=== PATIENT | female | born 1955 | race Caucasian/White ===

== ENCOUNTER 2016-03-19 13:04 | Inpatient (IN) | payer OTHER ==
[~2016-03-19] VITALS: Ht 160 cm; Wt 106.0 kg
[~2016-03-19 13:04] MED LIST: AMLO2.5T78 PO; ASPI81TA3 PO; ATEN50TA PO; ATOR20TA38 PO; LEVO50TA74 PO; NOVO7030 SC; OMEP20CA16 PO
--- NOTE | 2016-03-19 14:12 | ERA ---
ER Documentation Chief Complaint Date/Time DATE: 03/19/16 TIME: 13:40 Chief Complaint SOB AND LEG SWELLING FOR A FEW MONTHS. WITH RECENT ESRD. HPI 60-year-old female diabetic, hypertensive, dyslipidemic, hypothyroid now with worsening renal failure and CKD stage V referred to the ED by Dr.B. Lopes for initiation of hemodialysis. Worsening lower extremity swelling but no calf pain or redness. Mild, exertional dyspnea and weakness but is otherwise asymptomatic. Denies chest pain or palpitations. No abdominal pain, nausea, vomiting, diarrhea or constipation. No URI symptoms or cough. No fevers or chills. ROS All systems reviewed and are negative except as per history of present illness. Medications Home Meds Reported Medications Clonidine Hcl* (Clonidine Hcl*) 0.1 Mg Tab, 0.1 MG PO BID, TAB 03/19/16 Folic Acid* (Folic Acid*) 1 Mg Tablet, 1 MG PO DAILY, TAB 03/19/16 Hydrochlorothiazide (Hydrochlorothiazide) 25 Mg Tablet, 25 MG PO DAILY, #30 TAB 03/19/16 Furosemide* (Furosemide*) 20 Mg Tablet, 20 MG PO DAILY, #60 TAB 03/19/16 Ferrous Gluconate (Ferrous Gluconate) 324 Mg Tablet, 324 MG PO BID, TAB 03/19/16 Levothyroxine Sodium* (Levothyroxine Sodium*) 50 Mcg Tablet, 75 MCG PO BEFORE BREAKFAST, #30 TAB 12/21/15 Insulin Isophan/Regular (Humulin 70/30) 100 Units/Ml Susp, 6 UNIT SC TID, EA 12/21/15 Amlodipine Besylate* (Amlodipine Besylate*) 2.5 Mg Tablet, 5 MG PO BID, #30 TAB 12/21/15 Omeprazole* (Omeprazole*) 20 Mg Capsule.dr, 20 MG PO DAILY, #30 CAP 12/21/15 Atenolol* (Atenolol*) 50 Mg Tablet, 50 MG PO DAILY, #30 TAB 12/21/15 Aspirin* (Aspirin* Chew) 81 Mg Tab.chew, 81 MG PO DAILY, TAB.CHEW 12/21/15 Atorvastatin Calcium* (Atorvastatin Calcium*) 20 Mg Tablet, 20 MG PO QHS, #30 TAB 12/21/15 Allergies Allergies: Coded Allergies: No Known Allergy (Verified , 12/21/15) PMhx/Soc Reviewed in chart. As per HPI History of Surgery: No Anesthesia Reaction: No Hx Neurological Disorder: Yes (TIA) Hx Respiratory Disorders: No Hx Cardiac Disorders: Yes (HTN) Hx Psychiatric Problems: No Hx Miscellaneous Medical Probl: Yes (DM, KIDNEY FAILURE) Hx Alcohol Use: No Hx Substance Use: No Hx Tobacco Use: No FmHx No stroke or cancer Physical Exam Vitals Vital Signs Date Time Temp Pulse Resp B/P Pulse Ox O2 Delivery O2 Flow Rate FiO2 03/19/16 13:07 98.5 60 20 146/69 99 Physical Exam Const: Alert, no acute distress. Head: Atraumatic Eyes: Normal Conjunctiva ENT: Normal External Ears, Nose and Mouth. Neck: Full range of motion. No JVD. Resp: Diminished at the bases but otherwise clear to auscultation. Cardio: Regular rate and rhythm, no murmurs Abd: Soft, non tender, non distended. Normal bowel sounds. Obese. Skin: No petechiae or rashes Back: No midline or flank tenderness Ext: 2+ bilateral lower extremity pitting edema. No calf tenderness. Neur: Awake and alert. Cranial nerves II through XII are grossly intact. No focal deficit observed. Psych: Normal Mood and Affect Result Diagram: 03/19/16 1403 03/19/16 1403 Results 24 hrs Laboratory Tests Test 03/19/16 14:03 Activated Partial Thromboplast Time 36.8Sec Alanine Aminotransferase (ALT/SGPT) 20IU/L Albumin 3.4g/dl Albumin/Globulin Ratio 0.82 Alkaline Phosphatase 111IU/L Anion Gap 21 Aspartate Amino Transf (AST/SGOT) 16IU/L Basophils # 0.010^3/ul Basophils % 0.5% Blood Morphology Comment Blood Urea Nitrogen 55mg/dl Calcium Level 5.9mg/dl Carbon Dioxide Level 14mmol/L Chloride Level 112mmol/L Creatinine 6.83mg/dl Direct Bilirubin 0.00mg/dl Eosinophils # 0.110^3/ul Eosinophils % 1.0% Globulin 4.10g/dl Glucose Level 106mg/dl Hematocrit 29.0% Hemoglobin 9.7g/dl INR International Normalized Ratio 1.01 Indirect Bilirubin 0.0mg/dl Lymphocytes # 1.110^3/ul Lymphocytes % 16.1% Mean Corpuscular Hemoglobin 28.2pg Mean Corpuscular Hemoglobin Concent 33.6g/dl Mean Corpuscular Volume 83.9fl Mean Platelet Volume 6.9fl Monocytes # 0.410^3/ul Monocytes % 6.2% Neutrophils # 5.310^3/ul Neutrophils % 76.2% Nucleated Red Blood Cells # 0.110^3/ul Nucleated Red Blood Cells % 2.0/100WBC Platelet Count 58616^3/UL Potassium Level 4.8mmol/L Prothrombin Time 13.3Sec Prothrombin Time Ratio 1.0 Red Blood Count 3.4610^6/ul Red Cell Distribution Width 15.9% Sodium Level 142mmol/L Total Bilirubin 0.0mg/dl Total Protein 7.5g/dl White Blood Count 7.010^3/ul Patient: LUNA VIVEROS : 1955 Age: 60 Sex: F MR #: [id number] DOS: 03/19/16 1338 Ordering MD: NOEMI WILKINS MD Location: E/R Room/Bed: PROCEDURE: XR Chest 1 View. CLINICAL INDICATION: Shortness of breath TECHNIQUE: AP view of the chest were obtained. COMPARISON: None. FINDINGS: The cardiomediastinal silhouette is within normal limits. The lungs are hyperexpanded. No consolidations are identified. No pneumothorax is seen. Osseous structures are intact. IMPRESSION: Hyperexpanded, clear lungs. RPTAT: AA .Vaughn Barcenas MD, MD Date Time Electronically viewed and signed by .Vaughn Barcenas MD, MD on 03/19/2016 14:12 .P/ EKG: Time: 14: 46. Sinus bradycardia. Ventricular rate 57. Left axis deviation. Low voltage QRS. Septal Q waves in V1 through V3 but no acute ST segment elevation or depression. No ectopy. EP interpretation: Abnormal ECG. Procedures/MDM DOCUMENTS REVIEWED: ED nurse, prior ED, prior records MEDICAL DECISION MAKIN-year-old female diabetic, hypertensive, dyslipidemic, hypothyroid now with worsening renal failure and CKD stage V referred to the ED by Dr.B. Lopes for initiation of hemodialysis. High BUN/ creatinine with acidosis and uremia. No hyperkalemia or volume overload. Hypocalcemia. Patient will be admitted to [facility] for initiation of dialysis. Counseled patient regarding diagnosis, diagnostic results and plan for admission. CALLS/CONSULTS: Time 14:45, Dr. Bautista Lopes, Recommends Admission to Med/Surg. PATIENT CARE TRANSITIONED: Time: 14:50, Dr. Lopes. Departure Diagnosis: Primary Impression: Acute renal failure Qualified Code: N17.9 - Acute renal failure, unspecified acute renal failure type Additional Impressions: Diabetes mellitus type 2 in nonobese Hypertension Qualified Code: I10 - Essential hypertension Dyslipidemia Hyperthyroidism Hypocalcemia Condition: Serious NOEMI WILKINS MD Mar 19, 2016 14:12 Primary Impression: Acute renal failure Qualified Code: N17.9 - Acute renal failure, unspecified acute renal failure type Additional Impressions: Diabetes mellitus type 2 in nonobese Hypertension Qualified Code: I10 - Essential hypertension Dyslipidemia Hyperthyroidism Hypocalcemia Condition: Serious NOEMI WILKINS MD Mar 19, 2016 14:12
--- NOTE | 2016-03-19 14:13 | RADRPT ---
PROCEDURE: XR Chest 1 View. CLINICAL INDICATION: Shortness of breath TECHNIQUE: AP view of the chest were obtained. COMPARISON: None. FINDINGS: The cardiomediastinal silhouette is within normal limits. The lungs are hyperexpanded. No consolidat ions are identified. No pneumothorax is seen. Osseous structures are intact. IMPRESSION: Hyperexpanded, clear lungs. RPTAT: AA .Vaughn Barcenas MD, Date Time Electronically viewed and signed by .Vaughn Barcenas MD, MD on 03/19/2016 14:12 .P/
[2016-03-19 14:26] LABS: ALBUMIN 3.4 g/dl (3.3-4.9); INR 1.01; PROTIME 13.3 Sec (12.2-14.2)
[2016-03-19 14:27] LABS: PARTIAL THROMBOPLASTIN TIME 36.8 Sec (25.0-35.0); POTASSIUM 4.8 mmol/L (3.5-5.1)
[2016-03-19 14:28] LABS: BASOPHILS % 0.5 % (0.0-2.0); EOSINOPHILS # 0.1 10^3/ul (0.0-0.5); HEMOGLOBIN 9.7 g/dl (12.0-16.0); LYMPHOCYTES # 1.1 10^3/ul (0.8-2.9); LYMPHOCYTES % 16.1 % (15.0-51.0); MEAN CORPUSCULAR HEMOGLOBIN 28.2 pg (29.0-33.0); MEAN CORPUSCULAR HGB CONC 33.6 g/dl (32.0-37.0); MEAN CORPUSCULAR VOLUME 83.9 fl (82.0-101.0); MEAN PLATELET VOLUME 6.9 fl (7.4-10.4); MONOCYTE # 0.4 10^3/ul (0.3-0.9); MONOCYTES % 6.2 % (0.0-11.0); NEUTROPHIL # 5.3 10^3/ul (1.6-7.5); NEUTROPHILS % 76.2 % (39.0-77.0); PLATELET COUNT 377 10^3/UL (140-440); RED BLOOD COUNT 3.46 10^6/ul (4.20-5.40); RED CELL DISTRIBUTION WIDTH 15.9 % (11.5-14.5)
[2016-03-19 14:29] LABS: CREATININE 6.83 mg/dl (0.44-1.00)
[2016-03-19 14:30] LABS: TOTAL PROTEIN 7.5 g/dl (6.1-8.1)
[2016-03-19 14:31] LABS: CONDITION 1; LH ANALYZER COMMENTS 1; NUCLEATED RED BLOOD CELLS # 0.1 10^3/ul (0.0-0.0)
[2016-03-19 14:45] LABS: ALBUMIN/GLOBULIN RATIO 0.82
[2016-03-19 14:46] LABS: CALCIUM 5.9 mg/dl (8.4-10.2)
[2016-03-19] MEDS ORDERED: ONDANSETRON 4 MG INJ IV PRN ×2 (15:00→15:30)
[2016-03-19] MEDS ORDERED: ACETAMINOPHEN 325 MG TAB PO PRN ×2 (15:00→15:30)
[2016-03-19] MEDS ORDERED: DOCUSATE SODIUM 100 MG CAP PO PRN (15:30)
[2016-03-19] MEDS ORDERED: NACL 0.9% 3 ML SYG IV SCH (15:30)
[2016-03-19] MEDS ORDERED: BISACODYL (EC) 5 MG TAB PO PRN (15:30)
--- NOTE | 2016-03-19 15:36 | QN ---
Documentation Comment [id number] CHRISTINA SHIRLEY MD Mar 19, 2016 15:36
[2016-03-19] MEDS ORDERED: GLUCOSE GEL 15 GRAM TUBE BUCCAL PRN (16:00)
[2016-03-19] MEDS ORDERED: DEXTROSE 50% 50 ML SYRINGE IV PRN ×2 (16:00)
[2016-03-19] MEDS ORDERED: GLUCAGON 1 MG INJ IM PRN (16:00)
[2016-03-19] MEDS ORDERED: GLUCOSE GEL 15 GRAM TUBE PO PRN ×2 (16:00)
[2016-03-19 16:18] VITALS: TEMP 98.2
[2016-03-19] MEDS ORDERED: FURO20TA3 PO (17:09)
[2016-03-19] MEDS ORDERED: FERR324T7 PO (17:09)
[2016-03-19] MEDS ORDERED: CLON-379 PO (17:09)
[2016-03-19] MEDS ORDERED: FOLI-49 PO (17:09)
[2016-03-19] MEDS ORDERED: HYDR25TA6 PO (17:09)
[2016-03-19 17:14] VITALS: Ht 160 cm; Wt 106.0 kg
[2016-03-19 17:38] VITALS: BP 146/71; PULSE 59; RESP 18
[2016-03-19] MEDS: INSULIN ASPART [NOVOLOG] 3 ML PEN SC SCH ×2 (18:05→20:46)
--- NOTE | 2016-03-19 18:25 | HP ---
DATE OF ADMISSION: 03/19/2016 HISTORY OF PRESENT ILLNESS: Ms. Albarran patient is a 60-year-old female seen in the ER and also seen in the office today with complaints of worsening edema and worsening renal parameters including BUN and creatinine. The patient has stage V CKD. She has metabolic acidosis, severe anemia and anasarca and weight gain. She is going to be admitted for further management. PAST MEDICAL HISTORY: CKD-5, hypertension, diabetes mellitus, history of hypothyroidism, tubal ligation and anemia. ALLERGY HISTORY: NEGATIVE. FAMILY HISTORY: Negative. SOCIAL HISTORY: Negative. MEDICATION HISTORY: At home patient is on: 1. Amlodipine. 2. Aspirin. 3. Atenolol. 4. Lipitor and insulin. 5. Levothyroxine. 6. Clonidine but she does not take it. 7. She is on Lasix. She does not take it. REVIEW OF SYSTEMS: HEENT: Unremarkable. CARDIOVASCULAR: Unremarkable. RESPIRATORY: No chest pain or pressure. ABDOMEN: Unremarkable. EXTREMITIES: Worsening edema of the lower extremities. CENTRAL NERVOUS SYSTEM: Weakness. PHYSICAL EXAMINATION: GENERAL: The patient is an obese, overweight female, awake, alert. VITAL SIGNS: Pulse 60, blood pressure 146/59. HEAD: Atraumatic, normocephalic. Pupils equal, reactive to light. NECK: Supple. No JVD. LUNGS: Clear. CARDIOVASCULAR: S1, S2 normal. ABDOMEN: Soft, obese, bowel sounds present, no palpable mass. EXTREMITIES: No cyanosis, clubbing. Edema positive. CENTRAL NERVOUS SYSTEM: The patient is awake, alert with no focal deficit. LABORATORY DATA: Hematocrit 29, sodium 142, potassium 4.8, BUN of 55, creatinine 6.83, potassium 5.9. IMPRESSION: 1. End-stage renal disease. 2. Hypertension. 3. Diabetes mellitus. 4. Anemia. 5. Metabolic acidosis. 6. Electrolyte imbalance. 7. Atherosclerosis. 8. The patient has obesity, dyslipidemia. 9. The patient also has severe anemia, hypocalcemia, hypophosphatemia, hyperparathyroidism. PLAN: 1. To continue diabetic renal diet. 2. Deep venous thrombosis prophylaxis. Continue home medication and diuretic. The patient was told about different options for dialysis including hemodialysis, peritoneal dialysis, chronic ambulatory peritoneal dialysis and continuous cycler-assisted peritoneal dialysis. The patient chose peritoneal dialysis for the time being. She understood the risks and benefit of both dialysis. The family was present. Dictated By: CHRISTINA SHIRLEY MD BS/NTS Conf#: [id number] DID#: [id number] MTDD
[2016-03-19] MEDS: FUROSEMIDE 40 MG INJ IV SCH ×2 (18:42→21:36)
--- NOTE | 2016-03-19 19:08 | RADRPT ---
Echocardiogram Report Patient Name: LUNA VIVEROS Gender: Female Date: 1955 Study Date: 19-Mar-2016 Engineering Inspector: Amaris Landeros RDCS Location: 3 Ref. Physician: CHRISTINA SHIRLEY Quality: Good Procedures: Transthoracic echocardiogram with complete 2D, M-Mode, and doppler examination. Indications: Shortness of breath. 2D/M Mode Doppler Measurement Value Normal Ranges Measurement Value Normal Ranges LVIDd 2D 4.8 3.5 - 5.6 cm AV Peak Jony 1.5 m/sec LVIDs 2D 2.6 2.1 - 4.1 cm AV Peak PG 9.0 mmHg FS 2D 45.9 % LVOT Peak Jony 1.2 m/sec LVPWd 2D 1.0 0.6 - 1.1 cm LVOT Peak PG 6.0 mmHg IVSd 2D 1.1 0.6 - 1.1 cm MV E Peak Jony 0.8 m/sec IVS/LVPW 2D 1.0 MV A Peak Jony 1.1 m/sec AoR Diam 2D 2.8 2.0 - 3.7 cm MV E/A 0.7 LA/Ao 2D 1 0 - 1 MV Decel Time 275 msec EDV 2D 107.0 cm3 MV E/A 0.7 ESV 2D 17.0 cm3 TR Peak Jony 2.4 m/sec LA Dimen 2D 4.1 2.3 - 4.0 cm TR Peak PG 23.0 mmHg RVSP 26.0 mmHg Findings Left Ventricle: Normal left ventricular systolic function. Normal left ventricular cavity size. Mild concentric left ventricular hypertrophy. Ejection fraction is visually estimated at 6065 %. Tissue Doppler/Mitral Doppler indices are consistent with impaired relaxation (Stage I diastolic dysfunction). Right Ventricle: Normal right ventricular size. Normal right ventricular systolic function. Left Atrium: There is mild enlargement of left atrium. Right Atrium: The right atrium is normal in size. Mitral Valve: Normal appearance of the mitral valve. Mild mitral annular calcification. Trace mitral regurgitation. Aortic Valve: Normal appearance of the aortic valve. No significant aortic stenosis or insufficiency. Tricuspid Valve: Normal appearance of the tricuspid valve. Estimated peak PA systolic pressure 26 mmHg. There is mild tricuspid regurgitation. Pericardium: Normal pericardium with no significant pericardial effusion. Aorta: Normal aortic root. IVC: Normal size and normal respiratory collapse consistent with normal right atrial pressure. Conclusions 1.Normal left ventricular systolic function. Normal left ventricular cavity size. Mild concentric left ventricular hypertrophy. Ejection fraction is visually estimated at 60-65 %. Tissue Doppler/Mitral Doppler indices are consistent with impaired relaxation (Stage I diastolic dysfunction). 2.There is mild enlargement of left atrium. 3.Trace mitral regurgitation. 4.Normal appearance of the tricuspid valve. Estimated peak PA systolic pressure 26 mmHg. 5.There is mild tricuspid regurgitation. Electronically Signed By: Chano Thorpe 19-Mar-2016 19:07:04 -0800 Patient Name: LUNA VIVEROS Study Date: 19-Mar-2016 [id number]
[2016-03-19 19:47] VITALS: BP 148/66; RESP 18
[2016-03-19] MEDS: CITRIC ACID/NA CITRATE 30 ML CUP PO SCH (20:43)
[2016-03-19] MEDS: ATORVASTATIN 20 MG TAB PO SCH (20:44)
[2016-03-19] MEDS: CALCIUM ACETATE 667 MG CAP PO SCH (20:44)
[2016-03-19] MEDS: AMLODIPINE 5 MG TAB PO SCH (20:45)
[2016-03-19] MEDS: HEPARIN 5,000 UNIT/0.5 ML SYG SC SCH (20:46)
[2016-03-19 21:35] VITALS: BP 152/69; PULSE 61
[2016-03-20] VITALS (12 sets, daily range): BP systolic 115–172; BP diastolic 59–81; PULSE 59–98; RESP 15–20
[2016-03-20] MEDS: PANTOPRAZOLE 40 MG INJ IV SCH (05:25)
[2016-03-20 05:46] LABS: ALBUMIN 2.6 g/dl (3.3-4.9); POTASSIUM 4.2 mmol/L (3.5-5.1)
[2016-03-20 05:48] LABS: CREATININE 6.72 mg/dl (0.44-1.00)
[2016-03-20 05:49] LABS: ALBUMIN/GLOBULIN RATIO 0.76
[2016-03-20 05:50] LABS: BASOPHILS % 0.6 % (0.0-2.0); EOSINOPHILS # 0.1 10^3/ul (0.0-0.5); EOSINOPHILS % 1.5 % (0.0-7.0); HEMATOCRIT 23.8 % (37.0-47.0); HEMOGLOBIN 8.1 g/dl (12.0-16.0); LYMPHOCYTES # 1.6 10^3/ul (0.8-2.9); MEAN CORPUSCULAR HEMOGLOBIN 28.8 pg (29.0-33.0); MEAN CORPUSCULAR HGB CONC 34.2 g/dl (32.0-37.0); MEAN CORPUSCULAR VOLUME 84.3 fl (82.0-101.0); MEAN PLATELET VOLUME 6.9 fl (7.4-10.4); MONOCYTE # 0.5 10^3/ul (0.3-0.9); MONOCYTES % 7.5 % (0.0-11.0); NEUTROPHIL # 4.5 10^3/ul (1.6-7.5); NEUTROPHILS % 66.4 % (39.0-77.0); PLATELET COUNT 328 10^3/UL (140-440); RED BLOOD COUNT 2.82 10^6/ul (4.20-5.40); RED CELL DISTRIBUTION WIDTH 15.5 % (11.5-14.5); UNCORRECTED WBC 6.8 10^3/ul (4.8-10.8); WHITE BLOOD COUNT 6.8 10^3/ul (4.8-10.8)
[2016-03-20 05:52] LABS: CONDITION 1; LH ANALYZER COMMENTS 1
[2016-03-20 06:48] LABS: CALCIUM 5.5 mg/dl (8.4-10.2)
[2016-03-20] MEDS: LEVOTHYROXINE 50 MCG TAB PO SCH (07:00)
[2016-03-20] MEDS: INSULIN ASPART [NOVOLOG] 3 ML PEN SC SCH ×4 (08:00→21:00)
[2016-03-20] MEDS: AMLODIPINE 5 MG TAB PO SCH ×2 (09:00→22:43)
[2016-03-20] MEDS ORDERED: INFLUENZA VIRUS VACCINE 0.5 ML SYG IM* ONE (09:00)
[2016-03-20] MEDS: ASPIRIN 81 MG TAB PO SCH (09:00)
[2016-03-20] MEDS: ATENOLOL 50 MG TAB PO SCH (09:00)
[2016-03-20] MEDS: HEPARIN 5,000 UNIT/0.5 ML SYG SC SCH ×2 (09:00→22:32)
[2016-03-20] MEDS: CITRIC ACID/NA CITRATE 30 ML CUP PO SCH ×2 (09:24→22:29)
[2016-03-20] MEDS: CALCIUM ACETATE 667 MG CAP PO SCH ×3 (09:25→22:29)
[2016-03-20] MEDS: FUROSEMIDE 40 MG INJ IV SCH ×3 (09:25→22:27)
[2016-03-20] MEDS ORDERED: LIDOCAINE 1% (MDV) 20 ML INJ ONE (11:05)
[2016-03-20] MEDS ORDERED: FENTAnyl 50 MCG/ML VIAL ONE (11:05)
[2016-03-20] MEDS ORDERED: SOD CHLORIDE 0.9% 500 ML ONE (11:05)
[2016-03-20] MEDS ORDERED: MIDAZOLAM 1 MG/ML 2 ML INJ ONE (11:05)
[2016-03-20] MEDS ORDERED: IOHEXOL 300MG/ML 30 ML BTL ONE (12:45)
--- NOTE | 2016-03-20 14:46 | RADRPT ---
PROCEDURE: Ultrasound guidance for placement of needle in peritoneal space. CLINICAL INDICATION: Peritoneal space access for placement of peritoneal dialysis catheter. TECHNIQUE: Prior to the procedure, informed consent was obtained. Risks including bleeding, infection, and pneu mothorax were explained to the patient. The patient understood and was willing to proceed. A procedu ral pause was performed. The patient's name, date of , and procedure to be performed were verif ied. The central line was inserted with all elements of maximal sterile barrier technique. All of e following were used: head covering, facial mask, sterile gown, sterile gloves, a large sterile she et, hand hygiene, and 2% chlorhexidine for cutaneous antisepsis. The right neck and anterior/super ior chest wall was prepped and draped in usual sterile fashion. Limited sonography of the left lower quadrant of the abdomen was then performed. Noted is the perito cezar space approximately 6 cm deep to the skin. Ultrasound images were recorded and stored in the [facility]'s medical record. Following the local injection of Xylocaine, the left lower quadrant peritoneal space was punctured u nder sonographic guidance with a 20-gauge needle through which a 0.018 inch floppy tip guidewire was advanced into the peritoneal space. The patient tolerated the procedure well. The remainder of e procedure was performed and dictated with fluoroscopic guidance under separate cover. COMPARISON: None. FINDINGS: The ultrasound images demonstrate the peritoneal space approximately 6 cm deep to the skin. The sub sequent images demonstrate the needle entering the left lower quadrant peritoneal space. IMPRESSION: 1. Ultrasound guidance for a needle placement in left lower quadrant peritoneal space. RPTAT: QQ .Christiano Fuentes MD, Date Time Electronically viewed and signed by .Christiano Fuentes MD, on 03/20/2016 14:46 .R/
--- NOTE | 2016-03-20 14:50 | RADRPT ---
PROCEDURE: ULTRASOUND AND FLUOROSCOPICALLY-GUIDED PERCUTANEOUS PLACEMENT OF PERITONEAL DIALYSIS CA THETER CLINICAL INDICATION: Chronic renal failure. Peritoneal dialysis catheter required. TECHNIQUE: Prior to the procedure, an informed consent was obtained. Risks including bleeding and infection wer e explained to the patient. The patient understood and was willing to proceed. A procedural pause wa s performed. The patient's name, date of , and procedure to be performed were verified. Prior t o the procedure, 1 gram of Ancef was administered intravenously for prophylaxis. In addition, chlorh exidine was applied to the anterior abdominal wall and anterior pelvic wall, prior to the procedure. Local anesthetic was used at the puncture site and at the site of the tunneling. In addition, the p atient received 100 mcg of fentanyl and 2 mg of Versed intravenously during the procedure. The anterior abdominal wall and anterior pelvic wall was prepped and draped in the usual sterile fas hion. Using ultrasound guidance, a 20-gauge needle was advanced into the peritoneal space in the lef t lower quadrant. Contrast was injected to verify position of the needle. An 0.018-inch floppy-tip g uidewire was advanced into the peritoneal space under fluoroscopic guidance. A 5-[place] sheath was a dvanced over the guidewire. The guidewire was removed and an 0.035-inch Amplatz guidewire was advanc ed through the sheath into the peritoneal cavity. Serial dilatation was then performed to 16-[place] Citizen and a 16-[place] peel-away sheath was advanced over the guidewire. The 16-[place] Citizen Adrián Curl-cath pe ritoneal dialysis catheter was advanced through the peel-away sheath into the peritoneal space. Cont rast was injected to verify position once again. The peel-away sheath was removed. Following this, t he catheter was tunneled subcutaneously to the left flank. The cuff of the catheter was positioned in the subcutaneous tissues and the anterior abdominal wall musculature at the insertion site. The s econd cuff was positioned in the subcutaneous tunnel approximately 2 cm from the exit site of the ca theter. The subcutaneous tissues were closed with interrupted 3-0 Vicryl. The skin wound was then cl osed using 4-0 Vicryl and a running subcuticular technique. The catheter was secured to the skin wit h 2-0 silk. The site was dressed. The patient tolerated the procedure well. Abundant saline was flus hed in and out of the catheter without problem. COMPARISON: None. FINDINGS: The final images demonstrate the peritoneal dialysis catheter within the pelvic peritoneal space. IMPRESSION: 1. SATISFACTORY PERCUTANEOUS INSERTION OF PERITONEAL DIALYSIS CATHETER WITH ULTRASOUND AND FLUOROSCO PIC GUIDANCE. RPTAT: QQ .Christiano Fuentes MD, Date Time Electronically viewed and signed by .Christiano Fuentes MD, on 03/20/2016 14:50 .R/
--- NOTE | 2016-03-20 16:20 | PN ---
Date/Time of Note Date/Time of Note DATE: 03/20/16 TIME: 16:18 Assessment/Plan VTE Prophylaxis VTE Prophylaxis Intervention: other Lines/Catheters IV Catheter Type (from [facility]): Saline Lock Urinary Cath still in place: No Assessment/Plan Chief Complaint/Hosp Course IMPRESSION: 1. End-stage renal disease. 2. Hypertension. 3. Diabetes mellitus. 4. Anemia. 5. Metabolic acidosis. 6. Electrolyte imbalance. 7. Atherosclerosis. 8. The patient has obesity, dyslipidemia. 9. The patient also has severe anemia, hypocalcemia, hypophosphatemia, hyperparathyroidism. plan bicitra lasix Problems: Subjective 24 Hr Interval Summary Subjective hx not possible: other (s/p pd cath feeling better) Exam/Review of Systems Vital Signs Vitals Vital Signs Date Time Temp Pulse Resp B/P Pulse Ox O2 Delivery O2 Flow Rate FiO2 03/20/16 13:30 Nasal Cannula 2 03/20/16 13:20 71 16 165/76 98 03/20/16 12:30 98.0 Intake and Output 03/19/16 03/19/16 03/20/16 15:00 23:00 07:00 Intake Total 480 ml Balance 480 ml Exam Neck: supple Respiratory: clear to auscultation Cardiovascular: regular rate and rhythm Gastrointestinal: soft Musculoskeletal: nl extremities to inspection Extremities: edema (++) Results Result Diagram: 03/20/1641903/20/16 0420 Results 24 hrs Laboratory Tests Test 03/19/16 17:45 03/19/16 20:42 03/20/16 01:32 03/20/16 04:20 Bedside Glucose 81 203 103 Alanine Aminotransferase (ALT/SGPT) 19 Albumin 2.6 L Albumin/Globulin Ratio 0.76 Alkaline Phosphatase 87 Anion Gap 17 H Aspartate Amino Transf (AST/SGOT) 13 L Basophils # 0.0 Basophils % 0.6 Blood Morphology Comment Blood Urea Nitrogen 54 H Calcium Level 5.5 *L Carbon Dioxide Level 14 L Chloride Level 115 H Creatinine 6.72 H Direct Bilirubin 0.00 Eosinophils # 0.1 Eosinophils % 1.5 Globulin 3.40 H Glucose Level 71 Hematocrit 23.8 L Hemoglobin 8.1 L Hemoglobin A1c 5.0 Indirect Bilirubin 0.0 Lymphocytes # 1.6 Lymphocytes % 24.0 Mean Corpuscular Hemoglobin 28.8 L Mean Corpuscular Hemoglobin Concent 34.2 Mean Corpuscular Volume 84.3 Mean Platelet Volume 6.9 L Monocytes # 0.5 Monocytes % 7.5 Neutrophils # 4.5 Neutrophils % 66.4 Nucleated Red Blood Cells # 0.0 Nucleated Red Blood Cells % 0.0 Platelet Count 328 Potassium Level 4.2 Red Blood Count 2.82 L Red Cell Distribution Width 15.5 H Sodium Level 142 Total Bilirubin 0.0 L Total Protein 6.0 #L White Blood Count 6.8 Test 03/20/16 09:38 03/20/16 14:06 Bedside Glucose 74 89 Medications Medications Current Medications Amlodipine Besylate (Norvasc) 5 mg BID PO Last administered on 03/19/16 20:45 ; Admin Dose 5 MG; Start 03/19/16 at 21:00 Aspirin (Aspirin) 81 mg DAILY PO ; Start 03/20/16 at 09:00 Atenolol (Tenormin) 50 mg DAILY PO ; Start 03/20/16 at 09:00 Atorvastatin Calcium (Lipitor) 20 mg QHS PO Last administered on 03/19/16 20: 44; Admin Dose 20 MG; Start 03/19/16 at 21:00 Ondansetron HCl (Zofran Inj) 4 mg Q6H PRN IV NAUSEA AND/OR VOMITING; Start at 15:30 Acetaminophen (Tylenol Tab) 650 mg Q6H PRN PO PAIN LEVEL 1-3 OR FEVER; Start at 15:30 Docusate Sodium (Colace) 100 mg Q12H PRN PO CONSTIPATION; Start 03/19/16 at 15: 30 Bisacodyl (Dulcolax) 5 mg DAILY PRN PO CONSTIPATION; Start 03/19/16 at 15:30 Pantoprazole (Protonix Iv) 40 mg DAILY@06 IV Last administered on 03/20/16 05: 25; Admin Dose 40 MG; Start 03/20/16 at 06:00 Heparin Sodium (Porcine) (Heparin (5000 Units/0.5 ml)) 5,000 unit Q12 SC Last administered on 03/19/16 20:46; Admin Dose 5,000 UNIT; Start 03/19/16 at 21:00 Miscellaneous Information 1 ea NOTE XX ; Start 03/19/16 at 16:00 Glucose (Glutose) 15 gm Q15M PRN PO DECREASED GLUCOSE; Start 03/19/16 at 16:00 Glucose (Glutose) 22.5 gm Q15M PRN PO DECREASED GLUCOSE; Start 03/19/16 at 16: 00 Dextrose (D50w Syringe) 25 ml Q15M PRN IV DECREASED GLUCOSE; Start 03/19/16 at 16:00 Dextrose (D50w Syringe) 50 ml Q15M PRN IV DECREASED GLUCOSE; Start 03/19/16 at 16:00 Glucagon (Glucagen) 1 mg Q15M PRN IM DECREASED GLUCOSE; Start 03/19/16 at 16:00 Glucose (Glutose) 15 gm Q15M PRN BUCCAL DECREASED GLUCOSE; Start 03/19/16 at 16 :00 Calcium Acetate (Phoslo) 1,334 mg TID PO Last administered on 03/20/16 14:00; Admin Dose 1,334 MG; Start 03/19/16 at 21:00 Furosemide (Lasix) 40 mg TID IV Last administered on 03/20/16 14:01; Admin Dose 40 MG; Start 03/19/16 at 16:00 Citric Acid/ Sodium Citrate (Bicitra) 30 ml BID PO Last administered on 09:24; Admin Dose 30 ML; Start 03/19/16 at 21:00 CHRISTINA SHIRLEY MD Mar 20, 2016 16:20
[2016-03-20 16:30] LABS: HAAIG REFLEX REFLEX FILED
[2016-03-20 21:56] LABS: HEPATITIS B CORE ANTIBODY NEGATIVE (NEGATIVE)
[2016-03-20] MEDS: ATORVASTATIN 20 MG TAB PO SCH (22:30)
[2016-03-21] MEDS: PANTOPRAZOLE 40 MG INJ IV SCH (06:01)
[2016-03-21] MEDS: LEVOTHYROXINE 50 MCG TAB PO SCH (06:01)
[2016-03-21 06:09] LABS: EOSINOPHILS # 0.1 10^3/ul (0.0-0.5); EOSINOPHILS % 1.2 % (0.0-7.0); HEMOGLOBIN 8.8 g/dl (12.0-16.0); LYMPHOCYTES # 1.4 10^3/ul (0.8-2.9); LYMPHOCYTES % 22.3 % (15.0-51.0); MEAN CORPUSCULAR HEMOGLOBIN 28.7 pg (29.0-33.0); MEAN CORPUSCULAR VOLUME 84.3 fl (82.0-101.0); MONOCYTE # 0.4 10^3/ul (0.3-0.9); NEUTROPHIL # 4.4 10^3/ul (1.6-7.5); NEUTROPHILS % 70.5 % (39.0-77.0); PLATELET COUNT 332 10^3/UL (140-440); RED BLOOD COUNT 3.08 10^6/ul (4.20-5.40); RED CELL DISTRIBUTION WIDTH 15.7 % (11.5-14.5); UNCORRECTED WBC 6.2 10^3/ul (4.8-10.8); WHITE BLOOD COUNT 6.2 10^3/ul (4.8-10.8)
[2016-03-21 06:24] LABS: CONDITION 1; LH ANALYZER COMMENTS 1
[2016-03-21 06:28] LABS: CREATININE 6.98 mg/dl (0.44-1.00)
[2016-03-21 07:04] LABS: CALCIUM 5.8 mg/dl (8.4-10.2)
[2016-03-21] MEDS: INSULIN ASPART [NOVOLOG] 3 ML PEN SC SCH ×4 (08:00→21:00)
[2016-03-21] MEDS: CITRIC ACID/NA CITRATE 30 ML CUP PO SCH ×2 (08:22→22:10)
[2016-03-21 08:23] VITALS: BP 167/76; RESP 18
[2016-03-21] MEDS: ASPIRIN 81 MG TAB PO SCH (08:23)
[2016-03-21] MEDS: AMLODIPINE 5 MG TAB PO SCH ×2 (08:23→22:10)
[2016-03-21] MEDS: FUROSEMIDE 40 MG INJ IV SCH ×3 (08:23→22:10)
[2016-03-21] MEDS: CALCIUM ACETATE 667 MG CAP PO SCH ×3 (08:23→22:10)
[2016-03-21] MEDS: ATENOLOL 50 MG TAB PO SCH (08:23)
[2016-03-21] MEDS: HEPARIN 5,000 UNIT/0.5 ML SYG SC SCH ×2 (08:24→22:11)
[2016-03-21 11:59] VITALS: BP 165/78; PULSE 75
--- NOTE | 2016-03-21 12:53 | PN ---
Date/Time of Note Date/Time of Note DATE: 03/21/16 TIME: 12:52 Assessment/Plan VTE Prophylaxis VTE Prophylaxis Intervention: other Lines/Catheters IV [facility]from [facility] Saline Lock Urinary Cath still in place: No Assessment/Plan Chief Complaint/Hosp Course IMPRESSION: 1. End-stage renal disease. 2. Hypertension. 3. Diabetes mellitus. 4. Anemia. 5. Metabolic acidosis. 6. Electrolyte imbalance. 7. Atherosclerosis. 8. The patient has obesity, dyslipidemia. 9. The patient also has severe anemia, hypocalcemia, hypophosphatemia, hyperparathyroidism. plan bicitra lasix prbc Problems: Subjective 24 Hr Interval Summary Cardiovascular: no complaints Gastrointestinal: no complaints Genitourinary: no complaints Exam/Review of Systems Vital Signs Vitals Vital Signs Date Time Temp Pulse Resp B/P Pulse Ox O2 Delivery O2 Flow Rate FiO2 03/21/16 11:59 75 03/21/16 08:23 98.8 18 167/76 100 03/20/16 20:00 Room Air 03/20/16 13:30 2 Intake and Output 03/20/16 03/20/16 03/21/16 15:00 23:00 07:00 Intake Total 150 ml 120 ml 480 ml Balance 150 ml 120 ml 480 ml Exam Respiratory: clear to auscultation Cardiovascular: regular rate and rhythm Gastrointestinal: soft Genitourinary - Female: nl adnexae Musculoskeletal: nl extremities to inspection Extremities: normal pulses Results Result Diagram: 03/21/16 0510 03/21/16 0510 Results 24 hrs Laboratory Tests Test 03/20/16 14:06 03/20/16 17:25 03/20/16 22:36 03/21/16 00:17 Bedside Glucose 89 78 73 121 Test 03/21/16 05:10 03/21/16 07:24 03/21/16 11:33 Anion Gap 16 Basophils # 0.0 Basophils % 0.0 Blood Morphology Comment Blood Urea Nitrogen 54 H Calcium Level 5.8 *L Carbon Dioxide Level 15 L Chloride Level 114 H Creatinine 6.98 H Eosinophils # 0.1 Eosinophils % 1.2 Glucose Level 72 Hematocrit 26.0 L Hemoglobin 8.8 L Lymphocytes # 1.4 Lymphocytes % 22.3 Mean Corpuscular Hemoglobin 28.7 L Mean Corpuscular Hemoglobin Concent 34.0 Mean Corpuscular Volume 84.3 Mean Platelet Volume 7.0 L Monocytes # 0.4 Monocytes % 6.0 Neutrophils # 4.4 Neutrophils % 70.5 Nucleated Red Blood Cells # 0.0 Nucleated Red Blood Cells % 0.0 Platelet Count 332 Potassium Level 4.0 Red Blood Count 3.08 L Red Cell Distribution Width 15.7 H Sodium Level 141 White Blood Count 6.2 Bedside Glucose 80 116 Medications Medications Current Medications Amlodipine Besylate (Norvasc) 5 mg BID PO Last administered on 03/21/16 08:23 ; Admin Dose 5 MG; Start 03/19/16 at 21:00 Aspirin (Aspirin) 81 mg DAILY PO Last administered on 03/21/16 08:23; Admin Dose 81 MG; Start 03/20/16 at 09:00 Atenolol (Tenormin) 50 mg DAILY PO Last administered on 03/21/16 08:23; Admin Dose 50 MG; Start 03/20/16 at 09:00 Atorvastatin Calcium (Lipitor) 20 mg QHS PO Last administered on 03/20/16 22: 30; Admin Dose 20 MG; Start 03/19/16 at 21:00 Ondansetron HCl (Zofran Inj) 4 mg Q6H PRN IV NAUSEA AND/OR VOMITING; Start at 15:30 Acetaminophen (Tylenol Tab) 650 mg Q6H PRN PO PAIN LEVEL 1-3 OR FEVER; Start at 15:30 Docusate Sodium (Colace) 100 mg Q12H PRN PO CONSTIPATION; Start 03/19/16 at 15: 30 Bisacodyl (Dulcolax) 5 mg DAILY PRN PO CONSTIPATION; Start 03/19/16 at 15:30 Pantoprazole (Protonix Iv) 40 mg DAILY@06 IV Last administered on 03/21/16 06: 01; Admin Dose 40 MG; Start 03/20/16 at 06:00 Heparin Sodium (Porcine) (Heparin (5000 Units/0.5 ml)) 5,000 unit Q12 SC Last administered on 03/21/16 08:24; Admin Dose 5,000 UNIT; Start 03/19/16 at 21:00 Miscellaneous Information 1 ea NOTE XX ; Start 03/19/16 at 16:00 Glucose (Glutose) 15 gm Q15M PRN PO DECREASED GLUCOSE; Start 03/19/16 at 16:00 Glucose (Glutose) 22.5 gm Q15M PRN PO DECREASED GLUCOSE; Start 03/19/16 at 16: 00 Dextrose (D50w Syringe) 25 ml Q15M PRN IV DECREASED GLUCOSE; Start 03/19/16 at 16:00 Dextrose (D50w Syringe) 50 ml Q15M PRN IV DECREASED GLUCOSE; Start 03/19/16 at 16:00 Glucagon (Glucagen) 1 mg Q15M PRN IM DECREASED GLUCOSE; Start 03/19/16 at 16:00 Glucose (Glutose) 15 gm Q15M PRN BUCCAL DECREASED GLUCOSE; Start 03/19/16 at 16 :00 Calcium Acetate (Phoslo) 1,334 mg TID PO Last administered on 03/21/16 08:23; Admin Dose 1,334 MG; Start 03/19/16 at 21:00 Furosemide (Lasix) 40 mg TID IV Last administered on 03/21/16 08:23; Admin Dose 40 MG; Start 03/19/16 at 16:00 Citric Acid/ Sodium Citrate (Bicitra) 30 ml BID PO Last administered on 08:22; Admin Dose 30 ML; Start 03/19/16 at 21:00 CHRISTINA SHIRLEY MD Mar 21, 2016 12:53
[2016-03-21 19:45] VITALS: BP 162/74; RESP 18
[2016-03-21 22:08] VITALS: BP 144/73; PULSE 62
[2016-03-21] MEDS: ATORVASTATIN 20 MG TAB PO SCH (22:10)
[2016-03-22] MEDS: LEVOTHYROXINE 50 MCG TAB PO SCH (06:20)
[2016-03-22] MEDS: PANTOPRAZOLE (EC) 40 MG TAB PO SCH (06:20)
[2016-03-22 07:48] VITALS: BP 174/64; RESP 18
[2016-03-22] MEDS: INSULIN ASPART [NOVOLOG] 3 ML PEN SC SCH ×4 (08:00→20:27)
[2016-03-22] MEDS: FUROSEMIDE 40 MG INJ IV SCH ×3 (09:17→20:26)
[2016-03-22] MEDS: CITRIC ACID/NA CITRATE 30 ML CUP PO SCH ×2 (09:17→20:26)
[2016-03-22] MEDS: CALCIUM ACETATE 667 MG CAP PO SCH ×3 (09:17→20:26)
[2016-03-22] MEDS: AMLODIPINE 5 MG TAB PO SCH ×2 (09:18→20:27)
[2016-03-22] MEDS: HEPARIN 5,000 UNIT/0.5 ML SYG SC SCH ×2 (09:18→20:29)
[2016-03-22] MEDS: ATENOLOL 50 MG TAB PO SCH (09:18)
[2016-03-22] MEDS: ASPIRIN 81 MG TAB PO SCH (09:18)
[2016-03-22 13:00] VITALS: BP 174/64; PULSE 65
--- NOTE | 2016-03-22 14:14 | PN ---
Date/Time of Note Date/Time of Note DATE: 03/22/16 TIME: 14:12 Assessment/Plan VTE Prophylaxis VTE Prophylaxis Intervention: other Lines/Catheters IV [facility]from [facility] Saline Lock Urinary Cath still in place: No Assessment/Plan Chief Complaint/Hosp Course IMPRESSION: 1. End-stage renal disease. 2. Hypertension. 3. Diabetes mellitus. 4. Anemia. 5. Metabolic acidosis. 6. Electrolyte imbalance. 7. Atherosclerosis. 8. The patient has obesity, dyslipidemia. 9. The patient also has severe anemia, hypocalcemia, hypophosphatemia, hyperparathyroidism. plan bicitra lasix labs pd training Problems: Subjective 24 Hr Interval Summary Subjective hx not possible: other (waiting for out pt dialysiis) Cardiovascular: no complaints Gastrointestinal: no complaints Genitourinary: no complaints Exam/Review of Systems Vital Signs Vitals Vital Signs Date Time Temp Pulse Resp B/P Pulse Ox O2 Delivery O2 Flow Rate FiO2 03/22/16 07:48 98.8 65 18 174/64 96 03/20/16 20:00 Room Air 03/20/16 13:30 2 Intake and Output 03/21/16 03/21/16 03/22/16 15:00 23:00 07:00 Intake Total 860 ml 680 ml Balance 860 ml 680 ml Exam Respiratory: clear to auscultation Cardiovascular: regular rate and rhythm Gastrointestinal: soft Musculoskeletal: nl extremities to inspection Results Result Diagram: 03/21/16 0510 03/21/16 0510 Results 24 hrs Laboratory Tests Test 03/21/16 16:44 03/21/16 20:00 03/22/16 08:14 03/22/16 12:19 Bedside Glucose 118 145 92 104 Medications Medications Current Medications Amlodipine Besylate (Norvasc) 5 mg BID PO Last administered on 03/22/16 09:18 ; Admin Dose 5 MG; Start 03/19/16 at 21:00 Aspirin (Aspirin) 81 mg DAILY PO Last administered on 03/22/16 09:18; Admin Dose 81 MG; Start 03/20/16 at 09:00 Atenolol (Tenormin) 50 mg DAILY PO Last administered on 03/22/16 09:18; Admin Dose 50 MG; Start 03/20/16 at 09:00 Atorvastatin Calcium (Lipitor) 20 mg QHS PO Last administered on 03/21/16 22: 10; Admin Dose 20 MG; Start 03/19/16 at 21:00 Ondansetron HCl (Zofran Inj) 4 mg Q6H PRN IV NAUSEA AND/OR VOMITING; Start at 15:30 Acetaminophen (Tylenol Tab) 650 mg Q6H PRN PO PAIN LEVEL 1-3 OR FEVER; Start at 15:30 Docusate Sodium (Colace) 100 mg Q12H PRN PO CONSTIPATION; Start 03/19/16 at 15: 30 Bisacodyl (Dulcolax) 5 mg DAILY PRN PO CONSTIPATION; Start 03/19/16 at 15:30 Heparin Sodium (Porcine) (Heparin (5000 Units/0.5 ml)) 5,000 unit Q12 SC Last administered on 03/22/16 09:18; Admin Dose 5,000 UNIT; Start 03/19/16 at 21:00 Miscellaneous Information 1 ea NOTE XX ; Start 03/19/16 at 16:00 Glucose (Glutose) 15 gm Q15M PRN PO DECREASED GLUCOSE; Start 03/19/16 at 16:00 Glucose (Glutose) 22.5 gm Q15M PRN PO DECREASED GLUCOSE; Start 03/19/16 at 16: 00 Dextrose (D50w Syringe) 25 ml Q15M PRN IV DECREASED GLUCOSE; Start 03/19/16 at 16:00 Dextrose (D50w Syringe) 50 ml Q15M PRN IV DECREASED GLUCOSE; Start 03/19/16 at 16:00 Glucagon (Glucagen) 1 mg Q15M PRN IM DECREASED GLUCOSE; Start 03/19/16 at 16:00 Glucose (Glutose) 15 gm Q15M PRN BUCCAL DECREASED GLUCOSE; Start 03/19/16 at 16 :00 Calcium Acetate (Phoslo) 1,334 mg TID PO Last administered on 03/22/16 12:20; Admin Dose 1,334 MG; Start 03/19/16 at 21:00 Furosemide (Lasix) 40 mg TID IV Last administered on 03/22/16 12:21; Admin Dose 40 MG; Start 03/19/16 at 16:00 Citric Acid/ Sodium Citrate (Bicitra) 30 ml BID PO Last administered on 09:17; Admin Dose 30 ML; Start 03/19/16 at 21:00 Pantoprazole (Protonix Tab) 40 mg DAILY@06 PO Last administered on 03/22/16t 06 :20; Admin Dose 40 MG; Start 03/22/16 at 06:00 CHRISTINA SHIRLEY MD Mar 22, 2016 14:13
[2016-03-22] MEDS: ATORVASTATIN 20 MG TAB PO SCH (20:26)
[2016-03-22 22:52] VITALS: BP 158/73; PULSE 59
[2016-03-23 06:11] LABS: ALBUMIN 2.8 g/dl (3.3-4.9)
[2016-03-23 06:12] LABS: POTASSIUM 3.9 mmol/L (3.5-5.1)
[2016-03-23 06:14] LABS: ALBUMIN/GLOBULIN RATIO 0.84; CREATININE 7.05 mg/dl (0.44-1.00); TOTAL PROTEIN 6.1 g/dl (6.1-8.1)
[2016-03-23 06:19] LABS: CALCIUM 5.9 mg/dl (8.4-10.2)
[2016-03-23] MEDS: LEVOTHYROXINE 50 MCG TAB PO SCH (06:21)
[2016-03-23] MEDS: PANTOPRAZOLE (EC) 40 MG TAB PO SCH (06:21)
[2016-03-23 07:57] VITALS: BP 149/72; RESP 18
[2016-03-23] MEDS: INSULIN ASPART [NOVOLOG] 3 ML PEN SC SCH ×2 (08:00→12:00)
[2016-03-23] MEDS: CITRIC ACID/NA CITRATE 30 ML CUP PO SCH (09:30)
[2016-03-23] MEDS: FUROSEMIDE 40 MG INJ IV SCH ×2 (09:31→12:23)
[2016-03-23] MEDS: AMLODIPINE 5 MG TAB PO SCH (09:31)
[2016-03-23] MEDS: ATENOLOL 50 MG TAB PO SCH (09:31)
[2016-03-23] MEDS: CALCIUM ACETATE 667 MG CAP PO SCH ×2 (09:31→12:24)
[2016-03-23] MEDS: ASPIRIN 81 MG TAB PO SCH (09:31)
[2016-03-23] MEDS: HEPARIN 5,000 UNIT/0.5 ML SYG SC SCH (09:32)
--- NOTE | 2016-03-23 09:46 | PDOCDIS ---
Discharge Instructions CONDITION Patient Condition: Stable HOME CARE INSTRUCTIONS: Special Diet: RENAL, CARB CONTROL ACTIVITY: Activity Restrictions: Slowly Increase Activity FOLLOW UP/APPOINTMENTS Appointments f/u pcp 1 wk rudy shirley 2 wks see [facility] pd clinic on saturday [phone] CHRISTINA SHIRLEY MD Mar 23, 2016 09:46
[2016-03-23] MEDS ORDERED: CALC667C PO (09:48)
[2016-03-23] MEDS ORDERED: CALC0.2511 PO (09:48)
[2016-03-23] MEDS ORDERED: BICS PO (09:48)
[2016-03-23] MEDS ORDERED: CALCITRIOL 0.25 MCG CAP PO SCH (10:00)
[2016-03-23 12:00] VITALS: BP 145/75; PULSE 78
[2016-03-23] MEDS ORDERED: FURO40SO PO (15:55)
--- NOTE | 2016-03-23 15:57 | QN ---
Documentation Comment [id number] CHRISTINA SHIRLEY MD Mar 23, 2016 15:57
--- NOTE | 2016-03-24 10:53 | DS ---
DATE OF ADMISSION: 03/19/2016 DATE OF DISCHARGE: 03/23/2016 The patient is a 60-year-old female with a history of ESRD, hypertension, diabetes mellitus, who presented with anasarca, high-grade proteinuria, electrolyte imbalance and metabolic acidosis. The patient also had severe anemia and received a blood transfusion. The patient's metabolic acidosis and hypocalcemia with a corrected calcium is stable, with a low albumin. The patient received Rocaltrol and PhosLo for hypocalcemia. The patient also had a PD catheter placement by Dr. Christiano Fuentes from radiology. The patient had flushes of the PD catheter by the dialysis nurses which was done, stable. The patient' s chest x-ray shows hyperexpanded clear lungs. The patient now is cleared to be discharged. The patient is connected to the [facility] for outpatient peritoneal dialysis training and PD. DISCHARGE DIAGNOSES: Includes: 1. Chronic kidney disease stage 5. 2. Anasarca. 3. Hypertension. 4. Diabetes mellitus. 5. Uremia. 6. Hypocalcemia. 7. Hypoalbuminemia. 8. Anemia, status post blood transfusion. 9. Hyperparathyroidism. 10. Metabolic acidosis. 11. The patient has obesity. 12. The patient also has an ejection fraction of 60% to 65%. Instructions were given. DISCHARGE MEDICATIONS: The patient is to continue on: 1. Nephro-Claudy. 2. Folic acid. 3. PhosLo. 4. vitamin 5. Continue Bicitra. 6. Amlodipine. 7. Aspirin. 8. Atenolol. 9. Lipitor. 10. Clonidine. 11. Ferrous sulfate. 12. Continue Lasix. The patient also will receive a prescription of Lasix 40 mg daily. 13. The patient to continue also hydrochlorothiazide. The patient to follow up as an outpatient in 2 weeks, follow up with his PCP in 1 week, and follow up at the dialysis center as well. Dictated By: CHRISTINA FERRIS/FLOYD Conf#: [id number] DID#: [id number] MTDD
== END 2016-03-23 13:10 | disposition home or self-care (01) | DRG 981 ==
LOC: E/R 13:04 → PP2 14:43
PROVIDERS: ADMIT Internal Medicine Nephrology; ATTEND Internal Medicine Nephrology
PROC: 0WHG33Z Insertion of Infusion Device into Peritoneal Cavity, Percutaneous Approach (ICD-10-PCS; principal; 2016-03-20)
PROC: 3E1M39Z Irrigation of Peritoneal Cavity using Dialysate, Percutaneous Approach (ICD-10-PCS; 2016-03-20)
DX: I12.0 Hypertensive chronic kidney disease with stage 5 chronic kidney disease or end stage renal disease (principal); N18.6 End stage renal disease; E87.2 Acidosis; Z68.41 Body mass index [BMI] 40.0-44.9, adult; E11.22 Type 2 diabetes mellitus with diabetic chronic kidney disease; E87.8 Other disorders of electrolyte and fluid balance, not elsewhere classified; E66.9 Obesity, unspecified; D64.9 Anemia, unspecified; E78.5 Hyperlipidemia, unspecified; E21.3 Hyperparathyroidism, unspecified; I70.90 Unspecified atherosclerosis; R60.1 Generalized edema; Z99.2 Dependence on renal dialysis; Z79.82 Long term (current) use of aspirin; Z79.4 Long term (current) use of insulin
CPT/HCPCS: 36415; 71010; 75982; 76942; 80048; 80053; 82962; 83036; 85025; 85610; 85730; 86704; 86709; 86803; 87340; 90686; 90945; 93005; 93306; C9113; J1815; J1940; J2250; J3010; J7040; Q9967

== ENCOUNTER 2016-07-14 17:46 | Inpatient (IN) | payer OTHER ==
[~2016-07-14] VITALS: Ht 162.6 cm; Wt 113.0 kg
[~2016-07-14 17:46] MED LIST changes: +BICS PO; +CALC0.2511 PO; +CALC667C PO; +CLON-379 PO; +FERR324T7 PO; +FOLI-49 PO; +FURO40SO PO; +HYDR25TA6 PO
--- NOTE | 2016-07-14 19:30 | RADRPT ---
PROCEDURE: CT Brain without contrast. CLINICAL INDICATION: Altered mental status TECHNIQUE: A CT of the brain was performed on a multidetector CT scanner utilizing axial sections from the skull base through the vertex without contrast. Images were reviewed on a high-resolution [employer] workstation. Exam CTDI = 44.03 mGy and the DLP = 720.23 mGy-cm. One or more of the following dose reduction techniques were used: Automated exposure control Adjustment of the mA and/or kV according to patient size. Use of iterative reconstruction technique. COMPARISON: None available FINDINGS: There is age appropriate mild generalized volume loss. There is no evidence of intracranial hemorrh age, mass effect or midline shift. There is a pituitary mass measuring 18 x 13 mm (craniocaudal x AP ) with minimal suprasellar extension. No abnormal intra-axial or extra-axial fluid collections are s een. The density of the brain is normal and the camacho/white matter differentiation is well preserved . The osseous structures are unremarkable. Paranasal sinuses are clear. Vascular calcifications are identified. IMPRESSION: 1. No intracranial hemorrhage, mass effect or midline shift. 2. Pituitary mass with minimal suprasellar extension. Recommend MRI sella with contrast for furthe r evaluation. 3. Mild intracranial atherosclerosis. RPTAT: HHO .Ade Sarabia MD, Date Time Electronically viewed and signed by .Ade Sarabia MD, MD on 07/14/2016 19:30 .O/
[2016-07-14 19:33] LABS: ADD SCAN DIFF NO
[2016-07-14 19:39] LABS: BASOPHILS % 0.4 % (0.0-2.0); EOSINOPHILS # 0.2 10^3/ul (0.0-0.5); EOSINOPHILS % 2.4 % (0.0-7.0); HEMATOCRIT 28.8 % (37.0-47.0); HEMOGLOBIN 9.2 g/dl (12.0-16.0); MEAN CORPUSCULAR HEMOGLOBIN 30.1 pg (29.0-33.0); MEAN CORPUSCULAR HGB CONC 31.9 g/dl (32.0-37.0); MEAN CORPUSCULAR VOLUME 94.1 fl (82.0-101.0); MEAN PLATELET VOLUME 10.6 fl (7.4-10.4); MONOCYTE # 0.5 10^3/ul (0.3-0.9); MONOCYTES % 6.9 % (0.0-11.0); NEUTROPHIL # 5.3 10^3/ul (1.6-7.5); NEUTROPHILS % 75.9 % (39.0-77.0); PLATELET COUNT 282 10^3/UL (140-415); RED BLOOD COUNT 3.06 10^6/ul (4.20-5.40); RED CELL DISTRIBUTION WIDTH 14.2 % (11.5-14.5)
--- NOTE | 2016-07-14 19:50 | RADRPT ---
PROCEDURE: XR Chest. CLINICAL INDICATION: Altered mental status. TECHNIQUE: Single frontal view of the chest. COMPARISON: 03/19/2016. FINDINGS: Cardiomegaly. The lungs are clear. No signs of pleural fluid or pneumothorax are seen. The osseous s tructures and soft tissues are unremarkable. IMPRESSION: No evidence for active cardiopulmonary disease. RPTAT: [facility] Physician Gallito Date Time Electronically viewed and signed by Girma Dickinson Physician on 07/14/2016 19:50 RS/
[2016-07-14 20:02] LABS: INR 0.97; PROTIME 12.9 Sec (12.2-14.2)
[2016-07-14 20:03] LABS: PARTIAL THROMBOPLASTIN TIME 34.9 Sec (25.0-35.0)
[2016-07-14 20:04] LABS: ALANINE AMINOTRANSFERASE 28 IU/L (13-69); ALBUMIN 3.4 g/dl (3.3-4.9); ALBUMIN/GLOBULIN RATIO 0.89; ALKALINE PHOSPHATASE 77 IU/L (42-121); ANION GAP 14 (8-16); ASPARTATE AMINO TRANSFERASE 17 IU/L (15-46); BLOOD UREA NITROGEN 75 mg/dl (7-20); CALCIUM 8.6 mg/dl (8.4-10.2); CARBON DIOXIDE 25 mmol/L (21-31); CHLORIDE 99 mmol/L (97-110); CREATININE 7.44 mg/dl (0.44-1.00); GLUCOSE 176 mg/dl (70-220); SODIUM 133 mmol/L (135-144); TOTAL PROTEIN 7.2 g/dl (6.1-8.1)
--- NOTE | 2016-07-14 20:11 | ERA ---
ER Documentation Chief Complaint Date/Time DATE: 07/14/16 TIME: 20:07 Chief Complaint LEFT SIDED WEAKNESS - DIALYSIS PT HPI 60-year-old female history of end-stage renal disease on peritoneal dialysis who presents the emergency room with 3 days of left-sided weakness. She describes slight left facial droop and left-sided upper extremity and lower extreme any weakness with difficulty walking. Symptoms have been persistent for approximately 3 days. She denies any chest pain or shortness of breath with does note left lower extremity swelling, no pleuritic pain. ROS All systems reviewed and are negative except as per history of present illness. Medications Home Meds Active Scripts Furosemide* (Furosemide*) 40 Mg/5 Ml Solution, 40 MG PO DAILY, #150 ML Prov:ABHINAV SHIRLEY MD 03/23/16 Citric Acid/Sodium Citrate* (Bicitra* (PEDIATRIC)) 1 Meq/Ml Soln, 30 ML PO BID for 28 Days, #60 Prov:ABHINAV SHIRLEY MD 03/23/16 Calcium Acetate* (Calcium Acetate*) 667 Mg Capsule, 1334 MG PO TID for 30 Days, #60 CAP Prov:ABHINAV SHIRLEY MD 03/23/16 Calcitriol* (Calcitriol*) 0.25 Mcg Capsule, 0.25 MCG PO DAILY for 28 Days, CAP Prov:ABHINAV SHIRLEY MD 03/23/16 Reported Medications Clonidine Hcl* (Clonidine Hcl*) 0.1 Mg Tab, 0.1 MG PO BID, TAB 03/19/16 Folic Acid* (Folic Acid*) 1 Mg Tablet, 1 MG PO DAILY, TAB 03/19/16 Hydrochlorothiazide (Hydrochlorothiazide) 25 Mg Tablet, 25 MG PO DAILY, #30 TAB 03/19/16 Ferrous Gluconate (Ferrous Gluconate) 324 Mg Tablet, 324 MG PO BID, TAB 03/19/16 Levothyroxine Sodium* (Levothyroxine Sodium*) 50 Mcg Tablet, 75 MCG PO BEFORE BREAKFAST, #30 TAB 12/21/15 Insulin Isophan/Regular (Humulin 70/30) 100 Units/Ml Susp, 6 UNIT SC TID, EA 12/21/15 Amlodipine Besylate* (Amlodipine Besylate*) 2.5 Mg Tablet, 5 MG PO BID, #30 TAB 12/21/15 Omeprazole* (Omeprazole*) 20 Mg Capsule.dr, 20 MG PO DAILY, #30 CAP 12/21/15 Atenolol* (Atenolol*) 50 Mg Tablet, 50 MG PO DAILY, #30 TAB 12/21/15 Aspirin* (Aspirin* Chew) 81 Mg Tab.chew, 81 MG PO DAILY, TAB.CHEW 12/21/15 Atorvastatin Calcium* (Atorvastatin Calcium*) 20 Mg Tablet, 20 MG PO QHS, #30 TAB 12/21/15 Allergies Allergies: Coded Allergies: No Known Allergy (Verified , 12/21/15) PMhx/Soc Anesthesia Reaction: No Hx Neurological Disorder: No Hx Respiratory Disorders: No Hx Cardiac Disorders: Yes (HTN, High Cholesterol, [place] Palsy) Hx Psychiatric Problems: No Hx Miscellaneous Medical Probl: No Hx Alcohol Use: No Hx Substance Use: No Hx Tobacco Use: No Smoking Status: Never smoker FmHx Family History: No diabetes Physical Exam Vitals Vital Signs Date Time Temp Pulse Resp B/P Pulse Ox O2 Delivery O2 Flow Rate FiO2 07/14/16 20:06 61 19 183/74 100 Room Air 07/14/16 17:48 69 19 197/83 96 Physical Exam General: Well developed, well nourished, no acute distress Head: Normocephalic, atraumatic. Eyes: Pupils equally reactive, EOM intact ENT: Moist mucous membranes Neck: Supple, no lymphadenopathy Respiratory: Lungs clear bilaterally, no distress Cardiovascular: RRR, no murmurs, rubs, or gallops Abdominal: Soft, non-tender, non-distended, no peritoneal signs : Deferred MSK: 5/5 strength, left lower extremity swelling, slightly unilateral the bilateral lower extremity swelling is noted Neurologic: Alert and oriented, moving all extremities, the patient appears to have a slight pronator drift to the left upper extremity, slight facial droop to the left side of the face, slightly decreased weakness to left lower extremity Skin: No rash Psych: Normal mood Result Diagram: 07/14/16189907/14/161899 Results 24 hrs Laboratory Tests Test 07/14/16 19:00 07/14/16 19:29 White Blood Count 7.010^3/ul Red Blood Count 3.0610^6/ul Hemoglobin 9.2g/dl Hematocrit 28.8% Mean Corpuscular Volume 94.1fl Mean Corpuscular Hemoglobin 30.1pg Mean Corpuscular Hemoglobin Concent 31.9g/dl Red Cell Distribution Width 14.2% Platelet Count 19717^3/UL Mean Platelet Volume 10.6fl Neutrophils % 75.9% Lymphocytes % 14.0% Monocytes % 6.9% Eosinophils % 2.4% Basophils % 0.4% Nucleated Red Blood Cells % 0.0/100WBC Neutrophils # 5.310^3/ul Lymphocytes # 1.010^3/ul Monocytes # 0.510^3/ul Eosinophils # 0.210^3/ul Basophils # 0.010^3/ul Nucleated Red Blood Cells # 0.010^3/ul Prothrombin Time 12.9Sec Prothrombin Time Ratio 1.0 INR International Normalized Ratio 0.97 Activated Partial Thromboplast Time 34.9Sec Sodium Level 133mmol/L Potassium Level 5.0mmol/L Chloride Level 99mmol/L Carbon Dioxide Level 25mmol/L Anion Gap 14 Blood Urea Nitrogen 75mg/dl Creatinine 7.44mg/dl Glucose Level 176mg/dl Calcium Level 8.6mg/dl Total Bilirubin 0.0mg/dl Direct Bilirubin 0.00mg/dl Indirect Bilirubin 0.0mg/dl Aspartate Amino Transf (AST/SGOT) 17IU/L Alanine Aminotransferase (ALT/SGPT) 28IU/L Alkaline Phosphatase 77IU/L Troponin I < 0.012ng/ml Total Protein 7.2g/dl Albumin 3.4g/dl Globulin 3.80g/dl Albumin/Globulin Ratio 0.89 Free Thyroxine Index 2.29ug/ml Thyroxine (T4) 5.8ug/dl Triiodothyronine (T3) Uptake 39.5% Ethyl Alcohol Level < 10.0mg/dl Bedside Glucose 173mg/dL Current Medications Medications (Trade) Dose Ordered Sig/Albin Route PRN Reason Start Time Stop Time Status Last Admin Dose Admin Aspirin (Aspirin) 324 mg ONCE ONCE PO 07/14/16 20:30 07/14/16 20:31 DC 07/14/16 20:16 Ondansetron HCl (Zofran Inj) 4 mg ER BRIDGE PRN IV NAUSEA AND/OR VOMITING 07/14/16 21:00 07/15/16 20:59 Acetaminophen (Tylenol Tab) 650 mg ER BRIDGE PRN PO MILD PAIN/FEVER 07/14/16 21:00 07/15/16 20:59 Procedures/MDM EKG, MONITORS, & DIAGNOSTIC IMAGING: EKG: I reviewed and interpreted a 12-lead EKG. Rhythm: Normal sinus rhythm Ectopy: None Intervals: No abnormalities ST segments: No elevations or depressions T waves: No contiguous inversions Chest x-ray: I reviewed and interpreted a 1 view of the chest Mediastinum: No enlargement Cardiac silhouette: No cardiomegaly Airspace: Clear lung donato bilaterally without evidence of pneumothorax Bones: No evidence of fracture CT brain: IMPRESSION: 1. No intracranial hemorrhage, mass effect or midline shift. 2. Pituitary mass with minimal suprasellar extension. Recommend MRI sella with contrast for further evaluation. 3. Mild intracranial atherosclerosis. RPTAT: HHO DUPLEX IMPRESSION: 1. No evidence of deep vein thrombosis involving the left lower extremity. RPTAT: QQ LAB INTERPRETATION: No leukocytosis, anemia, chronic renal insufficiency, no hyperkalemia MEDICAL DECISION MAKING: The patient presents with signs and symptoms concerning for subacute stroke. The patient has what appears to be left-sided deficit including facial droop, pronator drift of left upper extremity. The patient has 3 days of symptoms. The patient does not meet criteria for TPA as the risks outweigh the benefits. The patient is also not a candidate for interventional procedure given 3 days of symptoms. Supportive care will be most appropriate. The patient will benefit from CT, laboratory testing and inpatient hospitalization. ER COURSE: Aspirin given after negative CT brain. The patient has permissive hypertension in the emergency room. No further progression of disease. Aspirin provided. I kept the patient and/or family informed of laboratory and diagnostic imaging results throughout the emergency room course. DISPOSITION PLAN: Telemetry admission for management of subacute stroke, MRI imaging and risk stratification. CONSULTATION: Accepting care team and consultations: I discussed the current laboratory data, diagnostic imaging and emergency care provided. Admitting team: Dr. Abhinav Shirley Admitting team indication: Insurance directed, [facility] took greater than 1 hour to call back therefore I have admitted to Dr. Abhinav Shirley who cares for this patient. Departure Diagnosis: Primary Impression: Stroke Qualified Code: I63.9 - Cerebrovascular accident (CVA), unspecified mechanism Additional Impression: End-stage renal disease on peritoneal dialysis Condition: Stable PUSHPA MARINO MD July 14, 2016 20:11
[2016-07-14 20:20] LABS: TROPONIN-I < 0.012 ng/ml (0.00-0.12)
--- NOTE | 2016-07-14 20:20 | RADRPT ---
PROCEDURE: US left lower extremity veins. CLINICAL INDICATION: Left leg pain and swelling. TECHNIQUE: Multiple longitudinal and transverse images of the left lower extremity veins were obta ined with camacho scale and color Doppler imaging. The common femoral vein, femoral vein, and popliteal vein were evaluated. 2D grayscale measurements with compression sonography, pulsed Doppler, color D oppler, and pulsed Doppler with augmentation. COMPARISON: No prior studies are available for comparison. FINDINGS: The left common femoral, femoral and popliteal veins are normally compressible throughout. Color fl ow demonstrates normal filling of the vessels. Normal waveforms are visualized and there is normal response to augmentation. IMPRESSION: 1. No evidence of deep vein thrombosis involving the left lower extremity. RPTAT: QQ .Christiano Fuentes MD, MD Date Time Electronically viewed and signed by .Christiano Fuentes MD, on 07/14/2016 20:19 .R/
[2016-07-14 20:21] LABS: T3 UPTAKE 39.5 % (23.5-40.5)
[2016-07-14] MEDS ORDERED: ASPIRIN 81 MG TAB PO ONE (20:30)
[2016-07-14 20:37] LABS: ETHANOL < 10.0 mg/dl
[2016-07-14] MEDS ORDERED: ACETAMINOPHEN 325 MG TAB PO PRN (21:00)
[2016-07-14] MEDS ORDERED: ONDANSETRON 4 MG INJ IV PRN (21:00)
[2016-07-14 22:44] VITALS: PULSE 57
[2016-07-14 22:57] VITALS: Ht 162.6 cm; Wt 113.0 kg
[2016-07-14 23:08] VITALS: BP 167/83; PULSE 56; RESP 20
[2016-07-15] VITALS (15 sets, daily range): BP systolic 133–187; BP diastolic 62–81; PULSE 58–66; RESP 16–60
[2016-07-15] MEDS ORDERED: hydrALAzine 20 MG INJ IV PRN (00:30)
[2016-07-15] MEDS ORDERED: ACETAMINOPHEN 325 MG TAB PO PRN (00:30)
[2016-07-15] MEDS: ACCU-CHEK XX SCH (02:04)
[2016-07-15] MEDS: PANTOPRAZOLE (EC) 40 MG TAB PO SCH (05:44)
[2016-07-15] MEDS ORDERED: LEVOTHYROXINE 50 MCG TAB PO SCH (07:00)
[2016-07-15 07:33] LABS: ADD SCAN DIFF NO
[2016-07-15 07:35] LABS: BASOPHILS % 0.4 % (0.0-2.0); EOSINOPHILS # 0.1 10^3/ul (0.0-0.5); EOSINOPHILS % 1.7 % (0.0-7.0); HEMATOCRIT 26.4 % (37.0-47.0); HEMOGLOBIN 8.8 g/dl (12.0-16.0); LYMPHOCYTES # 1.1 10^3/ul (0.8-2.9); LYMPHOCYTES % 15.1 % (15.0-51.0); MEAN CORPUSCULAR HEMOGLOBIN 30.8 pg (29.0-33.0); MEAN CORPUSCULAR HGB CONC 33.3 g/dl (32.0-37.0); MEAN CORPUSCULAR VOLUME 92.3 fl (82.0-101.0); MEAN PLATELET VOLUME 10.7 fl (7.4-10.4); MONOCYTE # 0.4 10^3/ul (0.3-0.9); MONOCYTES % 6.3 % (0.0-11.0); NEUTROPHIL # 5.3 10^3/ul (1.6-7.5); NEUTROPHILS % 76.1 % (39.0-77.0); PLATELET COUNT 267 10^3/UL (140-415); RED BLOOD COUNT 2.86 10^6/ul (4.20-5.40)
[2016-07-15] MEDS: INSULIN ASPART [NOVOLOG] 3 ML PEN SC SCH ×4 (08:00→21:01)
[2016-07-15 08:02] LABS: POTASSIUM 4.8 mmol/L (3.5-5.1)
[2016-07-15 08:04] LABS: ALBUMIN/GLOBULIN RATIO 0.81; CREATININE 8.09 mg/dl (0.44-1.00); TOTAL PROTEIN 6.7 g/dl (6.1-8.1)
[2016-07-15 08:05] LABS: CALCIUM 8.2 mg/dl (8.4-10.2); CHOL/HDL RATIO 4.6 RATIO
[2016-07-15] MEDS: AMLODIPINE 5 MG TAB PO SCH ×2 (08:36→20:56)
[2016-07-15] MEDS: FOLIC ACID 1 MG TAB PO SCH (08:36)
[2016-07-15] MEDS: ATENOLOL 50 MG TAB PO SCH (08:36)
[2016-07-15] MEDS: ASPIRIN 81 MG TAB PO SCH (08:36)
[2016-07-15] MEDS: LEVOTHYROXINE 75 MCG TAB PO SCH (08:36)
[2016-07-15] MEDS: FERROUS GLUCONATE (EC) 325 MG TAB PO SCH ×2 (08:36→20:56)
[2016-07-15] MEDS ORDERED: FERROUS GLUCONATE 324 MG PO SCH (09:00)
[2016-07-15] MEDS ORDERED: AMLODIPINE 2.5 MG TAB PO SCH (09:00)
[2016-07-15] MEDS ORDERED: NON-FORMULARY/PATIENT OWN MED (Omeprazole* 20 MG) PO SCH (09:00)
--- NOTE | 2016-07-15 09:27 | RADRPT ---
PROCEDURE: Carotid ultrasound CLINICAL INDICATION: Weakness, transient ischemic attack, carotid bruits TECHNIQUE: Solano scale, color doppler, spectral doppler ultrasound of the bilateral carotid and callie tebral arteries. This study indirectly references the measurement of the distal ICA diameter as the denominator for s tenosis measurement. Validated velocity measurements with angiographic measurements, velocity criter ia are extrapolated from diameter data as defined by: *Cartoid artery stenosis: solano-scale and Doppl er US diagnosis. Society of Radiologists in Ultrasound Consensus Conference. Radiology 2003; 229: 34 0-346. U Consensus Conference Criteria for the Diagnosis of Carotid Artery Stenosis* Degree of Stenosis, % ICA PSV, cm/sec Plaque Estimate, % ICA/CCA PSV Ratio Normal <125 None <2.0 <50 <125 <50 <2.0 50 69 125-230 >50 2.0-4.0 >70 but less than near occlusion >230 >50 <4.0 Near occlusion High, low, or undetectable Visible Variable Total occlusion Undetectable Visible, no detectable lumen Not applicable COMPARISON: No prior studies are available for comparison. FINDINGS: Location Right CCA92 cm/sec Prox ICA 71 cm/sec Mid ICA63 cm/sec Dist ICA69 cm/sec ECA88 cm/sec ICA/CCA0.8 Left CCA97 cm/sec Prox ICA 75 cm/sec Mid ICA75 cm/sec Dist ICA50 cm/sec ECA90 cm/sec ICA/CCA0.8 Plaque burden: A minimal amount of plaque is present within the visualized portions of both internal carotid arteries however there is no evidence of flow acceleration to suggest a hemodynamically sig nificant stenosis. Antegrade flow is seen within the vertebral arteries bilaterally. IMPRESSION: A minimal amount of plaque is present within the visualized portions of both internal carotid arteri es however there is no evidence of flow acceleration to suggest a hemodynamically significant stenos is; less than 50% stenosis. RPTAT: AADD .Dale Kelley MD, Date Time Electronically viewed and signed by .Dale Kelley MD, MD on 07/15/2016 09:26 .B/
--- NOTE | 2016-07-15 15:55 | QN ---
Documentation Comment cva htn esrd planper order [id number] CHRISTINA SHIRLEY MD July 15, 2016 15:55
[2016-07-15 16:55] LABS: POTASSIUM 4.8 mmol/L (3.5-5.1)
[2016-07-15 16:57] LABS: CREATININE 7.97 mg/dl (0.44-1.00)
[2016-07-15 16:58] LABS: ALBUMIN/GLOBULIN RATIO 0.78; CALCIUM 8.3 mg/dl (8.4-10.2); TOTAL PROTEIN 6.8 g/dl (6.1-8.1)
--- NOTE | 2016-07-15 17:25 | HP ---
DATE OF ADMISSION: 07/14/2016 HISTORY OF PRESENT ILLNESS: The patient is a 60-year-old female with history of ESRD, history of hy pertension, hypothyroidism. The patient recently discharged from this hospital when she was started on peritoneal dialysis. The patient went home with CKD V, anasarca, hypertension, diabetes mellitu s, uremia, hypocalcemia, hypoalbuminemia, anemia, status post blood transfusion, hyperparathyroidism , metabolic acidosis, obesity, ejection fraction 60% to 65%, presented with more than a day history of left-sided weakness, left leg pain. No slurred speech, dizziness. No blurred vision. The patie nt, in the ER, was noted to have a blood pressure of 156/79. Sodium 137, potassium 4.8, BUN 81, cre atinine 8.09. The patient's triglyceride 182, cholesterol 206. Hematocrit 26.4. The patient had a chest x-ray done. Shows no evidence for active cardiopulmonary disease. Brain CT scan: No intrac ranial hemorrhage, mass effect, or midline shift. The patient has pituitary mass with minimal supra sellar extension. Recommend MRI scan with contrast for further evaluation, mild intracranial athero sclerosis. The patient had a venous ultrasound shows no evidence of DVT. Carotid duplex scan was d one also. Shows minimal amount of plaque is present within the visualized portion of both internal carotid arteries; however, there is no evidence of ____ to suggest hemodynamically significant steno sis greater than 50% stenosis. PAST MEDICAL HISTORY: ESRD, hypertension, diabetes mellitus, history of hyperparathyroidism, PD cat heter placement, history of dyslipidemia. ALLERGY HISTORY: NEGATIVE. FAMILY HISTORY: Negative. SOCIAL HISTORY: Negative. MEDICATION HISTORY: The patient at home is on: 1. Amlodipine. 2. Aspirin. 3. Atenolol. 4. Lipitor. 5. Calcitriol. 6. Calcium acetate. 7. Citric acid. She does not take normal. 8. Clonidine. 9. ____ gluconate. 10. Folic acid. 11. Furosemide. 12. Hydrochlorothiazide. 13. Insulin. 14. Levothyroxine. 15. Omeprazole. REVIEW OF SYSTEMS: HEENT: Unremarkable. RESPIRATORY: Unremarkable. CARDIOVASCULAR: No chest pain or palpitations. ABDOMEN: Unremarkable. EXTREMITIES: ____ edema. Varicose veins. CENTRAL NERVOUS SYSTEM: Left-sided weakness. No slurred speech. PHYSICAL EXAMINATION: GENERAL: Obese, overweight female, awake, alert. VITAL SIGNS: Pulse of 60, blood pressure 156/79. HEAD: Atraumatic, normocephalic. Pupils equal, reactive to light. ____. NECK: Supple. No JVD. LUNGS: Clear. CARDIOVASCULAR: S1, S2 normal. ABDOMEN: Soft, obese, bowel sounds present. No palpable mass. The patient has a PD catheter in [facility]. EXTREMITIES: No cyanosis, clubbing. Edema noted of both lower extremities, more on the left than r ight. The patient also has varicose veins. CENTRAL NERVOUS SYSTEM: The patient is awake, alert. Left-sided weakness. LABORATORY DATA: Shows potassium 4.8, BUN 81, creatinine 8.09. Hematocrit 26.4. IMPRESSION: 1. The patient has acute cerebrovascular accident. 2. Pituitary mass. 3. Hypertension. 4. History of diabetes mellitus. 5. Endstage renal disease. 6. Anemia. 7. Dyslipidemia. 8. Status post peritoneal dialysis catheter placement. 9. Hyperparathyroidism. 10. The patient has anemia. 11. Obesity. 12. Hypo____. 13. Hypothyroidism. PLAN: At this point is to continue home medications. The patient will have 2D echo, carotid duplex scan, MRI of the brain. Peritoneal dialysis will be started. Neurology consultation, Dr. Shree gan called. Orders were done. Dictated By: CHRISTINA FERRIS/NTS Conf#: [id number] DID#: [id number]
[2016-07-15] MEDS ORDERED: LORAZEPAM 2 MG INJ IV ONE (19:00)
[2016-07-15] MEDS ORDERED: ATORVASTATIN 20 MG TAB PO SCH (21:00)
[2016-07-15] MEDS ORDERED: ATORVASTATIN 40 MG TAB PO SCH (21:00)
--- NOTE | 2016-07-15 23:06 | RADRPT ---
PROCEDURE: MRI Brain without contrast. CLINICAL INDICATION: Altered mental status, sellar mass. TECHNIQUE: An MRI of the brain was performed on a Signa HDxt 3 ivan scanner utilizing the followi ng sequences: Sagittal T1 FLAIR, axial T2, axial T2 FLAIR, coronal gradient echo, and axial diffusio n-weighted (EPI technique, [id number]) with ADC mapping. No intravenous contrast was given. Images we re viewed on a PACS workstation. COMPARISON: None. FINDINGS: There are small foci of restricted diffusion within the right jama with corresponding increased T2/F LAIR signal intensity consistent with acute lacunar infarcts. The ventricles and cortical sulci are within normal limits for patient's age. There is a small focus of increased T2/FLAIR signal intens ity within the right frontal white matter. There is no mass effect or midline shift. There is no a cute intracranial hemorrhage or abnormal extra-axial collection. Normal signal voids are seen withi n the bilateral cavernous carotids. The pituitary is enlarged measuring 1.7 cm in height. Visualiz ed paranasal sinuses and mastoid air cells are clear. IMPRESSION: Acute lacunar infarcts within the right jama. Small nonspecific white matter T2 hyperintensity within the right frontal lobe. Enlarged pituitary suspicious for underlying mass. Dedicated MRI of the pituitary with and without contrast is recommended. .Mark Grier MD, MD Date Time Electronically viewed and signed by .Mark Grier MD, MD on 07/15/2016 23:05 .T/
[2016-07-16] VITALS (16 sets, daily range): BP systolic 107–164; BP diastolic 57–79; PULSE 53–70; RESP 17–19
[2016-07-16] MEDS: ACCU-CHEK XX SCH (02:00)
--- NOTE | 2016-07-16 05:16 | RADRPT ---
PROCEDURE: MR Brain without contrast. CLINICAL INDICATION: Pituitary mass TECHNIQUE: Small field of view sagittal T1 and coronal T1 and T2-weighted images of the pituitary and sella turcica were obtained without contrast as requested. COMPARISON: Prior MRI and CT examinations FINDINGS: Again seen is a large mass of the pituitary which measures 1.5 x 1.9 cm. There is some low T2 signa l centrally within the lesion with slight high T2 signal seen within the lesion posteriorly. The pi tuitary stalk appears intact. The posterior pituitary is not separately identified. The sphenoid s inus is clear. Normal carotid flow voids are seen on either side of the mass. There is a suggestio n of involvement of the left cavernous sinus with intermediate T2 signal adjacent to the left cavern ous carotid artery. 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 Dynamic contrast-enhanced MRI evaluation is suggested. MRA could also be performed to exclude vascular etiology. RPTAT: [facility] Physician Collin Date Time Electronically viewed and signed by Physician Collin on 07/16/2016 05:15 VITA/
[2016-07-16] MEDS: PANTOPRAZOLE (EC) 40 MG TAB PO SCH (05:50)
[2016-07-16 08:05] LABS: ADD SCAN DIFF NO
[2016-07-16] MEDS: ASPIRIN 81 MG TAB PO SCH (08:07)
[2016-07-16] MEDS: FOLIC ACID 1 MG TAB PO SCH (08:11)
[2016-07-16] MEDS: FERROUS GLUCONATE (EC) 325 MG TAB PO SCH ×2 (08:11→21:33)
[2016-07-16] MEDS: LEVOTHYROXINE 75 MCG TAB PO SCH (08:14)
[2016-07-16] MEDS: AMLODIPINE 5 MG TAB PO SCH ×2 (08:14→21:33)
[2016-07-16] MEDS: ATENOLOL 50 MG TAB PO SCH (08:14)
[2016-07-16 08:17] LABS: BASOPHILS % 0.5 % (0.0-2.0); EOSINOPHILS # 0.1 10^3/ul (0.0-0.5); HEMATOCRIT 28.8 % (37.0-47.0); HEMOGLOBIN 9.3 g/dl (12.0-16.0); LYMPHOCYTES # 1.2 10^3/ul (0.8-2.9); LYMPHOCYTES % 17.5 % (15.0-51.0); MEAN CORPUSCULAR HEMOGLOBIN 30.2 pg (29.0-33.0); MEAN CORPUSCULAR HGB CONC 32.3 g/dl (32.0-37.0); MEAN CORPUSCULAR VOLUME 93.5 fl (82.0-101.0); MEAN PLATELET VOLUME 10.8 fl (7.4-10.4); MONOCYTE # 0.5 10^3/ul (0.3-0.9); MONOCYTES % 6.9 % (0.0-11.0); NEUTROPHIL # 4.8 10^3/ul (1.6-7.5); NEUTROPHILS % 72.8 % (39.0-77.0); PLATELET COUNT 278 10^3/UL (140-415); RED BLOOD COUNT 3.08 10^6/ul (4.20-5.40); RED CELL DISTRIBUTION WIDTH 14.1 % (11.5-14.5); WHITE BLOOD COUNT 6.6 10^3/ul (4.8-10.8)
[2016-07-16] MEDS: INSULIN ASPART [NOVOLOG] 3 ML PEN SC SCH ×4 (08:18→21:39)
--- NOTE | 2016-07-16 13:46 | CONS ---
DATE OF ADMISSION: 07/14/2016 DATE OF CONSULTATION: REASON FOR CONSULTATION: Evaluation for cerebrovascular accident. HISTORY OF PRESENT ILLNESS: Thank you, Dr. Lopes, for asking me to see this patient. This is a 60-y ear-old female with a history of end-stage renal disease, currently on dialysis. The patient also h as hypertension and hypothyroidism. The patient was started on peritoneal dialysis. The patient wa s admitted because of an acute CVA and weakness of the left upper extremity and left lower extremity . Part of her workup included a carotid duplex which was done, which showed a minimal amount of dafne que present in both internal carotid arteries. No evidence of any flow acceleration to suggest hemo dynamically significant stenosis to less than 50%. The patient also had antegrade flow in the verte bral arteries bilaterally. The patient subsequently had MRI of the brain which showed small nonspec ific white matter T2 hypersensitivity; however, the patient did have acute lacunar infarcts within t he right jama. The patient also had a CT of the brain which showed no intracranial hemorrhage. The patient did have a pituitary mass with minimal suprasellar extension, with possible pituitary macro adenoma. The patient is now recovering from his CVA. PAST MEDICAL HISTORY: Hypertension, hyperlipidemia, end-stage renal disease, diabetes and hyperthyr oidism. PAST SURGICAL HISTORY: Percutaneous dialysis catheter. ALLERGIES: NONE. SOCIAL HISTORY: No smoking, drinking or drug use. MEDICATIONS: Include: 1. Amlodipine. 2. Aspirin. 3. Atenolol. 4. Lipitor. 5. Calcitriol. 6. Citric acid. 7. Clonidine. 8. Folic acid. 9. Lasix. 10. Hydrochlorothiazide. 11. Insulin. 12. Levothyroxine. 13. Omeprazole. REVIEW OF SYSTEMS: No upper or lower GI bleeding, nausea, vomiting, constipation, or diarrhea. No hematuria or dysuria. No skin changes, rashes or moles. No weight loss or weight gain. PHYSICAL EXAMINATION: VITAL SIGNS: Blood pressure 107/57, pulse is 61, respirations 18, saturations 98% on room air. CARDIOVASCULAR: Regular rate and rhythm. Normal S1, S2. LUNGS: Clear. ABDOMEN: Soft. EXTREMITIES: Warm. The patient has gross weakness in the left upper extremity. Left lower extremit y the patient has had an upper extremity deep venous thrombosis study which showed no evidence of an y DVTs bilaterally. LABORATORY VALUES: Significant for a white count of 6.6, hemoglobin 9.3, platelets . Normal c oagulation factors. IMPRESSION: Cerebrovascular accident. No evidence of any carotid stenosis. No plan for any caroti d surgery at the present time. Would continue antiplatelet. Will discussed with Dr. Lopes. Dictated By: PILO IGLESIAS/FLOYD Conf#: [id number] DID#: [id number]
[2016-07-16] MEDS: ATORVASTATIN 80 MG TAB PO SCH (21:34)
--- NOTE | 2016-07-16 21:52 | CONS ---
DATE OF ADMISSION: 07/14/2016 DATE OF CONSULTATION: 07/16/2016 TYPE OF CONSULTATION: Neurology. Thank you, Dr. Shirley, for your kind referral for evaluation of acute stroke. HISTORY OF PRESENT ILLNESS: The patient is a 60-year-old lady with extensive past medical history o f end-stage renal disease on peritoneal dialysis, diabetes, hypertension, hypothyroidism who present ed with about 3 days of left-sided weakness. MRI of the brain followed by CAT scan of the brain was done and shows acute lacunar infarcts in the right jama as well as suprasellar mass. MRI of the pi tuitary gland was done without contrast, suggestive of probable pituitary macroadenoma. MRI with co ntrast was recommended. Carotid ultrasound, no hemodynamically significant lesions. The patient co mplains of left lower extremity pain, not acute. Venous ultrasound of the left lower extremity did not show any deep venous thrombosis. EKG: Sinus rhythm. Labs shows 9.3 hemoglobin, 28.8 hematocri t, normal WBCs and platelets. BUN 79, creatinine 7.97. Albumin 3.0. Rest of comprehensive metabol ic panel within normal limits. Normal PT, PTT. CURRENT MEDICATIONS: 1. Lipitor 40 mg. 2. Aspirin 81. 3. Atenolol 50. 4. Folate. 5. Amlodipine. 6. Iron. 7. Insulin. 8. L-thyroxine. 9. Protonix. The patient was on aspirin prior to admission. ALLERGIES: NONE. SOCIAL HISTORY: No alcohol, tobacco, drug use. FAMILY HISTORY: Noncontributory. REVIEW OF SYSTEMS: All pertinent positives included in the above history of present illness. PHYSICAL EXAMINATION: VITAL SIGNS: Temperature 97.6, 70 pulse, 18 respirations, 139/64 blood pressure. GENERAL: Not in acute distress, sitting in the bed. HEENT: Normocephalic, atraumatic head. NECK: No carotid bruits. No thyromegaly. LUNGS: Clear to auscultation bilaterally. CARDIAC: Normal cardiac rhythm and sounds. ABDOMEN: Soft. EXTREMITIES: No cyanosis, clubbing, or edema. NEUROLOGIC: She is awake, alert, and oriented x3 with fluent speech. Cranial nerve examination erika ws intact visual donato bilaterally. Pupils round, reactive to light from 3 to 2 mm bilaterally. E xtraocular movements intact without nystagmus. Asymmetrical face with left nasolabial fold flatteni ng, left-sided facial weakness, central type. The patient has normal sensation on the face. Tongue is in midline. Palate elevates symmetrically. Corneal reflexes present bilaterally. Motor streng th examination shows left-sided weakness. No movements in upper extremity with exception of movemen ts of the fingers. Flaccid tone. Minimal 2+ movements of the knee flexion and extension. No other movements in the leg. Also flaccid tone. Normal muscle bulk. Sensory examination intact to light touch and pain grossly. Deep tendon reflexes 1+ upper extremities, absent in lower extremities. D owngoing toes bilaterally. IMPRESSION: Acute ischemic lacunar stroke, pure motor type. Please keep patient normotensive, eugl ycemic. I forgot to mention the patient cholesterol 206, LDL 126, so increase dose of Lipitor 80 mg . Given that she had a stroke on aspirin, I will change aspirin to Plavix. Continue current treatm ent otherwise. Physical therapy. Consider evaluation for acute rehabilitation. Dictated By: STEFAN RANGEL/FLOYD Conf#: [id number] DID#: [id number] CC: CHRISTINA SHIRLEY MD;*EndCC*
--- NOTE | 2016-07-16 22:51 | PN ---
Date/Time of Note Date/Time of Note DATE: 07/16/16 TIME: 22:50 Assessment/Plan VTE Prophylaxis VTE Prophylaxis Intervention: other Lines/Catheters IV Catheter Type (from [facility]): Saline Lock Urinary Cath still in place: No Assessment/Plan Chief Complaint/Hosp Course cva htn dm esrd anemia ashd plan per neurology pd Problems: Subjective 24 Hr Interval Summary Subjective hx not possible: other (left side weakness) Exam/Review of Systems Vital Signs Vitals Vital Signs Date Time Temp Pulse Resp B/P Pulse Ox O2 Delivery O2 Flow Rate FiO2 07/16/16 20:17 63 07/16/16 20:00 97.6 19 156/68 95 07/14/16 23:08 Room Air Intake and Output 07/15/16 07/15/16 07/16/16 15:00 23:00 07:00 Intake Total 1080 ml 200 ml Output Total 800 ml Balance 280 ml 200 ml Exam Respiratory: clear to auscultation Cardiovascular: regular rate and rhythm Gastrointestinal: soft Musculoskeletal: nl extremities to inspection Extremities: normal pulses Results Result Diagram: 07/16/16 0648 07/15/16 1420 Results 24 hrs Laboratory Tests Test 07/16/16 01:55 07/16/16 06:48 07/16/16 07:50 07/16/16 11:59 Bedside Glucose 136 159 156 White Blood Count 6.6 Red Blood Count 3.08 L Hemoglobin 9.3 L Hematocrit 28.8 L Mean Corpuscular Volume 93.5 Mean Corpuscular Hemoglobin 30.2 Mean Corpuscular Hemoglobin Concent 32.3 Red Cell Distribution Width 14.1 Platelet Count 278 Mean Platelet Volume 10.8 H Neutrophils % 72.8 Lymphocytes % 17.5 Monocytes % 6.9 Eosinophils % 2.0 Basophils % 0.5 Nucleated Red Blood Cells % 0.0 Neutrophils # 4.8 Lymphocytes # 1.2 Monocytes # 0.5 Eosinophils # 0.1 Basophils # 0.0 Nucleated Red Blood Cells # 0.0 Test 07/16/16 17:17 07/16/16 21:36 Bedside Glucose 189 232 H Medications Medications Current Medications Atenolol (Tenormin) 50 mg DAILY PO Last administered on 07/16/16 08:14; Admin Dose 50 MG; Start 07/15/16 at 09:00 Folic Acid (Folic Acid) 1 mg DAILY PO Last administered on 07/16/16 08:11; Admin Dose 1 MG; Start 07/15/16 at 09:00 Amlodipine Besylate (Norvasc) 5 mg BID PO Last administered on 07/16/16 21:33 ; Admin Dose 5 MG; Start 07/15/16 at 09:00 Ferrous Gluconate (Fergon) 325 mg BID PO Last administered on 07/16/16 21:33; Admin Dose 325 MG; Start 07/15/16 at 09:00 Pantoprazole (Protonix Tab) 40 mg DAILY@06 PO Last administered on 07/16/16 05 :50; Admin Dose 40 MG; Start 07/15/16 at 06:00 Diagnostic Test (Pha) (Accu-Chek) 1 ea 02 XX Last administered on 07/16/16 02: 00; Admin Dose 1 EA; Start 07/15/16 at 02:00 Acetaminophen (Tylenol Tab) 650 mg Q6H PRN PO PAIN AND OR ELEVATED TEMP; Start 07/15/16 at 00:30 Hydralazine HCl (Apresoline) 10 mg Q6 PRN IV ELEVATED BLOOD PRESSURE Last administered on 07/15/16 01:26; Admin Dose 10 MG; Start 07/15/16 at 00:30 Atorvastatin Calcium (Lipitor) 80 mg QHS PO Last administered on 07/16/16 21: 34; Admin Dose 80 MG; Start 07/16/16 at 21:00 Clopidogrel Bisulfate (plaVIX) 75 mg DAILY PO ; Start 07/17/16 at 09:00 CHRISTINA SHIRLEY MD July 16, 2016 22:51
--- NOTE | 2016-07-16 23:51 | RADRPT ---
Echocardiogram Report Patient Name: LUNA VIVEROS Gender: Female Date: 1955 Study Date: 16-Jul-2016 Director Information Security: Amaris Landeros [facility] Location: [id number] Ref. Physician: CHRISTINA SHIRLEY Quality: Good Procedures: Transthoracic echocardiogram examination. Indications: stroke. Findings Left Ventricle: The left ventricular ejection fraction is visually estimated at 60 - 65 %. Mitral Valve: Normal appearance of the mitral valve leaflets. Trivial mitral regurgitation. Aortic Valve: Aortic cusps appear mildly calcified. No significant aortic stenosis or insufficiency. Tricuspid Valve: Normal appearance of the tricuspid valve. There is trivial tricuspid regurgitation. Pulmonic Valve: Normal pulmonic valve appearance and function with trivial (physiologic) regurgitation. Conclusions 1.The left ventricular ejection fraction is visually estimated at 60 - 65 %. 2.Normal appearance of the mitral valve leaflets. Trivial mitral regurgitation. 3.Aortic cusps appear mildly calcified. No significant aortic stenosis or insufficiency. 4.Normal appearance of the tricuspid valve. There is trivial tricuspid regurgitation. 5.Normal pulmonic valve appearance and function with trivial (physiologic) regurgitation. Electronically Signed By: Chano Thorpe 16-Jul-2016 23:51:05 -6500 Patient Name: LUAN VIVEROS Study Date: 16-Jul-2016 [id number]
[2016-07-17] VITALS (16 sets, daily range): BP systolic 105–151; BP diastolic 57–75; PULSE 55–88; RESP 17–19
[2016-07-17] MEDS: ACCU-CHEK XX SCH (02:00)
[2016-07-17] MEDS: PANTOPRAZOLE (EC) 40 MG TAB PO SCH (05:57)
[2016-07-17 07:46] LABS: ADD SCAN DIFF NO
[2016-07-17 07:52] LABS: BASOPHIL # 0.1 10^3/ul (0.0-0.1); BASOPHILS % 0.7 % (0.0-2.0); EOSINOPHILS # 0.1 10^3/ul (0.0-0.5); EOSINOPHILS % 1.4 % (0.0-7.0); HEMATOCRIT 29.2 % (37.0-47.0); HEMOGLOBIN 9.6 g/dl (12.0-16.0); LYMPHOCYTES # 1.3 10^3/ul (0.8-2.9); LYMPHOCYTES % 16.8 % (15.0-51.0); MEAN CORPUSCULAR HEMOGLOBIN 30.6 pg (29.0-33.0); MEAN CORPUSCULAR HGB CONC 32.9 g/dl (32.0-37.0); MEAN PLATELET VOLUME 10.6 fl (7.4-10.4); MONOCYTE # 0.6 10^3/ul (0.3-0.9); MONOCYTES % 7.3 % (0.0-11.0); NEUTROPHIL # 5.6 10^3/ul (1.6-7.5); NEUTROPHILS % 73.5 % (39.0-77.0); PLATELET COUNT 314 10^3/UL (140-415); RED BLOOD COUNT 3.14 10^6/ul (4.20-5.40); RED CELL DISTRIBUTION WIDTH 13.6 % (11.5-14.5); WHITE BLOOD COUNT 7.7 10^3/ul (4.8-10.8)
[2016-07-17] MEDS: INSULIN ASPART [NOVOLOG] 3 ML PEN SC SCH ×4 (08:00→20:28)
[2016-07-17 08:10] LABS: ALBUMIN 3.2 g/dl (3.3-4.9); POTASSIUM 5.2 mmol/L (3.5-5.1)
[2016-07-17 08:12] LABS: CREATININE 8.68 mg/dl (0.44-1.00)
[2016-07-17 08:13] LABS: ALBUMIN/GLOBULIN RATIO 0.8; TOTAL PROTEIN 7.2 g/dl (6.1-8.1)
[2016-07-17 08:14] LABS: CALCIUM 8.1 mg/dl (8.4-10.2)
[2016-07-17] MEDS: AMLODIPINE 5 MG TAB PO SCH ×2 (08:22→20:25)
[2016-07-17] MEDS: CLOPIDOGREL 75 MG TAB PO SCH (08:22)
[2016-07-17] MEDS: FOLIC ACID 1 MG TAB PO SCH (08:22)
[2016-07-17] MEDS: FERROUS GLUCONATE (EC) 325 MG TAB PO SCH ×2 (08:22→20:25)
[2016-07-17] MEDS: LEVOTHYROXINE 75 MCG TAB PO SCH (08:23)
[2016-07-17] MEDS: ATENOLOL 50 MG TAB PO SCH (08:23)
--- NOTE | 2016-07-17 09:13 | PN ---
Date/Time of Note Date/Time of Note DATE: 07/17/16 TIME: 09:11 Assessment/Plan Lines/Catheters IV Catheter Type (from Nrsg): Peripheral IV Castro in Place (from Nrsg): No Assessment/Plan Chief Complaint/Hosp Course IMPRESSION: Cerebrovascular accident. No evidence of any carotid stenosis. No plan for any carotid surgery at the present time. Would continue antiplatelet. discussed with Dr. Lopes. Problems: Subjective 24 Hr Interval Summary Constitutional: improved Pain Control: mild Exam/Review of Systems Vital Signs Vitals Vital Signs Date Time Temp Pulse Resp B/P Pulse Ox O2 Delivery O2 Flow Rate FiO2 07/17/16 08:06 55 07/17/16 08:01 97.9 17 148/65 98 07/14/16 23:08 Room Air Intake and Output 07/16/16 07/16/16 07/17/16 15:00 23:00 07:00 Intake Total 700 ml 120 ml Output Total 1200 ml Balance -500 ml 120 ml Exam Neck: non-tender, supple Respiratory: clear to auscultation, normal air movement Cardiovascular: nl pulses, regular rate and rhythm Gastrointestinal: nl liver, spleen, non-tender, soft Results Result Diagram: 07/17/16 0652 07/17/16 0652 PILO HOFFMAN MD July 17, 2016 09:13
[2016-07-17] MEDS: ATORVASTATIN 80 MG TAB PO SCH (20:25)
--- NOTE | 2016-07-17 22:49 | CONS ---
DATE OF ADMISSION: 07/14/2016 DATE OF CONSULTATION: 07/17/2016 TYPE OF CONSULTATION: Neurosurgical. REQUESTING PHYSICIAN: Dr. Abhinav Lopes INDICATION FOR CONSULTATION: Pituitary adenoma. HISTORY OF PRESENT ILLNESS: The patient is a 60-year-old female with end-stage renal disease on dialysis, hypertension, hypothyroidism. The patient was at home when she started noticing left-sided weakness, and she came to the ER, where she became acutely hemiplegic on the left side. MRI of the brain was performed which showed a small left-sided lacunar stroke that left the patient with left sided paralysis. On this MRI, the patient was found to have a sellar lesion with suprasellar extension consistent with a pituitary adenoma. The patient also was found to have acute lacunar infarct in the right jama. This lesion appears to extend into the left side of the cavernous sinus. There is some heterogeneity within the lesion on T2 imaging, but because a contrast study was not performed, enhancement pattern cannot be clearly seen. The lesion does not extend to touch the optic chiasm. There appears to be a good couple millimeters between the chiasm and optic nerves and the lesion itself. Again, it does extend to left cavernous sinus. The patient states that she has otherwise been doing well. She denies any headaches, nausea, vomiting, numbness , tingling. She denies any visual changes other than chronic visual changes she feels are due to diabetes. She denies any recent weight gain or galactorrhea. PAST MEDICAL HISTORY: Significant for end-stage renal disease, hypertension, diabetes, hyperparathyroidism, dyslipidemia, PD catheter placement. ALLERGIES: NO KNOWN DRUG ALLERGIES. FAMILY HISTORY: Denies any history of bleeding issues or pituitary. SOCIAL HISTORY: Nonsmoker, nondrinker. The patient is on dialysis. MEDICATIONS AT HOME: Include: 1. Amlodipine. 2. Aspirin. 3. Atenolol. 4. Lipitor. 5. Calcitriol. 6. Calcium acetate. 7. Citric acid. 8. Clonidine. 9. Gluconate. 10. Folic acid. 11. Furosemide. 12. Hydrochlorothiazide. 13. Insulin. 14. Levothyroxine. 15. Omeprazole. REVIEW OF SYSTEMS: A 12-point system review per history of present illness. CONSTITUTIONAL: Denies history of fevers or chills. HEMATOLOGIC: Denies any history of easy bruising or bleeding. PHYSICAL EXAMINATION: VITAL SIGNS: The patient's temperature is 97.3, pulse 61, respirations 18, blood pressure 105/57. GENERAL: The patient is a mildly obese female lying in a hospital bed in no acute distress. HEAD AND NECK: The patient is normocephalic, atraumatic. Her neck is supple. NEUROLOGIC: The patient is awake, alert and oriented x3. Fluent speech. Follows commands readily and appropriately. She has normal attention and concentration. She has intact remote, immediate and recent memory. Cranial nerves II through XII are serially tested and are intact. Her motor exam is 5/ 5 in her right upper and lower extremity and 0/5 in her left upper and lower extremity. She has intact sensation. She has no clonus, Babinski or Katie sign and 1+ deep tendon reflexes throughout. Gait not assessed secondary to condition. She has no obvious ataxia or dysmetria on her right side. LABORATORY DATA: White count 7.7, hemoglobin 9.6, platelets 314. Coagulation profile: PT of 12.9, INR 0.97 and an APTT of 34.9. Her sodium 135, BUN and creatinine are 82 and 8.68 and a glucose of 120. ASSESSMENT AND PLAN: A 60-year-old female status post stroke with incidental pituitary adenoma. I discussed patient's signs, symptoms, physical exam, radiographic findings with the patient. I discussed the nature of the lesion seen and explained that it appears to be likely a nonfunctioning pituitary adenoma. The patient does not report any endocrinologic symptoms per se. However, basic pituitary lab profile should be performed to assess for any significant abnormalities that might suggest that this may be a functioning adenoma. This lesion does not appear to compress the optic chiasm or optic nerves, and the patient appears to be asymptomatic from this. Given the patient has had acute stroke, I would not recommend any acute intervention as the patient is asymptomatic. Nevertheless, this lesion should be followed up. At some other point in the future, it may cause problems such that surgical intervention may be considered. However, the patient's significant comorbidities may preclude treatment unless the patient actually becomes symptomatic. I would not recommend other treatments like radiosurgical treatments at this time given the fact that this appears to be asymptomatic and is fairly far away from the optic chiasm. The patient should also have an ophthalmology consult, but she states she is supposed to see as an outpatient already. The issues are likely due to diabetes and to establish baseline visual donato to help differentiate progression of the diabetic retinopathy from possible compression. I advised the patient to follow with her primary physician. I am not contracted with the patient's insurance, but I do not see any acute intervention necessary. The patient therefore should follow up through her primary physician insurance for a referral to appropriate physician for further followup and management once the patient has been discharged. The patient expressed understanding and agreement with this plan of care. Dictated By: JOE OG MD, LG/FLOYD Conf#: [id number] DID#: [id number] MTDD
--- NOTE | 2016-07-17 23:59 | PN ---
Date/Time of Note Date/Time of Note DATE: 07/17/16 TIME: 23:58 Assessment/Plan VTE Prophylaxis VTE Prophylaxis Intervention: other Lines/Catheters IV Catheter Type (from [facility]): [place] Urinary Cath still in place: No Assessment/Plan Chief Complaint/Hosp Course cva htn dm esrd anemia ashd [place] plan per neurology pd NEUROSURGERY Problems: Subjective 24 Hr Interval Summary Gastrointestinal: no complaints Genitourinary: no complaints Musculoskeletal: no complaints Exam/Review of Systems Vital Signs Vitals Vital Signs Date Time Temp Pulse Resp B/P Pulse Ox O2 Delivery O2 Flow Rate FiO2 07/17/16 20:26 63 07/17/16 20:00 98.1 19 118/61 98 07/14/16 23:08 Room Air Intake and Output 07/16/16 07/16/16 07/17/16 15:00 23:00 07:00 Intake Total 700 ml 120 ml Output Total 1200 ml Balance -500 ml 120 ml Exam Respiratory: clear to auscultation Cardiovascular: regular rate and rhythm Gastrointestinal: soft Musculoskeletal: nl extremities to inspection Extremities: normal pulses Results Result Diagram: 07/17/16 0652 07/17/16 0652 Results 24 hrs Laboratory Tests Test 07/17/16 02:35 07/17/16 06:52 07/17/16 08:21 07/17/16 16:57 Bedside Glucose 134 117 177 White Blood Count 7.7 Red Blood Count 3.14 L Hemoglobin 9.6 L Hematocrit 29.2 L Mean Corpuscular Volume 93.0 Mean Corpuscular Hemoglobin 30.6 Mean Corpuscular Hemoglobin Concent 32.9 Red Cell Distribution Width 13.6 Platelet Count 314 Mean Platelet Volume 10.6 H Neutrophils % 73.5 Lymphocytes % 16.8 Monocytes % 7.3 Eosinophils % 1.4 Basophils % 0.7 Nucleated Red Blood Cells % 0.0 Neutrophils # 5.6 Lymphocytes # 1.3 Monocytes # 0.6 Eosinophils # 0.1 Basophils # 0.1 Nucleated Red Blood Cells # 0.0 Sodium Level 135 Potassium Level 5.2 H Chloride Level 97 Carbon Dioxide Level 22 Anion Gap 21 H Blood Urea Nitrogen 82 H Creatinine 8.68 H Glucose Level 120 # Calcium Level 8.1 L Total Bilirubin 0.0 L Direct Bilirubin 0.00 Indirect Bilirubin 0.0 Aspartate Amino Transf (AST/SGOT) 14 L Alanine Aminotransferase (ALT/SGPT) 22 Alkaline Phosphatase 81 Total Protein 7.2 Albumin 3.2 L Globulin 4.00 H Albumin/Globulin Ratio 0.80 Test 07/17/16 20:23 Bedside Glucose 202 Medications Medications Current Medications Atenolol (Tenormin) 50 mg DAILY PO Last administered on 07/17/16 08:23; Admin Dose 50 MG; Start 07/15/16 at 09:00 Folic Acid (Folic Acid) 1 mg DAILY PO Last administered on 07/17/16 08:22; Admin Dose 1 MG; Start 07/15/16 at 09:00 Amlodipine Besylate (Norvasc) 5 mg BID PO Last administered on 07/17/16 20:25 ; Admin Dose 5 MG; Start 07/15/16 at 09:00 Ferrous Gluconate (Fergon) 325 mg BID PO Last administered on 07/17/16 20:25; Admin Dose 325 MG; Start 07/15/16 at 09:00 Pantoprazole (Protonix Tab) 40 mg DAILY@06 PO Last administered on 07/17/16 05 :57; Admin Dose 40 MG; Start 07/15/16 at 06:00 Diagnostic Test (Pha) (Accu-Chek) 1 ea 02 XX Last administered on 07/16/16 02: 00; Admin Dose 1 EA; Start 07/15/16 at 02:00 Acetaminophen (Tylenol Tab) 650 mg Q6H PRN PO PAIN AND OR ELEVATED TEMP; Start 07/15/16 at 00:30 Hydralazine HCl (Apresoline) 10 mg Q6 PRN IV ELEVATED BLOOD PRESSURE Last administered on 07/15/16 01:26; Admin Dose 10 MG; Start 07/15/16 at 00:30 Atorvastatin Calcium (Lipitor) 80 mg QHS PO Last administered on 07/17/16 20: 25; Admin Dose 80 MG; Start 07/16/16 at 21:00 Clopidogrel Bisulfate (plaVIX) 75 mg DAILY PO Last administered on 07/17/16 08 :22; Admin Dose 75 MG; Start 07/17/16 at 09:00 CHRISTINA SHIRLEY MD July 17, 2016 23:59
[2016-07-18] VITALS (14 sets, daily range): BP systolic 111–144; BP diastolic 51–77; PULSE 57–75; RESP 18–20
[2016-07-18] MEDS: ACCU-CHEK XX SCH (02:20)
[2016-07-18] MEDS: PANTOPRAZOLE (EC) 40 MG TAB PO SCH (05:25)
[2016-07-18] MEDS ORDERED: GLUCOSE GEL 15 GRAM TUBE BUCCAL PRN (07:00)
[2016-07-18] MEDS ORDERED: DEXTROSE 50% 50 ML SYRINGE IV PRN ×2 (07:00)
[2016-07-18] MEDS ORDERED: GLUCAGON 1 MG INJ IM PRN (07:00)
[2016-07-18] MEDS ORDERED: GLUCOSE GEL 15 GRAM TUBE PO PRN ×2 (07:00)
[2016-07-18] MEDS: LEVOTHYROXINE 75 MCG TAB PO SCH (07:20)
[2016-07-18] MEDS: FOLIC ACID 1 MG TAB PO SCH (08:21)
[2016-07-18] MEDS: FERROUS GLUCONATE (EC) 325 MG TAB PO SCH ×2 (08:21→21:53)
[2016-07-18] MEDS: ATENOLOL 50 MG TAB PO SCH (08:21)
[2016-07-18] MEDS: CLOPIDOGREL 75 MG TAB PO SCH (08:21)
[2016-07-18] MEDS: AMLODIPINE 5 MG TAB PO SCH ×2 (08:21→21:53)
[2016-07-18] MEDS: INSULIN ASPART [NOVOLOG] 3 ML PEN SC SCH ×4 (08:26→22:04)
--- NOTE | 2016-07-18 14:10 | PN ---
Date/Time of Note Date/Time of Note DATE: 07/18/16 TIME: 14:10 Assessment/Plan Lines/Catheters IV Catheter Type (from Nrsg): Peripheral IV Castro in Place (from Nrsg): No Assessment/Plan Chief Complaint/Hosp Course IMPRESSION: Cerebrovascular accident. No evidence of any carotid stenosis. No plan for any carotid surgery at the present time. Would continue antiplatelet. discussed with Dr. Lopes. Problems: Subjective 24 Hr Interval Summary Constitutional: improved Pain Control: mild Exam/Review of Systems Vital Signs Vitals Vital Signs Date Time Temp Pulse Resp B/P Pulse Ox O2 Delivery O2 Flow Rate FiO2 07/18/16 12:00 59 07/18/16 11:58 98.2 20 111/51 95 07/14/16 23:08 Room Air Intake and Output 07/17/16 07/17/16 07/18/16 15:00 23:00 07:00 Intake Total 850 ml 120 ml Output Total 1500 ml Balance -650 ml 120 ml Exam Neck: non-tender, supple Respiratory: clear to auscultation, normal air movement Cardiovascular: nl pulses, regular rate and rhythm Gastrointestinal: nl liver, spleen, non-tender, soft Results Result Diagram: 07/17/16 0652 07/17/16 0652 PILO HOFFMAN MD July 18, 2016 14:10
[2016-07-18] MEDS: LINAGLIPTIN 5 MG TABLET PO SCH (18:30)
--- NOTE | 2016-07-18 18:34 | CONS ---
Date/Time of Note Date/Time of Note DATE: 07/18/16 TIME: 18:23 Assessment/Plan Assessment/Plan Problems: (1) Hyperparathyroidism, secondary renal Status: Chronic Comment: This is due to the renal disease. This is not a reflection of the pituitary macroadenoma. It is noted. 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 Regardless it needs a formalized evaluation. She is not an appropriate candidate for surgery at this moment in time. Please note I double checked with radiologist and while his pituitary tumor does rise out of the cell it is not touching the chiasm as of this dictation. She will need a basic workup which will include prolactin levels cortisol levels IGF-I which are lab still refers to his somatomedin C; our lab does not have the capability of sending out for the beta subunit for FSH LH and TSH and It would not change therapeutics. Will determine if this is a functional or nonfunctional tumor. If we are wilder and this is secreting prolactin that she will be placed on the appropriate dopaminergic drug such as bromocriptine or Dostinex. That should cause reduction serum prolactin levels within 1 week and is in initiation of shrinkage of the tumor within 1 month. This is unrelated to her stroke and is incidentally discovered. (3) Diabetes mellitus type 2 in obese Status: Chronic Comment: In the setting of CVA she needs to have as tight of control possible. Given the renal dysfunction we have limitation her treatments however DPP4 drug would be appropriate here I will start her on Tradjenta the smooth out her sugars. (4) End-stage renal disease on peritoneal dialysis Status: Chronic Comment: As per nephrology (5) Hypothyroidism Status: Chronic Comment: She is already on thyroid hormone replacement therapy and the blood testing demonstrate she is biochemically euthyroid which matches the clinical exam Consultation Date/Type/Reason Admit Date/Time July 14, 2016 at 21:00 Date of Consultation: July 18, 2016 Type of Consultation: Endocrinology Reason for Consultation Pituitary macroadenoma not touching chiasm Referring Provider: CHRISTINA SHIRLEY MD Hx of Present Illness 60-year-old female who is admitted to the hospital with a 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 In the course of her evaluation she has been found to have a pituitary lesion. She had prior CT scanning of the brain done 2009 but the images are not available and the report does not mention a pituitary lesion at that time. Please note that those were sinus images and may not have covered that area. This young lady has a negative endocrine review of systems has a negative family history for MEN or ALBINA syndromes or diagnoses to suggest that. She has limited visual acuity doing due to diabetic retinopathy. She has end-stage renal disease due to diabetes and as such gadolinium contrast is contraindicated in her setting. Constitutional: no complaints (No fevers chills or sweats) Eyes: other (Decreased visual acuity which is without change) ENT: no complaints Respiratory: no complaints Cardiovascular: no complaints Gastrointestinal: no complaints Genitourinary: no complaints Musculoskeletal: no complaints Endocrine: no complaints, other (No nipple discharge) Past Medical History Postmenopausal at age 52; diabetes mellitus type 2; diabetic nephropathy with end-stage renal disease requiring CAPD; diabetic retinopathy; essential hypertension; hyperlipidemia; morbid obesity; hypothyroid; diverticulosis coli; secondary hyperparathyroidism by report; diastolic dysfunction on echocardiogram Medical History: diabetes, hypertension, hypothyroid Past Surgical History Status post left maxillary sinus and ethmoid sinus surgery 2009; status post tubal ligation; status post right carpal tunnel syndrome; status post placement of the CAPD catheter access Family History Significant Family History: diabetes, hypertension Social History Alcohol Use: none Smoking Status: Never smoker Drug Use: none Exam/Review of Systems Vital Signs Vitals Vital Signs Date Time Temp Pulse Resp B/P Pulse Ox O2 Delivery O2 Flow Rate FiO2 07/18/16 15:35 98.4 61 20 118/58 95 07/14/16 23:08 Room Air Intake and Output 07/17/16 07/17/16 07/18/16 15:00 23:00 07:00 Intake Total 850 ml 120 ml Output Total 1500 ml Balance -650 ml 120 ml Exam Constitutional: alert, oriented Neck: non-tender, supple Respiratory: clear to auscultation, normal air movement Cardiovascular: nl pulses, regular rate and rhythm Gastrointestinal: nl liver, spleen, non-tender, other (CAPD catheter in place patient receiving CAPD at this time), soft Results Result Diagram: 07/17/16 0652 07/17/16 0652 Results 24 hrs Laboratory Tests Test 07/17/16 20:23 07/18/16 01:21 07/18/16 02:07/18/16 08:23 Bedside Glucose 202 140 188 Random Cortisol 10.2 Test 07/18/16 11:37 07/18/16 17:06 Bedside Glucose 169 242 H Medications Medications Current Medications Atenolol (Tenormin) 50 mg DAILY PO Last administered on 07/18/16 08:21; Admin Dose 50 MG; Start 07/15/16 at 09:00 Folic Acid (Folic Acid) 1 mg DAILY PO Last administered on 07/18/16 08:21; Admin Dose 1 MG; Start 07/15/16 at 09:00 Amlodipine Besylate (Norvasc) 5 mg BID PO Last administered on 07/18/16 08:21 ; Admin Dose 5 MG; Start 07/15/16 at 09:00 Ferrous Gluconate (Fergon) 325 mg BID PO Last administered on 07/18/16 08:21; Admin Dose 325 MG; Start 07/15/16 at 09:00 Pantoprazole (Protonix Tab) 40 mg DAILY@06 PO Last administered on 07/18/16 05 :25; Admin Dose 40 MG; Start 07/15/16 at 06:00 Diagnostic Test (Pha) (Accu-Chek) 1 ea 02 XX Last administered on 07/18/16 02: 20; Admin Dose 1 EA; Start 07/15/16 at 02:00 Acetaminophen (Tylenol Tab) 650 mg Q6H PRN PO PAIN AND OR ELEVATED TEMP Last administered on 07/18/16 16:30; Admin Dose 650 MG; Start 07/15/16 at 00:30 Hydralazine HCl (Apresoline) 10 mg Q6 PRN IV ELEVATED BLOOD PRESSURE Last administered on 07/15/16 01:26; Admin Dose 10 MG; Start 07/15/16 at 00:30 Atorvastatin Calcium (Lipitor) 80 mg QHS PO Last administered on 07/17/16 20: 25; Admin Dose 80 MG; Start 07/16/16 at 21:00 Clopidogrel Bisulfate (plaVIX) 75 mg DAILY PO Last administered on 07/18/16 08 :21; Admin Dose 75 MG; Start 07/17/16 at 09:00 Miscellaneous Information 1 ea NOTE XX ; Start 07/18/16 at 07:00 Glucose (Glutose) 15 gm Q15M PRN PO DECREASED GLUCOSE; Start 07/18/16 at 07:00 Glucose (Glutose) 22.5 gm Q15M PRN PO DECREASED GLUCOSE; Start 07/18/16 at 07: 00 Dextrose (D50w Syringe) 25 ml Q15M PRN IV DECREASED GLUCOSE; Start 07/18/16 at 07:00 Dextrose (D50w Syringe) 50 ml Q15M PRN IV DECREASED GLUCOSE; Start 07/18/16 at 07:00 Glucagon (Glucagen) 1 mg Q15M PRN IM DECREASED GLUCOSE; Start 07/18/16 at 07:00 Glucose (Glutose) 15 gm Q15M PRN BUCCAL DECREASED GLUCOSE; Start 07/18/16 at 07 :00 Linagliptin (Tradjenta) 5 mg DAILY PO ; Start 07/18/16 at 18:30 Dexamethasone (Decadron) 1 mg ONCE ONCE PO ; Start 07/18/16 at 23:15; Stop at 23:16 SUZE JAMA MD July 18, 2016 18:34
[2016-07-18] MEDS ORDERED: HYDROCODONE/APAP (5/325) TAB PO PRN (21:00)
--- NOTE | 2016-07-18 21:13 | CONS ---
Date/Time of Note Date/Time of Note DATE: 07/18/16 TIME: 21:07 Consult Date/Type/Reason Admit Date/Time July 14, 2016 at 21:00 Initial Consult Date 07/18/16 Type of Consultation: neurology Ordering Provider: CHRISTINA SHIRLEY MD Subjective no acute events. Feels that left leg is slightly stronger with PT Objective Vital Signs Date Time Temp Pulse Resp B/P Pulse Ox O2 Delivery O2 Flow Rate FiO2 07/18/16 20:25 98.0 67 18 120/57 94 07/14/16 23:08 Room Air Intake and Output 07/17/16 07/17/16 07/18/16 15:00 23:00 07:00 Intake Total 850 ml 120 ml Output Total 1500 ml Balance -650 ml 120 ml Results/Medications Result Diagram: 07/17/16 0652 07/17/16 0652 Results 24 hrs Laboratory Tests Test 07/18/16 01:21 07/18/16 02:17 07/18/16 08:23 07/18/16 11:37 Random Cortisol 10.2 Bedside Glucose 140 188 169 Test 07/18/16 17:06 07/18/16 18:35 Bedside Glucose 242 H Thyroid Stimulating Hormone (TSH) 6.080 H Medications Current Medications Atenolol (Tenormin) 50 mg DAILY PO Last administered on 07/18/16 08:21; Admin Dose 50 MG; Start 07/15/16 at 09:00 Folic Acid (Folic Acid) 1 mg DAILY PO Last administered on 07/18/16 08:21; Admin Dose 1 MG; Start 07/15/16 at 09:00 Amlodipine Besylate (Norvasc) 5 mg BID PO Last administered on 07/18/16 08:21 ; Admin Dose 5 MG; Start 07/15/16 at 09:00 Ferrous Gluconate (Fergon) 325 mg BID PO Last administered on 07/18/16 08:21; Admin Dose 325 MG; Start 07/15/16 at 09:00 Pantoprazole (Protonix Tab) 40 mg DAILY@06 PO Last administered on 07/18/16 05 :25; Admin Dose 40 MG; Start 07/15/16 at 06:00 Diagnostic Test (Pha) (Accu-Chek) 1 ea 02 XX Last administered on 07/18/16 02: 20; Admin Dose 1 EA; Start 07/15/16 at 02:00 Acetaminophen (Tylenol Tab) 650 mg Q6H PRN PO PAIN AND OR ELEVATED TEMP Last administered on 07/18/16 16:30; Admin Dose 650 MG; Start 07/15/16 at 00:30 Hydralazine HCl (Apresoline) 10 mg Q6 PRN IV ELEVATED BLOOD PRESSURE Last administered on 07/15/16 01:26; Admin Dose 10 MG; Start 07/15/16 at 00:30 Atorvastatin Calcium (Lipitor) 80 mg QHS PO Last administered on 07/17/16 20: 25; Admin Dose 80 MG; Start 07/16/16 at 21:00 Clopidogrel Bisulfate (plaVIX) 75 mg DAILY PO Last administered on 07/18/16 08 :21; Admin Dose 75 MG; Start 07/17/16 at 09:00 Miscellaneous Information 1 ea NOTE XX ; Start 07/18/16 at 07:00 Glucose (Glutose) 15 gm Q15M PRN PO DECREASED GLUCOSE; Start 07/18/16 at 07:00 Glucose (Glutose) 22.5 gm Q15M PRN PO DECREASED GLUCOSE; Start 07/18/16 at 07: 00 Dextrose (D50w Syringe) 25 ml Q15M PRN IV DECREASED GLUCOSE; Start 07/18/16 at 07:00 Dextrose (D50w Syringe) 50 ml Q15M PRN IV DECREASED GLUCOSE; Start 07/18/16 at 07:00 Glucagon (Glucagen) 1 mg Q15M PRN IM DECREASED GLUCOSE; Start 07/18/16 at 07:00 Glucose (Glutose) 15 gm Q15M PRN BUCCAL DECREASED GLUCOSE; Start 07/18/16 at 07 :00 Linagliptin (Tradjenta) 5 mg DAILY PO ; Start 07/18/16 at 18:30 Dexamethasone (Decadron) 1 mg ONCE ONCE PO ; Start 07/18/16 at 23:15; Stop at 23:16 Acetaminophen/ Hydrocodone Bitart ([place] (5/325)) 1 tab Q12 PRN PO SEVERE PAIN LEVEL 7-10; Start 07/18/16 at 21:00 Assessment/Plan Chief Complaint/Hosp Course PHYSICAL EXAMINATION: GENERAL: Not in acute distress, sitting in the bed. HEENT: Normocephalic, atraumatic head. NECK: No carotid bruits. No thyromegaly. LUNGS: Clear to auscultation bilaterally. CARDIAC: Normal cardiac rhythm and sounds. ABDOMEN: Soft. EXTREMITIES: No cyanosis, clubbing, or edema. NEUROLOGIC: She is awake, alert, and oriented x3 with fluent speech. Cranial nerve examination shows intact visual donato bilaterally. Pupils round, reactive to light from 3 to 2 mm bilaterally. Extraocular movements intact without nystagmus. Asymmetrical face with left nasolabial fold flattening, left -sided facial weakness, central type. The patient has normal sensation on the face. Tongue is in midline. Palate elevates symmetrically. Corneal reflexes present bilaterally. Motor strength examination shows left-sided weakness. No movements in upper extremity with exception of trace of movements of the fingers 1/5. Flaccid tone. 3- movements of the knee flexion and extension. Normal muscle bulk. Sensory examination intact to light touch and pain grossly. Deep tendon reflexes 1+ upper extremities, absent in lower extremities. Downgoing toes bilaterally. IMPRESSION: Acute ischemic lacunar stroke, pure motor type. Please keep patient normotensive, euglycemic. Continue Lipitor, Plavix. Continue current treatment otherwise. Awaiting acute rehabilitation. Pituitary macroadenoma. Somehow I thought it was known to patient. But she said it's new finding for her. PMD promptly requested NS and endocrinology eval. No recommendation for urgent surgery, per NS consult. Problems: STEFAN ARCINIEGA MD July 18, 2016 21:13
[2016-07-18] MEDS: ATORVASTATIN 80 MG TAB PO SCH (21:53)
[2016-07-18] MEDS ORDERED: DEXAMETHASONE 1 MG TAB PO ONE (23:15)
[2016-07-19] VITALS (17 sets, daily range): BP systolic 110–147; BP diastolic 55–74; PULSE 55–72; RESP 16–18
--- NOTE | 2016-07-19 00:04 | PN ---
Date/Time of Note Date/Time of Note DATE: 07/19/16 TIME: 00:03 Assessment/Plan VTE Prophylaxis VTE Prophylaxis Intervention: other Lines/Catheters IV Catheter Type (from Nrs): Peripheral IV Urinary Cath still in place: No Assessment/Plan Chief Complaint/Hosp Course cva htn dm esrd anemia ashd P[place] plan per neurology pd NEUROSURGERY need rehab Problems: Subjective 24 Hr Interval Summary Gastrointestinal: no complaints Genitourinary: no complaints Exam/Review of Systems Vital Signs Vitals Vital Signs Date Time Temp Pulse Resp B/P Pulse Ox O2 Delivery O2 Flow Rate FiO2 07/18/16 20:25 98.0 67 18 120/57 94 Intake and Output 07/18/16 07/18/16 07/19/16 15:00 23:00 07:00 Output Total 1600 ml Balance -1600 ml Exam Respiratory: clear to auscultation Cardiovascular: regular rate and rhythm Gastrointestinal: soft Musculoskeletal: nl extremities to inspection Extremities: normal pulses Results Result Diagram: 07/17/16 0652 07/17/16 0652 Results 24 hrs Laboratory Tests Test 07/18/16 01:21 07/18/16 02:17 07/18/16 08:23 07/18/16 11:37 Random Cortisol 10.2 Bedside Glucose 140 188 169 Test 07/18/16 17:06 07/18/16 18:35 07/18/16 21:52 Bedside Glucose 242 H 182 Thyroid Stimulating Hormone (TSH) 6.080 H Medications Medications Current Medications Atenolol (Tenormin) 50 mg DAILY PO Last administered on 07/18/16 08:21; Admin Dose 50 MG; Start 07/15/16 at 09:00 Folic Acid (Folic Acid) 1 mg DAILY PO Last administered on 07/18/16 08:21; Admin Dose 1 MG; Start 07/15/16 at 09:00 Amlodipine Besylate (Norvasc) 5 mg BID PO Last administered on 07/18/16 21:53 ; Admin Dose 5 MG; Start 07/15/16 at 09:00 Ferrous Gluconate (Fergon) 325 mg BID PO Last administered on 07/18/16 21:53; Admin Dose 325 MG; Start 07/15/16 at 09:00 Pantoprazole (Protonix Tab) 40 mg DAILY@06 PO Last administered on 07/18/16 05 :25; Admin Dose 40 MG; Start 07/15/16 at 06:00 Diagnostic Test (Pha) (Accu-Chek) 1 ea 02 XX Last administered on 07/18/16 02: 20; Admin Dose 1 EA; Start 07/15/16 at 02:00 Acetaminophen (Tylenol Tab) 650 mg Q6H PRN PO PAIN AND OR ELEVATED TEMP Last administered on 07/18/16 16:30; Admin Dose 650 MG; Start 07/15/16 at 00:30 Hydralazine HCl (Apresoline) 10 mg Q6 PRN IV ELEVATED BLOOD PRESSURE Last administered on 07/15/16 01:26; Admin Dose 10 MG; Start 07/15/16 at 00:30 Atorvastatin Calcium (Lipitor) 80 mg QHS PO Last administered on 07/18/16 21: 53; Admin Dose 80 MG; Start 07/16/16 at 21:00 Clopidogrel Bisulfate (plaVIX) 75 mg DAILY PO Last administered on 07/18/16 08 :21; Admin Dose 75 MG; Start 07/17/16 at 09:00 Miscellaneous Information 1 ea NOTE XX ; Start 07/18/16 at 07:00 Glucose (Glutose) 15 gm Q15M PRN PO DECREASED GLUCOSE; Start 07/18/16 at 07:00 Glucose (Glutose) 22.5 gm Q15M PRN PO DECREASED GLUCOSE; Start 07/18/16 at 07: 00 Dextrose (D50w Syringe) 25 ml Q15M PRN IV DECREASED GLUCOSE; Start 07/18/16 at 07:00 Dextrose (D50w Syringe) 50 ml Q15M PRN IV DECREASED GLUCOSE; Start 07/18/16 at 07:00 Glucagon (Glucagen) 1 mg Q15M PRN IM DECREASED GLUCOSE; Start 07/18/16 at 07:00 Glucose (Glutose) 15 gm Q15M PRN BUCCAL DECREASED GLUCOSE; Start 07/18/16 at 07 :00 Linagliptin (Tradjenta) 5 mg DAILY PO ; Start 07/18/16 at 18:30 Acetaminophen/ Hydrocodone Bitart ([place] (5/325)) 1 tab Q12 PRN PO SEVERE PAIN LEVEL 7-10 Last administered on 07/18/16 21:53; Admin Dose 1 TAB; Start at 21:00 CHRISTINA SHIRLEY MD July 19, 2016 00:04
[2016-07-19] MEDS: ACCU-CHEK XX SCH (02:00)
[2016-07-19] MEDS: LEVOTHYROXINE 88 MCG TAB PO SCH (06:26)
[2016-07-19] MEDS: PANTOPRAZOLE (EC) 40 MG TAB PO SCH (06:26)
[2016-07-19 07:49] LABS: ALBUMIN 3.2 g/dl (3.3-4.9); ALBUMIN/GLOBULIN RATIO 0.82; CALCIUM 8.1 mg/dl (8.4-10.2); CREATININE 8.85 mg/dl (0.44-1.00); TOTAL PROTEIN 7.1 g/dl (6.1-8.1)
[2016-07-19] MEDS: LINAGLIPTIN 5 MG TABLET PO SCH (09:06)
[2016-07-19] MEDS: CLOPIDOGREL 75 MG TAB PO SCH (09:06)
[2016-07-19] MEDS: FOLIC ACID 1 MG TAB PO SCH (09:06)
[2016-07-19] MEDS: ATENOLOL 50 MG TAB PO SCH (09:07)
[2016-07-19] MEDS: AMLODIPINE 5 MG TAB PO SCH ×2 (09:07→21:47)
[2016-07-19] MEDS: FERROUS GLUCONATE (EC) 325 MG TAB PO SCH ×2 (09:21→21:47)
[2016-07-19] MEDS: INSULIN ASPART [NOVOLOG] 3 ML PEN SC SCH ×4 (09:29→21:56)
--- NOTE | 2016-07-19 13:48 | CONS ---
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 In the course of her evaluation she has been found to have a pituitary lesion. She had prior CT scanning of the brain done 2009 but the images are not available and the report does not mention a pituitary lesion at that time. Please note that those were sinus images and may not have covered that area. This young lady has a negative endocrine review of systems has a negative family history for MEN or ALBINA syndromes or diagnoses to suggest that. She has limited visual acuity doing due to diabetic retinopathy. She has end-stage renal disease due to diabetes and as such gadolinium contrast is contraindicated in her setting. 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 This leaves pending prolactin which would change therapeutics and the rest. Continue rehab post CVA Consultation Date/Type/Reason Admit Date/Time July 14, 2016 at 21:00 Initial Consult Date 07/18/16 Type of Consultation: endocrinology Reason for Consultation Pituitary macroadenoma Referring Provider: CHRISTINA SHIRLEY MD 24 HR Interval Summary Constitutional: no complaints Exam/Review of Systems Vital Signs Vitals Vital Signs Date Time Temp Pulse Resp B/P Pulse Ox O2 Delivery O2 Flow Rate FiO2 07/19/16 12:23 59 07/19/16 11:47 98.1 18 124/60 97 Intake and Output 07/18/16 07/18/16 07/19/16 15:00 23:00 07:00 Intake Total 250 ml Output Total 1600 ml Balance -1600 ml 250 ml Exam No changes Results Result Diagram: 07/17/16 0652 07/19/16 0620 Results 24 hrs Laboratory Tests Test 07/18/16 17:06 07/18/16 18:35 07/18/16 21:52 07/19/16 01:49 Bedside Glucose 242 H 182 139 Thyroid Stimulating Hormone (TSH) 6.080 H Test 07/19/16 06:20 07/19/16 07:52 07/19/16 09:14 07/19/16 12:08 Sodium Level 131 L Potassium Level 5.0 Chloride Level 96 L Carbon Dioxide Level 22 Anion Gap 18 H Blood Urea Nitrogen 89 H Creatinine 8.85 H Glucose Level 129 Calcium Level 8.1 L Total Bilirubin 0.0 L Direct Bilirubin 0.00 Indirect Bilirubin 0.0 Aspartate Amino Transf (AST/SGOT) 15 Alanine Aminotransferase (ALT/SGPT) 25 Alkaline Phosphatase 71 Total Protein 7.1 Albumin 3.2 L Globulin 3.90 H Albumin/Globulin Ratio 0.82 Random Cortisol 2.5 Bedside Glucose 177 161 191 Medications Medications Current Medications Atenolol (Tenormin) 50 mg DAILY PO Last administered on 07/19/16 09:07; Admin Dose 50 MG; Start 07/15/16 at 09:00 Folic Acid (Folic Acid) 1 mg DAILY PO Last administered on 07/19/16 09:06; Admin Dose 1 MG; Start 07/15/16 at 09:00 Amlodipine Besylate (Norvasc) 5 mg BID PO Last administered on 07/19/16 09:07 ; Admin Dose 5 MG; Start 07/15/16 at 09:00 Ferrous Gluconate (Fergon) 325 mg BID PO Last administered on 07/19/16 09:21; Admin Dose 325 MG; Start 07/15/16 at 09:00 Pantoprazole (Protonix Tab) 40 mg DAILY@06 PO Last administered on 07/19/16 06 :26; Admin Dose 40 MG; Start 07/15/16 at 06:00 Diagnostic Test (Pha) (Accu-Chek) 1 ea 02 XX Last administered on 07/18/16 02: 20; Admin Dose 1 EA; Start 07/15/16 at 02:00 Acetaminophen (Tylenol Tab) 650 mg Q6H PRN PO PAIN AND OR ELEVATED TEMP Last administered on 07/18/16 16:30; Admin Dose 650 MG; Start 07/15/16 at 00:30 Hydralazine HCl (Apresoline) 10 mg Q6 PRN IV ELEVATED BLOOD PRESSURE Last administered on 07/15/16 01:26; Admin Dose 10 MG; Start 07/15/16 at 00:30 Atorvastatin Calcium (Lipitor) 80 mg QHS PO Last administered on 07/18/16 21: 53; Admin Dose 80 MG; Start 07/16/16 at 21:00 Clopidogrel Bisulfate (plaVIX) 75 mg DAILY PO Last administered on 07/19/16 09 :06; Admin Dose 75 MG; Start 07/17/16 at 09:00 Miscellaneous Information 1 ea NOTE XX ; Start 07/18/16 at 07:00 Glucose (Glutose) 15 gm Q15M PRN PO DECREASED GLUCOSE; Start 07/18/16 at 07:00 Glucose (Glutose) 22.5 gm Q15M PRN PO DECREASED GLUCOSE; Start 07/18/16 at 07: 00 Dextrose (D50w Syringe) 25 ml Q15M PRN IV DECREASED GLUCOSE; Start 07/18/16 at 07:00 Dextrose (D50w Syringe) 50 ml Q15M PRN IV DECREASED GLUCOSE; Start 07/18/16 at 07:00 Glucagon (Glucagen) 1 mg Q15M PRN IM DECREASED GLUCOSE; Start 07/18/16 at 07:00 Glucose (Glutose) 15 gm Q15M PRN BUCCAL DECREASED GLUCOSE; Start 07/18/16 at 07 :00 Linagliptin (Tradjenta) 5 mg DAILY PO Last administered on 07/19/16 09:06; Admin Dose 5 MG; Start 07/18/16 at 18:30 Acetaminophen/ Hydrocodone Bitart ([place] (5/325)) 1 tab Q12 PRN PO SEVERE PAIN LEVEL 7-10 Last administered on 07/18/16 21:53; Admin Dose 1 TAB; Start at 21:00 SUZE JAMA MD July 19, 2016 13:48
[2016-07-19] MEDS ORDERED: VANCOMYCIN IV PER PHARMACY XX SCH (17:00)
[2016-07-19] MEDS ORDERED: VANCOMYCIN 2 GM in SOD CHLORIDE 0.9% 500 ML IVPB SCH (18:30)
--- NOTE | 2016-07-19 19:07 | PN ---
Date/Time of Note Date/Time of Note DATE: 07/19/16 TIME: 19:05 Assessment/Plan VTE Prophylaxis VTE Prophylaxis Intervention: other Lines/Catheters IV Catheter Type (from Nrs): Saline Lock Urinary Cath still in place: No Assessment/Plan Chief Complaint/Hosp Course cva htn dm esrd anemia ashd PIT MASS LEFT LEG CELLULITES plan per neurology pd NEUROSURGERY need rehab ANTIBIOTIC PD Problems: Subjective 24 Hr Interval Summary Subjective hx not possible: other (LEFT LEG PAIN) Respiratory: no complaints Cardiovascular: no complaints Exam/Review of Systems Vital Signs Vitals Vital Signs Date Time Temp Pulse Resp B/P Pulse Ox O2 Delivery O2 Flow Rate FiO2 07/19/16 16:08 60 07/19/16 15:58 98.2 18 135/74 94 Intake and Output 07/18/16 07/18/16 07/19/16 15:00 23:00 07:00 Intake Total 250 ml Output Total 1600 ml Balance -1600 ml 250 ml Exam Respiratory: clear to auscultation Cardiovascular: regular rate and rhythm Gastrointestinal: soft Extremities: edema (+) Skin: other (LEFT LEG REDNESS+) Results Result Diagram: 07/17/16 0652 07/19/16 0620 Results 24 hrs Laboratory Tests Test 07/18/16 21:52 07/19/16 01:49 07/19/16 06:20 07/19/16 07:52 Bedside Glucose 182 139 177 Sodium Level 131 L Potassium Level 5.0 Chloride Level 96 L Carbon Dioxide Level 22 Anion Gap 18 H Blood Urea Nitrogen 89 H Creatinine 8.85 H Glucose Level 129 Calcium Level 8.1 L Total Bilirubin 0.0 L Direct Bilirubin 0.00 Indirect Bilirubin 0.0 Aspartate Amino Transf (AST/SGOT) 15 Alanine Aminotransferase (ALT/SGPT) 25 Alkaline Phosphatase 71 Total Protein 7.1 Albumin 3.2 L Globulin 3.90 H Albumin/Globulin Ratio 0.82 Random Cortisol 2.5 Test 07/19/16 09:14 07/19/16 12:08 07/19/16 17:48 Bedside Glucose 161 191 134 Medications Medications Current Medications Atenolol (Tenormin) 50 mg DAILY PO Last administered on 07/19/16 09:07; Admin Dose 50 MG; Start 07/15/16 at 09:00 Folic Acid (Folic Acid) 1 mg DAILY PO Last administered on 07/19/16 09:06; Admin Dose 1 MG; Start 07/15/16 at 09:00 Amlodipine Besylate (Norvasc) 5 mg BID PO Last administered on 07/19/16 09:07 ; Admin Dose 5 MG; Start 07/15/16 at 09:00 Ferrous Gluconate (Fergon) 325 mg BID PO Last administered on 07/19/16 09:21; Admin Dose 325 MG; Start 07/15/16 at 09:00 Pantoprazole (Protonix Tab) 40 mg DAILY@06 PO Last administered on 07/19/16 06 :26; Admin Dose 40 MG; Start 07/15/16 at 06:00 Diagnostic Test (Pha) (Accu-Chek) 1 ea 02 XX Last administered on 07/18/16 02: 20; Admin Dose 1 EA; Start 07/15/16 at 02:00 Acetaminophen (Tylenol Tab) 650 mg Q6H PRN PO PAIN AND OR ELEVATED TEMP Last administered on 07/18/16 16:30; Admin Dose 650 MG; Start 07/15/16 at 00:30 Hydralazine HCl (Apresoline) 10 mg Q6 PRN IV ELEVATED BLOOD PRESSURE Last administered on 07/15/16 01:26; Admin Dose 10 MG; Start 07/15/16 at 00:30 Atorvastatin Calcium (Lipitor) 80 mg QHS PO Last administered on 07/18/16 21: 53; Admin Dose 80 MG; Start 07/16/16 at 21:00 Clopidogrel Bisulfate (plaVIX) 75 mg DAILY PO Last administered on 07/19/16 09 :06; Admin Dose 75 MG; Start 07/17/16 at 09:00 Miscellaneous Information 1 ea NOTE XX ; Start 07/18/16 at 07:00 Glucose (Glutose) 15 gm Q15M PRN PO DECREASED GLUCOSE; Start 07/18/16 at 07:00 Glucose (Glutose) 22.5 gm Q15M PRN PO DECREASED GLUCOSE; Start 07/18/16 at 07: 00 Dextrose (D50w Syringe) 25 ml Q15M PRN IV DECREASED GLUCOSE; Start 07/18/16 at 07:00 Dextrose (D50w Syringe) 50 ml Q15M PRN IV DECREASED GLUCOSE; Start 07/18/16 at 07:00 Glucagon (Glucagen) 1 mg Q15M PRN IM DECREASED GLUCOSE; Start 07/18/16 at 07:00 Glucose (Glutose) 15 gm Q15M PRN BUCCAL DECREASED GLUCOSE; Start 07/18/16 at 07 :00 Linagliptin (Tradjenta) 5 mg DAILY PO Last administered on 07/19/16 09:06; Admin Dose 5 MG; Start 07/18/16 at 18:30 Acetaminophen/ Hydrocodone Bitart 1 tab 1 tab Q12 PRN PO SEVERE PAIN LEVEL 7- 10 Last administered on 07/18/16 21:53; Admin Dose 1 TAB; Start 07/18/16 at 21: 00 Ceftriaxone Sodium 50 ml @ 100 mls/hr Q24H IVPB ; Start 07/19/16 at 17:30 Vancomycin HCl/ Sodium Chloride (Vancocin/NS) 500 ml @ 125 mls/hr ONCE IVPB ; Start 07/19/16 at 18:30; Stop 07/19/16 at 23:56 CHRISTINA SHIRLEY MD July 19, 2016 19:07
[2016-07-19] MEDS: CEFTRIAXONE 1 GM/50 ML (PMX) 50 ML IVPB SCH (21:47)
[2016-07-19] MEDS: ATORVASTATIN 80 MG TAB PO SCH (21:50)
--- NOTE | 2016-07-19 22:36 | PN ---
Date/Time of Note Date/Time of Note DATE: 07/19/16 TIME: 22:35 Assessment/Plan Lines/Catheters IV Catheter Type (from Nrsg): Saline Lock Castro in Place (from Nrsg): No Assessment/Plan Chief Complaint/Hosp Course IMPRESSION: Cerebrovascular accident. No evidence of any carotid stenosis. No plan for any carotid surgery at the present time. Would continue antiplatelet. discussed with Dr. Lopes. Problems: Subjective 24 Hr Interval Summary Constitutional: improved Pain Control: mild Exam/Review of Systems Vital Signs Vitals Vital Signs Date Time Temp Pulse Resp B/P Pulse Ox O2 Delivery O2 Flow Rate FiO2 07/19/16 20:23 56 07/19/16 20:07 98.5 16 122/63 95 Intake and Output 07/18/16 07/18/16 07/19/16 15:00 23:00 07:00 Intake Total 250 ml Output Total 1600 ml Balance -1600 ml 250 ml Exam ENMT: mucosa pink and moist, nl external ears & nose, nl lips & teeth, nl nasal mucosa & septum Neck: non-tender, supple Respiratory: clear to auscultation, normal air movement Cardiovascular: nl pulses, regular rate and rhythm Results Result Diagram: 07/17/16 0652 07/19/16 0620 PILO HOFFMAN MD July 19, 2016 22:36
[2016-07-20] VITALS (12 sets, daily range): BP systolic 105–152; BP diastolic 53–67; PULSE 54–70; RESP 16–18
[2016-07-20] MEDS: ACCU-CHEK XX SCH (02:00)
[2016-07-20] MEDS: PANTOPRAZOLE (EC) 40 MG TAB PO SCH (05:57)
[2016-07-20] MEDS: LEVOTHYROXINE 88 MCG TAB PO SCH (05:57)
[2016-07-20 07:42] LABS: ADD SCAN DIFF NO
[2016-07-20 07:54] LABS: BASOPHILS % 0.4 % (0.0-2.0); EOSINOPHILS # 0.2 10^3/ul (0.0-0.5); EOSINOPHILS % 1.9 % (0.0-7.0); HEMATOCRIT 27.7 % (37.0-47.0); LYMPHOCYTES # 1.3 10^3/ul (0.8-2.9); LYMPHOCYTES % 15.8 % (15.0-51.0); MEAN CORPUSCULAR HEMOGLOBIN 29.9 pg (29.0-33.0); MEAN CORPUSCULAR HGB CONC 32.5 g/dl (32.0-37.0); MEAN PLATELET VOLUME 10.7 fl (7.4-10.4); MONOCYTE # 0.7 10^3/ul (0.3-0.9); MONOCYTES % 7.9 % (0.0-11.0); NEUTROPHIL # 6.1 10^3/ul (1.6-7.5); NEUTROPHILS % 73.6 % (39.0-77.0); PLATELET COUNT 286 10^3/UL (140-415); RED BLOOD COUNT 3.01 10^6/ul (4.20-5.40); RED CELL DISTRIBUTION WIDTH 13.5 % (11.5-14.5); WHITE BLOOD COUNT 8.3 10^3/ul (4.8-10.8)
[2016-07-20] MEDS: INSULIN ASPART [NOVOLOG] 3 ML PEN SC SCH ×4 (08:00→21:00)
[2016-07-20] MEDS: FERROUS GLUCONATE (EC) 325 MG TAB PO SCH ×2 (09:31→21:36)
[2016-07-20] MEDS: AMLODIPINE 5 MG TAB PO SCH ×2 (09:31→21:37)
[2016-07-20] MEDS: LINAGLIPTIN 5 MG TABLET PO SCH (09:31)
[2016-07-20] MEDS: ATENOLOL 50 MG TAB PO SCH (09:31)
[2016-07-20] MEDS: CLOPIDOGREL 75 MG TAB PO SCH (09:31)
[2016-07-20] MEDS: FOLIC ACID 1 MG TAB PO SCH (09:31)
[2016-07-20] MEDS: BROMOCRIPTINE 2.5 MG TAB PO SCH ×2 (12:27→21:36)
--- NOTE | 2016-07-20 12:28 | PN ---
Date/Time of Note Date/Time of Note DATE: 07/20/16 TIME: 12:27 Assessment/Plan VTE Prophylaxis VTE Prophylaxis Intervention: SCD's Lines/Catheters IV Catheter Type (from Rust): Saline Lock Urinary Cath still in place: No Assessment/Plan Chief Complaint/Hosp Course 1. cva 2. htn 3. dm 4. esrd 5. anemia 6. ashd 7. peritoneal dialysis 8. LEFT LEG CELLULITES Problems: Subjective 24 Hr Interval Summary Constitutional: no complaints Exam/Review of Systems Vital Signs Vitals Vital Signs Date Time Temp Pulse Resp B/P Pulse Ox O2 Delivery O2 Flow Rate FiO2 07/20/16 12:06 60 07/20/16 11:19 97.8 18 129/57 94 Intake and Output 07/19/16 07/19/16 07/20/16 15:00 23:00 07:00 Intake Total 170 ml 720 ml Balance 170 ml 720 ml Exam Constitutional: alert, oriented Psych: no complaints Respiratory: clear to auscultation Cardiovascular: regular rate and rhythm Results Result Diagram: 07/20/16 0655 07/19/16 0620 Results 24 hrs Laboratory Tests Test 07/19/16 17:48 07/19/16 21:49 07/20/16 06:55 07/20/16 08:29 Bedside Glucose 134 196 108 White Blood Count 8.3 Red Blood Count 3.01 L Hemoglobin 9.0 L Hematocrit 27.7 L Mean Corpuscular Volume 92.0 Mean Corpuscular Hemoglobin 29.9 Mean Corpuscular Hemoglobin Concent 32.5 Red Cell Distribution Width 13.5 Platelet Count 286 Mean Platelet Volume 10.7 H Neutrophils % 73.6 Lymphocytes % 15.8 Monocytes % 7.9 Eosinophils % 1.9 Basophils % 0.4 Nucleated Red Blood Cells % 0.0 Neutrophils # 6.1 Lymphocytes # 1.3 Monocytes # 0.7 Eosinophils # 0.2 Basophils # 0.0 Nucleated Red Blood Cells # 0.0 Medications Medications Current Medications Atenolol (Tenormin) 50 mg DAILY PO Last administered on 07/20/16 09:31; Admin Dose 50 MG; Start 07/15/16 at 09:00 Folic Acid (Folic Acid) 1 mg DAILY PO Last administered on 07/20/16 09:31; Admin Dose 1 MG; Start 07/15/16 at 09:00 Amlodipine Besylate (Norvasc) 5 mg BID PO Last administered on 07/20/16 09:31 ; Admin Dose 5 MG; Start 07/15/16 at 09:00 Ferrous Gluconate (Fergon) 325 mg BID PO Last administered on 07/20/16 09:31; Admin Dose 325 MG; Start 07/15/16 at 09:00 Pantoprazole (Protonix Tab) 40 mg DAILY@06 PO Last administered on 07/20/16 05 :57; Admin Dose 40 MG; Start 07/15/16 at 06:00 Diagnostic Test (Pha) (Accu-Chek) 1 ea 02 XX Last administered on 07/18/16 02: 20; Admin Dose 1 EA; Start 07/15/16 at 02:00 Acetaminophen (Tylenol Tab) 650 mg Q6H PRN PO PAIN AND OR ELEVATED TEMP Last administered on 07/18/16 16:30; Admin Dose 650 MG; Start 07/15/16 at 00:30 Hydralazine HCl (Apresoline) 10 mg Q6 PRN IV ELEVATED BLOOD PRESSURE Last administered on 07/15/16 01:26; Admin Dose 10 MG; Start 07/15/16 at 00:30 Atorvastatin Calcium (Lipitor) 80 mg QHS PO Last administered on 07/19/16 21: 50; Admin Dose 80 MG; Start 07/16/16 at 21:00 Clopidogrel Bisulfate (plaVIX) 75 mg DAILY PO Last administered on 07/20/16 09 :31; Admin Dose 75 MG; Start 07/17/16 at 09:00 Miscellaneous Information 1 ea NOTE XX ; Start 07/18/16 at 07:00 Glucose (Glutose) 15 gm Q15M PRN PO DECREASED GLUCOSE; Start 07/18/16 at 07:00 Glucose (Glutose) 22.5 gm Q15M PRN PO DECREASED GLUCOSE; Start 07/18/16 at 07: 00 Dextrose (D50w Syringe) 25 ml Q15M PRN IV DECREASED GLUCOSE; Start 07/18/16 at 07:00 Dextrose (D50w Syringe) 50 ml Q15M PRN IV DECREASED GLUCOSE; Start 07/18/16 at 07:00 Glucagon (Glucagen) 1 mg Q15M PRN IM DECREASED GLUCOSE; Start 07/18/16 at 07:00 Glucose (Glutose) 15 gm Q15M PRN BUCCAL DECREASED GLUCOSE; Start 07/18/16 at 07 :00 Linagliptin (Tradjenta) 5 mg DAILY PO Last administered on 07/20/16 09:31; Admin Dose 5 MG; Start 07/18/16 at 18:30 Acetaminophen/ Hydrocodone Bitart 1 tab 1 tab Q12 PRN PO SEVERE PAIN LEVEL 7- 10 Last administered on 07/18/16 21:53; Admin Dose 1 TAB; Start 07/18/16 at 21: 00 Ceftriaxone Sodium (Rocephin) 50 ml @ 100 mls/hr Q24H IVPB Last administered on 07/19/16 21:47; Admin Dose 100 MLS/HR; Start 07/19/16 at 17:30 Bromocriptine Mesylate (Parlodel) 2.5 mg BID PO ; Start 07/20/16 at 09:00 Miscellaneous Information (*Rx Drug Level Order Reminder*) 1 ONCE ONCE XX ; Start 07/21/16 at 05:00; Stop 07/21/16 at 05:01 MARTINE LLOYD July 20, 2016 12:28
--- NOTE | 2016-07-20 14:06 | CONS ---
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 In the course of her evaluation she has been found to have a pituitary lesion. She had prior CT scanning of the brain done 2009 but the images are not available and the report does not mention a pituitary lesion at that time. Please note that those were sinus images and may not have covered that area. This young lady has a negative endocrine review of systems has a negative family history for MEN or ALBINA syndromes or diagnoses to suggest that. She has limited visual acuity doing due to diabetic retinopathy. She has end-stage renal disease due to diabetes and as such gadolinium contrast is contraindicated in her setting. 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 Our options are to treat it which I strongly encourage. 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 R2 agents to treat this are Dostinex and bromocriptine. Dostinex is not on the hospital formula. Therefore will use the bromocriptine. I will start at 2.5 mg twice daily and titrate to effect. Please note this medication is famous for side effects with sinus symptoms or stuffiness headache and nausea. Will do her best to tolerate this medication. Goal here is to bring the prolactin down into the normal level. After 3 months of normal level repeat imaging of the pituitary should be done. With any luck there will be significant shrinkage in the size of the pituitary tumor and there will be no indication for neurosurgical intervention. Please note at this moment there is not indication for neurosurgical intervention. Consultation Date/Type/Reason Admit Date/Time July 14, 2016 at 21:00 Initial Consult Date 07/18/16 Type of Consultation: endocrinology Reason for Consultation Pituitary macroadenoma 15 mm with prolactin above 130 Referring Provider: CHRISTINA SHIRLEY MD 24 HR Interval Summary Free Text/Dictation Patient reports no changes. Negative endocrine review of systems Exam/Review of Systems Vital Signs Vitals Vital Signs Date Time Temp Pulse Resp B/P Pulse Ox O2 Delivery O2 Flow Rate FiO2 07/20/16 12:06 60 07/20/16 11:19 97.8 18 129/57 94 Intake and Output 07/19/16 07/19/16 07/20/16 15:00 23:00 07:00 Intake Total 170 ml 720 ml Balance 170 ml 720 ml Exam No galactorrhea Constitutional: alert, oriented Eyes: other (Patient has underlying diabetic retinopathy his visual donato are not normal) Neck: non-tender, supple Respiratory: clear to auscultation, normal air movement Cardiovascular: nl pulses, regular rate and rhythm Results Result Diagram: 07/20/16 0655 07/19/16 0620 Results 24 hrs Laboratory Tests Test 07/19/16 17:48 07/19/16 21:49 07/20/16 06:55 07/20/16 08:29 Bedside Glucose 134 196 108 White Blood Count 8.3 Red Blood Count 3.01 L Hemoglobin 9.0 L Hematocrit 27.7 L Mean Corpuscular Volume 92.0 Mean Corpuscular Hemoglobin 29.9 Mean Corpuscular Hemoglobin Concent 32.5 Red Cell Distribution Width 13.5 Platelet Count 286 Mean Platelet Volume 10.7 H Neutrophils % 73.6 Lymphocytes % 15.8 Monocytes % 7.9 Eosinophils % 1.9 Basophils % 0.4 Nucleated Red Blood Cells % 0.0 Neutrophils # 6.1 Lymphocytes # 1.3 Monocytes # 0.7 Eosinophils # 0.2 Basophils # 0.0 Nucleated Red Blood Cells # 0.0 Test 07/20/16 12:26 Bedside Glucose 170 Medications Medications Current Medications Atenolol (Tenormin) 50 mg DAILY PO Last administered on 07/20/16 09:31; Admin Dose 50 MG; Start 07/15/16 at 09:00 Folic Acid (Folic Acid) 1 mg DAILY PO Last administered on 07/20/16 09:31; Admin Dose 1 MG; Start 07/15/16 at 09:00 Amlodipine Besylate (Norvasc) 5 mg BID PO Last administered on 07/20/16 09:31 ; Admin Dose 5 MG; Start 07/15/16 at 09:00 Ferrous Gluconate (Fergon) 325 mg BID PO Last administered on 07/20/16 09:31; Admin Dose 325 MG; Start 07/15/16 at 09:00 Pantoprazole (Protonix Tab) 40 mg DAILY@06 PO Last administered on 07/20/16 05 :57; Admin Dose 40 MG; Start 07/15/16 at 06:00 Diagnostic Test (Pha) (Accu-Chek) 1 ea 02 XX Last administered on 07/18/16 02: 20; Admin Dose 1 EA; Start 07/15/16 at 02:00 Acetaminophen (Tylenol Tab) 650 mg Q6H PRN PO PAIN AND OR ELEVATED TEMP Last administered on 07/18/16 16:30; Admin Dose 650 MG; Start 07/15/16 at 00:30 Hydralazine HCl (Apresoline) 10 mg Q6 PRN IV ELEVATED BLOOD PRESSURE Last administered on 07/15/16 01:26; Admin Dose 10 MG; Start 07/15/16 at 00:30 Atorvastatin Calcium (Lipitor) 80 mg QHS PO Last administered on 07/19/16 21: 50; Admin Dose 80 MG; Start 07/16/16 at 21:00 Clopidogrel Bisulfate (plaVIX) 75 mg DAILY PO Last administered on 07/20/16 09 :31; Admin Dose 75 MG; Start 07/17/16 at 09:00 Miscellaneous Information 1 ea NOTE XX ; Start 07/18/16 at 07:00 Glucose (Glutose) 15 gm Q15M PRN PO DECREASED GLUCOSE; Start 07/18/16 at 07:00 Glucose (Glutose) 22.5 gm Q15M PRN PO DECREASED GLUCOSE; Start 07/18/16 at 07: 00 Dextrose (D50w Syringe) 25 ml Q15M PRN IV DECREASED GLUCOSE; Start 07/18/16 at 07:00 Dextrose (D50w Syringe) 50 ml Q15M PRN IV DECREASED GLUCOSE; Start 07/18/16 at 07:00 Glucagon (Glucagen) 1 mg Q15M PRN IM DECREASED GLUCOSE; Start 07/18/16 at 07:00 Glucose (Glutose) 15 gm Q15M PRN BUCCAL DECREASED GLUCOSE; Start 07/18/16 at 07 :00 Linagliptin (Tradjenta) 5 mg DAILY PO Last administered on 07/20/16 09:31; Admin Dose 5 MG; Start 07/18/16 at 18:30 Acetaminophen/ Hydrocodone Bitart 1 tab 1 tab Q12 PRN PO SEVERE PAIN LEVEL 7- 10 Last administered on 07/18/16 21:53; Admin Dose 1 TAB; Start 07/18/16 at 21: 00 Ceftriaxone Sodium (Rocephin) 50 ml @ 100 mls/hr Q24H IVPB Last administered on 07/19/16 21:47; Admin Dose 100 MLS/HR; Start 07/19/16 at 17:30 Bromocriptine Mesylate (Parlodel) 2.5 mg BID PO Last administered on 07/20/16 12:27; Admin Dose 2.5 MG; Start 07/20/16 at 09:00 Miscellaneous Information (*Rx Drug Level Order Reminder*) 1 ONCE ONCE XX ; Start 07/21/16 at 05:00; Stop 07/21/16 at 05:01 SUZE JAMA MD July 20, 2016 14:06
[2016-07-20] MEDS: CEFTRIAXONE 1 GM/50 ML (PMX) 50 ML IVPB SCH (17:18)
--- NOTE | 2016-07-20 17:35 | PN ---
Date/Time of Note Date/Time of Note DATE: 07/20/16 TIME: 17:35 Assessment/Plan Lines/Catheters IV Catheter Type (from Nrsg): Saline Lock Castro in Place (from Nrsg): No Assessment/Plan Chief Complaint/Hosp Course IMPRESSION: Cerebrovascular accident. No evidence of any carotid stenosis. No plan for any carotid surgery at the present time. Would continue antiplatelet. discussed with Dr. Lopes. Problems: Subjective 24 Hr Interval Summary Constitutional: improved Pain Control: mild Exam/Review of Systems Vital Signs Vitals Vital Signs Date Time Temp Pulse Resp B/P Pulse Ox O2 Delivery O2 Flow Rate FiO2 07/20/16 16:08 60 07/20/16 15:24 98.3 16 121/65 99 Intake and Output 07/19/16 07/19/16 07/20/16 15:00 23:00 07:00 Intake Total 170 ml 720 ml Balance 170 ml 720 ml Exam Neck: non-tender, supple Respiratory: clear to auscultation, normal air movement Cardiovascular: nl pulses, regular rate and rhythm Gastrointestinal: nl liver, spleen, non-tender, soft Results Result Diagram: 07/20/16 0655 07/19/16 0620 PILO HOFFMAN MD July 20, 2016 17:35
[2016-07-20] MEDS: ATORVASTATIN 80 MG TAB PO SCH (21:37)
== END 2016-07-20 22:10 | DRG 64 ==
LOC: E/R 17:46 → MS4 21:00
PROVIDERS: ADMIT Internal Medicine Nephrology; ATTEND Internal Medicine Nephrology
PROC: 3E1M39Z Irrigation of Peritoneal Cavity using Dialysate, Percutaneous Approach (ICD-10-PCS; principal; 2016-07-15)
DX: I63.8 Other cerebral infarction (principal); N18.6 End stage renal disease; E11.22 Type 2 diabetes mellitus with diabetic chronic kidney disease; I12.0 Hypertensive chronic kidney disease with stage 5 chronic kidney disease or end stage renal disease; N25.81 Secondary hyperparathyroidism of renal origin; L03.116 Cellulitis of left lower limb; G81.94 Hemiplegia, unspecified affecting left nondominant side; Z68.41 Body mass index [BMI] 40.0-44.9, adult; Z99.2 Dependence on renal dialysis; E66.9 Obesity, unspecified; E23.6 Other disorders of pituitary gland; E21.3 Hyperparathyroidism, unspecified; D64.9 Anemia, unspecified; D35.2 Benign neoplasm of pituitary gland; E03.9 Hypothyroidism, unspecified; E11.319 Type 2 diabetes mellitus with unspecified diabetic retinopathy without macular edema; Z79.4 Long term (current) use of insulin; R29.703 NIHSS score 3
CPT/HCPCS: 36415; 70450; 70551; 71010; 80053; 80061; 80306; 82533; 82670; 82962; 83001; 84146; 84305; 84436; 84443; 84479; 84484; 85025; 85610; 85730; 90945; 93005; 93308; 93880; 93971; 97003; 97110; 97116; 97162; 97530; J0360; J0696; J1815; J2060; J3370; J7040

== ENCOUNTER 2016-07-20 23:39 | Inpatient (IN) | payer OTHER ==
[~2016-07-20] VITALS: Ht 162.6 cm; Wt 113.0 kg
[2016-07-20 23:00] VITALS: BP 130/64; PULSE 58; RESP 16
[2016-07-21 04:28] VITALS: Ht 162.6 cm; Wt 113.0 kg
[2016-07-21] MEDS ORDERED: ACETAMINOPHEN 325 MG TAB PO PRN (04:30)
[2016-07-21] MEDS ORDERED: DEXTROSE 50% 50 ML SYRINGE IV PRN ×2 (04:30)
[2016-07-21] MEDS ORDERED: GLUCOSE GEL 15 GRAM TUBE PO PRN ×2 (04:30)
[2016-07-21] MEDS ORDERED: GLUCAGON 1 MG INJ IM PRN (04:30)
[2016-07-21] MEDS ORDERED: GLUCOSE GEL 15 GRAM TUBE BUCCAL PRN (04:30)
[2016-07-21] MEDS ORDERED: hydrALAzine 20 MG INJ IV PRN (04:30)
[2016-07-21 04:47] LABS: ADD UMIC YES; UR BILIRUBIN (Dip) NEGATIVE (NEGATIVE); UR BLOOD (Dip) 1+ (NEGATIVE); UR CLARITY CLEAR (CLEAR); UR COLOR LT. YELLOW (YELLOW); UR KETONES (Dip) NEGATIVE (NEGATIVE); UR LEUKOCYTE ESTERASE (Dip) 1+ (NEGATIVE); UR NITRITE (Dip) NEGATIVE (NEGATIVE); UR TOTAL PROTEIN (Dip) 4+ (NEGATIVE); UR UROBILINOGEN (Dip) 0.2 E.U./dL (0.1-1.0)
[2016-07-21 05:14] LABS: UR BACTERIA MANY; UR SQUAMOUS EPITHELIAL CELL MANY
[2016-07-21 06:40] VITALS: BP 118/78; PULSE 78
[2016-07-21] MEDS: PANTOPRAZOLE (EC) 40 MG TAB PO SCH (06:40)
[2016-07-21] MEDS: LEVOTHYROXINE 88 MCG TAB PO SCH (06:40)
[2016-07-21 07:30] VITALS: BP 119/58; RESP 20
[2016-07-21 07:45] LABS: ADD SCAN DIFF NO
[2016-07-21 07:53] LABS: BASOPHILS % 0.4 % (0.0-2.0); EOSINOPHILS # 0.1 10^3/ul (0.0-0.5); EOSINOPHILS % 1.4 % (0.0-7.0); HEMATOCRIT 27.8 % (37.0-47.0); HEMOGLOBIN 9.1 g/dl (12.0-16.0); LYMPHOCYTES # 1.1 10^3/ul (0.8-2.9); LYMPHOCYTES % 13.5 % (15.0-51.0); MEAN CORPUSCULAR HEMOGLOBIN 29.9 pg (29.0-33.0); MEAN CORPUSCULAR HGB CONC 32.7 g/dl (32.0-37.0); MEAN CORPUSCULAR VOLUME 91.4 fl (82.0-101.0); MEAN PLATELET VOLUME 11.2 fl (7.4-10.4); MONOCYTE # 0.6 10^3/ul (0.3-0.9); NEUTROPHILS % 76.4 % (39.0-77.0); PLATELET COUNT 301 10^3/UL (140-415); RED BLOOD COUNT 3.04 10^6/ul (4.20-5.40); RED CELL DISTRIBUTION WIDTH 13.3 % (11.5-14.5); WHITE BLOOD COUNT 7.8 10^3/ul (4.8-10.8)
[2016-07-21] MEDS: Insulin NOVOLOG SS MODERATE Algorithm (SS with meals and bedtime) SC SCH ×4 (08:00→20:58)
[2016-07-21 08:05] LABS: ALBUMIN 2.9 g/dl (3.3-4.9)
[2016-07-21 08:06] LABS: POTASSIUM 4.6 mmol/L (3.5-5.1)
[2016-07-21 08:08] LABS: ALBUMIN/GLOBULIN RATIO 0.76; TOTAL PROTEIN 6.7 g/dl (6.1-8.1)
[2016-07-21 08:18] LABS: CREATININE 8.74 mg/dl (0.44-1.00)
[2016-07-21] MEDS: AMLODIPINE 5 MG TAB PO SCH ×2 (09:00→20:54)
[2016-07-21] MEDS: FOLIC ACID 1 MG TAB PO SCH (09:03)
[2016-07-21] MEDS: CLOPIDOGREL 75 MG TAB PO SCH (09:03)
[2016-07-21] MEDS: DOCUSATE SODIUM 100 MG CAP PO SCH ×2 (09:03→20:53)
[2016-07-21] MEDS: FERROUS GLUCONATE (EC) 325 MG TAB PO SCH ×2 (09:03→20:54)
[2016-07-21] MEDS: BROMOCRIPTINE 2.5 MG TAB PO SCH ×2 (09:03→20:54)
[2016-07-21] MEDS: LINAGLIPTIN 5 MG TABLET PO SCH (09:03)
[2016-07-21] MEDS: ATENOLOL 50 MG TAB PO SCH (09:04)
[2016-07-21] MEDS: HYDROCODONE/APAP (5/325) TAB PO PRN (09:05)
[2016-07-21 10:05] VITALS: BP 130/72; PULSE 79
--- NOTE | 2016-07-21 10:13 | RADRPT ---
PROCEDURE: US DVT. CLINICAL INDICATION: Left lower extremity pain and swelling. TECHNIQUE: Multiple longitudinal and transverse images of the left lower extremity veins were obta ined with camacho scale and color Doppler imaging. 2D grayscale measurements with compression, color D oppler flow, and augmentation was performed. The calf veins were interrogated as well. COMPARISON: 07/14/2016 FINDINGS: The left common femoral, femoral and popliteal veins are normally compressible throughout. Color flow demonstrates normal filling of the vessel. Normal waveforms are visualized and there is normal response to augmentation. The calf veins are visualized and appear patent. The patient was not able to tolerate full compress ion due to pain. Venous reflux in the calf veins is noted. IMPRESSION: 1. No evidence of a deep vein thrombosis involving the left lower extremity. 2. Venous reflux in the left calf veins. RPTAT: QQ .Wilmer Best MD, Date Time Electronically viewed and signed by .Wilmer Best MD, on 07/21/2016 10:12 .M/
--- NOTE | 2016-07-21 10:51 | HP ---
DATE OF ADMISSION: 07/20/2016 PHYSICAL MEDICINE AND REHABILITATION HISTORY AND PHYSICAL/PHYSICIAN POST- ADMISSION ASSESSMENT DATE OF VISIT: 07/21/2016 REHABILITATION IMPAIRMENT GROUP: Right side cerebrovascular accident with left body involvement. CHIEF COMPLAINT: Impaired mobility, left-sided weakness. HISTORY OF PRESENT ILLNESS: This is a 60-year-old right handed female with history of end-stage renal disease on peritoneal dialysis, hypertension, hypothyroidism, diabetes mellitus with diabetic retinopathy and nephropathy, anemia, dyslipidemia, who initially presented to [facility] with left-sided weakness and left lower extremity pain. Workup done including an MRI brain which showed acute lacunar infarcts in the right jama as well as a suprasellar mass. 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 She was evaluated by neurosurgery as well as endocrinology, recommended no current acute neurosurgical intervention and was started on bromocriptine for the pituitary macroadenoma. She was also evaluated by neurology and recommended to switch from aspirin to Plavix, as well as increase her Lipitor for secondary stroke prevention. The patient underwent further workup including carotid ultrasound which showed no hemodynamically significant lesions. The patient did have a venous ultrasound of her left lower extremity for pain, which was negative for a DVT. Her hospital course was further complicated by left lower extremity cellulitis and was started on antibiotics. The patient did work with physical and occupational therapies and noted to have a significant overall functional decline from her baseline independent status. Currently, the patient is requiring maximal assist for most of her ADLs and basic mobility. Due to the patient's ongoing medical comorbidities as well as significant functional decline, the patient is thought to benefit from acute inpatient rehabilitation. PAST MEDICAL AND PAST SURGICAL HISTORY: As stated in the history of present illness. The patient reports peritoneal dialysis placement earlier this year around February. She reports left lower extremity pain and swelling started a few weeks since the dialysis catheter placement. Also history of hyperparathyroid, hypocalcemia, hypoalbuminemia. FAMILY HISTORY: Reports noncontributory. SOCIAL HISTORY: Denies current toxic habits. The patient lives with her daughter and sons in a first floor apartment with 7 steps to enter. The patient reports prior level of function, she was completely independent for all functional mobility and self-care ADLs and did not require any assistive device for ambulation. MEDICATIONS ON ADMISSION: Reviewed. 1. Lipitor. 2. Ceftriaxone. 3. Linagliptin. 4. Plavix. 5. Ferrous gluconate. 6. Folic acid. 7. Norvasc. 8. Atenolol. 9. Bromocriptine. 10. Colace. 11. Insulin sliding scale level. 12. Levothyroxine. 13. Protonix. 14. Dulcolax suppository as needed. 15. Lactulose as needed. 16. Hydralazine as needed. 17. Lyndon 5/325 mg 1 tab q.12 hours as needed. 18. Tylenol 650 mg q.6 hours as needed. ALLERGIES: NO KNOWN DRUG ALLERGIES. LABORATORIES AND IMAGING: Reviewed in the electronic medical records. Admission labs today show hemoglobin 9.1, hematocrit 27.8, WBC 7.8, platelet count 301. Sodium 133, potassium 4.6, BUN 94, creatinine 8.74, glucose 140, calcium 8. AST 14, ALT 25, alkaline phosphatase 69, albumin 2.9. REVIEW OF SYSTEMS: CONSTITUTIONAL: Denies fevers or chills. EYES: Denies pain or discharge. No new visual changes. She does report chronic visual impairment followed by ophthalmology. EARS, NOSE AND THROAT: Denies difficulty swallowing. No changes in hearing. RESPIRATORY: Denies shortness of breath, no cough. CARDIOVASCULAR: Denies chest pain, no palpitations. GENITOURINARY: She reports no dysuria, no hematuria. GASTROINTESTINAL: Denies abdominal pain, no nausea or vomiting. Reports last bowel movement earlier today. NEUROLOGICAL: Reports significant for left-sided weakness. Denies any new paresthesias. MUSCULOSKELETAL: Reports severe left lower extremity pain, described as sharp, burning and throbbing. Denies any lower back pain. SKIN: Denies itching. PSYCHIATRIC: Denies anxiety or depression. Review of systems otherwise negative. PHYSICAL EXAMINATION: VITAL SIGNS: Blood pressure 119/58, heart rate 62, temperature 97.5 Fahrenheit , respiratory rate 20, O2 saturation is 93% on room air. GENERAL: The patient is well-nourished, well-developed, awake, alert, in no acute distress. HEENT: Normocephalic, atraumatic. Mucous membranes moist. Extraocular muscles intact. NECK: Supple, nontender. RESPIRATORY: Symmetrical air entry bilaterally. No crackles, no wheezing. Respirations are nonlabored. CARDIOVASCULAR: Regular rate and rhythm, audible S1, S2. ABDOMEN: Soft, nontender. Peritoneal dialysis placement site clean, dry and intact. Bowel sounds are present. EXTREMITIES: Right lower extremity calf soft, nontender. The patient has nonspecific tenderness to palpation throughout her left lower extremity with some swelling. Varicose veins present. SKIN: She has blanchable redness in the bilateral heels, skin changes in the lower extremities, scattered areas of discoloration from prior areas of scratching per patient report. PSYCHIATRIC: Affect and mood are appropriate, oriented x3. NEUROLOGIC/MUSCULOSKELETAL EXAMINATION: Speech is fluent. Follows simple commands appropriately. Extraocular muscles intact. There is some left-sided facial weakness. Facial sensation intact. Tongue protrudes midline. Trapezius , sternocleidomastoid appear grossly intact. Hearing appears intact bilaterally. Strength in the right upper and right lower extremity is grossly intact. Left upper extremity and left lower extremity are flaccid with minimal movement at the left shoulder. No visible movement distally in the left upper extremity. Left lower extremity testing is limited by pain, appears grossly 2-/ 5 in the knee extensors, 0/5 in the dorsiflexors and plantar flexors. The patient reports sensation is intact to light touch in the bilateral upper and lower extremities. She does appear to have allodynia in the left lower extremity with tenderness to palpation throughout. IMPRESSION: 1. Acute lacunar infarcts in the right jama. 2. Impaired mobility, gait and balance. 3. Impaired self-care activities of daily living. 4. Left nondominant hemiparesis. 5. Pituitary macroadenoma. 6. End-stage renal disease, on peritoneal dialysis. 7. Hypertension. 8. Hypothyroidism. 9. Diabetes mellitus. 10. Anemia. 11. Hypocalcemia. 12. Hyperparathyroid 13. Obesity. 14. Dyslipidemia. 15. Left lower extremity pain. 16. Left lower extremity cellulitis. PLAN: 1. The patient will be admitted for inpatient comprehensive interdisciplinary rehabilitation to address impairments and medical conditions listed above while assessing equipment needs and compensatory strategies with coordinated interdisciplinary services that will include physical and occupational therapies with close monitoring and treatment with 24-hour rehabilitation nursing. The patient is anticipated to be able to tolerate 3 hours daily for at least 5/7 days per week of therapies. 2. Begin physical therapy for bed mobility, transfers, balance training, wheelchair mobility, gait training with assistive device, lower extremity strengthening, range of motion, coordination. 3. Begin occupational therapies for activities of daily living, functional transfers, patient education, adaptive equipment evaluation, upper extremity strengthening, range of motion, coordination. 4. Speech therapy for full cognitive evaluation as well as for dysphagia evaluation. 5. Rehabilitation nursing to provide the patient education regarding current medications as they relate to medical illness. Monitor blood sugars. Monitor for signs or symptoms of hyper or hypoglycemia. Monitor pain. Monitor bowel and bladder programs and administer such programs reinforce those activities with therapies. 6. Dr. Lopes to follow for management of medical comorbidities. 7. For secondary stroke prevention, continue on Plavix and statin per neurology recommendations. 8. For pituitary macroadenoma, the patient is being followed by endocrinology on treatment with bromocriptine. 9. For hypothyroidism, continue levothyroxine. 10. For hypertension, continue on antihypertensive medications. Currently blood pressure controlled. 11. For dyslipidemia, continue on statin. 12. For diabetes mellitus, monitor blood sugars and continue treatment per internal medicine. 13. For her left lower extremity pain. The patient did have a venous ultrasound done last week, which was negative for DVT. Will repeat venous ultrasound study and consider further work up. Continue p.r.n. Tylenol and Lyndon for pain. Start Neurontin for neuropathic pain component. 14. For anemia, continue to monitor hemoglobin and hematocrit. Continue iron supplementation per nephrology. 15. For end-stage renal disease, she is on peritoneal dialysis per nephrology, to continue to follow. REHABILITATION GOALS: To improve bed mobility, transfers, wheelchair mobility and self-care ADLs to minimal assistance level. ESTIMATED LENGTH OF STAY: Approximately 2 1/2 to 3 weeks. Her case will be discussed at the weekly interdisciplinary conference. Anticipated disposition is to home with family support. PROGNOSIS: At the current time, this inpatient hospital rehabilitation stay is medically necessary to achieve important health and functional goals. The patient requires frequent physician visits, 24-hour rehabilitation nursing and a coordinated intensive rehabilitation program as described above to address complex medical, nursing and rehabilitation needs. The patient has a fair prognosis for benefitting from this program and returning to home and community. REHABILITATION PHYSICIAN POST-ADMISSION ASSESSMENT REVIEW: I have had the opportunity to examine the patient within 24 hours of admission and have reviewed the preadmission assessment and find it consistent with my examination and evaluation of the patient. I confirm that this patient is appropriate for admission and treatment in this inpatient rehabilitation hospital, needs intense interdisciplinary rehabilitation care and is expected to achieve meaningful goals within a reasonable period of time that are consistent with the planned discharge disposition as noted above. Dictated By: HOANG WESTON MD, RA/FLOYD Conf#: [id number] DID#: [id number] MTDD
--- NOTE | 2016-07-21 12:23 | CONS ---
Date/Time of Note Date/Time of Note DATE: 07/21/16 TIME: 12:21 Assessment/Plan Assessment/Plan Chief Complaint/Hosp Course 1. CKD stage 4. 3. Peritoneal dialysis 3. Neuropathies 4. Hypertension 5. Left leg swelling and pain without DVT on US 6. Anemia 7. DM type II 8. Hypothyroidism Problems: Additional Assessment/Plan 1. CT scan without contrast pelvis and abdomen 2. Continue PD Consultation Date/Type/Reason Admit Date/Time July 20, 2016 at 23:39 Initial Consult Date 07/20/2016 Type of Consultation: nephrology Reason for Consultation Dr Lopes Exam/Review of Systems Vital Signs Vitals Vital Signs Date Time Temp Pulse Resp B/P Pulse Ox O2 Delivery O2 Flow Rate FiO2 07/21/16 10:05 79 07/21/16 07:30 97.5 20 119/58 93 07/20/16 23:00 Room Air Exam Constitutional: alert, distress Psych: no complaints Head: normocephalic Eyes: nl conjunctiva ENMT: nl external ears & nose Gastrointestinal: other (PD access), soft Genitourinary - Female: nl external genitalia Musculoskeletal: other (left leg edema, no redness) Results Result Diagram: 07/21/16 0620 07/21/16 0610 Results 24 hrs Laboratory Tests Test 07/21/16 02:05 07/21/16 06:10 07/21/16 06:20 07/21/16 08:19 Urine Color LT. YELLOW Urine Clarity CLEAR Urine pH 7.0 Urine Specific [place] 1.015 Urine Ketones NEGATIVE Urine Nitrite NEGATIVE Urine Bilirubin NEGATIVE Urine Urobilinogen 0.2 E.U./dL Urine Leukocyte Esterase 1+ H Urine Microscopic RBC 5-10 Urine Microscopic WBC 10-25 Urine Squamous Epithelial Cells MANY Urine Bacteria MANY Urine Hemoglobin 1+ H Urine Glucose 0.25% H Urine Total Protein 4+ H Sodium Level 133 L Potassium Level 4.6 Chloride Level 94 L Carbon Dioxide Level 24 Anion Gap 20 H Blood Urea Nitrogen 94 H Creatinine 8.74 H Glucose Level 99 Calcium Level 8.0 L Total Bilirubin 0.0 L Direct Bilirubin 0.00 Indirect Bilirubin 0.0 Aspartate Amino Transf (AST/SGOT) 14 L Alanine Aminotransferase (ALT/SGPT) 25 Alkaline Phosphatase 69 Total Protein 6.7 Albumin 2.9 L Globulin 3.80 H Albumin/Globulin Ratio 0.76 White Blood Count 7.8 Red Blood Count 3.04 L Hemoglobin 9.1 L Hematocrit 27.8 L Mean Corpuscular Volume 91.4 Mean Corpuscular Hemoglobin 29.9 Mean Corpuscular Hemoglobin Concent 32.7 Red Cell Distribution Width 13.3 Platelet Count 301 Mean Platelet Volume 11.2 H Neutrophils % 76.4 Lymphocytes % 13.5 L Monocytes % 8.0 Eosinophils % 1.4 Basophils % 0.4 Nucleated Red Blood Cells % 0.0 Neutrophils # 6.0 Lymphocytes # 1.1 Monocytes # 0.6 Eosinophils # 0.1 Basophils # 0.0 Nucleated Red Blood Cells # 0.0 Bedside Glucose 140 Test 07/21/16 12:07 Bedside Glucose 146 Medications Medications Current Medications Pantoprazole (Protonix Tab) 40 mg DAILY@06 PO Last administered on 07/21/16 06 :40; Admin Dose 40 MG; Start 07/21/16 at 06:00 Linagliptin (Tradjenta) 5 mg DAILY PO Last administered on 07/21/16 09:03; Admin Dose 5 MG; Start 07/21/16 at 09:00 Miscellaneous Information 1 ea NOTE XX ; Start 07/21/16 at 04:30 Glucose (Glutose) 15 gm Q15M PRN PO DECREASED GLUCOSE; Start 07/21/16 at 04:30 Glucose (Glutose) 22.5 gm Q15M PRN PO DECREASED GLUCOSE; Start 07/21/16 at 04: 30 Dextrose (D50w Syringe) 25 ml Q15M PRN IV DECREASED GLUCOSE; Start 07/21/16 at 04:30 Dextrose (D50w Syringe) 50 ml Q15M PRN IV DECREASED GLUCOSE; Start 07/21/16 at 04:30 Glucagon (Glucagen) 1 mg Q15M PRN IM DECREASED GLUCOSE; Start 07/21/16 at 04:30 Glucose (Glutose) 15 gm Q15M PRN BUCCAL DECREASED GLUCOSE; Start 07/21/16 at 04 :30 Hydralazine HCl (Apresoline) 10 mg Q6H PRN IV PRN FOR SBP ABOVE 165mmHg; Start 07/21/16 at 04:30 Acetaminophen/ Hydrocodone Bitart ([place] (5/325)) 1 tab Q12H PRN PO PAIN Last administered on 07/21/16 09:05; Admin Dose 1 TAB; Start 07/21/16 at 04:30 Clopidogrel Bisulfate (plaVIX) 75 mg DAILY PO Last administered on 07/21/16 09 :03; Admin Dose 75 MG; Start 07/21/16 at 09:00 Ferrous Gluconate (Fergon) 325 mg BID PO Last administered on 07/21/16 09:03; Admin Dose 325 MG; Start 07/21/16 at 09:00 Folic Acid (Folic Acid) 1 mg DAILY PO Last administered on 07/21/16 09:03; Admin Dose 1 MG; Start 07/21/16 at 09:00 Diagnostic Test (Pha) (Accu-Chek) 1 ea 02 XX ; Start 07/22/16 at 02:00 Acetaminophen (Tylenol Tab) 650 mg Q6H PRN PO PAIN AND OR ELEVATED TEMP; Start 07/21/16 at 04:30 Amlodipine Besylate (Norvasc) 5 mg BID PO ; Start 07/21/16 at 09:00 Atenolol (Tenormin) 50 mg DAILY PO Last administered on 07/21/16 09:04; Admin Dose 50 MG; Start 07/21/16 at 09:00 Atorvastatin Calcium (Lipitor) 80 mg DAILY@21 PO ; Start 07/21/16 at 21:00 Bromocriptine Mesylate 2.5 mg 2.5 mg BID PO Last administered on 07/21/16 09: 03; Admin Dose 2.5 MG; Start 07/21/16 at 09:00 Ceftriaxone Sodium (Rocephin) 50 ml @ 100 mls/hr Q24H IVPB ; Start 07/21/16 at 17:30 Docusate Sodium (Colace) 100 mg BID PO Last administered on 07/21/16 09:03; Admin Dose 100 MG; Start 07/21/16 at 09:00 Bisacodyl (Dulcolax Supp) 10 mg DAILY PRN [place] CONSTIPATION; Start 07/21/16 at 05 :00 Lactulose (Enulose) 20 gm DAILY PRN PO CONSTIPATION; Start 07/21/16 at 05:00 MARTINE LLOYD July 21, 2016 12:23
[2016-07-21] MEDS ORDERED: BARIUM SULF 2% 450 ML BTL (BERRY SMOOTHIE) PO ONE (13:00)
[2016-07-21 13:10] VITALS: BP 122/78; PULSE 84
[2016-07-21] MEDS: GABAPENTIN 100 MG CAP GTB SCH ×2 (13:20→20:53)
--- NOTE | 2016-07-21 15:50 | RADRPT ---
PROCEDURE: CT abdomen and pelvis without contrast. CLINICAL INDICATION: Peritoneal dialysis. Left leg swelling. TECHNIQUE: CT scan of the abdomen and pelvis without intravenous but with oral contrast was perfor med and is reconstructed at 2.5 mm contiguous axial intervals from the dome of the diaphragm to the inferior pubic rami.. The patient was scanned without intravenous contrast. Sagittal and coronal r eformatted images were obtained from the axial source images. The calculated radiation dose measures 1684 mGy centimeters. The CTDI measures 29 mGy. COMPARISON: None. FINDINGS: The lung bases are clear of any infiltrate or nodule. No effusion is seen. The liver is of normal size, contour and attenuation with no mass or ductal dilatation. No gallston es are visualized. No splenic, adrenal or pancreatic abnormalities present. Kidneys are of normal size and contour. No hydronephrosis, calculus or masses seen. Ureters are o f normal course and caliber with no stone. No bladder mass or stone is present. Uterus and ovaries appear normal. There is no aneurysm. No adenopathy is present. No bowel mass or obstruction is present. The appendix is normal. No phlegmon or pneumoperitoneum is visualized. The osseous structures are intact. Noted is a peritoneal dialysis catheter coiled in the inferior le ft lateral peritoneal cavity. There is a small to moderate volume of ascites. IMPRESSION: No evidence of urolithiasis, obstructive uropathy, diverticulitis or appendicitis. Peritoneal dialysis catheter left deniz pelvis with small to moderate volume ascites. .Kalyan Whalen MD, MD Date Time Electronically viewed and signed by .Kalyan Whalen MD, on 07/21/2016 15:50 .A/
[2016-07-21] MEDS: CEFTRIAXONE 1 GM/50 ML (PMX) 50 ML IVPB SCH (17:03)
[2016-07-21 19:25] VITALS: BP 116/68; PULSE 68
[2016-07-21] MEDS: ATORVASTATIN 80 MG TAB PO SCH (20:54)
[2016-07-22] VITALS (7 sets, daily range): BP systolic 102–124; BP diastolic 48–68; PULSE 59–65; RESP 17–19
[2016-07-22] MEDS: ACCUCHECK AT 2AM (Patients on SS coverage) XX SCH (02:24)
[2016-07-22] MEDS: LEVOTHYROXINE 88 MCG TAB PO SCH (06:15)
[2016-07-22] MEDS: PANTOPRAZOLE (EC) 40 MG TAB PO SCH (06:15)
[2016-07-22] MEDS: Insulin NOVOLOG SS MODERATE Algorithm (SS with meals and bedtime) SC SCH ×4 (07:35→21:18)
[2016-07-22] MEDS: CLOPIDOGREL 75 MG TAB PO SCH (08:31)
[2016-07-22] MEDS: DOCUSATE SODIUM 100 MG CAP PO SCH ×2 (08:31→21:13)
[2016-07-22] MEDS: FERROUS GLUCONATE (EC) 325 MG TAB PO SCH ×2 (08:31→21:13)
[2016-07-22] MEDS: LINAGLIPTIN 5 MG TABLET PO SCH (08:31)
[2016-07-22] MEDS: GABAPENTIN 100 MG CAP GTB SCH ×3 (08:31→21:13)
[2016-07-22] MEDS: FOLIC ACID 1 MG TAB PO SCH (08:32)
[2016-07-22] MEDS: BROMOCRIPTINE 2.5 MG TAB PO SCH ×2 (08:32→21:13)
[2016-07-22] MEDS: AMLODIPINE 5 MG TAB PO SCH ×2 (08:32→21:00)
--- NOTE | 2016-07-22 11:16 | PN ---
Date/Time of Note Date/Time of Note DATE: 07/22/16 TIME: 11:09 Assessment/Plan VTE Prophylaxis VTE Prophylaxis Intervention: SCD's, other Lines/Catheters IV Catheter Type (from Nrsg): [place] Urinary Cath still in place: No Assessment/Plan Assessment/Plan 1. Acute lacunar infarcts in the right jama, with left nondominant hemiparesis , impaired mobility/gait/ADLs, dysphagia. Continue PT/OT/ST. Max assist for bed mobility. Secondary stroke prevention per neurology. 2. Pituitary macroadenoma. On treatment with bromocriptine per endocrinology. 3. End-stage renal disease, on peritoneal dialysis per nephrology. 4. Hypertension. BP controlled. Continue medical management. 5. Hypothyroidism. Continue levothyroxine. 6. Diabetes mellitus. Blood sugars controlled. Continue medical management. 7. Anemia. Continue to monitor hemoglobin/hematocrit. 8. Hyperparathyroidism/hypocalcemia. Continue management per internal medicine. 9. Obesity. 10. Dyslipidemia. Continue statin. 11. Left lower extremity pain. Venous ultrasound negative for DVT. Further work up discussed with internal medicine. On antibiotics for LLE cellulitis per internal medicine. With neuropathic pain improving with gabapentin, monitor for sedation. Subjective 24 Hr Interval Summary Free Text/Dictation Rehab progress note Subjective: Reports LLE pain better today, currently moderate pain. No sedation reported with starting of gabapentin. ROS: Denies headache, no dizziness, no chills, no abdominal pain, no chest pain , no shortness of breath. Exam/Review of Systems Vital Signs Vitals Vital Signs Date Time Temp Pulse Resp B/P Pulse Ox O2 Delivery O2 Flow Rate FiO2 07/22/16 08:00 98.0 59 17 124/60 94 Room Air Intake and Output 07/21/16 07/21/16 07/22/16 15:00 23:00 07:00 Intake Total 100 ml 460 ml 360 ml Output Total 1900 ml Balance -1800 ml 460 ml 360 ml Exam General: Awake, alert, no acute distress CV: Regular rate, s1s2 Lungs clear to anterior auscultation, no wheezing Abdomen soft, nontender, +PD catheter Extremities without cyanosis Neuro: Left sided weakness unchanged. No new sensory changes. Results Result Diagram: 07/21/16 0620 07/21/16 0610 Results 24 hrs Laboratory Tests Test 07/21/16 12:07 07/21/16 16:52 07/21/16 20:51 07/22/16 02:19 Bedside Glucose 146 159 218 132 Test 07/22/16 08:08 Bedside Glucose 119 Medications Medications Current Medications Pantoprazole (Protonix Tab) 40 mg DAILY@06 PO Last administered on 07/22/16 06 :15; Admin Dose 40 MG; Start 07/21/16 at 06:00 Linagliptin (Tradjenta) 5 mg DAILY PO Last administered on 07/22/16 08:31; Admin Dose 5 MG; Start 07/21/16 at 09:00 Miscellaneous Information 1 ea NOTE XX ; Start 07/21/16 at 04:30 Glucose (Glutose) 15 gm Q15M PRN PO DECREASED GLUCOSE; Start 07/21/16 at 04:30 Glucose (Glutose) 22.5 gm Q15M PRN PO DECREASED GLUCOSE; Start 07/21/16 at 04: 30 Dextrose (D50w Syringe) 25 ml Q15M PRN IV DECREASED GLUCOSE; Start 07/21/16 at 04:30 Dextrose (D50w Syringe) 50 ml Q15M PRN IV DECREASED GLUCOSE; Start 07/21/16 at 04:30 Glucagon (Glucagen) 1 mg Q15M PRN IM DECREASED GLUCOSE; Start 07/21/16 at 04:30 Glucose (Glutose) 15 gm Q15M PRN BUCCAL DECREASED GLUCOSE; Start 07/21/16 at 04 :30 Hydralazine HCl (Apresoline) 10 mg Q6H PRN IV PRN FOR SBP ABOVE 165mmHg; Start 07/21/16 at 04:30 Acetaminophen/ Hydrocodone Bitart ([place] (5/325)) 1 tab Q12H PRN PO PAIN Last administered on 07/21/16 09:05; Admin Dose 1 TAB; Start 07/21/16 at 04:30 Clopidogrel Bisulfate (plaVIX) 75 mg DAILY PO Last administered on 07/22/16 08 :31; Admin Dose 75 MG; Start 07/21/16 at 09:00 Ferrous Gluconate (Fergon) 325 mg BID PO Last administered on 07/22/16 08:31; Admin Dose 325 MG; Start 07/21/16 at 09:00 Folic Acid (Folic Acid) 1 mg DAILY PO Last administered on 07/22/16 08:32; Admin Dose 1 MG; Start 07/21/16 at 09:00 Diagnostic Test (Pha) (Accu-Chek) 1 ea 02 XX Last administered on 07/22/16 02: 24; Admin Dose 1 EA; Start 07/22/16 at 02:00 Acetaminophen (Tylenol Tab) 650 mg Q6H PRN PO PAIN AND OR ELEVATED TEMP; Start 07/21/16 at 04:30 Amlodipine Besylate (Norvasc) 5 mg BID PO Last administered on 07/22/16 08:32 ; Admin Dose 5 MG; Start 07/21/16 at 09:00 Atenolol (Tenormin) 50 mg DAILY PO Last administered on 07/21/16 09:04; Admin Dose 50 MG; Start 07/21/16 at 09:00 Atorvastatin Calcium (Lipitor) 80 mg DAILY@21 PO Last administered on 20:54; Admin Dose 80 MG; Start 07/21/16 at 21:00 Bromocriptine Mesylate 2.5 mg 2.5 mg BID PO Last administered on 07/22/16 08: 32; Admin Dose 2.5 MG; Start 07/21/16 at 09:00 Ceftriaxone Sodium (Rocephin) 50 ml @ 100 mls/hr Q24H IVPB Last administered on 07/21/16 17:03; Admin Dose 100 MLS/HR; Start 07/21/16 at 17:30 Docusate Sodium (Colace) 100 mg BID PO Last administered on 07/22/16 08:31; Admin Dose 100 MG; Start 07/21/16 at 09:00 Bisacodyl (Dulcolax Supp) 10 mg DAILY PRN [place] CONSTIPATION; Start 07/21/16 at 05 :00 Lactulose (Enulose) 20 gm DAILY PRN PO CONSTIPATION; Start 07/21/16 at 05:00 Gabapentin (Neurontin) 100 mg TID GTB Last administered on 07/22/16 08:31; Admin Dose 100 MG; Start 07/21/16 at 13:00 HOANG WESTON July 22, 2016 11:16
[2016-07-22] MEDS: ATENOLOL 50 MG TAB PO SCH (12:42)
--- NOTE | 2016-07-22 17:04 | PN ---
Date/Time of Note Date/Time of Note DATE: 07/22/16 TIME: 17:03 Assessment/Plan VTE Prophylaxis VTE Prophylaxis Intervention: other Lines/Catheters [facility] Urinary Cath still in place: No Assessment/Plan Chief Complaint/Hosp Course ESRD CELLULITES PROLACTINOMA PIT MASS DM PLAN PD BROMOCRYPTINE Problems: Subjective 24 Hr Interval Summary Constitutional: no complaints ENT: no complaints Respiratory: no complaints Exam/Review of Systems Vital Signs Vitals Vital Signs Date Time Temp Pulse Resp B/P Pulse Ox O2 Delivery O2 Flow Rate FiO2 07/22/16 14:05 65 07/22/16 12:42 103/56 07/22/16 08:00 98.0 17 94 Room Air Intake and Output 07/21/16 07/21/16 07/22/16 15:00 23:00 07:00 Intake Total 100 ml 460 ml 360 ml Output Total 1900 ml Balance -1800 ml 460 ml 360 ml Exam Neck: supple Respiratory: clear to auscultation Cardiovascular: regular rate and rhythm Gastrointestinal: soft Musculoskeletal: nl extremities to inspection Neurological: other (LEFT SIDE WEAKNESS) Results Result Diagram: 07/21/16 0620 07/21/16 0610 Results 24 hrs Laboratory Tests Test 07/21/16 20:51 07/22/16 02:19 07/22/16 08:08 07/22/16 12:02 Bedside Glucose 218 132 119 172 Medications Medications Current Medications Pantoprazole (Protonix Tab) 40 mg DAILY@06 PO Last administered on 07/22/16 06 :15; Admin Dose 40 MG; Start 07/21/16 at 06:00 Linagliptin (Tradjenta) 5 mg DAILY PO Last administered on 07/22/16 08:31; Admin Dose 5 MG; Start 07/21/16 at 09:00 Miscellaneous Information 1 ea NOTE XX ; Start 07/21/16 at 04:30 Glucose (Glutose) 15 gm Q15M PRN PO DECREASED GLUCOSE; Start 07/21/16 at 04:30 Glucose (Glutose) 22.5 gm Q15M PRN PO DECREASED GLUCOSE; Start 07/21/16 at 04: 30 Dextrose (D50w Syringe) 25 ml Q15M PRN IV DECREASED GLUCOSE; Start 07/21/16 at 04:30 Dextrose (D50w Syringe) 50 ml Q15M PRN IV DECREASED GLUCOSE; Start 07/21/16 at 04:30 Glucagon (Glucagen) 1 mg Q15M PRN IM DECREASED GLUCOSE; Start 07/21/16 at 04:30 Glucose (Glutose) 15 gm Q15M PRN BUCCAL DECREASED GLUCOSE; Start 07/21/16 at 04 :30 Hydralazine HCl (Apresoline) 10 mg Q6H PRN IV PRN FOR SBP ABOVE 165mmHg; Start 07/21/16 at 04:30 Acetaminophen/ Hydrocodone Bitart ([place] (5/325)) 1 tab Q12H PRN PO PAIN Last administered on 07/21/16 09:05; Admin Dose 1 TAB; Start 07/21/16 at 04:30 Clopidogrel Bisulfate (plaVIX) 75 mg DAILY PO Last administered on 07/22/16 08 :31; Admin Dose 75 MG; Start 07/21/16 at 09:00 Ferrous Gluconate (Fergon) 325 mg BID PO Last administered on 07/22/16 08:31; Admin Dose 325 MG; Start 07/21/16 at 09:00 Folic Acid (Folic Acid) 1 mg DAILY PO Last administered on 07/22/16 08:32; Admin Dose 1 MG; Start 07/21/16 at 09:00 Diagnostic Test (Pha) (Accu-Chek) 1 ea 02 XX Last administered on 07/22/16 02: 24; Admin Dose 1 EA; Start 07/22/16 at 02:00 Acetaminophen (Tylenol Tab) 650 mg Q6H PRN PO PAIN AND OR ELEVATED TEMP; Start 07/21/16 at 04:30 Amlodipine Besylate (Norvasc) 5 mg BID PO Last administered on 07/22/16 08:32 ; Admin Dose 5 MG; Start 07/21/16 at 09:00 Atenolol (Tenormin) 50 mg DAILY PO Last administered on 07/21/16 09:04; Admin Dose 50 MG; Start 07/21/16 at 09:00 Atorvastatin Calcium (Lipitor) 80 mg DAILY@21 PO Last administered on 20:54; Admin Dose 80 MG; Start 07/21/16 at 21:00 Bromocriptine Mesylate 2.5 mg 2.5 mg BID PO Last administered on 07/22/16 08: 32; Admin Dose 2.5 MG; Start 07/21/16 at 09:00 Ceftriaxone Sodium (Rocephin) 50 ml @ 100 mls/hr Q24H IVPB Last administered on 07/21/16 17:03; Admin Dose 100 MLS/HR; Start 07/21/16 at 17:30 Docusate Sodium (Colace) 100 mg BID PO Last administered on 07/22/16 08:31; Admin Dose 100 MG; Start 07/21/16 at 09:00 Bisacodyl (Dulcolax Supp) 10 mg DAILY PRN [place] CONSTIPATION; Start 07/21/16 at 05 :00 Lactulose (Enulose) 20 gm DAILY PRN PO CONSTIPATION; Start 07/21/16 at 05:00 Gabapentin (Neurontin) 100 mg TID GTB Last administered on 07/22/16 12:41; Admin Dose 100 MG; Start 07/21/16 at 13:00 CHRISTINA SHIRLEY MD July 22, 2016 17:04
[2016-07-22] MEDS: CEFTRIAXONE 1 GM/50 ML (PMX) 50 ML IVPB SCH (17:10)
[2016-07-22] MEDS: ATORVASTATIN 80 MG TAB PO SCH (21:13)
[2016-07-23] MEDS: ACCUCHECK AT 2AM (Patients on SS coverage) XX SCH (02:28)
[2016-07-23 04:00] VITALS: BP 122/66; PULSE 65
[2016-07-23] MEDS: PANTOPRAZOLE (EC) 40 MG TAB PO SCH (06:27)
[2016-07-23] MEDS: LEVOTHYROXINE 88 MCG TAB PO SCH (06:27)
[2016-07-23 07:30] VITALS: BP 110/56; RESP 18
[2016-07-23 07:50] VITALS: BP 118/64; PULSE 67
[2016-07-23] MEDS: Insulin NOVOLOG SS MODERATE Algorithm (SS with meals and bedtime) SC SCH ×4 (08:19→20:26)
[2016-07-23] MEDS: LINAGLIPTIN 5 MG TABLET PO SCH (08:20)
[2016-07-23] MEDS: FOLIC ACID 1 MG TAB PO SCH (08:20)
[2016-07-23] MEDS: FERROUS GLUCONATE (EC) 325 MG TAB PO SCH ×2 (08:20→20:27)
[2016-07-23] MEDS: CLOPIDOGREL 75 MG TAB PO SCH (08:20)
[2016-07-23] MEDS: GABAPENTIN 100 MG CAP GTB SCH ×3 (08:20→20:27)
[2016-07-23] MEDS: BROMOCRIPTINE 2.5 MG TAB PO SCH ×2 (08:20→20:27)
[2016-07-23] MEDS: DOCUSATE SODIUM 100 MG CAP PO SCH ×2 (08:20→20:27)
[2016-07-23] MEDS: AMLODIPINE 5 MG TAB PO SCH ×2 (08:21→20:27)
[2016-07-23] MEDS: ATENOLOL 50 MG TAB PO SCH (08:21)
--- NOTE | 2016-07-23 10:30 | PN ---
Date/Time of Note Date/Time of Note DATE: 07/23/16 TIME: 10:26 Assessment/Plan VTE Prophylaxis VTE Prophylaxis Intervention: SCD's, other Lines/Catheters IV Catheter Type (from Nrs): Saline Lock Urinary Cath still in place: No Assessment/Plan Assessment/Plan 1. Acute lacunar infarcts in the right jama, with left nondominant hemiparesis , impaired mobility/gait/ADLs, dysphagia. Continue PT/OT/ST. Total assist for transfer. Continue secondary stroke prevention. 2. Pituitary macroadenoma. On bromocriptine per endocrinology. 3. End-stage renal disease. Continue peritoneal dialysis per nephrology. 4. Hypertension. Continue medical management per internal medicine. 5. Hypothyroidism. Continue levothyroxine. 6. Diabetes mellitus. Blood sugars controlled. Continue medical management. 7. Anemia. Continue to monitor hemoglobin/hematocrit. 8. Hyperparathyroidism/hypocalcemia. Managed per internal medicine. 9. Obesity. 10. Dyslipidemia. Continue statin. 11. Left lower extremity pain. Venous ultrasound negative for DVT. Pain has improved on gabapentin for neuropathic pain. Remains on antibiotics for LLE cellulitis per internal medicine. 12. Constipation. Continue bowel regimen. Subjective 24 Hr Interval Summary Free Text/Dictation Rehab progress note Subjective: Reports minimal pain currently in LLE, overall improving, has not required PRN pain medications. ROS: Denies chest pain, no shortness of breath, no abdominal pain, no nausea, no vomiting, no chills. Reports constipation. Exam/Review of Systems Vital Signs Vitals Vital Signs Date Time Temp Pulse Resp B/P Pulse Ox O2 Delivery O2 Flow Rate FiO2 07/23/16 07:50 67 07/22/16 20:28 97.9 19 102/48 92 07/22/16 08:00 Room Air Intake and Output 07/22/16 07/22/16 07/23/16 15:00 23:00 07:00 Intake Total 50 ml 1280 ml Output Total 600 ml Balance -600 ml 50 ml 1280 ml Exam General: Awake, alert, no acute distress CV: Regular rate, s1s2 audible Lungs: Symmetrical air entry bilaterally, no wheezing Abdomen soft, nontender, +PD catheter Extremities without cyanosis Neuro: No new focal changes. Left sided hemiparesis. Results Result Diagram: 07/21/16 0620 07/21/16 0610 Results 24 hrs Laboratory Tests Test 07/22/16 12:02 07/22/16 17:05 07/22/16 21:05 07/23/16 02:26 Bedside Glucose 172 167 188 143 Test 07/23/16 07:48 Bedside Glucose 215 Medications Medications Current Medications Pantoprazole (Protonix Tab) 40 mg DAILY@06 PO Last administered on 07/23/16 06 :27; Admin Dose 40 MG; Start 07/21/16 at 06:00 Linagliptin (Tradjenta) 5 mg DAILY PO Last administered on 07/23/16 08:20; Admin Dose 5 MG; Start 07/21/16 at 09:00 Miscellaneous Information 1 ea NOTE XX ; Start 07/21/16 at 04:30 Glucose (Glutose) 15 gm Q15M PRN PO DECREASED GLUCOSE; Start 07/21/16 at 04:30 Glucose (Glutose) 22.5 gm Q15M PRN PO DECREASED GLUCOSE; Start 07/21/16 at 04: 30 Dextrose (D50w Syringe) 25 ml Q15M PRN IV DECREASED GLUCOSE; Start 07/21/16 at 04:30 Dextrose (D50w Syringe) 50 ml Q15M PRN IV DECREASED GLUCOSE; Start 07/21/16 at 04:30 Glucagon (Glucagen) 1 mg Q15M PRN IM DECREASED GLUCOSE; Start 07/21/16 at 04:30 Glucose (Glutose) 15 gm Q15M PRN BUCCAL DECREASED GLUCOSE; Start 07/21/16 at 04 :30 Hydralazine HCl (Apresoline) 10 mg Q6H PRN IV PRN FOR SBP ABOVE 165mmHg; Start 07/21/16 at 04:30 Acetaminophen/ Hydrocodone Bitart ([place] (5/325)) 1 tab Q12H PRN PO PAIN Last administered on 07/21/16 09:05; Admin Dose 1 TAB; Start 07/21/16 at 04:30 Clopidogrel Bisulfate (plaVIX) 75 mg DAILY PO Last administered on 07/23/16 08 :20; Admin Dose 75 MG; Start 07/21/16 at 09:00 Ferrous Gluconate (Fergon) 325 mg BID PO Last administered on 07/23/16 08:20; Admin Dose 325 MG; Start 07/21/16 at 09:00 Folic Acid (Folic Acid) 1 mg DAILY PO Last administered on 07/23/16 08:20; Admin Dose 1 MG; Start 07/21/16 at 09:00 Diagnostic Test (Pha) (Accu-Chek) 1 ea 02 XX Last administered on 07/23/16 02: 28; Admin Dose 1 EA; Start 07/22/16 at 02:00 Acetaminophen (Tylenol Tab) 650 mg Q6H PRN PO PAIN AND OR ELEVATED TEMP; Start 07/21/16 at 04:30 Amlodipine Besylate (Norvasc) 5 mg BID PO Last administered on 07/23/16 08:21 ; Admin Dose 5 MG; Start 07/21/16 at 09:00 Atenolol (Tenormin) 50 mg DAILY PO Last administered on 07/23/16 08:21; Admin Dose 50 MG; Start 07/21/16 at 09:00 Atorvastatin Calcium (Lipitor) 80 mg DAILY@21 PO Last administered on 21:13; Admin Dose 80 MG; Start 07/21/16 at 21:00 Bromocriptine Mesylate 2.5 mg 2.5 mg BID PO Last administered on 07/23/16 08: 20; Admin Dose 2.5 MG; Start 07/21/16 at 09:00 Ceftriaxone Sodium (Rocephin) 50 ml @ 100 mls/hr Q24H IVPB Last administered on 07/22/16 17:10; Admin Dose 100 MLS/HR; Start 07/21/16 at 17:30 Docusate Sodium (Colace) 100 mg BID PO Last administered on 07/23/16 08:20; Admin Dose 100 MG; Start 07/21/16 at 09:00 Bisacodyl (Dulcolax Supp) 10 mg DAILY PRN [place] CONSTIPATION; Start 07/21/16 at 05 :00 Lactulose (Enulose) 20 gm DAILY PRN PO CONSTIPATION; Start 07/21/16 at 05:00 Gabapentin (Neurontin) 100 mg TID GTB Last administered on 07/23/16 08:20; Admin Dose 100 MG; Start 07/21/16 at 13:00 HOANG WESTON July 23, 2016 10:30
[2016-07-23 11:00] VITALS: BP 115/62; PULSE 67
--- NOTE | 2016-07-23 12:29 | PN ---
Date/Time of Note Date/Time of Note DATE: 07/23/16 TIME: 12:26 Assessment/Plan VTE Prophylaxis VTE Prophylaxis Intervention: ambulation Lines/Catheters [facility] Saline Lock Urinary Cath still in place: No Assessment/Plan Chief Complaint/Hosp Course 1. CKD stage 4. 3. Peritoneal dialysis 3. Neuropathies 4. Hypertension 5. Left leg swelling and pain without DVT on US 6. Anemia 7. DM type II 8. Hypothyroidism Problems: Assessment/Plan 1. Ct scan left leg 2. Cont peritoneal Dialysis Subjective 24 Hr Interval Summary Constitutional: improved, no complaints Musculoskeletal: other (left leg pain), swelling Skin: no complaints Exam/Review of Systems Vital Signs Vitals Vital Signs Date Time Temp Pulse Resp B/P Pulse Ox O2 Delivery O2 Flow Rate FiO2 07/23/16 07:50 67 07/23/16 07:30 97.4 18 110/56 94 07/22/16 08:00 Room Air Intake and Output 07/22/16 07/22/16 07/23/16 15:00 23:00 07:00 Intake Total 50 ml 1280 ml Output Total 600 ml Balance -600 ml 50 ml 1280 ml Exam Constitutional: oriented Eyes: nl conjunctiva ENMT: nl external ears & nose Neck: supple Respiratory: clear to auscultation Cardiovascular: regular rate and rhythm Musculoskeletal: range of motion (decreased Left knee), swelling (left leg. pain on palpation) Results Result Diagram: 07/21/16 0620 07/21/16 0610 Results 24 hrs Laboratory Tests Test 07/22/16 17:05 07/22/16 21:05 07/23/16 02:26 07/23/16 07:48 Bedside Glucose 167 188 143 215 Test 07/23/16 11:49 Bedside Glucose 140 Medications Medications Current Medications Pantoprazole (Protonix Tab) 40 mg DAILY@06 PO Last administered on 07/23/16 06 :27; Admin Dose 40 MG; Start 07/21/16 at 06:00 Linagliptin (Tradjenta) 5 mg DAILY PO Last administered on 07/23/16 08:20; Admin Dose 5 MG; Start 07/21/16 at 09:00 Miscellaneous Information 1 ea NOTE XX ; Start 07/21/16 at 04:30 Glucose (Glutose) 15 gm Q15M PRN PO DECREASED GLUCOSE; Start 07/21/16 at 04:30 Glucose (Glutose) 22.5 gm Q15M PRN PO DECREASED GLUCOSE; Start 07/21/16 at 04: 30 Dextrose (D50w Syringe) 25 ml Q15M PRN IV DECREASED GLUCOSE; Start 07/21/16 at 04:30 Dextrose (D50w Syringe) 50 ml Q15M PRN IV DECREASED GLUCOSE; Start 07/21/16 at 04:30 Glucagon (Glucagen) 1 mg Q15M PRN IM DECREASED GLUCOSE; Start 07/21/16 at 04:30 Glucose (Glutose) 15 gm Q15M PRN BUCCAL DECREASED GLUCOSE; Start 07/21/16 at 04 :30 Hydralazine HCl (Apresoline) 10 mg Q6H PRN IV PRN FOR SBP ABOVE 165mmHg; Start 07/21/16 at 04:30 Acetaminophen/ Hydrocodone Bitart ([place] (5/325)) 1 tab Q12H PRN PO PAIN Last administered on 07/21/16 09:05; Admin Dose 1 TAB; Start 07/21/16 at 04:30 Clopidogrel Bisulfate (plaVIX) 75 mg DAILY PO Last administered on 07/23/16 08 :20; Admin Dose 75 MG; Start 07/21/16 at 09:00 Ferrous Gluconate (Fergon) 325 mg BID PO Last administered on 07/23/16 08:20; Admin Dose 325 MG; Start 07/21/16 at 09:00 Folic Acid (Folic Acid) 1 mg DAILY PO Last administered on 07/23/16 08:20; Admin Dose 1 MG; Start 07/21/16 at 09:00 Diagnostic Test (Pha) (Accu-Chek) 1 ea 02 XX Last administered on 07/23/16 02: 28; Admin Dose 1 EA; Start 07/22/16 at 02:00 Acetaminophen (Tylenol Tab) 650 mg Q6H PRN PO PAIN AND OR ELEVATED TEMP; Start 07/21/16 at 04:30 Amlodipine Besylate (Norvasc) 5 mg BID PO Last administered on 07/23/16 08:21 ; Admin Dose 5 MG; Start 07/21/16 at 09:00 Atenolol (Tenormin) 50 mg DAILY PO Last administered on 07/23/16 08:21; Admin Dose 50 MG; Start 07/21/16 at 09:00 Atorvastatin Calcium (Lipitor) 80 mg DAILY@21 PO Last administered on 21:13; Admin Dose 80 MG; Start 07/21/16 at 21:00 Bromocriptine Mesylate 2.5 mg 2.5 mg BID PO Last administered on 07/23/16 08: 20; Admin Dose 2.5 MG; Start 07/21/16 at 09:00 Ceftriaxone Sodium (Rocephin) 50 ml @ 100 mls/hr Q24H IVPB Last administered on 07/22/16 17:10; Admin Dose 100 MLS/HR; Start 07/21/16 at 17:30 Docusate Sodium (Colace) 100 mg BID PO Last administered on 07/23/16 08:20; Admin Dose 100 MG; Start 07/21/16 at 09:00 Bisacodyl (Dulcolax Supp) 10 mg DAILY PRN [place] CONSTIPATION; Start 07/21/16 at 05 :00 Lactulose (Enulose) 20 gm DAILY PRN PO CONSTIPATION; Start 07/21/16 at 05:00 Gabapentin (Neurontin) 100 mg TID GTB Last administered on 07/23/16 08:20; Admin Dose 100 MG; Start 07/21/16 at 13:00 MARTINE LLOYD July 23, 2016 12:29
--- NOTE | 2016-07-23 13:36 | RADRPT ---
PROCEDURE: CT of the left lower extremity without contrast CLINICAL INDICATION: Swelling TECHNIQUE: CT scan of the left lower extremity was performed . No IV contrast was administered. Coronal and sagittal reformatted images were obtained from the axial source images. Images were revi ewed on a high-resolution PACS workstation. The calculated radiation dose measures 1066.30 mGy cent imeters. The CTDI measures 18.48 mGy. One or more of the following dose reduction techniques were used: - Automated exposure control. - Adjustment of the mA and/or kV according to patient size . - Use of iterative reconstruction technique. COMPARISON: None available FINDINGS: Osseous structures: There is no acute osseous abnormality. No evidence for cortical destruction. The ankles is grossly maintained although partially evaluated. There is at least mild tricompartmen renetta knee arthrosis. The tibiotalar joint is maintained. Enthesopathic changes noted about the calca neus. Soft tissues: There is nonspecific subcutaneous stranding at the anterior aspect of the mid tibia. Prominent subcutaneous varicosities are also seen. Atherosclerotic vascular calcifications are cuong ntified. IMPRESSION: 1. Nonspecific subcutaneous stranding noted at the anterior aspect of the mid tibia. No large fluid collections are suspected. 2. No abnormal soft tissue gas is seen. 3. No evidence for cortical destruction. 4. Atherosclerotic vascular calcifications. RPTAT: PP .Avel Lucero MD, MD Date Time Electronically viewed and signed by .Avel Lucero MD, MD on 07/23/2016 13:36 .d/
[2016-07-23 14:55] VITALS: BP 122/68; PULSE 67
[2016-07-23] MEDS: CEFTRIAXONE 1 GM/50 ML (PMX) 50 ML IVPB SCH (16:52)
[2016-07-23] MEDS: BISACODYL 10 MG SUPP PR PRN (16:52)
[2016-07-23 19:37] VITALS: BP 126/61; RESP 18
[2016-07-23] MEDS: ATORVASTATIN 80 MG TAB PO SCH (20:27)
[2016-07-24] MEDS: ACCUCHECK AT 2AM (Patients on SS coverage) XX SCH (02:09)
[2016-07-24] MEDS: PANTOPRAZOLE (EC) 40 MG TAB PO SCH (06:04)
[2016-07-24] MEDS: LEVOTHYROXINE 88 MCG TAB PO SCH (06:04)
[2016-07-24 07:30] VITALS: BP 119/65; PULSE 69
[2016-07-24 07:31] VITALS: BP 113/57; PULSE 60; RESP 18
[2016-07-24] MEDS: Insulin NOVOLOG SS MODERATE Algorithm (SS with meals and bedtime) SC SCH ×4 (07:35→20:36)
[2016-07-24] MEDS: FERROUS GLUCONATE (EC) 325 MG TAB PO SCH ×2 (08:37→20:33)
[2016-07-24] MEDS: DOCUSATE SODIUM 100 MG CAP PO SCH ×2 (08:37→20:33)
[2016-07-24] MEDS: FOLIC ACID 1 MG TAB PO SCH (08:37)
[2016-07-24] MEDS: GABAPENTIN 100 MG CAP GTB SCH (08:37)
[2016-07-24] MEDS: BROMOCRIPTINE 2.5 MG TAB PO SCH ×2 (08:38→20:33)
[2016-07-24] MEDS: CLOPIDOGREL 75 MG TAB PO SCH (08:38)
[2016-07-24] MEDS: LINAGLIPTIN 5 MG TABLET PO SCH (08:38)
[2016-07-24] MEDS: AMLODIPINE 5 MG TAB PO SCH ×2 (08:38→20:35)
[2016-07-24] MEDS: ATENOLOL 50 MG TAB PO SCH (08:39)
[2016-07-24 12:00] VITALS: BP 124/66; PULSE 80
[2016-07-24] MEDS: GABAPENTIN 100 MG CAP PO SCH ×2 (12:27→20:33)
--- NOTE | 2016-07-24 12:35 | CONS ---
Date/Time of Note Date/Time of Note DATE: 07/24/16 TIME: 12:33 Consult Date/Type/Reason Admit Date/Time July 20, 2016 at 23:39 Initial Consult Date Type of Consultation: nephrology Subjective Reports decreased pain in Left leg Objective Vital Signs Date Time Temp Pulse Resp B/P Pulse Ox O2 Delivery O2 Flow Rate FiO2 07/24/16 07:31 97.5 60 18 113/57 97 Room Air Intake and Output 07/23/16 07/23/16 07/24/16 15:00 23:00 07:00 Intake Total 830 ml 950 ml Output Total 1500 ml Balance -1500 ml 830 ml 950 ml INTERDISCIPLINARY TEAM CONFERENCE BOWEL- Cont BLADDER-Cont SKIN- left leg slight erythema OT- DRESSING-max BATHING-max TOILETING-max PT- BED MOBILITY-max TRANSFERS-max AMBULATION-max SPEECH- COGNITION-min DYPHAGIA-mech soft A/P- Interdisciplinary team conference held today. Please see interdisciplinary sheet. Working toward d.c. home with post discharge follow up of physical therapy, occupational therapy, will reeval in 1 week Results/Medications Result Diagram: 07/21/16 0620 07/21/16 0610 Results 24 hrs Laboratory Tests Test 07/23/16 17:20 07/23/16 20:24 07/24/16 02:07 07/24/16 07:48 Bedside Glucose 202 186 171 139 Test 07/24/16 12:06 Bedside Glucose 182 Medications Current Medications Pantoprazole (Protonix Tab) 40 mg DAILY@06 PO Last administered on 07/24/16 06 :04; Admin Dose 40 MG; Start 07/21/16 at 06:00 Linagliptin (Tradjenta) 5 mg DAILY PO Last administered on 07/24/16 08:38; Admin Dose 5 MG; Start 07/21/16 at 09:00 Miscellaneous Information 1 ea NOTE XX ; Start 07/21/16 at 04:30 Glucose (Glutose) 15 gm Q15M PRN PO DECREASED GLUCOSE; Start 07/21/16 at 04:30 Glucose (Glutose) 22.5 gm Q15M PRN PO DECREASED GLUCOSE; Start 07/21/16 at 04: 30 Dextrose (D50w Syringe) 25 ml Q15M PRN IV DECREASED GLUCOSE; Start 07/21/16 at 04:30 Dextrose (D50w Syringe) 50 ml Q15M PRN IV DECREASED GLUCOSE; Start 07/21/16 at 04:30 Glucagon (Glucagen) 1 mg Q15M PRN IM DECREASED GLUCOSE; Start 07/21/16 at 04:30 Glucose (Glutose) 15 gm Q15M PRN BUCCAL DECREASED GLUCOSE; Start 07/21/16 at 04 :30 Hydralazine HCl (Apresoline) 10 mg Q6H PRN IV PRN FOR SBP ABOVE 165mmHg; Start 07/21/16 at 04:30 Acetaminophen/ Hydrocodone Bitart ([place] (5/325)) 1 tab Q12H PRN PO PAIN Last administered on 07/21/16 09:05; Admin Dose 1 TAB; Start 07/21/16 at 04:30 Clopidogrel Bisulfate (plaVIX) 75 mg DAILY PO Last administered on 07/24/16 08 :38; Admin Dose 75 MG; Start 07/21/16 at 09:00 Ferrous Gluconate (Fergon) 325 mg BID PO Last administered on 07/24/16 08:37; Admin Dose 325 MG; Start 07/21/16 at 09:00 Folic Acid (Folic Acid) 1 mg DAILY PO Last administered on 07/24/16 08:37; Admin Dose 1 MG; Start 07/21/16 at 09:00 Diagnostic Test (Pha) (Accu-Chek) 1 ea 02 XX Last administered on 07/24/16 02: 09; Admin Dose 1 EA; Start 07/22/16 at 02:00 Acetaminophen (Tylenol Tab) 650 mg Q6H PRN PO PAIN AND OR ELEVATED TEMP; Start 07/21/16 at 04:30 Amlodipine Besylate (Norvasc) 5 mg BID PO Last administered on 07/24/16 08:38 ; Admin Dose 5 MG; Start 07/21/16 at 09:00 Atenolol (Tenormin) 50 mg DAILY PO Last administered on 07/24/16 08:39; Admin Dose 50 MG; Start 07/21/16 at 09:00 Atorvastatin Calcium (Lipitor) 80 mg DAILY@21 PO Last administered on 20:27; Admin Dose 80 MG; Start 07/21/16 at 21:00 Bromocriptine Mesylate 2.5 mg 2.5 mg BID PO Last administered on 07/24/16 08: 38; Admin Dose 2.5 MG; Start 07/21/16 at 09:00 Ceftriaxone Sodium (Rocephin) 50 ml @ 100 mls/hr Q24H IVPB Last administered on 07/23/16 16:52; Admin Dose 100 MLS/HR; Start 07/21/16 at 17:30 Docusate Sodium (Colace) 100 mg BID PO Last administered on 07/24/16 08:37; Admin Dose 100 MG; Start 07/21/16 at 09:00 Bisacodyl (Dulcolax Supp) 10 mg DAILY PRN [place] CONSTIPATION Last administered on 07/23/16 16:52; Admin Dose 10 MG; Start 07/21/16 at 05:00 Lactulose (Enulose) 20 gm DAILY PRN PO CONSTIPATION; Start 07/21/16 at 05:00 Gabapentin (Neurontin) 200 mg TID PO Last administered on 07/24/16 12:27; Admin Dose 200 MG; Start 07/24/16 at 13:00 GEORGE PIERRE MD July 24, 2016 12:35
[2016-07-24 16:00] VITALS: BP 120/68; PULSE 80
[2016-07-24] MEDS: CEFTRIAXONE 1 GM/50 ML (PMX) 50 ML IVPB SCH ×2 (17:26→17:27)
[2016-07-24 19:28] VITALS: BP 133/63; RESP 18
[2016-07-24 20:00] VITALS: BP 128/66; PULSE 83
[2016-07-24] MEDS: ATORVASTATIN 80 MG TAB PO SCH (20:33)
--- NOTE | 2016-07-24 23:41 | PN ---
Date/Time of Note Date/Time of Note DATE: 07/24/16 TIME: 23:40 Assessment/Plan VTE Prophylaxis VTE Prophylaxis Intervention: other Lines/Catheters [facility] Saline Lock Urinary Cath still in place: No Assessment/Plan Chief Complaint/Hosp Course ESRD CELLULITES legs PROLACTINOMA PIT MASS DM PLAN PD BROMOCRYPTINE Problems: Subjective 24 Hr Interval Summary Cardiovascular: no complaints Gastrointestinal: no complaints Exam/Review of Systems Vital Signs Vitals Vital Signs Date Time Temp Pulse Resp B/P Pulse Ox O2 Delivery O2 Flow Rate FiO2 07/24/16 20:00 83 07/24/16 19:28 97.5 18 133/63 98 07/24/16 07:31 Room Air Intake and Output 07/23/16 07/23/16 07/24/16 15:00 23:00 07:00 Intake Total 830 ml 950 ml Output Total 1500 ml Balance -1500 ml 830 ml 950 ml Exam Neck: supple Respiratory: clear to auscultation Cardiovascular: regular rate and rhythm Gastrointestinal: bowel sounds (+), soft Results Result Diagram: 07/21/16 0620 07/21/16 0610 Results 24 hrs Laboratory Tests Test 07/24/16 02:07 07/24/16 07:48 07/24/16 12:06 07/24/16 17:12 Bedside Glucose 171 139 182 221 H Test 07/24/16 20:29 Bedside Glucose 145 Medications Medications Current Medications Pantoprazole (Protonix Tab) 40 mg DAILY@06 PO Last administered on 07/24/16 06 :04; Admin Dose 40 MG; Start 07/21/16 at 06:00 Linagliptin (Tradjenta) 5 mg DAILY PO Last administered on 07/24/16 08:38; Admin Dose 5 MG; Start 07/21/16 at 09:00 Miscellaneous Information 1 ea NOTE XX ; Start 07/21/16 at 04:30 Glucose (Glutose) 15 gm Q15M PRN PO DECREASED GLUCOSE; Start 07/21/16 at 04:30 Glucose (Glutose) 22.5 gm Q15M PRN PO DECREASED GLUCOSE; Start 07/21/16 at 04: 30 Dextrose (D50w Syringe) 25 ml Q15M PRN IV DECREASED GLUCOSE; Start 07/21/16 at 04:30 Dextrose (D50w Syringe) 50 ml Q15M PRN IV DECREASED GLUCOSE; Start 07/21/16 at 04:30 Glucagon (Glucagen) 1 mg Q15M PRN IM DECREASED GLUCOSE; Start 07/21/16 at 04:30 Glucose (Glutose) 15 gm Q15M PRN BUCCAL DECREASED GLUCOSE; Start 07/21/16 at 04 :30 Hydralazine HCl (Apresoline) 10 mg Q6H PRN IV PRN FOR SBP ABOVE 165mmHg; Start 07/21/16 at 04:30 Acetaminophen/ Hydrocodone Bitart ([place] (5/325)) 1 tab Q12H PRN PO PAIN Last administered on 07/21/16 09:05; Admin Dose 1 TAB; Start 07/21/16 at 04:30 Clopidogrel Bisulfate (plaVIX) 75 mg DAILY PO Last administered on 07/24/16 08 :38; Admin Dose 75 MG; Start 07/21/16 at 09:00 Ferrous Gluconate (Fergon) 325 mg BID PO Last administered on 07/24/16 20:33; Admin Dose 325 MG; Start 07/21/16 at 09:00 Folic Acid (Folic Acid) 1 mg DAILY PO Last administered on 07/24/16 08:37; Admin Dose 1 MG; Start 07/21/16 at 09:00 Diagnostic Test (Pha) (Accu-Chek) 1 ea 02 XX Last administered on 07/24/16 02: 09; Admin Dose 1 EA; Start 07/22/16 at 02:00 Acetaminophen (Tylenol Tab) 650 mg Q6H PRN PO PAIN AND OR ELEVATED TEMP; Start 07/21/16 at 04:30 Amlodipine Besylate (Norvasc) 5 mg BID PO Last administered on 07/24/16 20:35 ; Admin Dose 5 MG; Start 07/21/16 at 09:00 Atenolol (Tenormin) 50 mg DAILY PO Last administered on 07/24/16 08:39; Admin Dose 50 MG; Start 07/21/16 at 09:00 Atorvastatin Calcium (Lipitor) 80 mg DAILY@21 PO Last administered on 20:33; Admin Dose 80 MG; Start 07/21/16 at 21:00 Bromocriptine Mesylate 2.5 mg 2.5 mg BID PO Last administered on 07/24/16 20: 33; Admin Dose 2.5 MG; Start 07/21/16 at 09:00 Ceftriaxone Sodium (Rocephin) 50 ml @ 100 mls/hr Q24H IVPB Last administered on 07/24/16 17:27; Admin Dose 100 MLS/HR; Start 07/21/16 at 17:30 Docusate Sodium (Colace) 100 mg BID PO Last administered on 07/24/16 20:33; Admin Dose 100 MG; Start 07/21/16 at 09:00 Bisacodyl (Dulcolax Supp) 10 mg DAILY PRN [place] CONSTIPATION Last administered on 07/23/16 16:52; Admin Dose 10 MG; Start 07/21/16 at 05:00 Lactulose (Enulose) 20 gm DAILY PRN PO CONSTIPATION; Start 07/21/16 at 05:00 Gabapentin (Neurontin) 200 mg TID PO Last administered on 07/24/16 20:33; Admin Dose 200 MG; Start 07/24/16 at 13:00 CHRISTINA SHIRLEY MD July 24, 2016 23:41
[2016-07-25] MEDS: ACCUCHECK AT 2AM (Patients on SS coverage) XX SCH (02:00)
[2016-07-25 04:00] VITALS: BP 132/71; PULSE 88
[2016-07-25] MEDS: PANTOPRAZOLE (EC) 40 MG TAB PO SCH (06:15)
[2016-07-25] MEDS: LEVOTHYROXINE 88 MCG TAB PO SCH (06:15)
[2016-07-25 07:42] VITALS: BP 98/53; RESP 18
[2016-07-25] MEDS: DOCUSATE SODIUM 100 MG CAP PO SCH ×2 (08:31→20:44)
[2016-07-25] MEDS: BROMOCRIPTINE 2.5 MG TAB PO SCH ×2 (08:31→20:44)
[2016-07-25] MEDS: FOLIC ACID 1 MG TAB PO SCH (08:31)
[2016-07-25] MEDS: FERROUS GLUCONATE (EC) 325 MG TAB PO SCH ×2 (08:31→20:45)
[2016-07-25] MEDS: LINAGLIPTIN 5 MG TABLET PO SCH (08:31)
[2016-07-25] MEDS: CLOPIDOGREL 75 MG TAB PO SCH (08:31)
[2016-07-25] MEDS: Insulin NOVOLOG SS MODERATE Algorithm (SS with meals and bedtime) SC SCH ×4 (08:31→20:47)
[2016-07-25] MEDS: AMLODIPINE 5 MG TAB PO SCH ×2 (08:32→20:47)
[2016-07-25] MEDS: GABAPENTIN 100 MG CAP PO SCH ×3 (08:32→20:45)
[2016-07-25] MEDS: ATENOLOL 50 MG TAB PO SCH (08:33)
[2016-07-25 11:00] VITALS: BP 129/71; PULSE 68
--- NOTE | 2016-07-25 12:33 | CONS ---
Date/Time of Note Date/Time of Note DATE: 07/25/16 TIME: 12:32 Consult Date/Type/Reason Admit Date/Time July 20, 2016 at 23:39 Type of Consultation: nephrology Subjective Feeling better today Objective pulm-cta abd-soft max assist Vital Signs Date Time Temp Pulse Resp B/P Pulse Ox O2 Delivery O2 Flow Rate FiO2 07/25/16 07:42 97.9 63 18 98/53 98 07/24/16 07:31 Room Air Intake and Output 07/24/16 07/24/16 07/25/16 15:00 23:00 07:00 Intake Total 720 ml 360 ml 750 ml Output Total 1600 ml Balance 720 ml -1240 ml 750 ml Results/Medications Result Diagram: 07/21/16 0620 07/21/16 0610 Results 24 hrs Laboratory Tests Test 07/24/16 17:12 07/24/16 20:29 07/25/16 07:48 07/25/16 12:19 Bedside Glucose 221 H 145 199 161 Medications Current Medications Pantoprazole (Protonix Tab) 40 mg DAILY@06 PO Last administered on 07/25/16 06 :15; Admin Dose 40 MG; Start 07/21/16 at 06:00 Linagliptin (Tradjenta) 5 mg DAILY PO Last administered on 07/25/16 08:31; Admin Dose 5 MG; Start 07/21/16 at 09:00 Miscellaneous Information 1 ea NOTE XX ; Start 07/21/16 at 04:30 Glucose (Glutose) 15 gm Q15M PRN PO DECREASED GLUCOSE; Start 07/21/16 at 04:30 Glucose (Glutose) 22.5 gm Q15M PRN PO DECREASED GLUCOSE; Start 07/21/16 at 04: 30 Dextrose (D50w Syringe) 25 ml Q15M PRN IV DECREASED GLUCOSE; Start 07/21/16 at 04:30 Dextrose (D50w Syringe) 50 ml Q15M PRN IV DECREASED GLUCOSE; Start 07/21/16 at 04:30 Glucagon (Glucagen) 1 mg Q15M PRN IM DECREASED GLUCOSE; Start 07/21/16 at 04:30 Glucose (Glutose) 15 gm Q15M PRN BUCCAL DECREASED GLUCOSE; Start 07/21/16 at 04 :30 Hydralazine HCl (Apresoline) 10 mg Q6H PRN IV PRN FOR SBP ABOVE 165mmHg; Start 07/21/16 at 04:30 Acetaminophen/ Hydrocodone Bitart ([place] (5/325)) 1 tab Q12H PRN PO PAIN Last administered on 07/21/16 09:05; Admin Dose 1 TAB; Start 07/21/16 at 04:30 Clopidogrel Bisulfate (plaVIX) 75 mg DAILY PO Last administered on 07/25/16 08 :31; Admin Dose 75 MG; Start 07/21/16 at 09:00 Ferrous Gluconate (Fergon) 325 mg BID PO Last administered on 07/25/16 08:31; Admin Dose 325 MG; Start 07/21/16 at 09:00 Folic Acid (Folic Acid) 1 mg DAILY PO Last administered on 07/25/16 08:31; Admin Dose 1 MG; Start 07/21/16 at 09:00 Diagnostic Test (Pha) (Accu-Chek) 1 ea 02 XX Last administered on 07/24/16 02: 09; Admin Dose 1 EA; Start 07/22/16 at 02:00 Acetaminophen (Tylenol Tab) 650 mg Q6H PRN PO PAIN AND OR ELEVATED TEMP; Start 07/21/16 at 04:30 Amlodipine Besylate (Norvasc) 5 mg BID PO Last administered on 07/24/16 20:35 ; Admin Dose 5 MG; Start 07/21/16 at 09:00 Atenolol (Tenormin) 50 mg DAILY PO Last administered on 07/24/16 08:39; Admin Dose 50 MG; Start 07/21/16 at 09:00 Atorvastatin Calcium (Lipitor) 80 mg DAILY@21 PO Last administered on 20:33; Admin Dose 80 MG; Start 07/21/16 at 21:00 Bromocriptine Mesylate 2.5 mg 2.5 mg BID PO Last administered on 07/25/16 08: 31; Admin Dose 2.5 MG; Start 07/21/16 at 09:00 Ceftriaxone Sodium (Rocephin) 50 ml @ 100 mls/hr Q24H IVPB Last administered on 07/24/16 17:27; Admin Dose 100 MLS/HR; Start 07/21/16 at 17:30 Docusate Sodium (Colace) 100 mg BID PO Last administered on 07/25/16 08:31; Admin Dose 100 MG; Start 07/21/16 at 09:00 Bisacodyl (Dulcolax Supp) 10 mg DAILY PRN [place] CONSTIPATION Last administered on 07/23/16 16:52; Admin Dose 10 MG; Start 07/21/16 at 05:00 Lactulose (Enulose) 20 gm DAILY PRN PO CONSTIPATION; Start 07/21/16 at 05:00 Gabapentin (Neurontin) 200 mg TID PO Last administered on 07/25/16 08:32; Admin Dose 200 MG; Start 07/24/16 at 13:00 Assessment/Plan Additional Assessment/Plan Rehab- R [place] infact CVA with L deniz ;pituitary macroadenoma Continue rehab program ESRD on PD HTN DM Anemia hypothy dyslipid LLE cellulitis-improving GEORGE PIERRE MD July 25, 2016 12:33
[2016-07-25 14:00] VITALS: BP 118/69; PULSE 66
[2016-07-25] MEDS: CEFTRIAXONE 1 GM/50 ML (PMX) 50 ML IVPB SCH (17:10)
--- NOTE | 2016-07-25 19:55 | PN ---
Date/Time of Note Date/Time of Note DATE: 07/25/16 TIME: 19:54 Assessment/Plan VTE Prophylaxis VTE Prophylaxis Intervention: other Lines/Catheters [facility] Saline Lock Urinary Cath still in place: No Assessment/Plan Chief Complaint/Hosp Course ESRD CELLULITES legs better PROLACTINOMA PIT MASS DM PLAN PD BROMOCRYPTINE pt ot Problems: Subjective 24 Hr Interval Summary Gastrointestinal: no complaints Genitourinary: no complaints Exam/Review of Systems Vital Signs Vitals Vital Signs Date Time Temp Pulse Resp B/P Pulse Ox O2 Delivery O2 Flow Rate FiO2 07/25/16 14:00 66 07/25/16 07:42 97.9 18 98/53 98 07/24/16 07:31 Room Air Intake and Output 07/24/16 07/24/16 07/25/16 15:00 23:00 07:00 Intake Total 720 ml 360 ml 750 ml Output Total 1600 ml Balance 720 ml -1240 ml 750 ml Exam Cardiovascular: regular rate and rhythm Gastrointestinal: soft Musculoskeletal: nl extremities to inspection Neurological: other (no change) Results Result Diagram: 07/21/16 0620 07/21/16 0610 Results 24 hrs Laboratory Tests Test 07/24/16 20:29 07/25/16 07:48 07/25/16 12:19 07/25/16 17:37 Bedside Glucose 145 199 161 280 H Medications Medications Current Medications Pantoprazole (Protonix Tab) 40 mg DAILY@06 PO Last administered on 07/25/16 06 :15; Admin Dose 40 MG; Start 07/21/16 at 06:00 Linagliptin (Tradjenta) 5 mg DAILY PO Last administered on 07/25/16 08:31; Admin Dose 5 MG; Start 07/21/16 at 09:00 Miscellaneous Information 1 ea NOTE XX ; Start 07/21/16 at 04:30 Glucose (Glutose) 15 gm Q15M PRN PO DECREASED GLUCOSE; Start 07/21/16 at 04:30 Glucose (Glutose) 22.5 gm Q15M PRN PO DECREASED GLUCOSE; Start 07/21/16 at 04: 30 Dextrose (D50w Syringe) 25 ml Q15M PRN IV DECREASED GLUCOSE; Start 07/21/16 at 04:30 Dextrose (D50w Syringe) 50 ml Q15M PRN IV DECREASED GLUCOSE; Start 07/21/16 at 04:30 Glucagon (Glucagen) 1 mg Q15M PRN IM DECREASED GLUCOSE; Start 07/21/16 at 04:30 Glucose (Glutose) 15 gm Q15M PRN BUCCAL DECREASED GLUCOSE; Start 07/21/16 at 04 :30 Hydralazine HCl (Apresoline) 10 mg Q6H PRN IV PRN FOR SBP ABOVE 165mmHg; Start 07/21/16 at 04:30 Acetaminophen/ Hydrocodone Bitart ([place] (5/325)) 1 tab Q12H PRN PO PAIN Last administered on 07/21/16 09:05; Admin Dose 1 TAB; Start 07/21/16 at 04:30 Clopidogrel Bisulfate (plaVIX) 75 mg DAILY PO Last administered on 07/25/16 08 :31; Admin Dose 75 MG; Start 07/21/16 at 09:00 Ferrous Gluconate (Fergon) 325 mg BID PO Last administered on 07/25/16 08:31; Admin Dose 325 MG; Start 07/21/16 at 09:00 Folic Acid (Folic Acid) 1 mg DAILY PO Last administered on 07/25/16 08:31; Admin Dose 1 MG; Start 07/21/16 at 09:00 Diagnostic Test (Pha) (Accu-Chek) 1 ea 02 XX Last administered on 07/24/16 02: 09; Admin Dose 1 EA; Start 07/22/16 at 02:00 Acetaminophen (Tylenol Tab) 650 mg Q6H PRN PO PAIN AND OR ELEVATED TEMP; Start 07/21/16 at 04:30 Amlodipine Besylate (Norvasc) 5 mg BID PO Last administered on 07/24/16 20:35 ; Admin Dose 5 MG; Start 07/21/16 at 09:00 Atenolol (Tenormin) 50 mg DAILY PO Last administered on 07/24/16 08:39; Admin Dose 50 MG; Start 07/21/16 at 09:00 Atorvastatin Calcium (Lipitor) 80 mg DAILY@21 PO Last administered on 20:33; Admin Dose 80 MG; Start 07/21/16 at 21:00 Bromocriptine Mesylate 2.5 mg 2.5 mg BID PO Last administered on 07/25/16 08: 31; Admin Dose 2.5 MG; Start 07/21/16 at 09:00 Ceftriaxone Sodium (Rocephin) 50 ml @ 100 mls/hr Q24H IVPB Last administered on 07/25/16 17:10; Admin Dose 100 MLS/HR; Start 07/21/16 at 17:30 Docusate Sodium (Colace) 100 mg BID PO Last administered on 07/25/16 08:31; Admin Dose 100 MG; Start 07/21/16 at 09:00 Bisacodyl (Dulcolax Supp) 10 mg DAILY PRN [place] CONSTIPATION Last administered on 07/23/16 16:52; Admin Dose 10 MG; Start 07/21/16 at 05:00 Lactulose (Enulose) 20 gm DAILY PRN PO CONSTIPATION; Start 07/21/16 at 05:00 Gabapentin (Neurontin) 200 mg TID PO Last administered on 07/25/16 12:39; Admin Dose 200 MG; Start 07/24/16 at 13:00 CHRISTINA SHIRLEY MD July 25, 2016 19:55
[2016-07-25 20:00] VITALS: BP 121/56; RESP 18
[2016-07-25] MEDS: ATORVASTATIN 80 MG TAB PO SCH (20:44)
[2016-07-26] MEDS: ACCUCHECK AT 2AM (Patients on SS coverage) XX SCH (02:00)
[2016-07-26 04:30] VITALS: BP 124/65; PULSE 69
[2016-07-26] MEDS: PANTOPRAZOLE (EC) 40 MG TAB PO SCH (06:23)
[2016-07-26] MEDS: LEVOTHYROXINE 88 MCG TAB PO SCH (06:23)
[2016-07-26 07:30] VITALS: BP_SYST 115; BP_SYST 118; BP_DIAS 66; BP_DIAS 69; PULSE 68; RESP 18
[2016-07-26] MEDS: Insulin NOVOLOG SS MODERATE Algorithm (SS with meals and bedtime) SC SCH ×4 (08:12→21:00)
[2016-07-26 08:17] LABS: ALBUMIN 3.7 g/dl (3.3-4.9); ALBUMIN/GLOBULIN RATIO 1.15; POTASSIUM 4.3 mmol/L (3.5-5.1); TOTAL PROTEIN 6.9 g/dl (6.1-8.1)
[2016-07-26 08:41] LABS: CREATININE 8.53 mg/dl (0.44-1.00)
[2016-07-26 11:00] VITALS: BP 126/70; PULSE 65
[2016-07-26] MEDS: HYDROCODONE/APAP (5/325) TAB PO PRN (11:17)
[2016-07-26] MEDS: DOCUSATE SODIUM 100 MG CAP PO SCH ×2 (11:17→21:20)
[2016-07-26] MEDS: BROMOCRIPTINE 2.5 MG TAB PO SCH ×2 (11:17→21:20)
[2016-07-26] MEDS: FOLIC ACID 1 MG TAB PO SCH (11:17)
[2016-07-26] MEDS: GABAPENTIN 100 MG CAP PO SCH ×3 (11:18→21:20)
[2016-07-26] MEDS: CLOPIDOGREL 75 MG TAB PO SCH (11:18)
[2016-07-26] MEDS: LINAGLIPTIN 5 MG TABLET PO SCH (11:19)
[2016-07-26] MEDS: FERROUS GLUCONATE (EC) 325 MG TAB PO SCH ×2 (11:19→21:21)
[2016-07-26] MEDS: ATENOLOL 50 MG TAB PO SCH (11:24)
[2016-07-26] MEDS: AMLODIPINE 5 MG TAB PO SCH ×2 (11:24→21:21)
--- NOTE | 2016-07-26 11:39 | CONS ---
Date/Time of Note Date/Time of Note DATE: 07/26/16 TIME: 11:39 Consult Date/Type/Reason Admit Date/Time July 20, 2016 at 23:39 Type of Consultation: nephrology Subjective Comfortable Objective pulm-cta Vital Signs Date Time Temp Pulse Resp B/P Pulse Ox O2 Delivery O2 Flow Rate FiO2 07/26/16 07:30 68 07/26/16 07:30 97.7 18 115/69 95 07/24/16 07:31 Room Air Intake and Output 07/25/16 07/25/16 07/26/16 15:00 23:00 07:00 Intake Total 960 ml 550 ml Output Total 300 ml 2700 ml Balance 660 ml -2150 ml Results/Medications Result Diagram: 07/26/16 0613 Results 24 hrs Laboratory Tests Test 07/25/16 12:19 07/25/16 17:37 07/25/16 20:12 07/26/16 06:13 Bedside Glucose 161 280 H 179 Sodium Level 129 L Potassium Level 4.3 Chloride Level 90 L Carbon Dioxide Level 25 Anion Gap 18 H Blood Urea Nitrogen 96 H Creatinine 8.53 H Glucose Level 133 Calcium Level 8.0 L Total Bilirubin 0.0 L Direct Bilirubin 0.00 Indirect Bilirubin 0.0 Aspartate Amino Transf (AST/SGOT) 23 Alanine Aminotransferase (ALT/SGPT) 32 Alkaline Phosphatase 79 Total Protein 6.9 Albumin 3.7 Globulin 3.20 Albumin/Globulin Ratio 1.15 Test 07/26/16 07:56 Bedside Glucose 158 Medications Current Medications Pantoprazole (Protonix Tab) 40 mg DAILY@06 PO Last administered on 07/26/16 06: 23; Admin Dose 40 MG; Start 07/21/16 at 06:00 Linagliptin (Tradjenta) 5 mg DAILY PO Last administered on 07/26/16 11:19; Admin Dose 5 MG; Start 07/21/16 at 09:00 Miscellaneous Information 1 ea NOTE XX ; Start 07/21/16 at 04:30 Glucose (Glutose) 15 gm Q15M PRN PO DECREASED GLUCOSE; Start 07/21/16 at 04:30 Glucose (Glutose) 22.5 gm Q15M PRN PO DECREASED GLUCOSE; Start 07/21/16 at 04: 30 Dextrose (D50w Syringe) 25 ml Q15M PRN IV DECREASED GLUCOSE; Start 07/21/16 at 04:30 Dextrose (D50w Syringe) 50 ml Q15M PRN IV DECREASED GLUCOSE; Start 07/21/16 at 04:30 Glucagon (Glucagen) 1 mg Q15M PRN IM DECREASED GLUCOSE; Start 07/21/16 at 04:30 Glucose (Glutose) 15 gm Q15M PRN BUCCAL DECREASED GLUCOSE; Start 07/21/16 at 04 :30 Hydralazine HCl (Apresoline) 10 mg Q6H PRN IV PRN FOR SBP ABOVE 165mmHg; Start 07/21/16 at 04:30 Acetaminophen/ Hydrocodone Bitart ([place] (5/325)) 1 tab Q12H PRN PO PAIN Last administered on 07/26/16 11:17; Admin Dose 1 TAB; Start 07/21/16 at 04:30 Clopidogrel Bisulfate (plaVIX) 75 mg DAILY PO Last administered on 07/26/16 11: 18; Admin Dose 75 MG; Start 07/21/16 at 09:00 Ferrous Gluconate (Fergon) 325 mg BID PO Last administered on 07/26/16 11:19; Admin Dose 325 MG; Start 07/21/16 at 09:00 Folic Acid (Folic Acid) 1 mg DAILY PO Last administered on 07/26/16 11:17; Admin Dose 1 MG; Start 07/21/16 at 09:00 Diagnostic Test (Pha) (Accu-Chek) 1 ea 02 XX Last administered on 07/24/16 02: 09; Admin Dose 1 EA; Start 07/22/16 at 02:00 Acetaminophen (Tylenol Tab) 650 mg Q6H PRN PO PAIN AND OR ELEVATED TEMP; Start 07/21/16 at 04:30 Amlodipine Besylate (Norvasc) 5 mg BID PO Last administered on 07/26/16 11:24; Admin Dose 5 MG; Start 07/21/16 at 09:00 Atenolol (Tenormin) 50 mg DAILY PO Last administered on 07/26/16 11:24; Admin Dose 50 MG; Start 07/21/16 at 09:00 Atorvastatin Calcium (Lipitor) 80 mg DAILY@21 PO Last administered on 20:44; Admin Dose 80 MG; Start 07/21/16 at 21:00 Bromocriptine Mesylate 2.5 mg 2.5 mg BID PO Last administered on 07/26/16 11:17 ; Admin Dose 2.5 MG; Start 07/21/16 at 09:00 Ceftriaxone Sodium (Rocephin) 50 ml @ 100 mls/hr Q24H IVPB Last administered on 07/25/16 17:10; Admin Dose 100 MLS/HR; Start 07/21/16 at 17:30 Docusate Sodium (Colace) 100 mg BID PO Last administered on 07/26/16 11:17; Admin Dose 100 MG; Start 07/21/16 at 09:00 Bisacodyl (Dulcolax Supp) 10 mg DAILY PRN [place] CONSTIPATION Last administered on 07/23/16 16:52; Admin Dose 10 MG; Start 07/21/16 at 05:00 Lactulose (Enulose) 20 gm DAILY PRN PO CONSTIPATION; Start 07/21/16 at 05:00 Gabapentin (Neurontin) 200 mg TID PO Last administered on 07/26/16 11:18; Admin Dose 200 MG; Start 07/24/16 at 13:00 Assessment/Plan Additional Assessment/Plan Rehab- R [place] infact CVA with L deniz ;pituitary macroadenoma Continue rehab activities ESRD on PD HTN DM Anemia hypothy dyslipid LLE cellulitis-improving GEORGE PIERRE MD Jul 26, 2016 11:39
[2016-07-26 15:30] VITALS: BP 119/67; PULSE 66
[2016-07-26] MEDS: CEFTRIAXONE 1 GM/50 ML (PMX) 50 ML IVPB SCH (16:43)
--- NOTE | 2016-07-26 19:58 | PN ---
Date/Time of Note Date/Time of Note DATE: 07/26/16 TIME: 19:57 Assessment/Plan VTE Prophylaxis VTE Prophylaxis Intervention: other Lines/Catheters IV [facility] Type (from [facility] Saline Lock Urinary Cath still in place: No Assessment/Plan Chief Complaint/Hosp Course ESRD CELLULITES legs better PROLACTINOMA PIT MASS DM PLAN PD BROMOCRYPTINE pt ot Problems: Subjective 24 Hr Interval Summary Respiratory: no complaints Cardiovascular: no complaints Exam/Review of Systems Vital Signs Vitals Vital Signs Date Time Temp Pulse Resp B/P Pulse Ox O2 Delivery O2 Flow Rate FiO2 07/26/16 15:30 66 07/26/16 07:30 97.7 18 115/69 95 07/24/16 07:31 Room Air Intake and Output 07/25/16 07/25/16 07/26/16 15:00 23:00 07:00 Intake Total 960 ml 550 ml Output Total 300 ml 2700 ml Balance 660 ml -2150 ml Exam Neck: supple Respiratory: clear to auscultation Cardiovascular: regular rate and rhythm Gastrointestinal: soft Musculoskeletal: nl extremities to inspection Extremities: edema (better) Results Result Diagram: 07/26/16 0613 Results 24 hrs Laboratory Tests Test 07/25/16 20:12 07/26/16 06:13 07/26/16 07:56 07/26/16 12:25 Bedside Glucose 179 158 158 Sodium Level 129 L Potassium Level 4.3 Chloride Level 90 L Carbon Dioxide Level 25 Anion Gap 18 H Blood Urea Nitrogen 96 H Creatinine 8.53 H Glucose Level 133 Calcium Level 8.0 L Total Bilirubin 0.0 L Direct Bilirubin 0.00 Indirect Bilirubin 0.0 Aspartate Amino Transf (AST/SGOT) 23 Alanine Aminotransferase (ALT/SGPT) 32 Alkaline Phosphatase 79 Total Protein 6.9 Albumin 3.7 Globulin 3.20 Albumin/Globulin Ratio 1.15 Test 07/26/16 17:28 Bedside Glucose 207 Medications Medications Current Medications Pantoprazole (Protonix Tab) 40 mg DAILY@06 PO Last administered on 07/26/16 06: 23; Admin Dose 40 MG; Start 07/21/16 at 06:00 Linagliptin (Tradjenta) 5 mg DAILY PO Last administered on 07/26/16 11:19; Admin Dose 5 MG; Start 07/21/16 at 09:00 Miscellaneous Information 1 ea NOTE XX ; Start 07/21/16 at 04:30 Glucose (Glutose) 15 gm Q15M PRN PO DECREASED GLUCOSE; Start 07/21/16 at 04:30 Glucose (Glutose) 22.5 gm Q15M PRN PO DECREASED GLUCOSE; Start 07/21/16 at 04: 30 Dextrose (D50w Syringe) 25 ml Q15M PRN IV DECREASED GLUCOSE; Start 07/21/16 at 04:30 Dextrose (D50w Syringe) 50 ml Q15M PRN IV DECREASED GLUCOSE; Start 07/21/16 at 04:30 Glucagon (Glucagen) 1 mg Q15M PRN IM DECREASED GLUCOSE; Start 07/21/16 at 04:30 Glucose (Glutose) 15 gm Q15M PRN BUCCAL DECREASED GLUCOSE; Start 07/21/16 at 04 :30 Hydralazine HCl (Apresoline) 10 mg Q6H PRN IV PRN FOR SBP ABOVE 165mmHg; Start 07/21/16 at 04:30 Acetaminophen/ Hydrocodone Bitart ([place] (5/325)) 1 tab Q12H PRN PO PAIN Last administered on 07/26/16 11:17; Admin Dose 1 TAB; Start 07/21/16 at 04:30 Clopidogrel Bisulfate (plaVIX) 75 mg DAILY PO Last administered on 07/26/16 11: 18; Admin Dose 75 MG; Start 07/21/16 at 09:00 Ferrous Gluconate (Fergon) 325 mg BID PO Last administered on 07/26/16 11:19; Admin Dose 325 MG; Start 07/21/16 at 09:00 Folic Acid (Folic Acid) 1 mg DAILY PO Last administered on 07/26/16 11:17; Admin Dose 1 MG; Start 07/21/16 at 09:00 Diagnostic Test (Pha) (Accu-Chek) 1 ea 02 XX Last administered on 07/24/16 02: 09; Admin Dose 1 EA; Start 07/22/16 at 02:00 Acetaminophen (Tylenol Tab) 650 mg Q6H PRN PO PAIN AND OR ELEVATED TEMP; Start 07/21/16 at 04:30 Amlodipine Besylate (Norvasc) 5 mg BID PO Last administered on 07/26/16 11:24; Admin Dose 5 MG; Start 07/21/16 at 09:00 Atenolol (Tenormin) 50 mg DAILY PO Last administered on 07/26/16 11:24; Admin Dose 50 MG; Start 07/21/16 at 09:00 Atorvastatin Calcium (Lipitor) 80 mg DAILY@21 PO Last administered on 20:44; Admin Dose 80 MG; Start 07/21/16 at 21:00 Bromocriptine Mesylate 2.5 mg 2.5 mg BID PO Last administered on 07/26/16 11:17 ; Admin Dose 2.5 MG; Start 07/21/16 at 09:00 Ceftriaxone Sodium (Rocephin) 50 ml @ 100 mls/hr Q24H IVPB Last administered on 07/26/16 16:43; Admin Dose 100 MLS/HR; Start 07/21/16 at 17:30 Docusate Sodium (Colace) 100 mg BID PO Last administered on 07/26/16 11:17; Admin Dose 100 MG; Start 07/21/16 at 09:00 Bisacodyl (Dulcolax Supp) 10 mg DAILY PRN [place] CONSTIPATION Last administered on 07/23/16 16:52; Admin Dose 10 MG; Start 07/21/16 at 05:00 Lactulose (Enulose) 20 gm DAILY PRN PO CONSTIPATION; Start 07/21/16 at 05:00 Gabapentin (Neurontin) 200 mg TID PO Last administered on 07/26/16 16:32; Admin Dose 200 MG; Start 07/24/16 at 13:00 CHRISTINA SHIRLEY MD Jul 26, 2016 19:58
[2016-07-26 20:00] VITALS: BP 113/58; RESP 18
[2016-07-26] MEDS: ATORVASTATIN 80 MG TAB PO SCH (21:20)
[2016-07-27] MEDS: ACCUCHECK AT 2AM (Patients on SS coverage) XX SCH (01:41)
[2016-07-27 04:00] VITALS: BP 132/71; PULSE 68
[2016-07-27] MEDS: PANTOPRAZOLE (EC) 40 MG TAB PO SCH (05:35)
[2016-07-27] MEDS: LEVOTHYROXINE 88 MCG TAB PO SCH (05:35)
[2016-07-27 07:30] VITALS: BP 122/68; PULSE 70
[2016-07-27 07:45] VITALS: BP 132/64; RESP 18
[2016-07-27] MEDS: Insulin NOVOLOG SS MODERATE Algorithm (SS with meals and bedtime) SC SCH ×4 (08:16→20:47)
[2016-07-27] MEDS: FOLIC ACID 1 MG TAB PO SCH (08:18)
[2016-07-27] MEDS: CLOPIDOGREL 75 MG TAB PO SCH (08:18)
[2016-07-27] MEDS: GABAPENTIN 100 MG CAP PO SCH ×3 (08:18→20:38)
[2016-07-27] MEDS: BROMOCRIPTINE 2.5 MG TAB PO SCH ×2 (08:18→20:37)
[2016-07-27] MEDS: DOCUSATE SODIUM 100 MG CAP PO SCH ×2 (08:19→20:38)
[2016-07-27] MEDS: FERROUS GLUCONATE (EC) 325 MG TAB PO SCH ×2 (08:19→20:38)
[2016-07-27] MEDS: LINAGLIPTIN 5 MG TABLET PO SCH (08:19)
[2016-07-27] MEDS: AMLODIPINE 5 MG TAB PO SCH ×2 (08:19→20:38)
[2016-07-27] MEDS: ATENOLOL 50 MG TAB PO SCH (08:19)
[2016-07-27 11:00] VITALS: BP 127/64; PULSE 72
--- NOTE | 2016-07-27 11:33 | CONS ---
Date/Time of Note Date/Time of Note DATE: 07/27/16 TIME: 11:32 Consult Date/Type/Reason Admit Date/Time July 20, 2016 at 23:39 Type of Consultation: nephrology Subjective Feels much better today Objective pulm-cta Vital Signs Date Time Temp Pulse Resp B/P Pulse Ox O2 Delivery O2 Flow Rate FiO2 07/27/16 07:45 98.0 66 18 132/64 96 07/24/16 07:31 Room Air Intake and Output 07/26/16 07/26/16 07/27/16 14:59 22:59 06:59 Intake Total 740 ml Output Total 1500 ml Balance -760 ml Results/Medications Result Diagram: 07/26/16 0613 Results 24 hrs Laboratory Tests Test 07/26/16 12:25 07/26/16 17:28 07/26/16 21:17 07/27/16 08:08 Bedside Glucose 158 207 118 159 Medications Current Medications Pantoprazole (Protonix Tab) 40 mg DAILY@06 PO Last administered on 07/27/16 05: 35; Admin Dose 40 MG; Start 07/21/16 at 06:00 Linagliptin (Tradjenta) 5 mg DAILY PO Last administered on 07/27/16 08:19; Admin Dose 5 MG; Start 07/21/16 at 09:00 Miscellaneous Information 1 ea NOTE XX ; Start 07/21/16 at 04:30 Glucose (Glutose) 15 gm Q15M PRN PO DECREASED GLUCOSE; Start 07/21/16 at 04:30 Glucose (Glutose) 22.5 gm Q15M PRN PO DECREASED GLUCOSE; Start 07/21/16 at 04: 30 Dextrose (D50w Syringe) 25 ml Q15M PRN IV DECREASED GLUCOSE; Start 07/21/16 at 04:30 Dextrose (D50w Syringe) 50 ml Q15M PRN IV DECREASED GLUCOSE; Start 07/21/16 at 04:30 Glucagon (Glucagen) 1 mg Q15M PRN IM DECREASED GLUCOSE; Start 07/21/16 at 04:30 Glucose (Glutose) 15 gm Q15M PRN BUCCAL DECREASED GLUCOSE; Start 07/21/16 at 04 :30 Hydralazine HCl (Apresoline) 10 mg Q6H PRN IV PRN FOR SBP ABOVE 165mmHg; Start 07/21/16 at 04:30 Acetaminophen/ Hydrocodone Bitart ([place] (5/325)) 1 tab Q12H PRN PO PAIN Last administered on 07/26/16 11:17; Admin Dose 1 TAB; Start 07/21/16 at 04:30 Clopidogrel Bisulfate (plaVIX) 75 mg DAILY PO Last administered on 07/27/16 08: 18; Admin Dose 75 MG; Start 07/21/16 at 09:00 Ferrous Gluconate (Fergon) 325 mg BID PO Last administered on 07/27/16 08:19; Admin Dose 325 MG; Start 07/21/16 at 09:00 Folic Acid (Folic Acid) 1 mg DAILY PO Last administered on 07/27/16 08:18; Admin Dose 1 MG; Start 07/21/16 at 09:00 Diagnostic Test (Pha) (Accu-Chek) 1 ea 02 XX Last administered on 07/24/16 02: 09; Admin Dose 1 EA; Start 07/22/16 at 02:00 Acetaminophen (Tylenol Tab) 650 mg Q6H PRN PO PAIN AND OR ELEVATED TEMP; Start 07/21/16 at 04:30 Amlodipine Besylate (Norvasc) 5 mg BID PO Last administered on 07/27/16 08:19; Admin Dose 5 MG; Start 07/21/16 at 09:00 Atenolol (Tenormin) 50 mg DAILY PO Last administered on 07/27/16 08:19; Admin Dose 50 MG; Start 07/21/16 at 09:00 Atorvastatin Calcium (Lipitor) 80 mg DAILY@21 PO Last administered on 07/26/16 21:20; Admin Dose 80 MG; Start 07/21/16 at 21:00 Bromocriptine Mesylate 2.5 mg 2.5 mg BID PO Last administered on 07/27/16 08:18 ; Admin Dose 2.5 MG; Start 07/21/16 at 09:00 Ceftriaxone Sodium (Rocephin) 50 ml @ 100 mls/hr Q24H IVPB Last administered on 07/26/16 16:43; Admin Dose 100 MLS/HR; Start 07/21/16 at 17:30 Docusate Sodium (Colace) 100 mg BID PO Last administered on 07/27/16 08:19; Admin Dose 100 MG; Start 07/21/16 at 09:00 Bisacodyl (Dulcolax Supp) 10 mg DAILY PRN [place] CONSTIPATION Last administered on 07/23/16 16:52; Admin Dose 10 MG; Start 07/21/16 at 05:00 Lactulose (Enulose) 20 gm DAILY PRN PO CONSTIPATION; Start 07/21/16 at 05:00 Gabapentin (Neurontin) 200 mg TID PO Last administered on 07/27/16 08:18; Admin Dose 200 MG; Start 07/24/16 at 13:00 Assessment/Plan Additional Assessment/Plan Rehab- R [place] infact CVA with L deniz ;pituitary macroadenoma Continue rehab therapies ESRD on PD HTN DM Anemia hypothy dyslipid LLE cellulitis-improving GEORGE PIERRE MD Jul 27, 2016 11:33
--- NOTE | 2016-07-27 13:31 | PN ---
Date/Time of Note Date/Time of Note DATE: 07/27/16 TIME: 13:29 Assessment/Plan VTE Prophylaxis VTE Prophylaxis Intervention: ambulation Lines/Catheters [facility] Urinary Cath still in place: No Assessment/Plan Chief Complaint/Hosp Course 1. CKD stage 4. 3. Peritoneal dialysis 3. Neuropathies 4. Hypertension 5. Left leg swelling and pain without DVT on US 6. Anemia 7. DM type II, uncontrolled 8. Hypothyroidism Problems: Assessment/Plan 1. Start lantus 15 units q pm sq daily 2. Continue PT Subjective 24 Hr Interval Summary Constitutional: improved, no complaints Cardiovascular: no complaints Gastrointestinal: no complaints Exam/Review of Systems Vital Signs Vitals Vital Signs Date Time Temp Pulse Resp B/P Pulse Ox O2 Delivery O2 Flow Rate FiO2 07/27/16 07:45 98.0 66 18 132/64 96 07/24/16 07:31 Room Air Intake and Output 07/26/16 07/26/16 07/27/16 15:00 23:00 07:00 Intake Total 740 ml Output Total 1500 ml Balance -760 ml Exam Constitutional: alert Psych: no complaints Head: normocephalic Eyes: nl conjunctiva ENMT: nl external ears & nose Neck: supple Respiratory: clear to auscultation Cardiovascular: regular rate and rhythm Gastrointestinal: other (peritoneal dialysis cath), soft Extremities: edema (lower exremiies), normal pulses, tenderness (left leg decreased) Results Result Diagram: 07/26/16 0613 Results 24 hrs Laboratory Tests Test 07/26/16 17:28 07/26/16 21:17 07/27/16 08:08 07/27/16 12:20 Bedside Glucose 207 118 159 140 Medications Medications Current Medications Pantoprazole (Protonix Tab) 40 mg DAILY@06 PO Last administered on 07/27/16 05: 35; Admin Dose 40 MG; Start 07/21/16 at 06:00 Linagliptin (Tradjenta) 5 mg DAILY PO Last administered on 07/27/16 08:19; Admin Dose 5 MG; Start 07/21/16 at 09:00 Miscellaneous Information 1 ea NOTE XX ; Start 07/21/16 at 04:30 Glucose (Glutose) 15 gm Q15M PRN PO DECREASED GLUCOSE; Start 07/21/16 at 04:30 Glucose (Glutose) 22.5 gm Q15M PRN PO DECREASED GLUCOSE; Start 07/21/16 at 04: 30 Dextrose (D50w Syringe) 25 ml Q15M PRN IV DECREASED GLUCOSE; Start 07/21/16 at 04:30 Dextrose (D50w Syringe) 50 ml Q15M PRN IV DECREASED GLUCOSE; Start 07/21/16 at 04:30 Glucagon (Glucagen) 1 mg Q15M PRN IM DECREASED GLUCOSE; Start 07/21/16 at 04:30 Glucose (Glutose) 15 gm Q15M PRN BUCCAL DECREASED GLUCOSE; Start 07/21/16 at 04 :30 Hydralazine HCl (Apresoline) 10 mg Q6H PRN IV PRN FOR SBP ABOVE 165mmHg; Start 07/21/16 at 04:30 Acetaminophen/ Hydrocodone Bitart ([place] (5/325)) 1 tab Q12H PRN PO PAIN Last administered on 07/26/16 11:17; Admin Dose 1 TAB; Start 07/21/16 at 04:30 Clopidogrel Bisulfate (plaVIX) 75 mg DAILY PO Last administered on 07/27/16 08: 18; Admin Dose 75 MG; Start 07/21/16 at 09:00 Ferrous Gluconate (Fergon) 325 mg BID PO Last administered on 07/27/16 08:19; Admin Dose 325 MG; Start 07/21/16 at 09:00 Folic Acid (Folic Acid) 1 mg DAILY PO Last administered on 07/27/16 08:18; Admin Dose 1 MG; Start 07/21/16 at 09:00 Diagnostic Test (Pha) (Accu-Chek) 1 ea 02 XX Last administered on 07/24/16 02: 09; Admin Dose 1 EA; Start 07/22/16 at 02:00 Acetaminophen (Tylenol Tab) 650 mg Q6H PRN PO PAIN AND OR ELEVATED TEMP; Start 07/21/16 at 04:30 Amlodipine Besylate (Norvasc) 5 mg BID PO Last administered on 07/27/16 08:19; Admin Dose 5 MG; Start 07/21/16 at 09:00 Atenolol (Tenormin) 50 mg DAILY PO Last administered on 07/27/16 08:19; Admin Dose 50 MG; Start 07/21/16 at 09:00 Atorvastatin Calcium (Lipitor) 80 mg DAILY@21 PO Last administered on 07/26/16 21:20; Admin Dose 80 MG; Start 07/21/16 at 21:00 Bromocriptine Mesylate 2.5 mg 2.5 mg BID PO Last administered on 07/27/16 08:18 ; Admin Dose 2.5 MG; Start 07/21/16 at 09:00 Ceftriaxone Sodium (Rocephin) 50 ml @ 100 mls/hr Q24H IVPB Last administered on 07/26/16 16:43; Admin Dose 100 MLS/HR; Start 07/21/16 at 17:30 Docusate Sodium (Colace) 100 mg BID PO Last administered on 07/27/16 08:19; Admin Dose 100 MG; Start 07/21/16 at 09:00 Bisacodyl (Dulcolax Supp) 10 mg DAILY PRN [place] CONSTIPATION Last administered on 07/23/16 16:52; Admin Dose 10 MG; Start 07/21/16 at 05:00 Lactulose (Enulose) 20 gm DAILY PRN PO CONSTIPATION; Start 07/21/16 at 05:00 Gabapentin (Neurontin) 200 mg TID PO Last administered on 07/27/16 12:46; Admin Dose 200 MG; Start 07/24/16 at 13:00 MARTINE LLOYD Jul 27, 2016 13:31
[2016-07-27 14:35] VITALS: BP 118/59; PULSE 72
[2016-07-27] MEDS: CEFTRIAXONE 1 GM/50 ML (PMX) 50 ML IVPB SCH (16:57)
[2016-07-27 20:00] VITALS: BP 107/58; RESP 18
[2016-07-27] MEDS: ATORVASTATIN 80 MG TAB PO SCH (20:37)
[2016-07-27] MEDS: INSULIN GLARGINE [LANtus] 3 ML PEN SC SCH (20:47)
[2016-07-28] MEDS: ACCUCHECK AT 2AM (Patients on SS coverage) XX SCH (02:00)
[2016-07-28 05:00] VITALS: BP 129/62; PULSE 70
[2016-07-28] MEDS: LEVOTHYROXINE 88 MCG TAB PO SCH (07:01)
[2016-07-28] MEDS: PANTOPRAZOLE (EC) 40 MG TAB PO SCH (07:01)
[2016-07-28 07:30] VITALS: BP 122/65; RESP 18
[2016-07-28] MEDS: Insulin NOVOLOG SS MODERATE Algorithm (SS with meals and bedtime) SC SCH ×4 (07:55→20:48)
[2016-07-28 08:30] VITALS: BP 125/58; PULSE 71
[2016-07-28] MEDS: GABAPENTIN 100 MG CAP PO SCH ×3 (08:43→20:47)
[2016-07-28] MEDS: FOLIC ACID 1 MG TAB PO SCH (08:43)
[2016-07-28] MEDS: DOCUSATE SODIUM 100 MG CAP PO SCH ×2 (08:43→20:47)
[2016-07-28] MEDS: LINAGLIPTIN 5 MG TABLET PO SCH (08:44)
[2016-07-28] MEDS: ATENOLOL 50 MG TAB PO SCH (08:44)
[2016-07-28] MEDS: AMLODIPINE 5 MG TAB PO SCH ×2 (08:45→20:48)
[2016-07-28] MEDS: BROMOCRIPTINE 2.5 MG TAB PO SCH ×2 (08:45→20:47)
[2016-07-28] MEDS: CLOPIDOGREL 75 MG TAB PO SCH (08:45)
[2016-07-28] MEDS: FERROUS GLUCONATE (EC) 325 MG TAB PO SCH ×2 (08:46→20:47)
[2016-07-28 09:04] LABS: CALCIUM 7.8 mg/dl (8.4-10.2); POTASSIUM 4.7 mmol/L (3.5-5.1)
[2016-07-28 09:17] LABS: CREATININE 7.84 mg/dl (0.44-1.00)
[2016-07-28 12:00] VITALS: BP 119/66; PULSE 74
--- NOTE | 2016-07-28 13:22 | PN ---
Date/Time of Note Date/Time of Note DATE: 07/28/16 TIME: 13:20 Assessment/Plan VTE Prophylaxis VTE Prophylaxis Intervention: SCD's Lines/Catheters IV [facility] Type (from [email or web address] Urinary Cath still in place: No Assessment/Plan Chief Complaint/Hosp Course 1. CKD stage 4. 3. Peritoneal dialysis 3. Neuropathies 4. Hypertension 5. Left leg swelling and pain without DVT on US 6. Anemia 7. DM type II, uncontrolled 8. Hypothyroidism Problems: Assessment/Plan 1. Continue peritoneal dialysis 2. Continue rehabilitation Subjective 24 Hr Interval Summary Constitutional: improved, no complaints Eyes: no complaints Respiratory: no complaints Cardiovascular: no complaints Musculoskeletal: other (left arm and leg no sensitivity, no motion) Exam/Review of Systems Vital Signs Vitals Vital Signs Date Time Temp Pulse Resp B/P Pulse Ox O2 Delivery O2 Flow Rate FiO2 07/28/16 12:00 74 07/28/16 07:30 98.5 18 122/65 97 07/24/16 07:31 Room Air Intake and Output 07/27/16 07/27/16 07/28/16 15:00 23:00 07:00 Intake Total 720 ml 890 ml 320 ml Output Total 300 ml 1200 ml Balance 420 ml -310 ml 320 ml Exam Constitutional: alert Head: normocephalic ENMT: nl external ears & nose Neck: supple Respiratory: clear to auscultation Cardiovascular: regular rate and rhythm Musculoskeletal: muscle weakness, swelling (left leg) Results Result Diagram: 07/28/16 0830 Results 24 hrs Laboratory Tests Test 07/27/16 17:29 07/27/16 20:36 07/28/16 07:48 07/28/16 08:30 Bedside Glucose 221 H 141 153 Sodium Level 126 L Potassium Level 4.7 Chloride Level 90 L Carbon Dioxide Level 24 Anion Gap 17 H Blood Urea Nitrogen 93 H Creatinine 7.84 H Glucose Level 147 Calcium Level 7.8 L Test 07/28/16 12:15 Bedside Glucose 148 Medications Medications Current Medications Pantoprazole (Protonix Tab) 40 mg DAILY@06 PO Last administered on 07/28/16 07: 01; Admin Dose 40 MG; Start 07/21/16 at 06:00 Linagliptin (Tradjenta) 5 mg DAILY PO Last administered on 07/28/16 08:44; Admin Dose 5 MG; Start 07/21/16 at 09:00 Miscellaneous Information 1 ea NOTE XX ; Start 07/21/16 at 04:30 Glucose (Glutose) 15 gm Q15M PRN PO DECREASED GLUCOSE; Start 07/21/16 at 04:30 Glucose (Glutose) 22.5 gm Q15M PRN PO DECREASED GLUCOSE; Start 07/21/16 at 04: 30 Dextrose (D50w Syringe) 25 ml Q15M PRN IV DECREASED GLUCOSE; Start 07/21/16 at 04:30 Dextrose (D50w Syringe) 50 ml Q15M PRN IV DECREASED GLUCOSE; Start 07/21/16 at 04:30 Glucagon (Glucagen) 1 mg Q15M PRN IM DECREASED GLUCOSE; Start 07/21/16 at 04:30 Glucose (Glutose) 15 gm Q15M PRN BUCCAL DECREASED GLUCOSE; Start 07/21/16 at 04 :30 Hydralazine HCl (Apresoline) 10 mg Q6H PRN IV PRN FOR SBP ABOVE 165mmHg; Start 07/21/16 at 04:30 Acetaminophen/ Hydrocodone Bitart ([place] (5/325)) 1 tab Q12H PRN PO PAIN Last administered on 07/26/16 11:17; Admin Dose 1 TAB; Start 07/21/16 at 04:30 Clopidogrel Bisulfate (plaVIX) 75 mg DAILY PO Last administered on 07/28/16 08: 45; Admin Dose 75 MG; Start 07/21/16 at 09:00 Ferrous Gluconate (Fergon) 325 mg BID PO Last administered on 07/28/16 08:46; Admin Dose 325 MG; Start 07/21/16 at 09:00 Folic Acid (Folic Acid) 1 mg DAILY PO Last administered on 07/28/16 08:43; Admin Dose 1 MG; Start 07/21/16 at 09:00 Diagnostic Test (Pha) (Accu-Chek) 1 ea 02 XX Last administered on 07/24/16 02: 09; Admin Dose 1 EA; Start 07/22/16 at 02:00 Acetaminophen (Tylenol Tab) 650 mg Q6H PRN PO PAIN AND OR ELEVATED TEMP; Start 07/21/16 at 04:30 Amlodipine Besylate (Norvasc) 5 mg BID PO Last administered on 07/28/16 08:45; Admin Dose 5 MG; Start 07/21/16 at 09:00 Atenolol (Tenormin) 50 mg DAILY PO Last administered on 07/28/16 08:44; Admin Dose 50 MG; Start 07/21/16 at 09:00 Atorvastatin Calcium (Lipitor) 80 mg DAILY@21 PO Last administered on 07/27/16 20:37; Admin Dose 80 MG; Start 07/21/16 at 21:00 Bromocriptine Mesylate 2.5 mg 2.5 mg BID PO Last administered on 07/28/16 08:45 ; Admin Dose 2.5 MG; Start 07/21/16 at 09:00 Ceftriaxone Sodium (Rocephin) 50 ml @ 100 mls/hr Q24H IVPB Last administered on 07/27/16 16:57; Admin Dose 100 MLS/HR; Start 07/21/16 at 17:30 Docusate Sodium (Colace) 100 mg BID PO Last administered on 07/28/16 08:43; Admin Dose 100 MG; Start 07/21/16 at 09:00 Bisacodyl (Dulcolax Supp) 10 mg DAILY PRN [place] CONSTIPATION Last administered on 07/23/16 16:52; Admin Dose 10 MG; Start 07/21/16 at 05:00 Lactulose (Enulose) 20 gm DAILY PRN PO CONSTIPATION; Start 07/21/16 at 05:00 Gabapentin (Neurontin) 200 mg TID PO Last administered on 07/28/16 12:45; Admin Dose 200 MG; Start 07/24/16 at 13:00 Insulin Glargine (Lantus) 15 unit DAILY@20 SC Last administered on 07/27/16 20: 47; Admin Dose 15 UNIT; Start 07/27/16 at 20:00 MARTINE LLOYD Jul 28, 2016 13:22
[2016-07-28 15:30] VITALS: BP 122/63; PULSE 72
[2016-07-28] MEDS: CEFTRIAXONE 1 GM/50 ML (PMX) 50 ML IVPB SCH (17:17)
[2016-07-28 19:51] VITALS: BP 136/62; RESP 18
[2016-07-28] MEDS: ATORVASTATIN 80 MG TAB PO SCH (20:47)
[2016-07-28] MEDS: INSULIN GLARGINE [LANtus] 3 ML PEN SC SCH (20:54)
[2016-07-29] MEDS: ACCUCHECK AT 2AM (Patients on SS coverage) XX SCH (02:00)
[2016-07-29 06:00] VITALS: BP_SYST 136; BP_DIAS 0; BP_DIAS 60; PULSE 60
[2016-07-29] MEDS: LEVOTHYROXINE 88 MCG TAB PO SCH (06:36)
[2016-07-29] MEDS: PANTOPRAZOLE (EC) 40 MG TAB PO SCH (06:36)
[2016-07-29] MEDS: Insulin NOVOLOG SS MODERATE Algorithm (SS with meals and bedtime) SC SCH ×4 (07:35→21:00)
[2016-07-29 07:55] LABS: CALCIUM 7.8 mg/dl (8.4-10.2); POTASSIUM 5.1 mmol/L (3.5-5.1)
[2016-07-29 08:03] LABS: CREATININE 7.89 mg/dl (0.44-1.00)
[2016-07-29] MEDS: GABAPENTIN 100 MG CAP PO SCH ×3 (08:10→20:30)
[2016-07-29] MEDS: DOCUSATE SODIUM 100 MG CAP PO SCH ×2 (08:10→20:29)
[2016-07-29] MEDS: FERROUS GLUCONATE (EC) 325 MG TAB PO SCH ×2 (08:10→20:30)
[2016-07-29] MEDS: FOLIC ACID 1 MG TAB PO SCH (08:10)
[2016-07-29] MEDS: BROMOCRIPTINE 2.5 MG TAB PO SCH ×2 (08:11→20:30)
[2016-07-29] MEDS: CLOPIDOGREL 75 MG TAB PO SCH (08:11)
[2016-07-29] MEDS: LINAGLIPTIN 5 MG TABLET PO SCH (08:11)
[2016-07-29] MEDS: AMLODIPINE 5 MG TAB PO SCH ×2 (08:12→20:34)
[2016-07-29 10:00] VITALS: BP 130/62; PULSE 62
--- NOTE | 2016-07-29 10:39 | CONS ---
Date/Time of Note Date/Time of Note DATE: 07/29/16 TIME: 10:38 Consult Date/Type/Reason Admit Date/Time July 20, 2016 at 23:39 Type of Consultation: nephrology Subjective resting comfortably Objective pulm-cta abd-soft Vital Signs Date Time Temp Pulse Resp B/P Pulse Ox O2 Delivery O2 Flow Rate FiO2 07/28/16 19:51 98.0 62 18 136/62 95 Intake and Output 07/28/16 07/28/16 07/29/16 15:00 23:00 07:00 Intake Total 1000 ml Output Total 1200 ml 400 ml Balance -200 ml -400 ml Results/Medications Result Diagram: 07/29/16 0610 Results 24 hrs Laboratory Tests Test 07/28/16 12:15 07/28/16 17:25 07/28/16 20:45 07/29/16 06:10 Bedside Glucose 148 188 125 Sodium Level 125 L Potassium Level 5.1 Chloride Level 88 L Carbon Dioxide Level 25 Anion Gap 17 H Blood Urea Nitrogen 100 H Creatinine 7.89 H Glucose Level 75 # Calcium Level 7.8 L Test 07/29/16 07:46 Bedside Glucose 112 Medications Current Medications Pantoprazole (Protonix Tab) 40 mg DAILY@06 PO Last administered on 07/29/16 06: 36; Admin Dose 40 MG; Start 07/21/16 at 06:00 Linagliptin (Tradjenta) 5 mg DAILY PO Last administered on 07/29/16 08:11; Admin Dose 5 MG; Start 07/21/16 at 09:00 Miscellaneous Information 1 ea NOTE XX ; Start 07/21/16 at 04:30 Glucose (Glutose) 15 gm Q15M PRN PO DECREASED GLUCOSE; Start 07/21/16 at 04:30 Glucose (Glutose) 22.5 gm Q15M PRN PO DECREASED GLUCOSE; Start 07/21/16 at 04: 30 Dextrose (D50w Syringe) 25 ml Q15M PRN IV DECREASED GLUCOSE; Start 07/21/16 at 04:30 Dextrose (D50w Syringe) 50 ml Q15M PRN IV DECREASED GLUCOSE; Start 07/21/16 at 04:30 Glucagon (Glucagen) 1 mg Q15M PRN IM DECREASED GLUCOSE; Start 07/21/16 at 04:30 Glucose (Glutose) 15 gm Q15M PRN BUCCAL DECREASED GLUCOSE; Start 07/21/16 at 04 :30 Hydralazine HCl (Apresoline) 10 mg Q6H PRN IV PRN FOR SBP ABOVE 165mmHg; Start 07/21/16 at 04:30 Acetaminophen/ Hydrocodone Bitart ([place] (5/325)) 1 tab Q12H PRN PO PAIN Last administered on 07/26/16 11:17; Admin Dose 1 TAB; Start 07/21/16 at 04:30 Clopidogrel Bisulfate (plaVIX) 75 mg DAILY PO Last administered on 07/29/16 08: 11; Admin Dose 75 MG; Start 07/21/16 at 09:00 Ferrous Gluconate (Fergon) 325 mg BID PO Last administered on 07/29/16 08:10; Admin Dose 325 MG; Start 07/21/16 at 09:00 Folic Acid (Folic Acid) 1 mg DAILY PO Last administered on 07/29/16 08:10; Admin Dose 1 MG; Start 07/21/16 at 09:00 Diagnostic Test (Pha) (Accu-Chek) 1 ea 02 XX Last administered on 07/24/16 02: 09; Admin Dose 1 EA; Start 07/22/16 at 02:00 Acetaminophen (Tylenol Tab) 650 mg Q6H PRN PO PAIN AND OR ELEVATED TEMP; Start 07/21/16 at 04:30 Amlodipine Besylate (Norvasc) 5 mg BID PO Last administered on 07/29/16 08:12; Admin Dose 5 MG; Start 07/21/16 at 09:00 Atenolol (Tenormin) 50 mg DAILY PO Last administered on 07/28/16 08:44; Admin Dose 50 MG; Start 07/21/16 at 09:00 Atorvastatin Calcium (Lipitor) 80 mg DAILY@21 PO Last administered on 07/28/16 20:47; Admin Dose 80 MG; Start 07/21/16 at 21:00 Bromocriptine Mesylate 2.5 mg 2.5 mg BID PO Last administered on 07/29/16 08:11 ; Admin Dose 2.5 MG; Start 07/21/16 at 09:00 Ceftriaxone Sodium (Rocephin) 50 ml @ 100 mls/hr Q24H IVPB Last administered on 07/28/16 17:17; Admin Dose 100 MLS/HR; Start 07/21/16 at 17:30 Docusate Sodium (Colace) 100 mg BID PO Last administered on 07/29/16 08:10; Admin Dose 100 MG; Start 07/21/16 at 09:00 Bisacodyl (Dulcolax Supp) [address] CONSTIPATION Last administered on 07/23/16 16:52; Admin Dose 10 MG; Start 07/21/16 at 05:00 Lactulose (Enulose) 20 gm DAILY PRN PO CONSTIPATION; Start 07/21/16 at 05:00 Gabapentin (Neurontin) 200 mg TID PO Last administered on 07/29/16 08:10; Admin Dose 200 MG; Start 07/24/16 at 13:00 Insulin Glargine (Lantus) 15 unit DAILY@20 SC Last administered on 07/28/16 20: 54; Admin Dose 15 UNIT; Start 07/27/16 at 20:00 Assessment/Plan Additional Assessment/Plan Rehab- [facility] infact CVA with L den[facility] ;pituitary macroadenoma Continue rehab program ESRD on PD HTN DM Anemia hypothy dyslipid LLE cellulitis-improved GEORGE PIERRE MD Jul 29, 2016 10:39
[2016-07-29 11:45] VITALS: BP 133/68; PULSE 63
[2016-07-29] MEDS: ATENOLOL 50 MG TAB PO SCH (12:29)
[2016-07-29 14:00] VITALS: BP 122/70; PULSE 82
--- NOTE | 2016-07-29 14:09 | PN ---
Date/Time of Note Date/Time of Note DATE: 07/29/16 TIME: 14:08 Assessment/Plan VTE Prophylaxis VTE Prophylaxis Intervention: other Lines/Catheters IV Catheter Type (from [facility]): [facility] Urinary Cath still in place: No Assessment/Plan Chief Complaint/Hosp Course ESRD CELLULITES legs better PROLACTINOMA PIT MASS DM UREMIA HYPONATREMIA PLAN PD BROMOCRYPTINE pt ot Problems: Subjective 24 Hr Interval Summary Respiratory: no complaints Gastrointestinal: no complaints Exam/Review of Systems Vital Signs Vitals Vital Signs Date Time Temp Pulse Resp B/P Pulse Ox O2 Delivery O2 Flow Rate FiO2 07/29/16 10:00 62 07/28/16 19:51 98.0 18 136/62 95 Intake and Output 07/28/16 07/28/16 07/29/16 15:00 23:00 07:00 Intake Total 1000 ml Output Total 1200 ml 400 ml Balance -200 ml -400 ml Exam Neck: supple Respiratory: clear to auscultation Cardiovascular: regular rate and rhythm Genitourinary - Female: nl adnexae Musculoskeletal: nl extremities to inspection Results Result Diagram: 07/29/16 0610 Results 24 hrs Laboratory Tests Test 07/28/16 17:25 07/28/16 20:45 07/29/16 06:10 07/29/16 07:46 Bedside Glucose 188 125 112 Sodium Level 125 L Potassium Level 5.1 Chloride Level 88 L Carbon Dioxide Level 25 Anion Gap 17 H Blood Urea Nitrogen 100 H Creatinine 7.89 H Glucose Level 75 # Calcium Level 7.8 L Test 07/29/16 12:27 Bedside Glucose 127 Medications Medications Current Medications Pantoprazole (Protonix Tab) 40 mg DAILY@06 PO Last administered on 07/29/16 06: 36; Admin Dose 40 MG; Start 07/21/16 at 06:00 Linagliptin (Tradjenta) 5 mg DAILY PO Last administered on 07/29/16 08:11; Admin Dose 5 MG; Start 07/21/16 at 09:00 Miscellaneous Information 1 ea NOTE XX ; Start 07/21/16 at 04:30 Glucose (Glutose) 15 gm Q15M PRN PO DECREASED GLUCOSE; Start 07/21/16 at 04:30 Glucose (Glutose) 22.5 gm Q15M PRN PO DECREASED GLUCOSE; Start 07/21/16 at 04: 30 Dextrose (D50w Syringe) 25 ml Q15M PRN IV DECREASED GLUCOSE; Start 07/21/16 at 04:30 Dextrose (D50w Syringe) 50 ml Q15M PRN IV DECREASED GLUCOSE; Start 07/21/16 at 04:30 Glucagon (Glucagen) 1 mg Q15M PRN IM DECREASED GLUCOSE; Start 07/21/16 at 04:30 Glucose (Glutose) 15 gm Q15M PRN BUCCAL DECREASED GLUCOSE; Start 07/21/16 at 04 :30 Hydralazine HCl (Apresoline) 10 mg Q6H PRN IV PRN FOR SBP ABOVE 165mmHg; Start 07/21/16 at 04:30 Acetaminophen/ Hydrocodone Bitart ([place] (5/325)) 1 tab Q12H PRN PO PAIN Last administered on 07/26/16 11:17; Admin Dose 1 TAB; Start 07/21/16 at 04:30 Clopidogrel Bisulfate (plaVIX) 75 mg DAILY PO Last administered on 07/29/16 08: 11; Admin Dose 75 MG; Start 07/21/16 at 09:00 Ferrous Gluconate (Fergon) 325 mg BID PO Last administered on 07/29/16 08:10; Admin Dose 325 MG; Start 07/21/16 at 09:00 Folic Acid (Folic Acid) 1 mg DAILY PO Last administered on 07/29/16 08:10; Admin Dose 1 MG; Start 07/21/16 at 09:00 Diagnostic Test (Pha) (Accu-Chek) 1 ea 02 XX Last administered on 07/24/16 02: 09; Admin Dose 1 EA; Start 07/22/16 at 02:00 Acetaminophen (Tylenol Tab) 650 mg Q6H PRN PO PAIN AND OR ELEVATED TEMP; Start 07/21/16 at 04:30 Amlodipine Besylate (Norvasc) 5 mg BID PO Last administered on 07/29/16 08:12; Admin Dose 5 MG; Start 07/21/16 at 09:00 Atenolol (Tenormin) 50 mg DAILY PO Last administered on 07/29/16 12:29; Admin Dose 50 MG; Start 07/21/16 at 09:00 Atorvastatin Calcium (Lipitor) 80 mg DAILY@21 PO Last administered on 07/28/16 20:47; Admin Dose 80 MG; Start 07/21/16 at 21:00 Bromocriptine Mesylate 2.5 mg 2.5 mg BID PO Last administered on 07/29/16 08:11 ; Admin Dose 2.5 MG; Start 07/21/16 at 09:00 Ceftriaxone Sodium (Rocephin) 50 ml @ 100 mls/hr Q24H IVPB Last administered on 07/28/16 17:17; Admin Dose 100 MLS/HR; Start 07/21/16 at 17:30 Docusate Sodium (Colace) 100 mg BID PO Last administered on 07/29/16 08:10; Admin Dose 100 MG; Start 07/21/16 at 09:00 Bisacodyl (Dulcolax Supp) 10 mg DAILY PRN [place] CONSTIPATION Last administered on 07/23/16 16:52; Admin Dose 10 MG; Start 07/21/16 at 05:00 Lactulose (Enulose) 20 gm DAILY PRN PO CONSTIPATION; Start 07/21/16 at 05:00 Gabapentin (Neurontin) 200 mg TID PO Last administered on 07/29/16 12:30; Admin Dose 200 MG; Start 07/24/16 at 13:00 Insulin Glargine (Lantus) 15 unit DAILY@20 SC Last administered on 07/28/16 20: 54; Admin Dose 15 UNIT; Start 07/27/16 at 20:00 CHRISTINA SHIRLEY MD Jul 29, 2016 14:09
[2016-07-29] MEDS ORDERED: SOD CHLORIDE 0.9% 250 ML IV ONE (14:30)
[2016-07-29] MEDS: CEFTRIAXONE 1 GM/50 ML (PMX) 50 ML IVPB SCH (16:56)
[2016-07-29 19:00] VITALS: BP 119/68; PULSE 86
[2016-07-29] MEDS: ATORVASTATIN 80 MG TAB PO SCH (20:30)
[2016-07-29] MEDS: INSULIN GLARGINE [LANtus] 3 ML PEN SC SCH (21:56)
[2016-07-30] MEDS: ACCUCHECK AT 2AM (Patients on SS coverage) XX SCH (02:00)
[2016-07-30 04:30] VITALS: BP 125/69; PULSE 89
[2016-07-30] MEDS: PANTOPRAZOLE (EC) 40 MG TAB PO SCH (06:58)
[2016-07-30] MEDS: LEVOTHYROXINE 88 MCG TAB PO SCH (06:58)
[2016-07-30 06:59] LABS: ALBUMIN 3.5 g/dl (3.3-4.9); ALBUMIN/GLOBULIN RATIO 1.09; CALCIUM 7.9 mg/dl (8.4-10.2); POTASSIUM 4.7 mmol/L (3.5-5.1); TOTAL PROTEIN 6.7 g/dl (6.1-8.1)
[2016-07-30 07:08] LABS: CREATININE 8.15 mg/dl (0.44-1.00)
[2016-07-30 07:30] VITALS: BP 122/65; RESP 18
[2016-07-30 08:00] VITALS: BP 122/65; PULSE 88
[2016-07-30] MEDS: Insulin NOVOLOG SS MODERATE Algorithm (SS with meals and bedtime) SC SCH ×4 (08:08→20:46)
[2016-07-30] MEDS: ATENOLOL 50 MG TAB PO SCH (09:00)
[2016-07-30] MEDS: AMLODIPINE 5 MG TAB PO SCH ×2 (09:00→20:42)
[2016-07-30] MEDS: FERROUS GLUCONATE (EC) 325 MG TAB PO SCH ×2 (09:48→20:41)
[2016-07-30] MEDS: CLOPIDOGREL 75 MG TAB PO SCH (09:48)
[2016-07-30] MEDS: DOCUSATE SODIUM 100 MG CAP PO SCH ×2 (09:48→20:42)
[2016-07-30] MEDS: GABAPENTIN 100 MG CAP PO SCH ×3 (10:00→20:40)
[2016-07-30] MEDS: FOLIC ACID 1 MG TAB PO SCH (10:01)
[2016-07-30] MEDS: LINAGLIPTIN 5 MG TABLET PO SCH (10:01)
[2016-07-30 12:00] VITALS: BP 133/66; PULSE 89
--- NOTE | 2016-07-30 12:03 | CONS ---
Date/Time of Note Date/Time of Note DATE: 07/30/16 TIME: 12:03 Consult Date/Type/Reason Admit Date/Time July 20, 2016 at 23:39 Type of Consultation: nephrology Objective Vital Signs Date Time Temp Pulse Resp B/P Pulse Ox O2 Delivery O2 Flow Rate FiO2 07/30/16 07:30 98.5 65 18 122/65 96 Intake and Output 07/29/16 07/29/16 07/30/16 15:00 23:00 07:00 Intake Total 820 ml 220 ml Output Total 800 ml 900 ml Balance -800 ml -80 ml 220 ml INTERDISCIPLINARY TEAM CONFERENCE BOWEL- Cont BLADDER-PD SKIN- improved OT- DRESSING-mod BATHING-mod TOILETING-mod PT- BED MOBILITY-mod/max TRANSFERS-max W.C. MOBILITY-mod/max SPEECH- COGNITION-s DYPHAGIA-mech soft A/P- Interdisciplinary team conference held today. Please see interdisciplinary sheet. Working toward d.c. on 08/09 with post discharge follow up of physical therapy, occupational therapy. Results/Medications Result Diagram: 07/30/16 0615 Results 24 hrs Laboratory Tests Test 07/29/16 12:27 07/29/16 17:28 07/29/16 20:42 07/30/16 06:15 Bedside Glucose 127 143 143 Sodium Level 126 L Potassium Level 4.7 Chloride Level 89 L Carbon Dioxide Level 24 Anion Gap 18 H Blood Urea Nitrogen 102 H Creatinine 8.15 H Glucose Level 130 # Calcium Level 7.9 L Total Bilirubin 0.0 L Direct Bilirubin 0.00 Indirect Bilirubin 0.0 Aspartate Amino Transf (AST/SGOT) 39 Alanine Aminotransferase (ALT/SGPT) 46 Alkaline Phosphatase 79 Total Protein 6.7 Albumin 3.5 Globulin 3.20 Albumin/Globulin Ratio 1.09 Test 07/30/16 07:47 Bedside Glucose 180 Medications Current Medications Pantoprazole (Protonix Tab) 40 mg DAILY@06 PO Last administered on 07/30/16 06: 58; Admin Dose 40 MG; Start 07/21/16 at 06:00 Linagliptin (Tradjenta) 5 mg DAILY PO Last administered on 07/30/16 10:01; Admin Dose 5 MG; Start 07/21/16 at 09:00 Miscellaneous Information 1 ea NOTE XX ; Start 07/21/16 at 04:30 Glucose (Glutose) 15 gm Q15M PRN PO DECREASED GLUCOSE; Start 07/21/16 at 04:30 Glucose (Glutose) 22.5 gm Q15M PRN PO DECREASED GLUCOSE; Start 07/21/16 at 04: 30 Dextrose (D50w Syringe) 25 ml Q15M PRN IV DECREASED GLUCOSE; Start 07/21/16 at 04:30 Dextrose (D50w Syringe) 50 ml Q15M PRN IV DECREASED GLUCOSE; Start 07/21/16 at 04:30 Glucagon (Glucagen) 1 mg Q15M PRN IM DECREASED GLUCOSE; Start 07/21/16 at 04:30 Glucose (Glutose) 15 gm Q15M PRN BUCCAL DECREASED GLUCOSE; Start 07/21/16 at 04 :30 Hydralazine HCl (Apresoline) 10 mg Q6H PRN IV PRN FOR SBP ABOVE 165mmHg; Start 07/21/16 at 04:30 Acetaminophen/ Hydrocodone Bitart ([place] (5/325)) 1 tab Q12H PRN PO PAIN Last administered on 07/26/16 11:17; Admin Dose 1 TAB; Start 07/21/16 at 04:30 Clopidogrel Bisulfate (plaVIX) 75 mg DAILY PO Last administered on 07/30/16 09: 48; Admin Dose 75 MG; Start 07/21/16 at 09:00 Ferrous Gluconate (Fergon) 325 mg BID PO Last administered on 07/30/16 09:48; Admin Dose 325 MG; Start 07/21/16 at 09:00 Folic Acid (Folic Acid) 1 mg DAILY PO Last administered on 07/30/16 10:01; Admin Dose 1 MG; Start 07/21/16 at 09:00 Diagnostic Test (Pha) (Accu-Chek) 1 ea 02 XX Last administered on 07/24/16 02: 09; Admin Dose 1 EA; Start 07/22/16 at 02:00 Acetaminophen (Tylenol Tab) 650 mg Q6H PRN PO PAIN AND OR ELEVATED TEMP; Start 07/21/16 at 04:30 Amlodipine Besylate (Norvasc) 5 mg BID PO Last administered on 07/29/16 20:34; Admin Dose 5 MG; Start 07/21/16 at 09:00 Atenolol (Tenormin) 50 mg DAILY PO Last administered on 07/29/16 12:29; Admin Dose 50 MG; Start 07/21/16 at 09:00 Atorvastatin Calcium (Lipitor) 80 mg DAILY@21 PO Last administered on 07/29/16 20:30; Admin Dose 80 MG; Start 07/21/16 at 21:00 Bromocriptine Mesylate 2.5 mg 2.5 mg BID PO Last administered on 07/29/16 20:30 ; Admin Dose 2.5 MG; Start 07/21/16 at 09:00 Ceftriaxone Sodium (Rocephin) 50 ml @ 100 mls/hr Q24H IVPB Last administered on 07/29/16 16:56; Admin Dose 100 MLS/HR; Start 07/21/16 at 17:30 Docusate Sodium (Colace) 100 mg BID PO Last administered on 07/30/16 09:48; Admin Dose 100 MG; Start 07/21/16 at 09:00 Bisacodyl (Dulcolax Supp) 10 mg DAILY PRN [place] CONSTIPATION Last administered on 07/23/16 16:52; Admin Dose 10 MG; Start 07/21/16 at 05:00 Lactulose (Enulose) 20 gm DAILY PRN PO CONSTIPATION; Start 07/21/16 at 05:00 Gabapentin (Neurontin) 200 mg TID PO Last administered on 07/30/16 10:00; Admin Dose 200 MG; Start 07/24/16 at 13:00 Insulin Glargine (Lantus) 15 unit DAILY@20 SC Last administered on 07/29/16 21: 56; Admin Dose 15 UNIT; Start 07/27/16 at 20:00 GEORGE PIERRE MD Jul 30, 2016 12:03 GEORGE PIERRE MD Jul 30, 2016 12:03
[2016-07-30] MEDS: HYDROCODONE/APAP (5/325) TAB PO PRN ×2 (12:20→17:17)
[2016-07-30 16:17] VITALS: BP 128/65; PULSE 90
[2016-07-30] MEDS: CEFTRIAXONE 1 GM/50 ML (PMX) 50 ML IVPB SCH (17:12)
[2016-07-30] MEDS: BROMOCRIPTINE 2.5 MG TAB PO SCH ×2 (17:17→20:42)
--- NOTE | 2016-07-30 19:07 | PN ---
Date/Time of Note Date/Time of Note DATE: 07/30/16 TIME: 19:06 Assessment/Plan VTE Prophylaxis VTE Prophylaxis Intervention: other Lines/Catheters [facility] Type (from [facility] Saline Lock Urinary Cath still in place: No Assessment/Plan Chief Complaint/Hosp Course ESRD CELLULITES legs better PROLACTINOMA PIT MASS DM UREMIA HYPONATREMIA PLAN PD BROMOCRYPTINE pt ot inc pd Problems: Subjective 24 Hr Interval Summary Cardiovascular: no complaints Gastrointestinal: no complaints Exam/Review of Systems Vital Signs Vitals Vital Signs Date Time Temp Pulse Resp B/P Pulse Ox O2 Delivery O2 Flow Rate FiO2 07/30/16 16:17 90 07/30/16 07:30 98.5 18 122/65 96 Intake and Output 07/29/16 07/29/16 07/30/16 15:00 23:00 07:00 Intake Total 820 ml 220 ml Output Total 800 ml 900 ml Balance -800 ml -80 ml 220 ml Exam Respiratory: clear to auscultation Cardiovascular: regular rate and rhythm Gastrointestinal: soft Musculoskeletal: nl extremities to inspection Results Result Diagram: 07/30/16 0615 Results 24 hrs Laboratory Tests Test 07/29/16 20:42 07/30/16 06:15 07/30/16 07:47 07/30/16 12:14 Bedside Glucose 143 180 257 H Sodium Level 126 L Potassium Level 4.7 Chloride Level 89 L Carbon Dioxide Level 24 Anion Gap 18 H Blood Urea Nitrogen 102 H Creatinine 8.15 H Glucose Level 130 # Calcium Level 7.9 L Total Bilirubin 0.0 L Direct Bilirubin 0.00 Indirect Bilirubin 0.0 Aspartate Amino Transf (AST/SGOT) 39 Alanine Aminotransferase (ALT/SGPT) 46 Alkaline Phosphatase 79 Total Protein 6.7 Albumin 3.5 Globulin 3.20 Albumin/Globulin Ratio 1.09 Test 07/30/16 17:07 Bedside Glucose 154 Medications Medications Current Medications Pantoprazole (Protonix Tab) 40 mg DAILY@06 PO Last administered on 07/30/16 06: 58; Admin Dose 40 MG; Start 07/21/16 at 06:00 Linagliptin (Tradjenta) 5 mg DAILY PO Last administered on 07/30/16 10:01; Admin Dose 5 MG; Start 07/21/16 at 09:00 Miscellaneous Information 1 ea NOTE XX ; Start 07/21/16 at 04:30 Glucose (Glutose) 15 gm Q15M PRN PO DECREASED GLUCOSE; Start 07/21/16 at 04:30 Glucose (Glutose) 22.5 gm Q15M PRN PO DECREASED GLUCOSE; Start 07/21/16 at 04: 30 Dextrose (D50w Syringe) 25 ml Q15M PRN IV DECREASED GLUCOSE; Start 07/21/16 at 04:30 Dextrose (D50w Syringe) 50 ml Q15M PRN IV DECREASED GLUCOSE; Start 07/21/16 at 04:30 Glucagon (Glucagen) 1 mg Q15M PRN IM DECREASED GLUCOSE; Start 07/21/16 at 04:30 Glucose (Glutose) 15 gm Q15M PRN BUCCAL DECREASED GLUCOSE; Start 07/21/16 at 04 :30 Hydralazine HCl (Apresoline) 10 mg Q6H PRN IV PRN FOR SBP ABOVE 165mmHg; Start 07/21/16 at 04:30 Acetaminophen/ Hydrocodone Bitart ([place] (5/325)) 1 tab Q12H PRN PO PAIN Last administered on 07/30/16 17:17; Admin Dose 1 TAB; Start 07/21/16 at 04:30 Clopidogrel Bisulfate (plaVIX) 75 mg DAILY PO Last administered on 07/30/16 09: 48; Admin Dose 75 MG; Start 07/21/16 at 09:00 Ferrous Gluconate (Fergon) 325 mg BID PO Last administered on 07/30/16 09:48; Admin Dose 325 MG; Start 07/21/16 at 09:00 Folic Acid (Folic Acid) 1 mg DAILY PO Last administered on 07/30/16 10:01; Admin Dose 1 MG; Start 07/21/16 at 09:00 Diagnostic Test (Pha) (Accu-Chek) 1 ea 02 XX Last administered on 07/24/16 02: 09; Admin Dose 1 EA; Start 07/22/16 at 02:00 Acetaminophen (Tylenol Tab) 650 mg Q6H PRN PO PAIN AND OR ELEVATED TEMP; Start 07/21/16 at 04:30 Amlodipine Besylate (Norvasc) 5 mg BID PO Last administered on 07/29/16 20:34; Admin Dose 5 MG; Start 07/21/16 at 09:00 Atenolol (Tenormin) 50 mg DAILY PO Last administered on 07/29/16 12:29; Admin Dose 50 MG; Start 07/21/16 at 09:00 Atorvastatin Calcium (Lipitor) 80 mg DAILY@21 PO Last administered on 07/29/16 20:30; Admin Dose 80 MG; Start 07/21/16 at 21:00 Bromocriptine Mesylate 2.5 mg 2.5 mg BID PO Last administered on 07/30/16 17:17 ; Admin Dose 2.5 MG; Start 07/21/16 at 09:00 Ceftriaxone Sodium (Rocephin) 50 ml @ 100 mls/hr Q24H IVPB Last administered on 07/30/16 17:12; Admin Dose 100 MLS/HR; Start 07/21/16 at 17:30 Docusate Sodium (Colace) 100 mg BID PO Last administered on 07/30/16 09:48; Admin Dose 100 MG; Start 07/21/16 at 09:00 Bisacodyl (Dulcolax Supp) 10 mg DAILY PRN [place] CONSTIPATION Last administered on 07/23/16 16:52; Admin Dose 10 MG; Start 07/21/16 at 05:00 Lactulose (Enulose) 20 gm DAILY PRN PO CONSTIPATION; Start 07/21/16 at 05:00 Gabapentin (Neurontin) 200 mg TID PO Last administered on 07/30/16 17:17; Admin Dose 200 MG; Start 07/24/16 at 13:00 Insulin Glargine (Lantus) 15 unit DAILY@20 SC Last administered on 07/29/16 21: 56; Admin Dose 15 UNIT; Start 07/27/16 at 20:00 CHRISTINA SHIRLEY MD Jul 30, 2016 19:07
[2016-07-30 19:59] VITALS: BP 135/63; RESP 18
[2016-07-30] MEDS: ATORVASTATIN 80 MG TAB PO SCH (20:42)
[2016-07-30] MEDS: INSULIN GLARGINE [LANtus] 3 ML PEN SC SCH (20:47)
[2016-07-31] VITALS (7 sets, daily range): BP systolic 119–135; BP diastolic 66–70; PULSE 71–91; RESP 18
[2016-07-31] MEDS: ACCUCHECK AT 2AM (Patients on SS coverage) XX SCH (02:00)
[2016-07-31] MEDS: PANTOPRAZOLE (EC) 40 MG TAB PO SCH (06:51)
[2016-07-31] MEDS: LEVOTHYROXINE 88 MCG TAB PO SCH (06:51)
[2016-07-31 07:33] LABS: CALCIUM 7.8 mg/dl (8.4-10.2); POTASSIUM 4.7 mmol/L (3.5-5.1)
[2016-07-31] MEDS: Insulin NOVOLOG SS MODERATE Algorithm (SS with meals and bedtime) SC SCH ×4 (07:35→20:56)
[2016-07-31 07:42] LABS: CREATININE 7.9 mg/dl (0.44-1.00)
[2016-07-31] MEDS: CLOPIDOGREL 75 MG TAB PO SCH (08:41)
[2016-07-31] MEDS: BROMOCRIPTINE 2.5 MG TAB PO SCH ×2 (08:41→20:54)
[2016-07-31] MEDS: FOLIC ACID 1 MG TAB PO SCH (08:41)
[2016-07-31] MEDS: LINAGLIPTIN 5 MG TABLET PO SCH (08:41)
[2016-07-31] MEDS: AMLODIPINE 5 MG TAB PO SCH ×2 (08:41→20:55)
[2016-07-31] MEDS: GABAPENTIN 100 MG CAP PO SCH ×3 (08:41→20:55)
[2016-07-31] MEDS: FERROUS GLUCONATE (EC) 325 MG TAB PO SCH ×2 (08:41→20:55)
[2016-07-31] MEDS: DOCUSATE SODIUM 100 MG CAP PO SCH ×2 (08:41→20:54)
[2016-07-31] MEDS: ATENOLOL 50 MG TAB PO SCH (08:41)
--- NOTE | 2016-07-31 12:27 | CONS ---
Date/Time of Note Date/Time of Note DATE: 07/31/16 TIME: 12:27 Consult Date/Type/Reason Admit Date/Time July 20, 2016 at 23:39 Type of Consultation: nephrology Subjective comfortable Objective pulm-cta abd-soft max assist Vital Signs Date Time Temp Pulse Resp B/P Pulse Ox O2 Delivery O2 Flow Rate FiO2 07/31/16 09:00 89 07/30/16 19:59 98.3 18 135/63 97 Intake and Output 07/30/16 07/30/16 07/31/16 15:00 23:00 07:00 Intake Total 670 ml 240 ml Output Total 900 ml Balance -230 ml 240 ml Results/Medications Result Diagram: 07/31/16 06 Results 24 hrs Laboratory Tests Test 07/30/16 17:07 07/30/16 20:36 07/31/16 06:05 07/31/16 07:43 Bedside Glucose 154 176 135 Sodium Level 126 L Potassium Level 4.7 Chloride Level 91 L Carbon Dioxide Level 23 Anion Gap 17 H Blood Urea Nitrogen 106 H Creatinine 7.90 H Glucose Level 92 Calcium Level 7.8 L Test 07/31/16 12:15 Bedside Glucose 161 Medications Current Medications Pantoprazole (Protonix Tab) 40 mg DAILY@06 PO Last administered on 07/31/16 06: 51; Admin Dose 40 MG; Start 07/21/16 at 06:00 Linagliptin (Tradjenta) 5 mg DAILY PO Last administered on 07/31/16 08:41; Admin Dose 5 MG; Start 07/21/16 at 09:00 Miscellaneous Information 1 ea NOTE XX ; Start 07/21/16 at 04:30 Glucose (Glutose) 15 gm Q15M PRN PO DECREASED GLUCOSE; Start 07/21/16 at 04:30 Glucose (Glutose) 22.5 gm Q15M PRN PO DECREASED GLUCOSE; Start 07/21/16 at 04: 30 Dextrose (D50w Syringe) 25 ml Q15M PRN IV DECREASED GLUCOSE; Start 07/21/16 at 04:30 Dextrose (D50w Syringe) 50 ml Q15M PRN IV DECREASED GLUCOSE; Start 07/21/16 at 04:30 Glucagon (Glucagen) 1 mg Q15M PRN IM DECREASED GLUCOSE; Start 07/21/16 at 04:30 Glucose (Glutose) 15 gm Q15M PRN BUCCAL DECREASED GLUCOSE; Start 07/21/16 at 04 :30 Hydralazine HCl (Apresoline) 10 mg Q6H PRN IV PRN FOR SBP ABOVE 165mmHg; Start 07/21/16 at 04:30 Acetaminophen/ Hydrocodone Bitart ([place] (5/325)) 1 tab Q12H PRN PO PAIN Last administered on 07/30/16 17:17; Admin Dose 1 TAB; Start 07/21/16 at 04:30 Clopidogrel Bisulfate (plaVIX) 75 mg DAILY PO Last administered on 07/31/16 08: 41; Admin Dose 75 MG; Start 07/21/16 at 09:00 Ferrous Gluconate (Fergon) 325 mg BID PO Last administered on 07/31/16 08:41; Admin Dose 325 MG; Start 07/21/16 at 09:00 Folic Acid (Folic Acid) 1 mg DAILY PO Last administered on 07/31/16 08:41; Admin Dose 1 MG; Start 07/21/16 at 09:00 Diagnostic Test (Pha) (Accu-Chek) 1 ea 02 XX Last administered on 07/24/16 02: 09; Admin Dose 1 EA; Start 07/22/16 at 02:00 Acetaminophen (Tylenol Tab) 650 mg Q6H PRN PO PAIN AND OR ELEVATED TEMP; Start 07/21/16 at 04:30 Amlodipine Besylate (Norvasc) 5 mg BID PO Last administered on 07/31/16 08:41; Admin Dose 5 MG; Start 07/21/16 at 09:00 Atenolol (Tenormin) 50 mg DAILY PO Last administered on 07/31/16 08:41; Admin Dose 50 MG; Start 07/21/16 at 09:00 Atorvastatin Calcium (Lipitor) 80 mg DAILY@21 PO Last administered on 07/30/16 20:42; Admin Dose 80 MG; Start 07/21/16 at 21:00 Bromocriptine Mesylate 2.5 mg 2.5 mg BID PO Last administered on 07/31/16 08:41 ; Admin Dose 2.5 MG; Start 07/21/16 at 09:00 Ceftriaxone Sodium (Rocephin) 50 ml @ 100 mls/hr Q24H IVPB Last administered on 07/30/16 17:12; Admin Dose 100 MLS/HR; Start 07/21/16 at 17:30 Docusate Sodium (Colace) 100 mg BID PO Last administered on 07/31/16 08:41; Admin Dose 100 MG; Start 07/21/16 at 09:00 Bisacodyl (Dulcolax Supp) 10 mg DAILY PRN [place] CONSTIPATION Last administered on 07/23/16 16:52; Admin Dose 10 MG; Start 07/21/16 at 05:00 Lactulose (Enulose) 20 gm DAILY PRN PO CONSTIPATION; Start 07/21/16 at 05:00 Gabapentin (Neurontin) 200 mg TID PO Last administered on 07/31/16 08:41; Admin Dose 200 MG; Start 07/24/16 at 13:00 Insulin Glargine (Lantus) 15 unit DAILY@20 SC Last administered on 07/30/16 20: 47; Admin Dose 15 UNIT; Start 07/27/16 at 20:00 Assessment/Plan Additional Assessment/Plan Rehab- R [place] infact CVA with L deniz ;pituitary macroadenoma Continue rehab interdisciplinary care ESRD on PD HTN DM Anemia hypothy dyslipid LLE cellulitis-improved GEORGE PIERRE MD Jul 31, 2016 12:27
[2016-07-31] MEDS: CEFTRIAXONE 1 GM/50 ML (PMX) 50 ML IVPB SCH (17:28)
[2016-07-31] MEDS: ATORVASTATIN 80 MG TAB PO SCH (20:55)
[2016-07-31] MEDS: INSULIN GLARGINE [LANtus] 3 ML PEN SC SCH (20:59)
--- NOTE | 2016-07-31 23:07 | PN ---
Date/Time of Note Date/Time of Note DATE: 07/31/16 TIME: 23:06 Assessment/Plan VTE Prophylaxis VTE Prophylaxis Intervention: other Lines/Catheters [facility] Type (from [facility] Saline Lock Urinary Cath still in place: No Assessment/Plan Chief Complaint/Hosp Course ESRD CELLULITES legs better PROLACTINOMA PIT MASS DM UREMIA HYPONATREMIA PLAN PD BROMOCRYPTINE pt ot inc pd time Problems: Subjective 24 Hr Interval Summary Respiratory: no complaints Cardiovascular: no complaints Exam/Review of Systems Vital Signs Vitals Vital Signs Date Time Temp Pulse Resp B/P Pulse Ox O2 Delivery O2 Flow Rate FiO2 07/31/16 19:51 98.2 84 18 120/69 95 07/31/16 08:00 Room Air Intake and Output 07/30/16 07/30/16 07/31/16 15:00 23:00 07:00 Intake Total 670 ml 240 ml Output Total 900 ml Balance -230 ml 240 ml Exam Neck: supple Respiratory: clear to auscultation Cardiovascular: regular rate and rhythm Gastrointestinal: ascites, nl liver, spleen, soft Results Result Diagram: 07/31/16604 Results 24 hrs Laboratory Tests Test 07/31/16 06:05 07/31/16 07:43 07/31/16 12:15 07/31/16 17:09 Sodium Level 126 L Potassium Level 4.7 Chloride Level 91 L Carbon Dioxide Level 23 Anion Gap 17 H Blood Urea Nitrogen 106 H Creatinine 7.90 H Glucose Level 92 Calcium Level 7.8 L Bedside Glucose 135 161 197 Test 07/31/16 20:53 Bedside Glucose 151 Medications Medications Current Medications Pantoprazole (Protonix Tab) 40 mg DAILY@06 PO Last administered on 07/31/16 06: 51; Admin Dose 40 MG; Start 07/21/16 at 06:00 Linagliptin (Tradjenta) 5 mg DAILY PO Last administered on 07/31/16 08:41; Admin Dose 5 MG; Start 07/21/16 at 09:00 Miscellaneous Information 1 ea NOTE XX ; Start 07/21/16 at 04:30 Glucose (Glutose) 15 gm Q15M PRN PO DECREASED GLUCOSE; Start 07/21/16 at 04:30 Glucose (Glutose) 22.5 gm Q15M PRN PO DECREASED GLUCOSE; Start 07/21/16 at 04: 30 Dextrose (D50w Syringe) 25 ml Q15M PRN IV DECREASED GLUCOSE; Start 07/21/16 at 04:30 Dextrose (D50w Syringe) 50 ml Q15M PRN IV DECREASED GLUCOSE; Start 07/21/16 at 04:30 Glucagon (Glucagen) 1 mg Q15M PRN IM DECREASED GLUCOSE; Start 07/21/16 at 04:30 Glucose (Glutose) 15 gm Q15M PRN BUCCAL DECREASED GLUCOSE; Start 07/21/16 at 04 :30 Hydralazine HCl (Apresoline) 10 mg Q6H PRN IV PRN FOR SBP ABOVE 165mmHg; Start 07/21/16 at 04:30 Acetaminophen/ Hydrocodone Bitart ([place] (5/325)) 1 tab Q12H PRN PO PAIN Last administered on 07/30/16 17:17; Admin Dose 1 TAB; Start 07/21/16 at 04:30 Clopidogrel Bisulfate (plaVIX) 75 mg DAILY PO Last administered on 07/31/16 08: 41; Admin Dose 75 MG; Start 07/21/16 at 09:00 Ferrous Gluconate (Fergon) 325 mg BID PO Last administered on 07/31/16 20:55; Admin Dose 325 MG; Start 07/21/16 at 09:00 Folic Acid (Folic Acid) 1 mg DAILY PO Last administered on 07/31/16 08:41; Admin Dose 1 MG; Start 07/21/16 at 09:00 Diagnostic Test (Pha) (Accu-Chek) 1 ea 02 XX Last administered on 07/24/16 02: 09; Admin Dose 1 EA; Start 07/22/16 at 02:00 Acetaminophen (Tylenol Tab) 650 mg Q6H PRN PO PAIN AND OR ELEVATED TEMP; Start 07/21/16 at 04:30 Amlodipine Besylate (Norvasc) 5 mg BID PO Last administered on 07/31/16 20:55; Admin Dose 5 MG; Start 07/21/16 at 09:00 Atenolol (Tenormin) 50 mg DAILY PO Last administered on 07/31/16 08:41; Admin Dose 50 MG; Start 07/21/16 at 09:00 Atorvastatin Calcium (Lipitor) 80 mg DAILY@21 PO Last administered on 07/31/16 20:55; Admin Dose 80 MG; Start 07/21/16 at 21:00 Bromocriptine Mesylate 2.5 mg 2.5 mg BID PO Last administered on 07/31/16 20:54 ; Admin Dose 2.5 MG; Start 07/21/16 at 09:00 Ceftriaxone Sodium (Rocephin) 50 ml @ 100 mls/hr Q24H IVPB Last administered on 07/31/16 17:28; Admin Dose 100 MLS/HR; Start 07/21/16 at 17:30 Docusate Sodium (Colace) 100 mg BID PO Last administered on 07/31/16 20:54; Admin Dose 100 MG; Start 07/21/16 at 09:00 Bisacodyl (Dulcolax Supp) 10 mg DAILY PRN [place] CONSTIPATION Last administered on 07/23/16 16:52; Admin Dose 10 MG; Start 07/21/16 at 05:00 Lactulose (Enulose) 20 gm DAILY PRN PO CONSTIPATION; Start 07/21/16 at 05:00 Gabapentin (Neurontin) 200 mg TID PO Last administered on 07/31/16 20:55; Admin Dose 200 MG; Start 07/24/16 at 13:00 Insulin Glargine (Lantus) 15 unit DAILY@20 SC Last administered on 07/31/16 20: 59; Admin Dose 15 UNIT; Start 07/27/16 at 20:00 CHRISTINA SHIRLEY MD Jul 31, 2016 23:07
[2016-08-01] VITALS (7 sets, daily range): BP systolic 116–134; BP diastolic 60–76; PULSE 84–90; RESP 18
[2016-08-01] MEDS: ACCUCHECK AT 2AM (Patients on SS coverage) XX SCH (02:00)
[2016-08-01] MEDS: LEVOTHYROXINE 88 MCG TAB PO SCH (06:13)
[2016-08-01] MEDS: PANTOPRAZOLE (EC) 40 MG TAB PO SCH (06:13)
[2016-08-01] MEDS: Insulin NOVOLOG SS MODERATE Algorithm (SS with meals and bedtime) SC SCH ×4 (07:35→20:27)
[2016-08-01 08:03] LABS: ALBUMIN 3.4 g/dl (3.3-4.9); ALBUMIN/GLOBULIN RATIO 1.06; CALCIUM 8.1 mg/dl (8.4-10.2); POTASSIUM 4.5 mmol/L (3.5-5.1); TOTAL PROTEIN 6.6 g/dl (6.1-8.1)
[2016-08-01] MEDS: ATENOLOL 50 MG TAB PO SCH (08:32)
[2016-08-01] MEDS: BROMOCRIPTINE 2.5 MG TAB PO SCH ×2 (08:33→20:22)
[2016-08-01] MEDS: LINAGLIPTIN 5 MG TABLET PO SCH (08:33)
[2016-08-01] MEDS: FERROUS GLUCONATE (EC) 325 MG TAB PO SCH ×2 (08:33→20:22)
[2016-08-01] MEDS: AMLODIPINE 5 MG TAB PO SCH ×2 (08:33→20:22)
[2016-08-01] MEDS: DOCUSATE SODIUM 100 MG CAP PO SCH ×2 (08:33→20:22)
[2016-08-01] MEDS: CLOPIDOGREL 75 MG TAB PO SCH (08:33)
[2016-08-01] MEDS: GABAPENTIN 100 MG CAP PO SCH ×3 (08:33→20:22)
[2016-08-01] MEDS: FOLIC ACID 1 MG TAB PO SCH (08:34)
--- NOTE | 2016-08-01 11:08 | CONS ---
Date/Time of Note Date/Time of Note DATE: 08/01/16 TIME: 11:07 Consult Date/Type/Reason Admit Date/Time July 20, 2016 at 23:39 Type of Consultation: nephrology Subjective no new complaints Objective pulm-cta max transfer Vital Signs Date Time Temp Pulse Resp B/P Pulse Ox O2 Delivery O2 Flow Rate FiO2 08/01/16 08:01 98.3 66 18 126/60 97 07/31/16 08:00 Room Air Intake and Output 07/31/16 07/31/16 08/01/16 14:59 22:59 06:59 Intake Total 940 ml 100 ml 740 ml Output Total 1800 ml Balance 940 ml -1700 ml 740 ml Results/Medications Result Diagram: 08/01/16623 Results 24 hrs Laboratory Tests Test 07/31/16 12:15 07/31/16 17:09 07/31/16 20:53 08/01/16 06:24 Bedside Glucose 161 197 151 Sodium Level 126 L Potassium Level 4.5 Chloride Level 90 L Carbon Dioxide Level 24 Anion Gap 17 H Blood Urea Nitrogen 105 H Creatinine 8.00 H Glucose Level 75 Calcium Level 8.1 L Total Bilirubin 0.0 L Direct Bilirubin 0.00 Indirect Bilirubin 0.0 Aspartate Amino Transf (AST/SGOT) 41 Alanine Aminotransferase (ALT/SGPT) 42 Alkaline Phosphatase 85 Total Protein 6.6 Albumin 3.4 Globulin 3.20 Albumin/Globulin Ratio 1.06 Test 08/01/16 08:13 Bedside Glucose 82 Medications Current Medications Pantoprazole (Protonix Tab) 40 mg DAILY@06 PO Last administered on 08/01/16 06: 13; Admin Dose 40 MG; Start 07/21/16 at 06:00 Linagliptin (Tradjenta) 5 mg DAILY PO Last administered on 08/01/16 08:33; Admin Dose 5 MG; Start 07/21/16 at 09:00 Miscellaneous Information 1 ea NOTE XX ; Start 07/21/16 at 04:30 Glucose (Glutose) 15 gm Q15M PRN PO DECREASED GLUCOSE; Start 07/21/16 at 04:30 Glucose (Glutose) 22.5 gm Q15M PRN PO DECREASED GLUCOSE; Start 07/21/16 at 04: 30 Dextrose (D50w Syringe) 25 ml Q15M PRN IV DECREASED GLUCOSE; Start 07/21/16 at 04:30 Dextrose (D50w Syringe) 50 ml Q15M PRN IV DECREASED GLUCOSE; Start 07/21/16 at 04:30 Glucagon (Glucagen) 1 mg Q15M PRN IM DECREASED GLUCOSE; Start 07/21/16 at 04:30 Glucose (Glutose) 15 gm Q15M PRN BUCCAL DECREASED GLUCOSE; Start 07/21/16 at 04 :30 Hydralazine HCl (Apresoline) 10 mg Q6H PRN IV PRN FOR SBP ABOVE 165mmHg; Start 07/21/16 at 04:30 Acetaminophen/ Hydrocodone Bitart ([place] (5/325)) 1 tab Q12H PRN PO PAIN Last administered on 07/30/16 17:17; Admin Dose 1 TAB; Start 07/21/16 at 04:30 Clopidogrel Bisulfate (plaVIX) 75 mg DAILY PO Last administered on 08/01/16 08: 33; Admin Dose 75 MG; Start 07/21/16 at 09:00 Ferrous Gluconate (Fergon) 325 mg BID PO Last administered on 08/01/16 08:33; Admin Dose 325 MG; Start 07/21/16 at 09:00 Folic Acid (Folic Acid) 1 mg DAILY PO Last administered on 08/01/16 08:34; Admin Dose 1 MG; Start 07/21/16 at 09:00 Diagnostic Test (Pha) (Accu-Chek) 1 ea 02 XX Last administered on 07/24/16 02: 09; Admin Dose 1 EA; Start 07/22/16 at 02:00 Acetaminophen (Tylenol Tab) 650 mg Q6H PRN PO PAIN AND OR ELEVATED TEMP; Start 07/21/16 at 04:30 Amlodipine Besylate (Norvasc) 5 mg BID PO Last administered on 08/01/16 08:33; Admin Dose 5 MG; Start 07/21/16 at 09:00 Atenolol (Tenormin) 50 mg DAILY PO Last administered on 08/01/16 08:32; Admin Dose 50 MG; Start 07/21/16 at 09:00 Atorvastatin Calcium (Lipitor) 80 mg DAILY@21 PO Last administered on 07/31/16 20:55; Admin Dose 80 MG; Start 07/21/16 at 21:00 Bromocriptine Mesylate 2.5 mg 2.5 mg BID PO Last administered on 08/01/16 08:33 ; Admin Dose 2.5 MG; Start 07/21/16 at 09:00 Ceftriaxone Sodium (Rocephin) 50 ml @ 100 mls/hr Q24H IVPB Last administered on 07/31/16 17:28; Admin Dose 100 MLS/HR; Start 07/21/16 at 17:30 Docusate Sodium (Colace) 100 mg BID PO Last administered on 08/01/16 08:33; Admin Dose 100 MG; Start 07/21/16 at 09:00 Bisacodyl (Dulcolax Supp) 10 mg DAILY PRN [place] CONSTIPATION Last administered on 07/23/16 16:52; Admin Dose 10 MG; Start 07/21/16 at 05:00 Lactulose (Enulose) 20 gm DAILY PRN PO CONSTIPATION; Start 07/21/16 at 05:00 Gabapentin (Neurontin) 200 mg TID PO Last administered on 08/01/16 08:33; Admin Dose 200 MG; Start 07/24/16 at 13:00 Insulin Glargine (Lantus) 15 unit DAILY@20 SC Last administered on 07/31/16 20: 59; Admin Dose 15 UNIT; Start 07/27/16 at 20:00 Assessment/Plan Additional Assessment/Plan Rehab- R [place] infact CVA with L deniz ;pituitary macroadenoma Continue rehab therapies ESRD on PD HTN DM Anemia hypothy dyslipid LLE cellulitis-improved GEORGE PIERRE MD Aug 01, 2016 11:07
[2016-08-01] MEDS: CEFTRIAXONE 1 GM/50 ML (PMX) 50 ML IVPB SCH (17:28)
[2016-08-01] MEDS: ATORVASTATIN 80 MG TAB PO SCH (20:22)
[2016-08-01] MEDS: INSULIN GLARGINE [LANtus] 3 ML PEN SC SCH (20:26)
--- NOTE | 2016-08-01 23:16 | PN ---
Date/Time of Note Date/Time of Note DATE: 08/01/16 TIME: 23:15 Assessment/Plan VTE Prophylaxis VTE Prophylaxis Intervention: other Lines/Catheters [facility] Saline Lock Urinary Cath still in place: No Assessment/Plan Chief Complaint/Hosp Course ESRD CELLULITES legs better PROLACTINOMA PIT MASS DM UREMIA HYPONATREMIA PLAN PD BROMOCRYPTINE pt ot inc pd time ck labs Problems: Subjective 24 Hr Interval Summary Cardiovascular: no complaints Gastrointestinal: no complaints Exam/Review of Systems Vital Signs Vitals Vital Signs Date Time Temp Pulse Resp B/P Pulse Ox O2 Delivery O2 Flow Rate FiO2 08/01/16 20:16 98.1 70 18 119/60 97 07/31/16 08:00 Room Air Intake and Output 07/31/16 07/31/16 08/01/16 15:00 23:00 07:00 Intake Total 700 ml 100 ml 740 ml Output Total 1800 ml Balance 700 ml -1700 ml 740 ml Exam Respiratory: clear to auscultation Cardiovascular: regular rate and rhythm Gastrointestinal: soft Results Result Diagram: 08/01/16 0624 Results 24 hrs Laboratory Tests Test 08/01/16 06:24 08/01/16 08:13 08/01/16 12:04 08/01/16 17:26 Sodium Level 126 L Potassium Level 4.5 Chloride Level 90 L Carbon Dioxide Level 24 Anion Gap 17 H Blood Urea Nitrogen 105 H Creatinine 8.00 H Glucose Level 75 Calcium Level 8.1 L Total Bilirubin 0.0 L Direct Bilirubin 0.00 Indirect Bilirubin 0.0 Aspartate Amino Transf (AST/SGOT) 41 Alanine Aminotransferase (ALT/SGPT) 42 Alkaline Phosphatase 85 Total Protein 6.6 Albumin 3.4 Globulin 3.20 Albumin/Globulin Ratio 1.06 Bedside Glucose 82 178 173 Test 08/01/16 20:19 Bedside Glucose 241 H Medications Medications Current Medications Pantoprazole (Protonix Tab) 40 mg DAILY@06 PO Last administered on 08/01/16 06: 13; Admin Dose 40 MG; Start 07/21/16 at 06:00 Linagliptin (Tradjenta) 5 mg DAILY PO Last administered on 08/01/16 08:33; Admin Dose 5 MG; Start 07/21/16 at 09:00 Miscellaneous Information 1 ea NOTE XX ; Start 07/21/16 at 04:30 Glucose (Glutose) 15 gm Q15M PRN PO DECREASED GLUCOSE; Start 07/21/16 at 04:30 Glucose (Glutose) 22.5 gm Q15M PRN PO DECREASED GLUCOSE; Start 07/21/16 at 04: 30 Dextrose (D50w Syringe) 25 ml Q15M PRN IV DECREASED GLUCOSE; Start 07/21/16 at 04:30 Dextrose (D50w Syringe) 50 ml Q15M PRN IV DECREASED GLUCOSE; Start 07/21/16 at 04:30 Glucagon (Glucagen) 1 mg Q15M PRN IM DECREASED GLUCOSE; Start 07/21/16 at 04:30 Glucose (Glutose) 15 gm Q15M PRN BUCCAL DECREASED GLUCOSE; Start 07/21/16 at 04 :30 Hydralazine HCl (Apresoline) 10 mg Q6H PRN IV PRN FOR SBP ABOVE 165mmHg; Start 07/21/16 at 04:30 Acetaminophen/ Hydrocodone Bitart ([place] (5/325)) 1 tab Q12H PRN PO PAIN Last administered on 07/30/16 17:17; Admin Dose 1 TAB; Start 07/21/16 at 04:30 Clopidogrel Bisulfate (plaVIX) 75 mg DAILY PO Last administered on 08/01/16 08: 33; Admin Dose 75 MG; Start 07/21/16 at 09:00 Ferrous Gluconate (Fergon) 325 mg BID PO Last administered on 08/01/16 20:22; Admin Dose 325 MG; Start 07/21/16 at 09:00 Folic Acid (Folic Acid) 1 mg DAILY PO Last administered on 08/01/16 08:34; Admin Dose 1 MG; Start 07/21/16 at 09:00 Diagnostic Test (Pha) (Accu-Chek) 1 ea 02 XX Last administered on 07/24/16 02: 09; Admin Dose 1 EA; Start 07/22/16 at 02:00 Acetaminophen (Tylenol Tab) 650 mg Q6H PRN PO PAIN AND OR ELEVATED TEMP; Start 07/21/16 at 04:30 Amlodipine Besylate (Norvasc) 5 mg BID PO Last administered on 08/01/16 20:22; Admin Dose 5 MG; Start 07/21/16 at 09:00 Atenolol (Tenormin) 50 mg DAILY PO Last administered on 08/01/16 08:32; Admin Dose 50 MG; Start 07/21/16 at 09:00 Atorvastatin Calcium (Lipitor) 80 mg DAILY@21 PO Last administered on 08/01/16 20:22; Admin Dose 80 MG; Start 07/21/16 at 21:00 Bromocriptine Mesylate 2.5 mg 2.5 mg BID PO Last administered on 08/01/16 20:22 ; Admin Dose 2.5 MG; Start 07/21/16 at 09:00 Ceftriaxone Sodium (Rocephin) 50 ml @ 100 mls/hr Q24H IVPB Last administered on 08/01/16 17:28; Admin Dose 100 MLS/HR; Start 07/21/16 at 17:30 Docusate Sodium (Colace) 100 mg BID PO Last administered on 08/01/16 20:22; Admin Dose 100 MG; Start 07/21/16 at 09:00 Bisacodyl (Dulcolax Supp) 10 mg DAILY PRN [place] CONSTIPATION Last administered on 07/23/16 16:52; Admin Dose 10 MG; Start 07/21/16 at 05:00 Lactulose (Enulose) 20 gm DAILY PRN PO CONSTIPATION; Start 07/21/16 at 05:00 Gabapentin (Neurontin) 200 mg TID PO Last administered on 08/01/16 20:22; Admin Dose 200 MG; Start 07/24/16 at 13:00 Insulin Glargine (Lantus) 15 unit DAILY@20 SC Last administered on 08/01/16 20: 26; Admin Dose 15 UNIT; Start 07/27/16 at 20:00 CHRISTINA SHIRLEY MD Aug 01, 2016 23:16
[2016-08-02] VITALS (7 sets, daily range): BP systolic 116–129; BP diastolic 67–79; PULSE 80–88; RESP 18
[2016-08-02] MEDS: ACCUCHECK AT 2AM (Patients on SS coverage) XX SCH (02:00)
[2016-08-02] MEDS: LEVOTHYROXINE 88 MCG TAB PO SCH (06:00)
[2016-08-02] MEDS: PANTOPRAZOLE (EC) 40 MG TAB PO SCH (06:00)
[2016-08-02] MEDS: Insulin NOVOLOG SS MODERATE Algorithm (SS with meals and bedtime) SC SCH ×4 (07:35→21:00)
[2016-08-02 08:38] LABS: CALCIUM 8.4 mg/dl (8.4-10.2); CREATININE 8.33 mg/dl (0.44-1.00); POTASSIUM 4.5 mmol/L (3.5-5.1)
--- NOTE | 2016-08-02 10:13 | RADRPT ---
PROCEDURE: US DVT. CLINICAL INDICATION: Left lower extremity pain. TECHNIQUE: Multiple longitudinal and transverse images of the left lower extremity veins were obta ined with camacho scale and color Doppler imaging. 2D grayscale measurements with compression, color D oppler flow, and augmentation was performed. The calf veins were interrogated as well. COMPARISON: Previous lower extremity venous ultrasound from 07/21/2016. FINDINGS: The left common femoral, superficial femoral and popliteal veins are normally compressible throughou t. Color flow demonstrates normal filling of the vessel. Normal waveforms are visualized and there is normal response to augmentation. IMPRESSION: 1. No evidence of a deep vein thrombosis involving the left lower extremity. RPTAT: [facility] Physician Melanie Date Time Electronically viewed and signed by Physician Melanie on 08/02/2016 10:12 /
[2016-08-02] MEDS: GABAPENTIN 100 MG CAP PO SCH ×3 (11:25→21:02)
[2016-08-02] MEDS: DOCUSATE SODIUM 100 MG CAP PO SCH ×2 (11:25→21:02)
[2016-08-02] MEDS: CLOPIDOGREL 75 MG TAB PO SCH (11:25)
[2016-08-02] MEDS: AMLODIPINE 5 MG TAB PO SCH ×2 (11:26→21:02)
[2016-08-02] MEDS: FERROUS GLUCONATE (EC) 325 MG TAB PO SCH ×2 (11:26→21:02)
[2016-08-02] MEDS: FOLIC ACID 1 MG TAB PO SCH (11:26)
[2016-08-02] MEDS: BROMOCRIPTINE 2.5 MG TAB PO SCH ×2 (11:26→21:02)
[2016-08-02] MEDS: LINAGLIPTIN 5 MG TABLET PO SCH (11:26)
[2016-08-02] MEDS: ATENOLOL 50 MG TAB PO SCH (11:27)
[2016-08-02] MEDS ORDERED: VANCOMYCIN IV PER PHARMACY XX SCH (12:00)
--- NOTE | 2016-08-02 12:20 | CONS ---
Date/Time of Note Date/Time of Note DATE: 08/02/16 TIME: 12:20 Consult Date/Type/Reason Admit Date/Time July 20, 2016 at 23:39 Type of Consultation: nephrology Subjective Lower extremity discomfort Objective pulm-cta max assist Vital Signs Date Time Temp Pulse Resp B/P Pulse Ox O2 Delivery O2 Flow Rate FiO2 08/02/16 08:00 82 08/02/16 07:30 98.2 18 127/67 96 07/31/16 08:00 Room Air Intake and Output 08/01/16 08/01/16 08/02/16 15:00 23:00 07:00 Intake Total 760 ml 410 ml 240 ml Balance 760 ml 410 ml 240 ml Results/Medications Result Diagram: 08/02/16 0632 Results 24 hrs Laboratory Tests Test 08/01/16 17:26 08/01/16 20:19 08/02/16 01:58 08/02/16 06:32 Bedside Glucose 173 241 H 155 Sodium Level 127 L Potassium Level 4.5 Chloride Level 89 L Carbon Dioxide Level 26 Anion Gap 17 H Blood Urea Nitrogen 97 H Creatinine 8.33 H Glucose Level 98 Calcium Level 8.4 Test 08/02/16 08:08 08/02/16 12:09 Bedside Glucose 106 189 Medications Current Medications Pantoprazole (Protonix Tab) 40 mg DAILY@06 PO Last administered on 08/02/16 06: 00; Admin Dose 40 MG; Start 07/21/16 at 06:00 Linagliptin (Tradjenta) 5 mg DAILY PO Last administered on 08/02/16 11:26; Admin Dose 5 MG; Start 07/21/16 at 09:00 Miscellaneous Information 1 ea NOTE XX ; Start 07/21/16 at 04:30 Glucose (Glutose) 15 gm Q15M PRN PO DECREASED GLUCOSE; Start 07/21/16 at 04:30 Glucose (Glutose) 22.5 gm Q15M PRN PO DECREASED GLUCOSE; Start 07/21/16 at 04: 30 Dextrose (D50w Syringe) 25 ml Q15M PRN IV DECREASED GLUCOSE; Start 07/21/16 at 04:30 Dextrose (D50w Syringe) 50 ml Q15M PRN IV DECREASED GLUCOSE; Start 07/21/16 at 04:30 Glucagon (Glucagen) 1 mg Q15M PRN IM DECREASED GLUCOSE; Start 07/21/16 at 04:30 Glucose (Glutose) 15 gm Q15M PRN BUCCAL DECREASED GLUCOSE; Start 07/21/16 at 04 :30 Hydralazine HCl (Apresoline) 10 mg Q6H PRN IV PRN FOR SBP ABOVE 165mmHg; Start 07/21/16 at 04:30 Acetaminophen/ Hydrocodone Bitart ([place] (5/325)) 1 tab Q12H PRN PO PAIN Last administered on 07/30/16 17:17; Admin Dose 1 TAB; Start 07/21/16 at 04:30 Clopidogrel Bisulfate (plaVIX) 75 mg DAILY PO Last administered on 08/02/16 11: 25; Admin Dose 75 MG; Start 07/21/16 at 09:00 Ferrous Gluconate (Fergon) 325 mg BID PO Last administered on 08/02/16 11:26; Admin Dose 325 MG; Start 07/21/16 at 09:00 Folic Acid (Folic Acid) 1 mg DAILY PO Last administered on 08/02/16 11:; Admin Dose 1 MG; Start 07/21/16 at 09:00 Diagnostic Test (Pha) (Accu-Chek) 1 ea 02 XX Last administered on 08/02/16 02: 00; Admin Dose 1 EA; Start 07/22/16 at 02:00 Acetaminophen (Tylenol Tab) 650 mg Q6H PRN PO PAIN AND OR ELEVATED TEMP; Start 07/21/16 at 04:30 Amlodipine Besylate (Norvasc) 5 mg BID PO Last administered on 08/02/16 11:26; Admin Dose 5 MG; Start 07/21/16 at 09:00 Atenolol (Tenormin) 50 mg DAILY PO Last administered on 08/02/16 11:27; Admin Dose 50 MG; Start 07/21/16 at 09:00 Atorvastatin Calcium (Lipitor) 80 mg DAILY@21 PO Last administered on 08/01/16 20:22; Admin Dose 80 MG; Start 07/21/16 at 21:00 Bromocriptine Mesylate (Parlodel) 2.5 mg BID PO Last administered on 08/02/16 11:26; Admin Dose 2.5 MG; Start 07/21/16 at 09:00 Docusate Sodium (Colace) 100 mg BID PO Last administered on 08/02/16 11:25; Admin Dose 100 MG; Start 07/21/16 at 09:00 Bisacodyl (Dulcolax Supp) 10 mg DAILY PRN [place] CONSTIPATION Last administered on 07/23/16 16:52; Admin Dose 10 MG; Start 07/21/16 at 05:00 Lactulose (Enulose) 20 gm DAILY PRN PO CONSTIPATION; Start 07/21/16 at 05:00 Gabapentin (Neurontin) 200 mg TID PO Last administered on 08/02/16 11:25; Admin Dose 200 MG; Start 07/24/16 at 13:00 Insulin Glargine 15 unit 15 unit DAILY@20 SC Last administered on 08/01/16 20: 26; Admin Dose 15 UNIT; Start 07/27/16 at 20:00 Vancomycin HCl/ Sodium Chloride (Vancocin/NS) 500 ml @ 125 mls/hr ONCE IVPB ; Start 08/02/16 at 14:00; Stop 08/02/16 at 18:59 Assessment/Plan Additional Assessment/Plan Rehab- R [facility] infact CVA with L deniz ;pituitary macroadenoma Continue rehab therapies, increase as tolerated ESRD on PD HTN DM Anemia hypothy dyslipid GEORGE PIERRE MD Aug 02, 2016 12:20
[2016-08-02] MEDS ORDERED: HYDROmorphONE 2 MG/ML SYG IV STA (13:26)
[2016-08-02] MEDS ORDERED: VANCOMYCIN 2 GM in SOD CHLORIDE 0.9% 500 ML IVPB SCH (14:00)
[2016-08-02] MEDS ORDERED: PIPER-TAZO 2.25 GM (PMX) 50 ML IVPB SCH (14:00)
--- NOTE | 2016-08-02 17:44 | PN ---
Date/Time of Note Date/Time of Note DATE: 08/02/16 TIME: 17:43 Assessment/Plan VTE Prophylaxis VTE Prophylaxis Intervention: other Lines/Catheters [facility] Urinary Cath still in place: No Assessment/Plan Chief Complaint/Hosp Course ESRD CELLULITES legs worse PROLACTINOMA PIT MASS DM UREMIA HYPONATREMIA PLAN PD BROMOCRYPTINE pt ot inc pd time ck labs Problems: Subjective 24 Hr Interval Summary Subjective hx not possible: other (left leg pain) Exam/Review of Systems Vital Signs Vitals Vital Signs Date Time Temp Pulse Resp B/P Pulse Ox O2 Delivery O2 Flow Rate FiO2 08/02/16 14:45 84 08/02/16 07:30 98.2 18 127/67 96 07/31/16 08:00 Room Air Intake and Output 08/01/16 08/01/16 08/02/16 15:00 23:00 07:00 Intake Total 760 ml 410 ml 240 ml Balance 760 ml 410 ml 240 ml Exam Respiratory: clear to auscultation Cardiovascular: regular rate and rhythm Gastrointestinal: soft Musculoskeletal: nl extremities to inspection, other (left leg edema pain+) Results Result Diagram: 08/02/16 0632 Results 24 hrs Laboratory Tests Test 08/01/16 20:19 08/02/16 01:58 08/02/16 06:32 08/02/16 08:08 Bedside Glucose 241 H 155 106 Sodium Level 127 L Potassium Level 4.5 Chloride Level 89 L Carbon Dioxide Level 26 Anion Gap 17 H Blood Urea Nitrogen 97 H Creatinine 8.33 H Glucose Level 98 Calcium Level 8.4 Test 08/02/16 12:09 08/02/16 17:10 Bedside Glucose 189 135 Medications Medications Current Medications Pantoprazole (Protonix Tab) 40 mg DAILY@06 PO Last administered on 08/02/16 06: 00; Admin Dose 40 MG; Start 07/21/16 at 06:00 Linagliptin (Tradjenta) 5 mg DAILY PO Last administered on 08/02/16 11:26; Admin Dose 5 MG; Start 07/21/16 at 09:00 Miscellaneous Information 1 ea NOTE XX ; Start 07/21/16 at 04:30 Glucose (Glutose) 15 gm Q15M PRN PO DECREASED GLUCOSE; Start 07/21/16 at 04:30 Glucose (Glutose) 22.5 gm Q15M PRN PO DECREASED GLUCOSE; Start 07/21/16 at 04: 30 Dextrose (D50w Syringe) 25 ml Q15M PRN IV DECREASED GLUCOSE; Start 07/21/16 at 04:30 Dextrose (D50w Syringe) 50 ml Q15M PRN IV DECREASED GLUCOSE; Start 07/21/16 at 04:30 Glucagon (Glucagen) 1 mg Q15M PRN IM DECREASED GLUCOSE; Start 07/21/16 at 04:30 Glucose (Glutose) 15 gm Q15M PRN BUCCAL DECREASED GLUCOSE; Start 07/21/16 at 04 :30 Hydralazine HCl (Apresoline) 10 mg Q6H PRN IV PRN FOR SBP ABOVE 165mmHg; Start 07/21/16 at 04:30 Acetaminophen/ Hydrocodone Bitart ([place] (5/325)) 1 tab Q12H PRN PO PAIN Last administered on 07/30/16 17:17; Admin Dose 1 TAB; Start 07/21/16 at 04:30 Clopidogrel Bisulfate (plaVIX) 75 mg DAILY PO Last administered on 08/02/16 11: 25; Admin Dose 75 MG; Start 07/21/16 at 09:00 Ferrous Gluconate (Fergon) 325 mg BID PO Last administered on 08/02/16 11:26; Admin Dose 325 MG; Start 07/21/16 at 09:00 Folic Acid (Folic Acid) 1 mg DAILY PO Last administered on 08/02/16 11:26; Admin Dose 1 MG; Start 07/21/16 at 09:00 Diagnostic Test (Pha) (Accu-Chek) 1 ea 02 XX Last administered on 08/02/16 02: 00; Admin Dose 1 EA; Start 07/22/16 at 02:00 Acetaminophen (Tylenol Tab) 650 mg Q6H PRN PO PAIN AND OR ELEVATED TEMP; Start 07/21/16 at 04:30 Amlodipine Besylate (Norvasc) 5 mg BID PO Last administered on 08/02/16 11:26; Admin Dose 5 MG; Start 07/21/16 at 09:00 Atenolol (Tenormin) 50 mg DAILY PO Last administered on 08/02/16 11:27; Admin Dose 50 MG; Start 07/21/16 at 09:00 Atorvastatin Calcium (Lipitor) 80 mg DAILY@21 PO Last administered on 08/01/16 20:22; Admin Dose 80 MG; Start 07/21/16 at 21:00 Bromocriptine Mesylate (Parlodel) 2.5 mg BID PO Last administered on 08/02/16 11:26; Admin Dose 2.5 MG; Start 07/21/16 at 09:00 Docusate Sodium (Colace) 100 mg BID PO Last administered on 08/02/16 11:25; Admin Dose 100 MG; Start 07/21/16 at 09:00 Bisacodyl (Dulcolax Supp) 10 mg DAILY PRN ME CONSTIPATION Last administered on 07/23/16 16:52; Admin Dose 10 MG; Start 07/21/16 at 05:00 Lactulose (Enulose) 20 gm DAILY PRN PO CONSTIPATION; Start 07/21/16 at 05:00 Gabapentin (Neurontin) 200 mg TID PO Last administered on 08/02/16 13:40; Admin Dose 200 MG; Start 07/24/16 at 13:00 Insulin Glargine 15 unit 15 unit DAILY@20 SC Last administered on 08/01/16 20: 26; Admin Dose 15 UNIT; Start 07/27/16 at 20:00 Vancomycin HCl 2 gm/Sodium Chloride 500 ml @ 125 mls/hr ONCE IVPB Last administered on 08/02/16 16:07; Admin Dose 125 MLS/HR; Start 08/02/16 at 14:00; Stop 08/02/16 at 18:59 Piperacillin Sod/ Tazobactam Sod (Zosyn 2.25gm/ 50ml (Pmx)) 50 ml @ 100 mls/hr Q8 IVPB Last administered on 08/02/16 14:32; Admin Dose 100 MLS/HR; Start at 14:00 Hydromorphone HCl (Dilaudid) 2 mg Q4H PRN IV PAIN; Start 08/02/16 at 17:00 CHRISTINA SHIRLEY MD Aug 02, 2016 17:44
[2016-08-02] MEDS: HYDROmorphONE 2 MG/ML SYG IV PRN (17:54)
[2016-08-02] MEDS: SOD CHLORIDE 0.9% 1,000 ML IV SCH (18:00)
[2016-08-02] MEDS: ATORVASTATIN 80 MG TAB PO SCH (21:02)
[2016-08-02] MEDS: INSULIN GLARGINE [LANtus] 3 ML PEN SC SCH (21:07)
--- NOTE | 2016-08-02 22:44 | CONS ---
DATE OF ADMISSION: 07/20/2016 DATE OF CONSULTATION: 08/02/2016 TYPE OF CONSULTATION: Infectious disease. REASON FOR CONSULTATION: Antibiotic management. HISTORY OF PRESENT ILLNESS: Dunia Albarran is a 60-year-old female who comes in to the [facility] with right-sided cerebrovascular accident with left body involvement. The patient is right-handed female with a number of problems includin. End-stage renal disease on peritoneal dialysis. 2. Hypertension. 3. Hypothyroidism. 4. Diabetes mellitus. 5. Diabetic retinopathy. 6. Diabetic nephropathy. 7. Anemia. 8. Dyslipidemia. She initially presented to [facility] with left-sided weakness, left lower extremity pain. Workup included an MRI of the brain which showed acute lacunar infarcts in the right jama as well a s suprasellar mass. MRI of the pituitary gland was suggestive of probable pituitary microadenoma. She was evaluated by neurosurgery and endocrinology and recommendation was no acute neurosurgical in tervention. She was started on bromocriptine for pituitary macroadenoma. She was evaluated by neur ology and she was switched from aspirin to Plavix as well as having her Lipitor increased for second cleve stroke prevention. Her current hospital course was complicated by lower extremity cellulitis and she was started on ant ibiotics. She worked with physical therapy and noted to have significant global overall functional decline from her baseline independent status. She therefore was admitted to [facility] [place]. On admission, her white count was 7.8, H and H 9.1 and 27.8, platele t count 301,000. BUN and creatinine 94/8.74. HOSPITAL COURSE: The patient has been in the hospital from the through the . He had cellul itis of the legs which became worse, prolactinoma pituitary mass. She grew out E. coli from her urin e. E. coli sensitive to cefotaxime. The patient is currently on Zosyn and vancomycin. A Doppler wa s done today without evidence of deep vein thrombophlebitis. PAST MEDICAL HISTORY: Operations as outlined. FAMILY HISTORY: Noncontributory. SOCIAL HISTORY: She does not smoke, drink or abuse drugs. ALLERGIES: NONE TO PENICILLIN, SULFA OR FOODS. MEDICATIONS: Per chart. REVIEW OF SYSTEMS: As per HPI. PHYSICAL EXAMINATION: GENERAL: The patient is a middle-aged female who is awake, responsive, in no acute distress. VITAL SIGNS: Stable. She is afebrile. SKIN: Without generalized rash. HEENT: Within normal limits. NECK: Supple. LYMPH NODES: None palpable. CHEST: Decreased breath sounds at the bases. HEART: Without murmur or gallop. ABDOMEN: Soft, nontender. Peritoneal dialysis placement catheter is in place. EXTREMITIES: Right lower extremity calf is soft, nontender. She has nonspecific tenderness to the left lower extremity. RECTAL AND GENITAL: Deferred. NEUROLOGIC: The patient has some left-sided facial weakness, left upper extremity and left lower ex tremity are flaccid with minimal movement of the left shoulder. IMPRESSION AND PLAN: The patient had an acute lacunar infarct in the right jmaa with impaired mobil ity gate and balance, self-care activities of daily living. Currently, her urine grew out E. coli s ensitive to virtually everything. We are going to stop her vancomycin and Zosyn and put her on ceft riaxone. I will dictate my findings to Dr. Lopes and to the various consultants. Dictated By: ORTIZ THURMAN MD, JD/FLOYD Conf#: [id number] DID#: [id number]
[2016-08-03] VITALS (7 sets, daily range): BP systolic 116–152; BP diastolic 67–71; PULSE 85–88; RESP 16–18
[2016-08-03] MEDS: ACCUCHECK AT 2AM (Patients on SS coverage) XX SCH (02:00)
[2016-08-03] MEDS: PANTOPRAZOLE (EC) 40 MG TAB PO SCH (06:26)
[2016-08-03] MEDS: LEVOTHYROXINE 88 MCG TAB PO SCH (06:26)
[2016-08-03] MEDS: HYDROmorphONE 2 MG/ML SYG IV PRN ×3 (07:50→17:46)
[2016-08-03] MEDS: Insulin NOVOLOG SS MODERATE Algorithm (SS with meals and bedtime) SC SCH ×4 (08:18→20:35)
[2016-08-03 08:43] LABS: CALCIUM 8.6 mg/dl (8.4-10.2); CREATININE 7.97 mg/dl (0.44-1.00); POTASSIUM 4.7 mmol/L (3.5-5.1)
[2016-08-03] MEDS: GABAPENTIN 100 MG CAP PO SCH ×3 (09:43→20:26)
[2016-08-03] MEDS: BROMOCRIPTINE 2.5 MG TAB PO SCH ×2 (09:45→20:26)
[2016-08-03] MEDS: CLOPIDOGREL 75 MG TAB PO SCH (09:45)
[2016-08-03] MEDS: FOLIC ACID 1 MG TAB PO SCH (09:45)
[2016-08-03] MEDS: DOCUSATE SODIUM 100 MG CAP PO SCH ×2 (09:45→20:26)
[2016-08-03] MEDS: FERROUS GLUCONATE (EC) 325 MG TAB PO SCH ×2 (09:45→20:26)
[2016-08-03] MEDS: LINAGLIPTIN 5 MG TABLET PO SCH (09:45)
[2016-08-03] MEDS: ATENOLOL 50 MG TAB PO SCH (09:46)
[2016-08-03] MEDS: AMLODIPINE 5 MG TAB PO SCH ×2 (09:46→20:26)
[2016-08-03] MEDS ORDERED: HYDROmorphONE 2 MG/ML SYG IV STA (09:52)
[2016-08-03] MEDS ORDERED: HYDROmorphONE 4 MG TAB PO PRN (12:30)
[2016-08-03] MEDS: ONDANSETRON 4 MG INJ IV PRN ×2 (13:16→13:21)
--- NOTE | 2016-08-03 13:23 | CONS ---
Date/Time of Note Date/Time of Note DATE: 08/03/16 TIME: 13:22 Consult Date/Type/Reason Admit Date/Time July 20, 2016 at 23:39 Type of Consultation: nephrology Subjective no new complaints Objective pulm-cta max assist transfer mod assist wc mobility Vital Signs Date Time Temp Pulse Resp B/P Pulse Ox O2 Delivery O2 Flow Rate FiO2 08/03/16 07:30 97.7 65 18 141/67 96 07/31/16 08:00 Room Air Intake and Output 08/02/16 08/02/16 08/03/16 15:00 23:00 07:00 Intake Total 845 ml 250 ml Balance 845 ml 250 ml Results/Medications Result Diagram: 08/03/16 0500 Results 24 hrs Laboratory Tests Test 08/02/16 17:10 08/02/16 21:00 08/03/16 05:00 08/03/16 08:15 Bedside Glucose 135 158 151 Sodium Level 127 L Potassium Level 4.7 Chloride Level 90 L Carbon Dioxide Level 24 Anion Gap 18 H Blood Urea Nitrogen 97 H Creatinine 7.97 H Glucose Level 117 Calcium Level 8.6 Test 08/03/16 12:05 Bedside Glucose 139 Medications Current Medications Pantoprazole (Protonix Tab) 40 mg DAILY@06 PO Last administered on 08/03/16 06: 26; Admin Dose 40 MG; Start 07/21/16 at 06:00 Linagliptin (Tradjenta) 5 mg DAILY PO Last administered on 08/03/16 09:45; Admin Dose 5 MG; Start 07/21/16 at 09:00 Miscellaneous Information 1 ea NOTE XX ; Start 07/21/16 at 04:30 Glucose (Glutose) 15 gm Q15M PRN PO DECREASED GLUCOSE; Start 07/21/16 at 04:30 Glucose (Glutose) 22.5 gm Q15M PRN PO DECREASED GLUCOSE; Start 07/21/16 at 04: 30 Dextrose (D50w Syringe) 25 ml Q15M PRN IV DECREASED GLUCOSE; Start 07/21/16 at 04:30 Dextrose (D50w Syringe) 50 ml Q15M PRN IV DECREASED GLUCOSE; Start 07/21/16 at 04:30 Glucagon (Glucagen) 1 mg Q15M PRN IM DECREASED GLUCOSE; Start 07/21/16 at 04:30 Glucose (Glutose) 15 gm Q15M PRN BUCCAL DECREASED GLUCOSE; Start 07/21/16 at 04 :30 Hydralazine HCl (Apresoline) 10 mg Q6H PRN IV PRN FOR SBP ABOVE 165mmHg; Start 07/21/16 at 04:30 Clopidogrel Bisulfate (plaVIX) 75 mg DAILY PO Last administered on 08/03/16 09: 45; Admin Dose 75 MG; Start 07/21/16 at 09:00 Ferrous Gluconate (Fergon) 325 mg BID PO Last administered on 08/03/16 09:45; Admin Dose 325 MG; Start 07/21/16 at 09:00 Folic Acid (Folic Acid) 1 mg DAILY PO Last administered on 08/03/16 09:45; Admin Dose 1 MG; Start 07/21/16 at 09:00 Diagnostic Test (Pha) (Accu-Chek) 1 ea 02 XX Last administered on 08/02/16 02: 00; Admin Dose 1 EA; Start 07/22/16 at 02:00 Acetaminophen (Tylenol Tab) 650 mg Q6H PRN PO PAIN AND OR ELEVATED TEMP; Start 07/21/16 at 04:30 Amlodipine Besylate (Norvasc) 5 mg BID PO Last administered on 08/03/16 09:46; Admin Dose 5 MG; Start 07/21/16 at 09:00 Atenolol (Tenormin) 50 mg DAILY PO Last administered on 08/03/16 09:46; Admin Dose 50 MG; Start 07/21/16 at 09:00 Atorvastatin Calcium (Lipitor) 80 mg DAILY@21 PO Last administered on 08/02/16 21:02; Admin Dose 80 MG; Start 07/21/16 at 21:00 Bromocriptine Mesylate (Parlodel) 2.5 mg BID PO Last administered on 08/03/16 09:45; Admin Dose 2.5 MG; Start 07/21/16 at 09:00 Docusate Sodium (Colace) 100 mg BID PO Last administered on 08/03/16 09:45; Admin Dose 100 MG; Start 07/21/16 at 09:00 Bisacodyl (Dulcolax Supp) 10 mg DAILY PRN [place] CONSTIPATION Last administered on 07/23/16 16:52; Admin Dose 10 MG; Start 5/27/17 at 05:00 Lactulose (Enulose) 20 gm DAILY PRN PO CONSTIPATION; Start 07/21/16 at 05:00 Gabapentin (Neurontin) 200 mg TID PO Last administered on 08/03/16 13:16; Admin Dose 200 MG; Start 07/24/16 at 13:00 Insulin Glargine 15 unit 15 unit DAILY@20 SC Last administered on 08/02/16 21: 07; Admin Dose 15 UNIT; Start 07/27/16 at 20:00 Sodium Chloride (NS) 1,000 ml @ 10 mls/hr Q24H IV Last administered on 18:00; Admin Dose 10 MLS/HR; Start 08/02/16 at 18:00 Ondansetron HCl (Zofran Inj) 4 mg Q6H PRN IV NAUSEA AND/OR VOMITING Last administered on 08/03/16 13:16; Admin Dose 4 MG; Start 08/03/16 at 11:00 Hydromorphone HCl (Dilaudid) 2 mg Q3H PRN IV PAIN; Start 08/03/16 at 13:30 Hydromorphone HCl (Dilaudid) 4 mg Q6 PO ; Start 08/03/16 at 18:00 Assessment/Plan Additional Assessment/Plan Rehab- R [facility] infact CVA with L deniz ;pituitary macroadenoma Continue rehab program ID-abx per id for UTI ESRD on PD HTN DM Anemia hypothy dyslipid GEORGE PIERRE MD Aug 03, 2016 13:23
--- NOTE | 2016-08-03 14:30 | PN ---
Date/Time of Note Date/Time of Note DATE: 08/03/16 TIME: 14:29 Assessment/Plan VTE Prophylaxis VTE Prophylaxis Intervention: ambulation, LMWH Lines/Catheters IV Catheter Type (from Nrs): Saline Lock Urinary Cath still in place: No Assessment/Plan Chief Complaint/Hosp Course 1. CKD stage 4. 3. Peritoneal dialysis 3. Neuropathies 4. Hypertension 5. Left leg swelling and pain without DVT on US 6. Anemia 7. DM type II, uncontrolled 8. Hypothyroidism Problems: Assessment/Plan 1. Continue PD 2. Continue PT Subjective 24 Hr Interval Summary Constitutional: improved, no complaints Musculoskeletal: other (pain in left leg 08/04) Exam/Review of Systems Vital Signs Vitals Vital Signs Date Time Temp Pulse Resp B/P Pulse Ox O2 Delivery O2 Flow Rate FiO2 08/03/16 07:30 97.7 65 18 141/67 96 07/31/16 08:00 Room Air Intake and Output 08/02/16 08/02/16 08/03/16 15:00 23:00 07:00 Intake Total 845 ml 250 ml Balance 845 ml 250 ml Exam Constitutional: alert, oriented Respiratory: clear to auscultation Cardiovascular: regular rate and rhythm Musculoskeletal: joint tenderness (left knee) Results Result Diagram: 08/03/16 0500 Results 24 hrs Laboratory Tests Test 08/02/16 17:10 08/02/16 21:00 08/03/16 05:00 08/03/16 08:15 Bedside Glucose 135 158 151 Sodium Level 127 L Potassium Level 4.7 Chloride Level 90 L Carbon Dioxide Level 24 Anion Gap 18 H Blood Urea Nitrogen 97 H Creatinine 7.97 H Glucose Level 117 Calcium Level 8.6 Test 08/03/16 12:05 Bedside Glucose 139 Medications Medications Current Medications Pantoprazole (Protonix Tab) 40 mg DAILY@06 PO Last administered on 08/03/16 06: 26; Admin Dose 40 MG; Start 07/21/16 at 06:00 Linagliptin (Tradjenta) 5 mg DAILY PO Last administered on 08/03/16 09:45; Admin Dose 5 MG; Start 07/21/16 at 09:00 Miscellaneous Information 1 ea NOTE XX ; Start 07/21/16 at 04:30 Glucose (Glutose) 15 gm Q15M PRN PO DECREASED GLUCOSE; Start 07/21/16 at 04:30 Glucose (Glutose) 22.5 gm Q15M PRN PO DECREASED GLUCOSE; Start 07/21/16 at 04: 30 Dextrose (D50w Syringe) 25 ml Q15M PRN IV DECREASED GLUCOSE; Start 07/21/16 at 04:30 Dextrose (D50w Syringe) 50 ml Q15M PRN IV DECREASED GLUCOSE; Start 07/21/16 at 04:30 Glucagon (Glucagen) 1 mg Q15M PRN IM DECREASED GLUCOSE; Start 07/21/16 at 04:30 Glucose (Glutose) 15 gm Q15M PRN BUCCAL DECREASED GLUCOSE; Start 07/21/16 at 04 :30 Hydralazine HCl (Apresoline) 10 mg Q6H PRN IV PRN FOR SBP ABOVE 165mmHg; Start 07/21/16 at 04:30 Clopidogrel Bisulfate (plaVIX) 75 mg DAILY PO Last administered on 08/03/16 09: 45; Admin Dose 75 MG; Start 07/21/16 at 09:00 Ferrous Gluconate (Fergon) 325 mg BID PO Last administered on 08/03/16 09:45; Admin Dose 325 MG; Start 07/21/16 at 09:00 Folic Acid (Folic Acid) 1 mg DAILY PO Last administered on 08/03/16 09:45; Admin Dose 1 MG; Start 07/21/16 at 09:00 Diagnostic Test (Pha) (Accu-Chek) 1 ea 02 XX Last administered on 08/02/16 02: 00; Admin Dose 1 EA; Start 07/22/16 at 02:00 Acetaminophen (Tylenol Tab) 650 mg Q6H PRN PO PAIN AND OR ELEVATED TEMP; Start 07/21/16 at 04:30 Amlodipine Besylate (Norvasc) 5 mg BID PO Last administered on 08/03/16 09:46; Admin Dose 5 MG; Start 07/21/16 at 09:00 Atenolol (Tenormin) 50 mg DAILY PO Last administered on 08/03/16 09:46; Admin Dose 50 MG; Start 07/21/16 at 09:00 Atorvastatin Calcium (Lipitor) 80 mg DAILY@21 PO Last administered on 08/02/16 21:02; Admin Dose 80 MG; Start 07/21/16 at 21:00 Bromocriptine Mesylate (Parlodel) 2.5 mg BID PO Last administered on 08/03/16 09:45; Admin Dose 2.5 MG; Start 07/21/16 at 09:00 Docusate Sodium (Colace) 100 mg BID PO Last administered on 08/03/16 09:45; Admin Dose 100 MG; Start 07/21/16 at 09:00 Bisacodyl (Dulcolax Supp) 10 mg DAILY PRN [place] CONSTIPATION Last administered on 07/23/16 16:52; Admin Dose 10 MG; Start 07/21/16 at 05:00 Lactulose (Enulose) 20 gm DAILY PRN PO CONSTIPATION; Start 07/21/16 at 05:00 Gabapentin (Neurontin) 200 mg TID PO Last administered on 08/03/16 13:16; Admin Dose 200 MG; Start 07/24/16 at 13:00 Insulin Glargine 15 unit 15 unit DAILY@20 SC Last administered on 08/02/16 21: 07; Admin Dose 15 UNIT; Start 07/27/16 at 20:00 Sodium Chloride (NS) 1,000 ml @ 10 mls/hr Q24H IV Last administered on 18:00; Admin Dose 10 MLS/HR; Start 08/02/16 at 18:00 Ondansetron HCl (Zofran Inj) 4 mg Q6H PRN IV NAUSEA AND/OR VOMITING Last administered on 08/03/16 13:21; Admin Dose 4 MG; Start 08/03/16 at 11:00 Hydromorphone HCl (Dilaudid) 2 mg Q3H PRN IV PAIN Last administered on 13:22; Admin Dose 2 MG; Start 08/03/16 at 13:30 Hydromorphone HCl (Dilaudid) 4 mg Q6 PO ; Start 08/03/16 at 18:00 MARTINE LLOYD Aug 03, 2016 14:30
[2016-08-03] MEDS ORDERED: HYDROmorphONE 2 MG/ML SYG IV PRN (15:00)
[2016-08-03] MEDS: BISACODYL 10 MG SUPP PR PRN (17:53)
[2016-08-03] MEDS: HYDROmorphONE 2 MG TAB PO SCH (18:00)
[2016-08-03] MEDS ORDERED: HYDROmorphONE 4 MG TAB PO SCH (18:00)
[2016-08-03] MEDS: SOD CHLORIDE 0.9% 1,000 ML IV SCH (18:00)
[2016-08-03] MEDS: CEFTRIAXONE 1 GM/50 ML (PMX) 50 ML IVPB SCH (18:19)
[2016-08-03] MEDS: ATORVASTATIN 80 MG TAB PO SCH (20:26)
[2016-08-03] MEDS: INSULIN GLARGINE [LANtus] 3 ML PEN SC SCH (20:35)
[2016-08-04] VITALS (10 sets, daily range): BP systolic 110–146; BP diastolic 54–80; PULSE 56–90; RESP 16–20
[2016-08-04] MEDS: ACCUCHECK AT 2AM (Patients on SS coverage) XX SCH (02:00)
[2016-08-04] MEDS: PANTOPRAZOLE (EC) 40 MG TAB PO SCH (06:19)
[2016-08-04] MEDS: HYDROmorphONE 2 MG TAB PO SCH ×4 (06:20→17:22)
[2016-08-04] MEDS: LEVOTHYROXINE 88 MCG TAB PO SCH (06:24)
[2016-08-04] MEDS: Insulin NOVOLOG SS MODERATE Algorithm (SS with meals and bedtime) SC SCH ×4 (07:35→21:22)
[2016-08-04 07:38] LABS: ADD SCAN DIFF NO
[2016-08-04 07:41] LABS: BASOPHILS % 0.5 % (0.0-2.0); EOSINOPHILS # 0.2 10^3/ul (0.0-0.5); EOSINOPHILS % 2.8 % (0.0-7.0); HEMATOCRIT 21.9 % (37.0-47.0); HEMOGLOBIN 7.4 g/dl (12.0-16.0); LYMPHOCYTES # 0.8 10^3/ul (0.8-2.9); LYMPHOCYTES % 9.7 % (15.0-51.0); MEAN CORPUSCULAR HEMOGLOBIN 30.6 pg (29.0-33.0); MEAN CORPUSCULAR HGB CONC 33.8 g/dl (32.0-37.0); MEAN CORPUSCULAR VOLUME 90.5 fl (82.0-101.0); MEAN PLATELET VOLUME 10.5 fl (7.4-10.4); MONOCYTE # 0.5 10^3/ul (0.3-0.9); NEUTROPHIL # 6.6 10^3/ul (1.6-7.5); NEUTROPHILS % 80.5 % (39.0-77.0); PLATELET COUNT 262 10^3/UL (140-415); RED BLOOD COUNT 2.42 10^6/ul (4.20-5.40); RED CELL DISTRIBUTION WIDTH 12.8 % (11.5-14.5); WHITE BLOOD COUNT 8.2 10^3/ul (4.8-10.8)
[2016-08-04 08:08] LABS: CALCIUM 8.4 mg/dl (8.4-10.2); CREATININE 8.11 mg/dl (0.44-1.00); POTASSIUM 4.9 mmol/L (3.5-5.1)
[2016-08-04] MEDS: GABAPENTIN 100 MG CAP PO SCH ×3 (08:21→21:17)
[2016-08-04] MEDS: FERROUS GLUCONATE (EC) 325 MG TAB PO SCH ×2 (08:21→21:17)
[2016-08-04] MEDS: CLOPIDOGREL 75 MG TAB PO SCH (08:21)
[2016-08-04] MEDS: DOCUSATE SODIUM 100 MG CAP PO SCH ×2 (08:21→21:17)
[2016-08-04] MEDS: BROMOCRIPTINE 2.5 MG TAB PO SCH ×2 (08:21→21:18)
[2016-08-04] MEDS: FOLIC ACID 1 MG TAB PO SCH (08:21)
[2016-08-04] MEDS: LINAGLIPTIN 5 MG TABLET PO SCH (08:22)
[2016-08-04] MEDS: AMLODIPINE 5 MG TAB PO SCH ×2 (08:22→21:18)
[2016-08-04] MEDS: ATENOLOL 50 MG TAB PO SCH (08:22)
--- NOTE | 2016-08-04 12:02 | CONS ---
Date/Time of Note Date/Time of Note DATE: 08/04/16 TIME: 12:02 Consult Date/Type/Reason Admit Date/Time July 20, 2016 at 23:39 Type of Consultation: nephrology Subjective Encouragement for activities Objective pulm-cta mod assist Vital Signs Date Time Temp Pulse Resp B/P Pulse Ox O2 Delivery O2 Flow Rate FiO2 08/04/16 08:25 64 16 122/63 96 Room Air 08/04/16 08:06 98.2 Intake and Output 08/03/16 08/03/16 08/04/16 14:59 22:59 06:59 Intake Total 920 ml 350 ml Output Total 2600 ml Balance -1680 ml 350 ml Results/Medications Result Diagram: 08/04/16 0622 08/04/16 0622 Results 24 hrs Laboratory Tests Test 08/03/16 12:05 08/03/16 17:44 08/03/16 20:23 08/04/16 02:07 Bedside Glucose 139 181 234 H 97 Test 08/04/16 06:22 08/04/16 07:19 08/04/16 11:56 White Blood Count 8.2 Red Blood Count 2.42 #L Hemoglobin 7.4 L Hematocrit 21.9 #L Mean Corpuscular Volume 90.5 Mean Corpuscular Hemoglobin 30.6 Mean Corpuscular Hemoglobin Concent 33.8 Red Cell Distribution Width 12.8 Platelet Count 262 Mean Platelet Volume 10.5 H Neutrophils % 80.5 H Lymphocytes % 9.7 L Monocytes % 6.0 Eosinophils % 2.8 Basophils % 0.5 Nucleated Red Blood Cells % 0.0 Neutrophils # 6.6 Lymphocytes # 0.8 Monocytes # 0.5 Eosinophils # 0.2 Basophils # 0.0 Nucleated Red Blood Cells # 0.0 Sodium Level 128 L Potassium Level 4.9 Chloride Level 91 L Carbon Dioxide Level 23 Anion Gap 19 H Blood Urea Nitrogen 97 H Creatinine 8.11 H Glucose Level 95 Calcium Level 8.4 Bedside Glucose 125 129 Medications Current Medications Pantoprazole (Protonix Tab) 40 mg DAILY@06 PO Last administered on 08/04/16 06 :19; Admin Dose 40 MG; Start 07/21/16 at 06:00 Linagliptin (Tradjenta) 5 mg DAILY PO Last administered on 08/04/16 08:22; Admin Dose 5 MG; Start 07/21/16 at 09:00 Miscellaneous Information 1 ea NOTE XX ; Start 07/21/16 at 04:30 Glucose (Glutose) 15 gm Q15M PRN PO DECREASED GLUCOSE; Start 07/21/16 at 04:30 Glucose (Glutose) 22.5 gm Q15M PRN PO DECREASED GLUCOSE; Start 07/21/16 at 04: 30 Dextrose (D50w Syringe) 25 ml Q15M PRN IV DECREASED GLUCOSE; Start 07/21/16 at 04:30 Dextrose (D50w Syringe) 50 ml Q15M PRN IV DECREASED GLUCOSE; Start 07/21/16 at 04:30 Glucagon (Glucagen) 1 mg Q15M PRN IM DECREASED GLUCOSE; Start 07/21/16 at 04:30 Glucose (Glutose) 15 gm Q15M PRN BUCCAL DECREASED GLUCOSE; Start 07/21/16 at 04 :30 Hydralazine HCl (Apresoline) 10 mg Q6H PRN IV PRN FOR SBP ABOVE 165mmHg; Start 07/21/16 at 04:30 Clopidogrel Bisulfate (plaVIX) 75 mg DAILY PO Last administered on 08/04/16 08 :21; Admin Dose 75 MG; Start 07/21/16 at 09:00 Ferrous Gluconate (Fergon) 325 mg BID PO Last administered on 08/04/16 08:21; Admin Dose 325 MG; Start 07/21/16 at 09:00 Folic Acid (Folic Acid) 1 mg DAILY PO Last administered on 08/04/16 08:21; Admin Dose 1 MG; Start 07/21/16 at 09:00 Diagnostic Test (Pha) (Accu-Chek) 1 ea 02 XX Last administered on 08/04/16 02: 00; Admin Dose 1 EA; Start 07/22/16 at 02:00 Acetaminophen (Tylenol Tab) 650 mg Q6H PRN PO PAIN AND OR ELEVATED TEMP; Start 07/21/16 at 04:30 Amlodipine Besylate (Norvasc) 5 mg BID PO Last administered on 08/04/16 08:22 ; Admin Dose 5 MG; Start 07/21/16 at 09:00 Atenolol (Tenormin) 50 mg DAILY PO Last administered on 08/04/16 08:22; Admin Dose 50 MG; Start 07/21/16 at 09:00 Atorvastatin Calcium (Lipitor) 80 mg DAILY@21 PO Last administered on 08/03/16 20:26; Admin Dose 80 MG; Start 07/21/16 at 21:00 Bromocriptine Mesylate (Parlodel) 2.5 mg BID PO Last administered on 08/04/16 08:21; Admin Dose 2.5 MG; Start 07/21/16 at 09:00 Docusate Sodium (Colace) 100 mg BID PO Last administered on 08/04/16 08:21; Admin Dose 100 MG; Start 07/21/16 at 09:00 Bisacodyl (Dulcolax Supp) 10 mg DAILY PRN [place] CONSTIPATION Last administered on 08/03/16 17:53; Admin Dose 10 MG; Start 07/21/16 at 05:00 Lactulose (Enulose) 20 gm DAILY PRN PO CONSTIPATION; Start 07/21/16 at 05:00 Gabapentin (Neurontin) 200 mg TID PO Last administered on 08/04/16 08:21; Admin Dose 200 MG; Start 07/24/16 at 13:00 Insulin Glargine 15 unit 15 unit DAILY@20 SC Last administered on 08/03/16 20: 35; Admin Dose 15 UNIT; Start 07/27/16 at 20:00 Sodium Chloride (NS) 1,000 ml @ 10 mls/hr Q24H IV Last administered on 18:00; Admin Dose 10 MLS/HR; Start 08/02/16 at 18:00 Ondansetron HCl (Zofran Inj) 4 mg Q6H PRN IV NAUSEA AND/OR VOMITING Last administered on 08/03/16 13:21; Admin Dose 4 MG; Start 08/03/16 at 11:00 Hydromorphone HCl (Dilaudid) 2 mg Q3H PRN IV PAIN Last administered on 17:46; Admin Dose 2 MG; Start 08/03/16 at 13:30 Hydromorphone HCl 4 mg 4 mg Q6 PO Last administered on 08/04/16 06:20; Admin Dose 4 MG; Start 08/03/16 at 18:00 Ceftriaxone Sodium (Rocephin) 50 ml @ 100 mls/hr Q24H IVPB Last administered on 08/03/16 18:19; Admin Dose 100 MLS/HR; Start 08/03/16 at 17:00 Epoetin Chiki (Epogen (Esrd)) 10,000 units WeSa@21 SC ; Start 08/04/16 at 21:00 Assessment/Plan Additional Assessment/Plan Rehab- [facility] infact CVA with L deniz ;pituitary macroadenoma Continue rehab progrram ESRD on PD HTN DM Anemia hypothy dyslipid GEORGE PIERRE MD Aug 04, 2016 12:02
[2016-08-04] MEDS: SOD CHLORIDE 0.9% 750 ML IV ONE ×2 (16:08→17:15)
[2016-08-04] MEDS: CEFTRIAXONE 1 GM/50 ML (PMX) 50 ML IVPB SCH (17:15)
[2016-08-04] MEDS: SOD CHLORIDE 0.9% 1,000 ML IV SCH (17:23)
[2016-08-04] MEDS: ATORVASTATIN 80 MG TAB PO SCH (21:17)
[2016-08-04] MEDS: INSULIN GLARGINE [LANtus] 3 ML PEN SC SCH (21:23)
[2016-08-04] MEDS: EPOETIN 10000 UNITS/1 ML INJ (ESRD) SC SCH (21:24)
[2016-08-05] MEDS: ACCUCHECK AT 2AM (Patients on SS coverage) XX SCH (02:00)
[2016-08-05] MEDS: PANTOPRAZOLE (EC) 40 MG TAB PO SCH (06:54)
[2016-08-05] MEDS: HYDROmorphONE 2 MG TAB PO SCH ×5 (06:54→23:57)
[2016-08-05] MEDS: LEVOTHYROXINE 88 MCG TAB PO SCH (06:54)
[2016-08-05 07:00] VITALS: BP 128/55; PULSE 60
[2016-08-05] MEDS: Insulin NOVOLOG SS MODERATE Algorithm (SS with meals and bedtime) SC SCH ×4 (07:35→20:50)
[2016-08-05] MEDS: LINAGLIPTIN 5 MG TABLET PO SCH (08:18)
[2016-08-05] MEDS: DOCUSATE SODIUM 100 MG CAP PO SCH ×2 (08:18→20:45)
[2016-08-05] MEDS: BROMOCRIPTINE 2.5 MG TAB PO SCH ×2 (08:18→20:45)
[2016-08-05] MEDS: FERROUS GLUCONATE (EC) 325 MG TAB PO SCH ×2 (08:19→20:45)
[2016-08-05] MEDS: GABAPENTIN 100 MG CAP PO SCH ×3 (08:19→20:45)
[2016-08-05] MEDS: FOLIC ACID 1 MG TAB PO SCH (08:19)
[2016-08-05] MEDS: AMLODIPINE 5 MG TAB PO SCH ×2 (08:19→20:45)
[2016-08-05] MEDS: CLOPIDOGREL 75 MG TAB PO SCH (08:19)
[2016-08-05] MEDS: ATENOLOL 50 MG TAB PO SCH (08:19)
[2016-08-05 08:36] LABS: ADD SCAN DIFF NO
[2016-08-05 08:42] LABS: BASOPHILS % 0.4 % (0.0-2.0); EOSINOPHILS # 0.2 10^3/ul (0.0-0.5); EOSINOPHILS % 2.6 % (0.0-7.0); HEMATOCRIT 24.1 % (37.0-47.0); HEMOGLOBIN 8.1 g/dl (12.0-16.0); LYMPHOCYTES # 0.7 10^3/ul (0.8-2.9); LYMPHOCYTES % 7.7 % (15.0-51.0); MEAN CORPUSCULAR HEMOGLOBIN 30.5 pg (29.0-33.0); MEAN CORPUSCULAR HGB CONC 33.6 g/dl (32.0-37.0); MEAN CORPUSCULAR VOLUME 90.6 fl (82.0-101.0); MEAN PLATELET VOLUME 10.3 fl (7.4-10.4); MONOCYTE # 0.5 10^3/ul (0.3-0.9); MONOCYTES % 5.4 % (0.0-11.0); NEUTROPHIL # 7.6 10^3/ul (1.6-7.5); NEUTROPHILS % 83.5 % (39.0-77.0); PLATELET COUNT 281 10^3/UL (140-415); RED BLOOD COUNT 2.66 10^6/ul (4.20-5.40); RED CELL DISTRIBUTION WIDTH 13.1 % (11.5-14.5); WHITE BLOOD COUNT 9.1 10^3/ul (4.8-10.8)
[2016-08-05 09:01] LABS: CALCIUM 8.5 mg/dl (8.4-10.2); CREATININE 8.05 mg/dl (0.44-1.00); POTASSIUM 4.7 mmol/L (3.5-5.1)
[2016-08-05 10:00] VITALS: BP 122/61; PULSE 82
[2016-08-05 13:00] VITALS: BP 120/69; PULSE 79
[2016-08-05 16:00] VITALS: BP_SYST 11; BP_SYST 110; BP_DIAS 8; BP_DIAS 88; PULSE 8; PULSE 80
--- NOTE | 2016-08-05 16:02 | PN ---
Date/Time of Note Date/Time of Note DATE: 08/05/16 TIME: 16:01 Assessment/Plan VTE Prophylaxis VTE Prophylaxis Intervention: other Lines/Catheters IV Catheter Type (from [facility] Urinary Cath still in place: No Assessment/Plan Chief Complaint/Hosp Course ESRD CELLULITES legs worse PROLACTINOMA PIT MASS DM UREMIA HYPONATREMIA PLAN PD BROMOCRYPTINE pt ot inc pd time ck labs ct lower ex elevate legs Problems: Subjective 24 Hr Interval Summary Cardiovascular: no complaints Gastrointestinal: no complaints Musculoskeletal: swelling (legs left) Exam/Review of Systems Vital Signs Vitals Vital Signs Date Time Temp Pulse Resp B/P Pulse Ox O2 Delivery O2 Flow Rate FiO2 08/05/16 13:00 79 08/04/16 20:00 97.5 20 126/58 96 08/04/16 18:00 Room Air Intake and Output 08/04/16 08/04/16 08/05/16 15:00 23:00 07:00 Intake Total 1850 ml 1190 ml 200 ml Output Total 650 ml Balance 1200 ml 1190 ml 200 ml Exam Neck: supple Respiratory: diminished breath sounds Cardiovascular: regular rate and rhythm Gastrointestinal: soft Extremities: edema (left leg) Results Result Diagram: 08/05/16 0730 08/05/16 0730 Results 24 hrs Laboratory Tests Test 08/04/16 17:17 08/04/16 20:59 08/05/16 03:04 08/05/16 05:56 Bedside Glucose 177 189 95 Lab Scanned Report BLOOD TRANSFUSION Test 08/05/16 07:30 08/05/16 07:52 08/05/16 11:58 White Blood Count 9.1 Red Blood Count 2.66 L Hemoglobin 8.1 L Hematocrit 24.1 L Mean Corpuscular Volume 90.6 Mean Corpuscular Hemoglobin 30.5 Mean Corpuscular Hemoglobin Concent 33.6 Red Cell Distribution Width 13.1 Platelet Count 281 Mean Platelet Volume 10.3 Neutrophils % 83.5 H Lymphocytes % 7.7 L Monocytes % 5.4 Eosinophils % 2.6 Basophils % 0.4 Nucleated Red Blood Cells % 0.0 Neutrophils # 7.6 H Lymphocytes # 0.7 L Monocytes # 0.5 Eosinophils # 0.2 Basophils # 0.0 Nucleated Red Blood Cells # 0.0 Sodium Level 129 L Potassium Level 4.7 Chloride Level 91 L Carbon Dioxide Level 26 Anion Gap 17 H Blood Urea Nitrogen 92 H Creatinine 8.05 H Glucose Level 78 Calcium Level 8.5 Bedside Glucose 92 207 Medications Medications Current Medications Pantoprazole (Protonix Tab) 40 mg DAILY@06 PO Last administered on 08/05/16 06 :54; Admin Dose 40 MG; Start 07/21/16 at 06:00 Linagliptin (Tradjenta) 5 mg DAILY PO Last administered on 08/05/16 08:18; Admin Dose 5 MG; Start 07/21/16 at 09:00 Miscellaneous Information 1 ea NOTE XX ; Start 07/21/16 at 04:30 Glucose (Glutose) 15 gm Q15M PRN PO DECREASED GLUCOSE; Start 07/21/16 at 04:30 Glucose (Glutose) 22.5 gm Q15M PRN PO DECREASED GLUCOSE; Start 07/21/16 at 04: 30 Dextrose (D50w Syringe) 25 ml Q15M PRN IV DECREASED GLUCOSE; Start 07/21/16 at 04:30 Dextrose (D50w Syringe) 50 ml Q15M PRN IV DECREASED GLUCOSE; Start 07/21/16 at 04:30 Glucagon (Glucagen) 1 mg Q15M PRN IM DECREASED GLUCOSE; Start 07/21/16 at 04:30 Glucose (Glutose) 15 gm Q15M PRN BUCCAL DECREASED GLUCOSE; Start 07/21/16 at 04 :30 Hydralazine HCl (Apresoline) 10 mg Q6H PRN IV PRN FOR SBP ABOVE 165mmHg; Start 07/21/16 at 04:30 Clopidogrel Bisulfate (plaVIX) 75 mg DAILY PO Last administered on 08/05/16 08 :19; Admin Dose 75 MG; Start 07/21/16 at 09:00 Ferrous Gluconate (Fergon) 325 mg BID PO Last administered on 08/05/16 08:19; Admin Dose 325 MG; Start 07/21/16 at 09:00 Folic Acid (Folic Acid) 1 mg DAILY PO Last administered on 08/05/16 08:19; Admin Dose 1 MG; Start 07/21/16 at 09:00 Diagnostic Test (Pha) (Accu-Chek) 1 ea 02 XX Last administered on 08/04/16 02: 00; Admin Dose 1 EA; Start 07/22/16 at 02:00 Acetaminophen (Tylenol Tab) 650 mg Q6H PRN PO PAIN AND OR ELEVATED TEMP; Start 07/21/16 at 04:30 Amlodipine Besylate (Norvasc) 5 mg BID PO Last administered on 08/05/16 08:19 ; Admin Dose 5 MG; Start 07/21/16 at 09:00 Atenolol (Tenormin) 50 mg DAILY PO Last administered on 08/05/16 08:19; Admin Dose 50 MG; Start 07/21/16 at 09:00 Atorvastatin Calcium (Lipitor) 80 mg DAILY@21 PO Last administered on 21:17; Admin Dose 80 MG; Start 07/21/16 at 21:00 Bromocriptine Mesylate (Parlodel) 2.5 mg BID PO Last administered on 08/05/16 08:18; Admin Dose 2.5 MG; Start 07/21/16 at 09:00 Docusate Sodium (Colace) 100 mg BID PO Last administered on 08/05/16 08:18; Admin Dose 100 MG; Start 07/21/16 at 09:00 Bisacodyl (Dulcolax Supp) 10 mg DAILY PRN [place] CONSTIPATION Last administered on 08/03/16 17:53; Admin Dose 10 MG; Start 07/21/16 at 05:00 Lactulose (Enulose) 20 gm DAILY PRN PO CONSTIPATION; Start 07/21/16 at 05:00 Gabapentin (Neurontin) 200 mg TID PO Last administered on 08/05/16 12:17; Admin Dose 200 MG; Start 07/24/16 at 13:00 Insulin Glargine 15 unit 15 unit DAILY@20 SC Last administered on 08/04/16 21: 23; Admin Dose 15 UNIT; Start 07/27/16 at 20:00 Sodium Chloride (NS) 1,000 ml @ 10 mls/hr Q24H IV Last administered on 18:00; Admin Dose 10 MLS/HR; Start 08/02/16 at 18:00 Ondansetron HCl (Zofran Inj) 4 mg Q6H PRN IV NAUSEA AND/OR VOMITING Last administered on 08/03/16 13:21; Admin Dose 4 MG; Start 08/03/16 at 11:00 Hydromorphone HCl (Dilaudid) 2 mg Q3H PRN IV PAIN Last administered on 17:46; Admin Dose 2 MG; Start 08/03/16 at 13:30 Hydromorphone HCl 4 mg 4 mg Q6 PO Last administered on 08/05/16 12:27; Admin Dose 4 MG; Start 08/03/16 at 18:00 Ceftriaxone Sodium (Rocephin) 50 ml @ 100 mls/hr Q24H IVPB Last administered on 08/04/16 17:15; Admin Dose 100 MLS/HR; Start 08/03/16 at 17:00 Epoetin Chiki (Epogen (Esrd)) 10,000 units WeSa@21 SC Last administered on 21:24; Admin Dose 10,000 UNITS; Start 08/04/16 at 21:00 CHRISTINA SHIRLEY MD Aug 05, 2016 16:02
[2016-08-05] MEDS: SOD CHLORIDE 0.9% 1,000 ML IV SCH (17:35)
[2016-08-05] MEDS: CEFTRIAXONE 1 GM/50 ML (PMX) 50 ML IVPB SCH (17:35)
--- NOTE | 2016-08-05 18:09 | RADRPT ---
PROCEDURE: CT angiogram of the left lower extremity with contrast CLINICAL INDICATION: Leg pain. Possible deep venous thrombosis. TECHNIQUE: CT of the left lower extremity is performed from the iliac crest through the toes at 2. 5 mm sections following the intravenous injection of 100 cc Visipaque 320. Coronal and sagittal ref ormatted images are submitted. CTDI = 135.15 mGy; DLP = 1553.78 mGy-cm COMPARISON: Noncontrast CT 07/23/2016. The left lower extremity ultrasound 08/02/2016 FINDINGS: Osseous structures: Minimal degenerative narrowing of the left hip joint is present. The visualize d left pelvic bones are intact, bone architecture and mineralization is preserved. The left femur s hows no abnormality. The left knee joint is remarkable for minimal lateral patellofemoral narrowing . The tibia and fibula are unremarkable, no periosteal reaction or focal bone destruction is seen. The ankle and foot show normal osseous structures. Soft tissues: Please note that the contrast bolus timing is to maximize opacification for the arter ial system The visualized distal abdominal aorta and left iliac system are normal without evidence o f occlusion or significant stenosis. The left mid profunda femoral artery shows mild atheromatous c alcification without evidence of occlusion or significant stenosis. The left common femoral and sup erficial femoral artery showed trace atherosclerotic calcification without occlusion or significant stenosis. There are dilated varicose veins along the medial aspect of the leg unable to exclude thr ombophlebitis. Diffuse subcutaneous fat stranding of the mid and distal leg is present concerning f or cellulitis without abscess. The popliteal, anterior tibial, posterior tibial and peroneal artery show minimal atherosclerotic calcification without evidence of occlusion or significant stenosis. No muscular abnormality is evident. There is a suprapatellar joint effusion of the knee. Intrapelvic structures demonstrate a peritoneal catheter, urinary bladder distension and ascites RPTAT:HJJR IMPRESSION: 1. Contrast bolus timing is optimized for opacification of the arterial system, not the venous syste m in this patient with a provided clinical concern for deep venous thrombosis. 2. Dilated superficial venous structures along the medial aspect of the left leg medially concerning for thrombophlebitis. 3. Diffuse nonspecific edema in the subcutaneous tissues involving the left leg unable to exclude ce llulitis without evidence of abscess or osteomyelitis. 4. Atherosclerotic calcification involving the arterial system of the left lower extremity without e vidence of occlusion or significant stenosis at any level. 5. Visualized intrapelvic structures demonstrate ascites, presumably a dialysis catheter and urinary bladder distension. Luca Byers Physician Date Time Electronically viewed and signed by Luca Byers Physician on 08/05/2016 18:09 JR/
[2016-08-05 19:00] VITALS: BP 12/88; PULSE 80
--- NOTE | 2016-08-05 20:18 | PN ---
DATE: 08/05/2016 SUBJECTIVE: No acute changes. The patient is getting peritoneal dialysis. She is awake ____ of left lower extremity pain. No fevers. ANTIMICROBIALS: Remains on Rocephin day #4. PHYSICAL EXAMINATION: GENERAL: This is an obese, well-developed, middle-aged woman who is in no distress. HEENT: Head atraumatic, normocephalic. Sclerae anicteric. Buccal mucosa dry. NECK: Supple. CHEST: Rise symmetrical. Breath sounds diminished to bases. HEART: S1, S2. ABDOMEN: Soft. Bowel tones present. EXTREMITIES: Left lower extremity edema. ASSESSMENT: 1. Escherichia coli urinary tract infection. 2. End-stage renal disease, on peritoneal dialysis. 3. Morbid obesity. 4. Lower extremity acute on chronic edema with pain==> ultrasound revealed no deep vein thrombosis. 5. Diabetes. 6. Hypertension. PLAN: The patient remains stable. Continue on current antimicrobials. Keep left lower extremity elevated. Pending repeat CT of the lower extremity. Dictated By: SHANDA SILVA [employer]IVER for ORTIZ THURMAN MD NI/NTS Conf#: [id number] DID#: [id number] CC: GEORGE PIERRE MD;*EndCC* MTDD
[2016-08-05] MEDS: ATORVASTATIN 80 MG TAB PO SCH (20:45)
[2016-08-05 20:48] VITALS: BP 133/65; RESP 18
[2016-08-05] MEDS: INSULIN GLARGINE [LANtus] 3 ML PEN SC SCH (20:50)
[2016-08-05] MEDS: LACTULOSE 30ML CUP PO PRN (23:58)
[2016-08-06] MEDS: ACCUCHECK AT 2AM (Patients on SS coverage) XX SCH (02:02)
[2016-08-06 04:30] VITALS: BP 136/89; PULSE 82
[2016-08-06] MEDS: LEVOTHYROXINE 88 MCG TAB PO SCH (05:57)
[2016-08-06] MEDS: PANTOPRAZOLE (EC) 40 MG TAB PO SCH (05:57)
[2016-08-06] MEDS: HYDROmorphONE 2 MG TAB PO SCH ×3 (05:57→18:00)
[2016-08-06 06:42] LABS: ADD SCAN DIFF NO
[2016-08-06 07:01] LABS: BASOPHILS % 0.5 % (0.0-2.0); EOSINOPHILS # 0.2 10^3/ul (0.0-0.5); EOSINOPHILS % 2.8 % (0.0-7.0); HEMATOCRIT 24.1 % (37.0-47.0); HEMOGLOBIN 7.9 g/dl (12.0-16.0); LYMPHOCYTES # 0.9 10^3/ul (0.8-2.9); LYMPHOCYTES % 10.7 % (15.0-51.0); MEAN CORPUSCULAR HEMOGLOBIN 30.2 pg (29.0-33.0); MEAN CORPUSCULAR HGB CONC 32.8 g/dl (32.0-37.0); MEAN PLATELET VOLUME 10.2 fl (7.4-10.4); MONOCYTE # 0.6 10^3/ul (0.3-0.9); MONOCYTES % 7.2 % (0.0-11.0); NEUTROPHIL # 6.3 10^3/ul (1.6-7.5); NEUTROPHILS % 78.4 % (39.0-77.0); PLATELET COUNT 264 10^3/UL (140-415); RED BLOOD COUNT 2.62 10^6/ul (4.20-5.40); RED CELL DISTRIBUTION WIDTH 13.2 % (11.5-14.5)
[2016-08-06] MEDS: HYDROmorphONE 2 MG/ML SYG IV PRN ×6 (07:24→19:49)
[2016-08-06 07:28] LABS: ALBUMIN 3.6 g/dl (3.3-4.9); CALCIUM 8.6 mg/dl (8.4-10.2); CREATININE 8.13 mg/dl (0.44-1.00); TOTAL PROTEIN 7.2 g/dl (6.1-8.1)
[2016-08-06 07:30] VITALS: BP_SYST 128; BP_SYST 132; BP_DIAS 68; BP_DIAS 87; PULSE 80; RESP 18
[2016-08-06 07:30] LABS: POTASSIUM 5.2 mmol/L (3.5-5.1)
[2016-08-06] MEDS: Insulin NOVOLOG SS MODERATE Algorithm (SS with meals and bedtime) SC SCH ×4 (08:21→20:39)
[2016-08-06] MEDS: GABAPENTIN 100 MG CAP PO SCH ×3 (09:00→20:29)
[2016-08-06] MEDS: DOCUSATE SODIUM 100 MG CAP PO SCH ×2 (09:00→20:29)
[2016-08-06] MEDS: ONDANSETRON 4 MG INJ IV PRN (09:04)
[2016-08-06] MEDS: FOLIC ACID 1 MG TAB PO SCH (10:18)
[2016-08-06] MEDS: LINAGLIPTIN 5 MG TABLET PO SCH (10:18)
[2016-08-06] MEDS: BROMOCRIPTINE 2.5 MG TAB PO SCH ×2 (10:18→20:29)
[2016-08-06] MEDS: FERROUS GLUCONATE (EC) 325 MG TAB PO SCH ×2 (10:19→20:30)
[2016-08-06] MEDS: AMLODIPINE 5 MG TAB PO SCH ×2 (10:19→20:30)
[2016-08-06] MEDS: CLOPIDOGREL 75 MG TAB PO SCH (10:19)
[2016-08-06] MEDS: ATENOLOL 50 MG TAB PO SCH (10:20)
[2016-08-06 10:30] VITALS: BP 129/79; PULSE 84
--- NOTE | 2016-08-06 11:59 | CONS ---
Date/Time of Note Date/Time of Note DATE: 08/06/16 TIME: 11:58 Consult Date/Type/Reason Admit Date/Time July 20, 2016 at 23:39 Type of Consultation: nephrology Subjective Comfortable Objective Vital Signs Date Time Temp Pulse Resp B/P Pulse Ox O2 Delivery O2 Flow Rate FiO2 08/05/16 20:48 97.6 69 18 133/65 93 08/04/16 18:00 Room Air Intake and Output 08/05/16 08/05/16 08/06/16 15:00 23:00 07:00 Intake Total 740 ml 290 ml 110 ml Output Total 1000 ml Balance 740 ml -710 ml 110 ml INTERDISCIPLINARY TEAM CONFERENCE BOWEL- Cont BLADDER-Cont SKIN- erythematous LE OT- DRESSING-mod BATHING-mod TOILETING-mod PT- BED MOBILITY-mod TRANSFERS-mod W.C. MOBILITY-mod A/P- Interdisciplinary team conference held today. Please see interdisciplinary sheet. Working toward d.cMichelle on 08/15 with post discharge follow up of physical therapy, occupational therapy. Results/Medications Result Diagram: 08/06/16 0600 08/06/16 0600 Results 24 hrs Laboratory Tests Test 08/05/16 17:30 08/05/16 20:33 08/06/16 01:43 08/06/16 06:00 Bedside Glucose 154 199 150 White Blood Count 8.0 Red Blood Count 2.62 L Hemoglobin 7.9 L Hematocrit 24.1 L Mean Corpuscular Volume 92.0 Mean Corpuscular Hemoglobin 30.2 Mean Corpuscular Hemoglobin Concent 32.8 Red Cell Distribution Width 13.2 Platelet Count 264 Mean Platelet Volume 10.2 Neutrophils % 78.4 H Lymphocytes % 10.7 L Monocytes % 7.2 Eosinophils % 2.8 Basophils % 0.5 Nucleated Red Blood Cells % 0.0 Neutrophils # 6.3 Lymphocytes # 0.9 Monocytes # 0.6 Eosinophils # 0.2 Basophils # 0.0 Nucleated Red Blood Cells # 0.0 Sodium Level 130 L Potassium Level 5.2 H Chloride Level 92 L Carbon Dioxide Level 25 Anion Gap 18 H Blood Urea Nitrogen 90 H Creatinine 8.13 H Glucose Level 104 Calcium Level 8.6 Total Bilirubin 0.0 L Direct Bilirubin 0.00 Indirect Bilirubin 0.0 Aspartate Amino Transf (AST/SGOT) 41 Alanine Aminotransferase (ALT/SGPT) 64 Alkaline Phosphatase 107 Total Protein 7.2 Albumin 3.6 Globulin 3.60 H Albumin/Globulin Ratio 1.00 Test 08/06/16 07:52 Bedside Glucose 158 Medications Current Medications Pantoprazole (Protonix Tab) 40 mg DAILY@06 PO Last administered on 08/06/16 05 :57; Admin Dose 40 MG; Start 07/21/16 at 06:00 Linagliptin (Tradjenta) 5 mg DAILY PO Last administered on 08/06/16 10:18; Admin Dose 5 MG; Start 07/21/16 at 09:00 Miscellaneous Information 1 ea NOTE XX ; Start 07/21/16 at 04:30 Glucose (Glutose) 15 gm Q15M PRN PO DECREASED GLUCOSE; Start 07/21/16 at 04:30 Glucose (Glutose) 22.5 gm Q15M PRN PO DECREASED GLUCOSE; Start 07/21/16 at 04: 30 Dextrose (D50w Syringe) 25 ml Q15M PRN IV DECREASED GLUCOSE; Start 07/21/16 at 04:30 Dextrose (D50w Syringe) 50 ml Q15M PRN IV DECREASED GLUCOSE; Start 07/21/16 at 04:30 Glucagon (Glucagen) 1 mg Q15M PRN IM DECREASED GLUCOSE; Start 07/21/16 at 04:30 Glucose (Glutose) 15 gm Q15M PRN BUCCAL DECREASED GLUCOSE; Start 07/21/16 at 04 :30 Hydralazine HCl (Apresoline) 10 mg Q6H PRN IV PRN FOR SBP ABOVE 165mmHg; Start 07/21/16 at 04:30 Clopidogrel Bisulfate (plaVIX) 75 mg DAILY PO Last administered on 08/06/16 10 :19; Admin Dose 75 MG; Start 07/21/16 at 09:00 Ferrous Gluconate (Fergon) 325 mg BID PO Last administered on 08/06/16 10:19; Admin Dose 325 MG; Start 07/21/16 at 09:00 Folic Acid (Folic Acid) 1 mg DAILY PO Last administered on 08/06/16 10:18; Admin Dose 1 MG; Start 07/21/16 at 09:00 Diagnostic Test (Pha) (Accu-Chek) 1 ea 02 XX Last administered on 08/06/16 02: 02; Admin Dose 1 EA; Start 07/22/16 at 02:00 Acetaminophen (Tylenol Tab) 650 mg Q6H PRN PO PAIN AND OR ELEVATED TEMP; Start 07/21/16 at 04:30 Amlodipine Besylate (Norvasc) 5 mg BID PO Last administered on 08/06/16 10:19 ; Admin Dose 5 MG; Start 07/21/16 at 09:00 Atenolol (Tenormin) 50 mg DAILY PO Last administered on 08/06/16 10:20; Admin Dose 50 MG; Start 07/21/16 at 09:00 Atorvastatin Calcium (Lipitor) 80 mg DAILY@21 PO Last administered on 20:45; Admin Dose 80 MG; Start 07/21/16 at 21:00 Bromocriptine Mesylate (Parlodel) 2.5 mg BID PO Last administered on 08/06/16 10:18; Admin Dose 2.5 MG; Start 07/21/16 at 09:00 Docusate Sodium (Colace) 100 mg BID PO Last administered on 08/05/16 20:45; Admin Dose 100 MG; Start 07/21/16 at 09:00 Bisacodyl (Dulcolax Supp) 10 mg DAILY PRN [place] CONSTIPATION Last administered on 08/03/16 17:53; Admin Dose 10 MG; Start 07/21/16 at 05:00 Lactulose (Enulose) 20 gm DAILY PRN PO CONSTIPATION; Start 07/21/16 at 05:00 Gabapentin (Neurontin) 200 mg TID PO Last administered on 08/06/16 09:00; Admin Dose 200 MG; Start 07/24/16 at 13:00 Insulin Glargine 15 unit 15 unit DAILY@20 SC Last administered on 08/05/16 20: 50; Admin Dose 15 UNIT; Start 07/27/16 at 20:00 Sodium Chloride (NS) 1,000 ml @ 10 mls/hr Q24H IV Last administered on 17:35; Admin Dose 10 MLS/HR; Start 08/02/16 at 18:00 Ondansetron HCl (Zofran Inj) 4 mg Q6H PRN IV NAUSEA AND/OR VOMITING Last administered on 08/06/16 09:04; Admin Dose 4 MG; Start 08/03/16 at 11:00 Hydromorphone HCl (Dilaudid) 2 mg Q3H PRN IV PAIN Last administered on 10:17; Admin Dose 2 MG; Start 08/03/16 at 13:30 Hydromorphone HCl 4 mg 4 mg Q6 PO Last administered on 08/06/16 05:57; Admin Dose 4 MG; Start 08/03/16 at 18:00 Ceftriaxone Sodium (Rocephin) 50 ml @ 100 mls/hr Q24H IVPB Last administered on 08/05/16 17:35; Admin Dose 100 MLS/HR; Start 08/03/16 at 17:00 Epoetin Chiki (Epogen (Esrd)) 10,000 units WeSa@21 SC Last administered on 21:24; Admin Dose 10,000 UNITS; Start 08/04/16 at 21:00 GEORGE PIERRE MD Aug 06, 2016 11:59
[2016-08-06 13:30] VITALS: BP 119/76; PULSE 82
[2016-08-06 16:59] VITALS: BP 123/70; PULSE 80
--- NOTE | 2016-08-06 17:03 | PN ---
Date/Time of Note Date/Time of Note DATE: 08/06/16 TIME: 17:02 Assessment/Plan VTE Prophylaxis VTE Prophylaxis Intervention: other Lines/Catheters IV Catheter Type (from Nrs): Peripheral IV Urinary Cath still in place: No Assessment/Plan Chief Complaint/Hosp Course ESRD CELLULITES legs worse PROLACTINOMA PIT MASS DM UREMIA HYPONATREMIA PLAN PD BROMOCRYPTINE pt ot inc pd time ck labs ct lower ex elevate legs ID AND VASCULAR F/U Problems: Subjective 24 Hr Interval Summary Respiratory: no complaints Cardiovascular: no complaints Musculoskeletal: restricted range of motion (LEGS) Exam/Review of Systems Vital Signs Vitals Vital Signs Date Time Temp Pulse Resp B/P Pulse Ox O2 Delivery O2 Flow Rate FiO2 08/06/16 16:59 80 08/06/16 07:30 98.1 18 128/68 96 08/04/16 18:00 Room Air Intake and Output 08/05/16 08/05/16 08/06/16 15:00 23:00 07:00 Intake Total 740 ml 290 ml 110 ml Output Total 1000 ml Balance 740 ml -710 ml 110 ml Exam Respiratory: clear to auscultation Cardiovascular: regular rate and rhythm Gastrointestinal: bowel sounds (+), soft Extremities: pitting pedal edema (LEFT LEG) Results Result Diagram: 08/06/16 0600 08/06/16 0600 Results 24 hrs Laboratory Tests Test 08/05/16 17:30 08/05/16 20:33 08/06/16 01:43 08/06/16 06:00 Bedside Glucose 154 199 150 White Blood Count 8.0 Red Blood Count 2.62 L Hemoglobin 7.9 L Hematocrit 24.1 L Mean Corpuscular Volume 92.0 Mean Corpuscular Hemoglobin 30.2 Mean Corpuscular Hemoglobin Concent 32.8 Red Cell Distribution Width 13.2 Platelet Count 264 Mean Platelet Volume 10.2 Neutrophils % 78.4 H Lymphocytes % 10.7 L Monocytes % 7.2 Eosinophils % 2.8 Basophils % 0.5 Nucleated Red Blood Cells % 0.0 Neutrophils # 6.3 Lymphocytes # 0.9 Monocytes # 0.6 Eosinophils # 0.2 Basophils # 0.0 Nucleated Red Blood Cells # 0.0 Sodium Level 130 L Potassium Level 5.2 H Chloride Level 92 L Carbon Dioxide Level 25 Anion Gap 18 H Blood Urea Nitrogen 90 H Creatinine 8.13 H Glucose Level 104 Calcium Level 8.6 Total Bilirubin 0.0 L Direct Bilirubin 0.00 Indirect Bilirubin 0.0 Aspartate Amino Transf (AST/SGOT) 41 Alanine Aminotransferase (ALT/SGPT) 64 Alkaline Phosphatase 107 Total Protein 7.2 Albumin 3.6 Globulin 3.60 H Albumin/Globulin Ratio 1.00 Test 08/06/16 07:52 08/06/16 11:58 08/06/16 13:32 Bedside Glucose 158 165 152 Medications Medications Current Medications Pantoprazole (Protonix Tab) 40 mg DAILY@06 PO Last administered on 08/06/16 05 :57; Admin Dose 40 MG; Start 07/21/16 at 06:00 Linagliptin (Tradjenta) 5 mg DAILY PO Last administered on 08/06/16 10:18; Admin Dose 5 MG; Start 07/21/16 at 09:00 Miscellaneous Information 1 ea NOTE XX ; Start 07/21/16 at 04:30 Glucose (Glutose) 15 gm Q15M PRN PO DECREASED GLUCOSE; Start 07/21/16 at 04:30 Glucose (Glutose) 22.5 gm Q15M PRN PO DECREASED GLUCOSE; Start 07/21/16 at 04: 30 Dextrose (D50w Syringe) 25 ml Q15M PRN IV DECREASED GLUCOSE; Start 07/21/16 at 04:30 Dextrose (D50w Syringe) 50 ml Q15M PRN IV DECREASED GLUCOSE; Start 07/21/16 at 04:30 Glucagon (Glucagen) 1 mg Q15M PRN IM DECREASED GLUCOSE; Start 07/21/16 at 04:30 Glucose (Glutose) 15 gm Q15M PRN BUCCAL DECREASED GLUCOSE; Start 07/21/16 at 04 :30 Hydralazine HCl (Apresoline) 10 mg Q6H PRN IV PRN FOR SBP ABOVE 165mmHg; Start 07/21/16 at 04:30 Clopidogrel Bisulfate (plaVIX) 75 mg DAILY PO Last administered on 08/06/16 10 :19; Admin Dose 75 MG; Start 07/21/16 at 09:00 Ferrous Gluconate (Fergon) 325 mg BID PO Last administered on 08/06/16 10:19; Admin Dose 325 MG; Start 07/21/16 at 09:00 Folic Acid (Folic Acid) 1 mg DAILY PO Last administered on 08/06/16 10:18; Admin Dose 1 MG; Start 07/21/16 at 09:00 Diagnostic Test (Pha) (Accu-Chek) 1 ea 02 XX Last administered on 08/06/16 02: 02; Admin Dose 1 EA; Start 07/22/16 at 02:00 Acetaminophen (Tylenol Tab) 650 mg Q6H PRN PO PAIN AND OR ELEVATED TEMP; Start 07/21/16 at 04:30 Amlodipine Besylate (Norvasc) 5 mg BID PO Last administered on 08/06/16 10:19 ; Admin Dose 5 MG; Start 07/21/16 at 09:00 Atenolol (Tenormin) 50 mg DAILY PO Last administered on 08/06/16 10:20; Admin Dose 50 MG; Start 07/21/16 at 09:00 Atorvastatin Calcium (Lipitor) 80 mg DAILY@21 PO Last administered on 20:45; Admin Dose 80 MG; Start 07/21/16 at 21:00 Bromocriptine Mesylate (Parlodel) 2.5 mg BID PO Last administered on 08/06/16 10:18; Admin Dose 2.5 MG; Start 07/21/16 at 09:00 Docusate Sodium (Colace) 100 mg BID PO Last administered on 08/05/16 20:45; Admin Dose 100 MG; Start 07/21/16 at 09:00 Bisacodyl (Dulcolax Supp) 10 mg DAILY PRN [place] CONSTIPATION Last administered on 08/03/16 17:53; Admin Dose 10 MG; Start 07/21/16 at 05:00 Lactulose (Enulose) 20 gm DAILY PRN PO CONSTIPATION; Start 07/21/16 at 05:00 Gabapentin (Neurontin) 200 mg TID PO Last administered on 08/06/16 12:53; Admin Dose 200 MG; Start 07/24/16 at 13:00 Insulin Glargine 15 unit 15 unit DAILY@20 SC Last administered on 08/05/16 20: 50; Admin Dose 15 UNIT; Start 07/27/16 at 20:00 Sodium Chloride (NS) 1,000 ml @ 10 mls/hr Q24H IV Last administered on 17:35; Admin Dose 10 MLS/HR; Start 08/02/16 at 18:00 Ondansetron HCl (Zofran Inj) 4 mg Q6H PRN IV NAUSEA AND/OR VOMITING Last administered on 08/06/16 09:04; Admin Dose 4 MG; Start 08/03/16 at 11:00 Hydromorphone HCl (Dilaudid) 2 mg Q3H PRN IV PAIN Last administered on 15:41; Admin Dose 2 MG; Start 08/03/16 at 13:30 Hydromorphone HCl 4 mg 4 mg Q6 PO Last administered on 08/06/16 05:57; Admin Dose 4 MG; Start 08/03/16 at 18:00 Ceftriaxone Sodium (Rocephin) 50 ml @ 100 mls/hr Q24H IVPB Last administered on 08/05/16 17:35; Admin Dose 100 MLS/HR; Start 08/03/16 at 17:00 Epoetin Chiki (Epogen (Esrd)) 10,000 units WeSa@21 SC Last administered on 21:24; Admin Dose 10,000 UNITS; Start 08/04/16 at 21:00 CHRISTINA SHIRLEY MD Aug 06, 2016 17:03
[2016-08-06] MEDS: SOD CHLORIDE 0.9% 1,000 ML IV SCH (18:00)
[2016-08-06] MEDS: CEFTRIAXONE 1 GM/50 ML (PMX) 50 ML IVPB SCH ×2 (18:10→18:12)
[2016-08-06] MEDS: PHENOL 1.4% SOLN 180 ML BTL MT SCH ×2 (19:00→20:44)
[2016-08-06 20:03] VITALS: BP 115/60; RESP 18
[2016-08-06] MEDS: ATORVASTATIN 80 MG TAB PO SCH (20:29)
[2016-08-06] MEDS: INSULIN GLARGINE [LANtus] 3 ML PEN SC SCH (20:39)
--- NOTE | 2016-08-06 20:56 | CONS ---
DATE OF ADMISSION: 07/20/2016 DATE OF CONSULTATION: TYPE OF CONSULTATION: CARDIOTHORACIC. REASON FOR CONSULTATION: Evaluation of the left leg thrombophlebitis. Thank you, Dr. Lopes, for asking me to see this patient. HISTORY OF PRESENT ILLNESS: This is a 60-year-old female with end-stage renal disease currently on dialysis. The patient was admitted, was found to have a left leg cellulitis. Part of her workup wilkins s included an ultrasound imaging which has included venous duplex which was negative for any evidenc e of DVT in the left lower extremity; however, the patient did have a CAT scan of the lower extremit y which showed dilated venous structures, with possible thrombophlebitis, also atherosclerotic calci fications involving the arterial system of lower extremities without any evidence of occlusion. PAST MEDICAL HISTORY: Significant for hypertension, hyperlipidemia, hypothyroidism and diabetes, re tinopathy, nephropathy, and obesity. PAST SURGICAL HISTORY: Dialysis access. ALLERGIES: NONE. MEDICATIONS: 1. Lipitor. 2. Ceftriaxone. 3. Plavix. 4. Iron. 5. Folic acid. 6. Norvasc. 7. Atenolol. 8. Colace. 9. Insulin sliding scale. 10. Dulcolax. 11. Hydralazine. 12. [place]. 13. Tylenol. PHYSICAL EXAMINATION: GENERAL: The patient is awake and alert, responds appropriately. VITAL SIGNS: Blood pressure is 128/68, pulse is 63, respirations 18. HEENT: Normocephalic, atraumatic. PERRLA. NECK: Supple. No JVD, no carotid bruits. CARDIOVASCULAR: Regular rate and rhythm. ABDOMEN: Obese, nontender, nondistended. EXTREMITIES: Warm all the way down to the feet. There are palpable femoral and pedal pulses. No s igns of ischemia. Left leg is tender to touch with 10 x 20 cm area of what appears to be cellulitis and thrombophlebitis medially and laterally. LABORATORY VALUES: White count is 8 with a left shift, hemoglobin 7.9 and a potassium of 5.2. IMPRESSION: Thrombophlebitis, left lower extremity. RECOMMENDATIONS: Would continue antiplatelets and antibiotics. Elevate the leg. No evidence of an y DVT noted. Will discuss with Dr. Lopes. Dictated By: PILO IGLESIAS/FLOYD Conf#: [id number] [facility]#: [id number]
--- NOTE | 2016-08-06 23:31 | CONS ---
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 Status: Chronic (2) Diabetes mellitus type 2 in obese Status: Chronic (3) Morbid obesity Status: Chronic (4) Essential hypertension Status: Chronic (5) Hypothyroidism Status: Chronic (6) Pituitary macroadenoma with extrasellar extension Status: Chronic (7) Diabetic retinopathy associated with diabetes mellitus due to underlying condition Status: Chronic (8) Varicose veins of both lower extremities Status: Chronic (9) Menopausal state Onset Date: ~ 06/2008 Status: Chronic (10) Diastolic dysfunction, left ventricle Status: Chronic (11) Hyperparathyroidism, secondary renal Status: Chronic (12) Diverticulosis of colon Status: Chronic Additional Assessment/Plan Patient is under care of Dr. Souza as for her left lower extremity phlebitis. Awaiting vascular plan. Thank you again for involving me in the care of this patient. If you have any questions regarding this case, please feel free to contact me at pager: [phone] or reach me at mobile: [phone]. Consultation Date/Type/Reason Admit Date/Time July 20, 2016 at 23:39 Constitutional: improved, no complaints Eyes: no complaints ENT: no complaints Respiratory: no complaints Cardiovascular: no complaints Gastrointestinal: no complaints Genitourinary: no complaints Musculoskeletal: restricted range of motion (LEGS) Skin: no complaints Psychological: no complaints Social History Smoking Status: Never smoker Exam/Review of Systems Vital Signs Vitals Vital Signs Date Time Temp Pulse Resp B/P Pulse Ox O2 Delivery O2 Flow Rate FiO2 08/06/16 20:03 97.4 56 18 115/60 97 08/04/16 18:00 Room Air Intake and Output 08/05/16 08/05/16 08/06/16 15:00 23:00 07:00 Intake Total 740 ml 290 ml 110 ml Output Total 1000 ml Balance 740 ml -710 ml 110 ml Results Result Diagram: 08/06/16 0600 08/06/16 0600 Results 24 hrs Laboratory Tests Test 08/06/16 01:43 08/06/16 06:00 08/06/16 07:52 08/06/16 11:58 Bedside Glucose 150 158 165 White Blood Count 8.0 Red Blood Count 2.62 L Hemoglobin 7.9 L Hematocrit 24.1 L Mean Corpuscular Volume 92.0 Mean Corpuscular Hemoglobin 30.2 Mean Corpuscular Hemoglobin Concent 32.8 Red Cell Distribution Width 13.2 Platelet Count 264 Mean Platelet Volume 10.2 Neutrophils % 78.4 H Lymphocytes % 10.7 L Monocytes % 7.2 Eosinophils % 2.8 Basophils % 0.5 Nucleated Red Blood Cells % 0.0 Neutrophils # 6.3 Lymphocytes # 0.9 Monocytes # 0.6 Eosinophils # 0.2 Basophils # 0.0 Nucleated Red Blood Cells # 0.0 Sodium Level 130 L Potassium Level 5.2 H Chloride Level 92 L Carbon Dioxide Level 25 Anion Gap 18 H Blood Urea Nitrogen 90 H Creatinine 8.13 H Glucose Level 104 Calcium Level 8.6 Total Bilirubin 0.0 L Direct Bilirubin 0.00 Indirect Bilirubin 0.0 Aspartate Amino Transf (AST/SGOT) 41 Alanine Aminotransferase (ALT/SGPT) 64 Alkaline Phosphatase 107 Total Protein 7.2 Albumin 3.6 Globulin 3.60 H Albumin/Globulin Ratio 1.00 Test 08/06/16 13:32 08/06/16 17:25 08/06/16 20:23 Bedside Glucose 152 211 187 Medications Medications Current Medications Pantoprazole (Protonix Tab) 40 mg DAILY@06 PO Last administered on 08/06/16 05 :57; Admin Dose 40 MG; Start 07/21/16 at 06:00 Linagliptin (Tradjenta) 5 mg DAILY PO Last administered on 08/06/16 10:18; Admin Dose 5 MG; Start 07/21/16 at 09:00 Miscellaneous Information 1 ea NOTE XX ; Start 07/21/16 at 04:30 Glucose (Glutose) 15 gm Q15M PRN PO DECREASED GLUCOSE; Start 07/21/16 at 04:30 Glucose (Glutose) 22.5 gm Q15M PRN PO DECREASED GLUCOSE; Start 07/21/16 at 04: 30 Dextrose (D50w Syringe) 25 ml Q15M PRN IV DECREASED GLUCOSE; Start 07/21/16 at 04:30 Dextrose (D50w Syringe) 50 ml Q15M PRN IV DECREASED GLUCOSE; Start 07/21/16 at 04:30 Glucagon (Glucagen) 1 mg Q15M PRN IM DECREASED GLUCOSE; Start 07/21/16 at 04:30 Glucose (Glutose) 15 gm Q15M PRN BUCCAL DECREASED GLUCOSE; Start 07/21/16 at 04 :30 Hydralazine HCl (Apresoline) 10 mg Q6H PRN IV PRN FOR SBP ABOVE 165mmHg; Start 07/21/16 at 04:30 Clopidogrel Bisulfate (plaVIX) 75 mg DAILY PO Last administered on 08/06/16 10 :19; Admin Dose 75 MG; Start 07/21/16 at 09:00 Ferrous Gluconate (Fergon) 325 mg BID PO Last administered on 08/06/16 20:30; Admin Dose 325 MG; Start 07/21/16 at 09:00 Folic Acid (Folic Acid) 1 mg DAILY PO Last administered on 08/06/16 10:18; Admin Dose 1 MG; Start 07/21/16 at 09:00 Diagnostic Test (Pha) (Accu-Chek) 1 ea 02 XX Last administered on 08/06/16 02: 02; Admin Dose 1 EA; Start 07/22/16 at 02:00 Acetaminophen (Tylenol Tab) 650 mg Q6H PRN PO PAIN AND OR ELEVATED TEMP; Start 07/21/16 at 04:30 Amlodipine Besylate (Norvasc) 5 mg BID PO Last administered on 08/06/16 20:30 ; Admin Dose 5 MG; Start 07/21/16 at 09:00 Atenolol (Tenormin) 50 mg DAILY PO Last administered on 08/06/16 10:20; Admin Dose 50 MG; Start 07/21/16 at 09:00 Atorvastatin Calcium (Lipitor) 80 mg DAILY@21 PO Last administered on 20:29; Admin Dose 80 MG; Start 07/21/16 at 21:00 Bromocriptine Mesylate (Parlodel) 2.5 mg BID PO Last administered on 08/06/16 20:29; Admin Dose 2.5 MG; Start 07/21/16 at 09:00 Docusate Sodium (Colace) 100 mg BID PO Last administered on 08/06/16 20:29; Admin Dose 100 MG; Start 07/21/16 at 09:00 Bisacodyl (Dulcolax Supp) 10 mg DAILY PRN [place] CONSTIPATION Last administered on 08/03/16 17:53; Admin Dose 10 MG; Start 07/21/16 at 05:00 Lactulose (Enulose) 20 gm DAILY PRN PO CONSTIPATION; Start 07/21/16 at 05:00 Gabapentin (Neurontin) 200 mg TID PO Last administered on 08/06/16 20:29; Admin Dose 200 MG; Start 07/24/16 at 13:00 Insulin Glargine 15 unit 15 unit DAILY@20 SC Last administered on 08/06/16 20: 39; Admin Dose 15 UNIT; Start 07/27/16 at 20:00 Sodium Chloride (NS) 1,000 ml @ 10 mls/hr Q24H IV Last administered on 17:35; Admin Dose 10 MLS/HR; Start 08/02/16 at 18:00 Ondansetron HCl (Zofran Inj) 4 mg Q6H PRN IV NAUSEA AND/OR VOMITING Last administered on 08/06/16 09:04; Admin Dose 4 MG; Start 08/03/16 at 11:00 Hydromorphone HCl (Dilaudid) 2 mg Q3H PRN IV PAIN Last administered on 19:49; Admin Dose 2 MG; Start 08/03/16 at 13:30 Hydromorphone HCl 4 mg 4 mg Q6 PO Last administered on 08/06/16 05:57; Admin Dose 4 MG; Start 08/03/16 at 18:00 Ceftriaxone Sodium (Rocephin) 50 ml @ 100 mls/hr Q24H IVPB Last administered on 08/06/16 18:12; Admin Dose 100 MLS/HR; Start 08/03/16 at 17:00 Epoetin Chiki (Epogen (Esrd)) 10,000 units WeSa@21 SC Last administered on 21:24; Admin Dose 10,000 UNITS; Start 08/04/16 at 21:00 Phenol (Chloraseptic Throat [place]) 2 spray Q12 MT Last administered on 20:44; Admin Dose 2 SPRAY; Start 08/06/16 at 19:00 MICHAEL SOW DPM Aug 06, 2016 23:31
[2016-08-07] MEDS: ACCUCHECK AT 2AM (Patients on SS coverage) XX SCH (02:00)
[2016-08-07 04:45] VITALS: BP 129/76; PULSE 82
[2016-08-07] MEDS: PANTOPRAZOLE (EC) 40 MG TAB PO SCH (05:51)
[2016-08-07] MEDS: HYDROmorphONE 2 MG TAB PO SCH ×4 (05:51→17:37)
[2016-08-07] MEDS: LEVOTHYROXINE 88 MCG TAB PO SCH (05:53)
[2016-08-07] MEDS: HYDROmorphONE 2 MG/ML SYG IV PRN ×5 (07:33→18:59)
[2016-08-07] MEDS: Insulin NOVOLOG SS MODERATE Algorithm (SS with meals and bedtime) SC SCH ×4 (07:35→20:46)
[2016-08-07] MEDS: PHENOL 1.4% SOLN 180 ML BTL MT SCH ×2 (07:38→20:37)
[2016-08-07 07:45] VITALS: BP 126/75; PULSE 80
[2016-08-07] MEDS: CLOPIDOGREL 75 MG TAB PO SCH (08:48)
[2016-08-07] MEDS: GABAPENTIN 100 MG CAP PO SCH ×3 (08:48→20:38)
[2016-08-07] MEDS: LINAGLIPTIN 5 MG TABLET PO SCH (08:48)
[2016-08-07] MEDS: FERROUS GLUCONATE (EC) 325 MG TAB PO SCH ×2 (08:48→20:45)
[2016-08-07] MEDS: FOLIC ACID 1 MG TAB PO SCH (08:48)
[2016-08-07] MEDS: BROMOCRIPTINE 2.5 MG TAB PO SCH ×2 (08:48→20:38)
[2016-08-07] MEDS: ATENOLOL 50 MG TAB PO SCH (08:54)
[2016-08-07] MEDS: AMLODIPINE 5 MG TAB PO SCH ×2 (08:55→20:40)
[2016-08-07] MEDS: DOCUSATE SODIUM 100 MG CAP PO SCH ×2 (09:45→20:38)
[2016-08-07 10:45] VITALS: BP 119/79; PULSE 82
[2016-08-07] MEDS ORDERED: VANCOMYCIN IV PER PHARMACY XX SCH (11:00)
[2016-08-07 11:12] LABS: CALCIUM 8.9 mg/dl (8.4-10.2); CREATININE 8.15 mg/dl (0.44-1.00); POTASSIUM 4.8 mmol/L (3.5-5.1)
[2016-08-07] MEDS ORDERED: VANCOMYCIN 1 GM in NS 250 ML IVPB SCH (12:00)
--- NOTE | 2016-08-07 12:07 | CONS ---
Date/Time of Note Date/Time of Note DATE: 08/07/16 TIME: 12:07 Consult Date/Type/Reason Admit Date/Time July 20, 2016 at 23:39 Type of Consultation: nephrology Subjective no new complaints Objective mod assist Vital Signs Date Time Temp Pulse Resp B/P Pulse Ox O2 Delivery O2 Flow Rate FiO2 08/07/16 10:45 82 08/06/16 20:03 97.4 18 115/60 97 08/04/16 18:00 Room Air Intake and Output 08/06/16 08/06/16 08/07/16 15:00 23:00 07:00 Intake Total 520 ml 800 ml Output Total 1200 ml Balance -680 ml 800 ml Results/Medications Result Diagram: 08/06/16 0600 08/07/16 0949 Results 24 hrs Laboratory Tests Test 08/06/16 13:32 08/06/16 17:25 08/06/16 20:23 08/07/16 02:27 Bedside Glucose 152 211 187 90 Test 08/07/16 08:02 08/07/16 09:49 Bedside Glucose 96 Sodium Level 131 L Potassium Level 4.8 Chloride Level 93 L Carbon Dioxide Level 25 Anion Gap 18 H Blood Urea Nitrogen 86 H Creatinine 8.15 H Glucose Level 94 Calcium Level 8.9 Medications Current Medications Pantoprazole (Protonix Tab) 40 mg DAILY@06 PO Last administered on 08/07/16 05 :51; Admin Dose 40 MG; Start 07/21/16 at 06:00 Linagliptin (Tradjenta) 5 mg DAILY PO Last administered on 08/07/16 08:48; Admin Dose 5 MG; Start 07/21/16 at 09:00 Miscellaneous Information 1 ea NOTE XX ; Start 07/21/16 at 04:30 Glucose (Glutose) 15 gm Q15M PRN PO DECREASED GLUCOSE; Start 07/21/16 at 04:30 Glucose (Glutose) 22.5 gm Q15M PRN PO DECREASED GLUCOSE; Start 07/21/16 at 04: 30 Dextrose (D50w Syringe) 25 ml Q15M PRN IV DECREASED GLUCOSE; Start 07/21/16 at 04:30 Dextrose (D50w Syringe) 50 ml Q15M PRN IV DECREASED GLUCOSE; Start 07/21/16 at 04:30 Glucagon (Glucagen) 1 mg Q15M PRN IM DECREASED GLUCOSE; Start 07/21/16 at 04:30 Glucose (Glutose) 15 gm Q15M PRN BUCCAL DECREASED GLUCOSE; Start 07/21/16 at 04 :30 Hydralazine HCl (Apresoline) 10 mg Q6H PRN IV PRN FOR SBP ABOVE 165mmHg; Start 07/21/16 at 04:30 Clopidogrel Bisulfate (plaVIX) 75 mg DAILY PO Last administered on 08/07/16 08 :48; Admin Dose 75 MG; Start 07/21/16 at 09:00 Ferrous Gluconate (Fergon) 325 mg BID PO Last administered on 08/07/16 08:48; Admin Dose 325 MG; Start 07/21/16 at 09:00 Folic Acid (Folic Acid) 1 mg DAILY PO Last administered on 08/07/16 08:48; Admin Dose 1 MG; Start 07/21/16 at 09:00 Diagnostic Test (Pha) (Accu-Chek) 1 ea 02 XX Last administered on 08/07/16 02: 00; Admin Dose 1 EA; Start 07/22/16 at 02:00 Acetaminophen (Tylenol Tab) 650 mg Q6H PRN PO PAIN AND OR ELEVATED TEMP; Start 07/21/16 at 04:30 Amlodipine Besylate (Norvasc) 5 mg BID PO Last administered on 08/07/16 08:55 ; Admin Dose 5 MG; Start 07/21/16 at 09:00 Atenolol (Tenormin) 50 mg DAILY PO Last administered on 08/07/16 08:54; Admin Dose 50 MG; Start 07/21/16 at 09:00 Atorvastatin Calcium (Lipitor) 80 mg DAILY@21 PO Last administered on 20:29; Admin Dose 80 MG; Start 07/21/16 at 21:00 Bromocriptine Mesylate (Parlodel) 2.5 mg BID PO Last administered on 08/07/16 08:48; Admin Dose 2.5 MG; Start 07/21/16 at 09:00 Docusate Sodium (Colace) 100 mg BID PO Last administered on 08/07/16 09:45; Admin Dose 100 MG; Start 07/21/16 at 09:00 Bisacodyl (Dulcolax Supp) 10 mg DAILY PRN [place] CONSTIPATION Last administered on 08/03/16 17:53; Admin Dose 10 MG; Start 07/21/16 at 05:00 Lactulose (Enulose) 20 gm DAILY PRN PO CONSTIPATION; Start 07/21/16 at 05:00 Gabapentin (Neurontin) 200 mg TID PO Last administered on 08/07/16 08:48; Admin Dose 200 MG; Start 07/24/16 at 13:00 Insulin Glargine 15 unit 15 unit DAILY@20 SC Last administered on 08/06/16 20: 39; Admin Dose 15 UNIT; Start 07/27/16 at 20:00 Sodium Chloride (NS) 1,000 ml @ 10 mls/hr Q24H IV Last administered on 17:35; Admin Dose 10 MLS/HR; Start 08/02/16 at 18:00 Ondansetron HCl (Zofran Inj) 4 mg Q6H PRN IV NAUSEA AND/OR VOMITING Last administered on 08/06/16 09:04; Admin Dose 4 MG; Start 08/03/16 at 11:00 Hydromorphone HCl (Dilaudid) 2 mg Q3H PRN IV PAIN Last administered on 10:46; Admin Dose 2 MG; Start 08/03/16 at 13:30 Hydromorphone HCl 4 mg 4 mg Q6 PO Last administered on 08/07/16 05:51; Admin Dose 4 MG; Start 08/03/16 at 18:00 Ceftriaxone Sodium (Rocephin) 50 ml @ 100 mls/hr Q24H IVPB Last administered on 08/06/16 18:12; Admin Dose 100 MLS/HR; Start 08/03/16 at 17:00 Epoetin Chiki (Epogen (Esrd)) 10,000 units WeSa@21 SC Last administered on 21:24; Admin Dose 10,000 UNITS; Start 08/04/16 at 21:00 Phenol 2 spray 2 spray Q12 MT Last administered on 08/07/16 07:38; Admin Dose 2 SPRAY; Start 08/06/16 at 19:00 Vancomycin HCl (Vancocin) 250 ml @ 125 mls/hr ONCE IVPB ; Start 08/07/16 at 12: 00; Stop 08/07/16 at 13:59 Assessment/Plan Additional Assessment/Plan Rehab- [facility] infact CVA with L deniz ;pituitary macroadenoma Continue rehab activities ESRD on PD HTN DM Anemia hypothy dyslipid GEORGE PIERRE MD Aug 07, 2016 12:07
--- NOTE | 2016-08-07 14:14 | CONS ---
Date/Time of Note Date/Time of Note DATE: 08/07/16 TIME: 14:12 Consult Date/Type/Reason Admit Date/Time July 20, 2016 at 23:39 Initial Consult Date Type of Consultation: ID Objective Vital Signs Date Time Temp Pulse Resp B/P Pulse Ox O2 Delivery O2 Flow Rate FiO2 08/07/16 10:45 82 08/06/16 20:03 97.4 18 115/60 97 08/04/16 18:00 Room Air Intake and Output 08/06/16 08/06/16 08/07/16 15:00 23:00 07:00 Intake Total 520 ml 800 ml Output Total 1200 ml Balance -680 ml 800 ml Results/Medications Result Diagram: 08/06/16 0600 08/07/16 0949 Results 24 hrs Laboratory Tests Test 08/06/16 17:25 08/06/16 20:23 08/07/16 02:27 08/07/16 08:02 Bedside Glucose 211 187 90 96 Test 08/07/16 09:49 08/07/16 12:26 Sodium Level 131 L Potassium Level 4.8 Chloride Level 93 L Carbon Dioxide Level 25 Anion Gap 18 H Blood Urea Nitrogen 86 H Creatinine 8.15 H Glucose Level 94 Calcium Level 8.9 Bedside Glucose 125 Medications Current Medications Pantoprazole (Protonix Tab) 40 mg DAILY@06 PO Last administered on 08/07/16 05 :51; Admin Dose 40 MG; Start 07/21/16 at 06:00 Linagliptin (Tradjenta) 5 mg DAILY PO Last administered on 08/07/16 08:48; Admin Dose 5 MG; Start 07/21/16 at 09:00 Miscellaneous Information 1 ea NOTE XX ; Start 07/21/16 at 04:30 Glucose (Glutose) 15 gm Q15M PRN PO DECREASED GLUCOSE; Start 07/21/16 at 04:30 Glucose (Glutose) 22.5 gm Q15M PRN PO DECREASED GLUCOSE; Start 07/21/16 at 04: 30 Dextrose (D50w Syringe) 25 ml Q15M PRN IV DECREASED GLUCOSE; Start 07/21/16 at 04:30 Dextrose (D50w Syringe) 50 ml Q15M PRN IV DECREASED GLUCOSE; Start 07/21/16 at 04:30 Glucagon (Glucagen) 1 mg Q15M PRN IM DECREASED GLUCOSE; Start 07/21/16 at 04:30 Glucose (Glutose) 15 gm Q15M PRN BUCCAL DECREASED GLUCOSE; Start 07/21/16 at 04 :30 Hydralazine HCl (Apresoline) 10 mg Q6H PRN IV PRN FOR SBP ABOVE 165mmHg; Start 07/21/16 at 04:30 Clopidogrel Bisulfate (plaVIX) 75 mg DAILY PO Last administered on 08/07/16 08 :48; Admin Dose 75 MG; Start 07/21/16 at 09:00 Ferrous Gluconate (Fergon) 325 mg BID PO Last administered on 08/07/16 08:48; Admin Dose 325 MG; Start 07/21/16 at 09:00 Folic Acid (Folic Acid) 1 mg DAILY PO Last administered on 08/07/16 08:48; Admin Dose 1 MG; Start 07/21/16 at 09:00 Diagnostic Test (Pha) (Accu-Chek) 1 ea 02 XX Last administered on 08/07/16 02: 00; Admin Dose 1 EA; Start 07/22/16 at 02:00 Acetaminophen (Tylenol Tab) 650 mg Q6H PRN PO PAIN AND OR ELEVATED TEMP; Start 07/21/16 at 04:30 Amlodipine Besylate (Norvasc) 5 mg BID PO Last administered on 08/07/16 08:55 ; Admin Dose 5 MG; Start 07/21/16 at 09:00 Atenolol (Tenormin) 50 mg DAILY PO Last administered on 08/07/16 08:54; Admin Dose 50 MG; Start 07/21/16 at 09:00 Atorvastatin Calcium (Lipitor) 80 mg DAILY@21 PO Last administered on 20:29; Admin Dose 80 MG; Start 07/21/16 at 21:00 Bromocriptine Mesylate (Parlodel) 2.5 mg BID PO Last administered on 08/07/16 08:48; Admin Dose 2.5 MG; Start 07/21/16 at 09:00 Docusate Sodium (Colace) 100 mg BID PO Last administered on 08/07/16 09:45; Admin Dose 100 MG; Start 07/21/16 at 09:00 Bisacodyl (Dulcolax Supp) 10 mg DAILY PRN [place] CONSTIPATION Last administered on 08/03/16 17:53; Admin Dose 10 MG; Start 07/21/16 at 05:00 Lactulose (Enulose) 20 gm DAILY PRN PO CONSTIPATION; Start 07/21/16 at 05:00 Gabapentin (Neurontin) 200 mg TID PO Last administered on 08/07/16 12:40; Admin Dose 200 MG; Start 07/24/16 at 13:00 Insulin Glargine 15 unit 15 unit DAILY@20 SC Last administered on 08/06/16 20: 39; Admin Dose 15 UNIT; Start 07/27/16 at 20:00 Sodium Chloride (NS) 1,000 ml @ 10 mls/hr Q24H IV Last administered on 17:35; Admin Dose 10 MLS/HR; Start 08/02/16 at 18:00 Ondansetron HCl (Zofran Inj) 4 mg Q6H PRN IV NAUSEA AND/OR VOMITING Last administered on 08/06/16 09:04; Admin Dose 4 MG; Start 08/03/16 at 11:00 Hydromorphone HCl (Dilaudid) 2 mg Q3H PRN IV PAIN Last administered on 14:10; Admin Dose 2 MG; Start 08/03/16 at 13:30 Hydromorphone HCl 4 mg 4 mg Q6 PO Last administered on 08/07/16 12:41; Admin Dose 4 MG; Start 08/03/16 at 18:00 Ceftriaxone Sodium (Rocephin) 50 ml @ 100 mls/hr Q24H IVPB Last administered on 08/06/16 18:12; Admin Dose 100 MLS/HR; Start 08/03/16 at 17:00 Epoetin Chiki (Epogen (Esrd)) 10,000 units WeSa@21 SC Last administered on 21:24; Admin Dose 10,000 UNITS; Start 08/04/16 at 21:00 Phenol (Chloraseptic Throat [place]) 2 spray Q12 MT Last administered on 07:38; Admin Dose 2 SPRAY; Start 08/06/16 at 19:00 Assessment/Plan Chief Complaint/Hosp Course SUBJECTIVE: No acute changes. No fevers. ANTIMICROBIALS: Remains on Rocephin day #7, and Vanco. PHYSICAL EXAMINATION: GENERAL: This is an obese, well-developed, middle-aged woman who is in no distress. HEENT: Head atraumatic, normocephalic. Sclerae anicteric. Buccal mucosa dry. NECK: Supple. CHEST: Rise symmetrical. Breath sounds diminished to bases. HEART: S1, S2. ABDOMEN: Soft. Bowel tones present. EXTREMITIES: Left lower extremity edema. ASSESSMENT: 1. Escherichia coli urinary tract infection. 2. End-stage renal disease, on peritoneal dialysis. 3. Morbid obesity. 4. Left lower extremity pain/ thrombophlebitis ==> ultrasound revealed no deep vein thrombosis. 5. Diabetes. 6. Hypertension. PLAN: The patient remains stable. Continue on current antimicrobials. Keep left lower extremity elevated. DW staff Problems: SHANDA SILVA NP Aug 07, 2016 14:13
[2016-08-07 15:00] VITALS: BP 122/80; PULSE 81
[2016-08-07] MEDS: SOD CHLORIDE 0.9% 1,000 ML IV SCH (18:00)
[2016-08-07] MEDS: CEFTRIAXONE 1 GM/50 ML (PMX) 50 ML IVPB SCH (18:56)
[2016-08-07 19:00] VITALS: BP 119/77; PULSE 79
--- NOTE | 2016-08-07 19:44 | PN ---
Date/Time of Note Date/Time of Note DATE: 08/07/16 TIME: 19:42 Assessment/Plan Lines/Catheters IV Catheter Type (from Nrsg): Peripheral IV Castro in Place (from Nrs): No Assessment/Plan Chief Complaint/Hosp Course IMPRESSION: Thrombophlebitis, left lower extremity. RECOMMENDATIONS: Would continue antiplatelets and antibiotics. Elevate the leg. No evidence of any DVT noted. If there is no improvement , may need phlebectomy Will discuss with Dr. Lopes. Problems: Subjective 24 Hr Interval Summary Constitutional: improved Pain Control: mild Exam/Review of Systems Vital Signs Vitals Vital Signs Date Time Temp Pulse Resp B/P Pulse Ox O2 Delivery O2 Flow Rate FiO2 08/07/16 15:00 81 08/06/16 20:03 97.4 18 115/60 97 08/04/16 18:00 Room Air Intake and Output 08/06/16 08/06/16 08/07/16 15:00 23:00 07:00 Intake Total 520 ml 800 ml Output Total 1200 ml Balance -680 ml 800 ml Exam Neck: non-tender, supple Respiratory: clear to auscultation, normal air movement Cardiovascular: nl pulses, regular rate and rhythm Gastrointestinal: nl liver, spleen, non-tender, soft Results Result Diagram: 08/06/16 0600 08/07/16 0949 PILO HOFFMAN MD Aug 07, 2016 19:44
[2016-08-07] MEDS: ATORVASTATIN 80 MG TAB PO SCH (20:38)
[2016-08-07] MEDS: INSULIN GLARGINE [LANtus] 3 ML PEN SC SCH (20:44)
[2016-08-07 20:48] VITALS: BP 130/60; RESP 18
--- NOTE | 2016-08-08 00:38 | PN ---
Date/Time of Note Date/Time of Note DATE: 08/08/16 TIME: 00:37 Assessment/Plan VTE Prophylaxis VTE Prophylaxis Intervention: other Lines/Catheters IV Catheter Type (from Nrs): Peripheral IV Urinary Cath still in place: No Assessment/Plan Chief Complaint/Hosp Course ESRD CELLULITES legs PROLACTINOMA PIT MASS DM UREMIA HYPONATREMIA PLAN PD BROMOCRYPTINE pt ot inc pd time ck labs ct lower ex elevate legs ID AND VASCULAR F/U Problems: Subjective 24 Hr Interval Summary Subjective hx not possible: other (leg pain better) Exam/Review of Systems Vital Signs Vitals Vital Signs Date Time Temp Pulse Resp B/P Pulse Ox O2 Delivery O2 Flow Rate FiO2 08/07/16 20:48 18 130/60 98 08/07/16 19:00 79 08/06/16 20:03 97.4 08/04/16 18:00 Room Air Intake and Output 08/07/16 08/07/16 08/08/16 15:00 23:00 07:00 Intake Total 720 ml 360 ml Output Total 350 ml Balance 370 ml 360 ml Exam Respiratory: clear to auscultation Cardiovascular: regular rate and rhythm Gastrointestinal: soft Musculoskeletal: nl extremities to inspection Extremities: normal pulses Results Result Diagram: 08/06/16 0600 08/07/16 0949 Results 24 hrs Laboratory Tests Test 08/07/16 02:27 08/07/16 08:02 08/07/16 09:49 08/07/16 12:26 Bedside Glucose 90 96 125 Sodium Level 131 L Potassium Level 4.8 Chloride Level 93 L Carbon Dioxide Level 25 Anion Gap 18 H Blood Urea Nitrogen 86 H Creatinine 8.15 H Glucose Level 94 Calcium Level 8.9 Test 08/07/16 17:06 08/07/16 20:33 Bedside Glucose 169 116 Medications Medications Current Medications Pantoprazole (Protonix Tab) 40 mg DAILY@06 PO Last administered on 08/07/16 05 :51; Admin Dose 40 MG; Start 07/21/16 at 06:00 Linagliptin (Tradjenta) 5 mg DAILY PO Last administered on 08/07/16 08:48; Admin Dose 5 MG; Start 07/21/16 at 09:00 Miscellaneous Information 1 ea NOTE XX ; Start 07/21/16 at 04:30 Glucose (Glutose) 15 gm Q15M PRN PO DECREASED GLUCOSE; Start 07/21/16 at 04:30 Glucose (Glutose) 22.5 gm Q15M PRN PO DECREASED GLUCOSE; Start 07/21/16 at 04: 30 Dextrose (D50w Syringe) 25 ml Q15M PRN IV DECREASED GLUCOSE; Start 07/21/16 at 04:30 Dextrose (D50w Syringe) 50 ml Q15M PRN IV DECREASED GLUCOSE; Start 07/21/16 at 04:30 Glucagon (Glucagen) 1 mg Q15M PRN IM DECREASED GLUCOSE; Start 07/21/16 at 04:30 Glucose (Glutose) 15 gm Q15M PRN BUCCAL DECREASED GLUCOSE; Start 07/21/16 at 04 :30 Hydralazine HCl (Apresoline) 10 mg Q6H PRN IV PRN FOR SBP ABOVE 165mmHg; Start 07/21/16 at 04:30 Clopidogrel Bisulfate (plaVIX) 75 mg DAILY PO Last administered on 08/07/16 08 :48; Admin Dose 75 MG; Start 07/21/16 at 09:00 Ferrous Gluconate (Fergon) 325 mg BID PO Last administered on 08/07/16 20:45; Admin Dose 325 MG; Start 07/21/16 at 09:00 Folic Acid (Folic Acid) 1 mg DAILY PO Last administered on 08/07/16 08:48; Admin Dose 1 MG; Start 07/21/16 at 09:00 Diagnostic Test (Pha) (Accu-Chek) 1 ea 02 XX Last administered on 08/07/16 02: 00; Admin Dose 1 EA; Start 07/22/16 at 02:00 Acetaminophen (Tylenol Tab) 650 mg Q6H PRN PO PAIN AND OR ELEVATED TEMP; Start 07/21/16 at 04:30 Amlodipine Besylate (Norvasc) 5 mg BID PO Last administered on 08/07/16 20:40 ; Admin Dose 5 MG; Start 07/21/16 at 09:00 Atenolol (Tenormin) 50 mg DAILY PO Last administered on 08/07/16 08:54; Admin Dose 50 MG; Start 07/21/16 at 09:00 Atorvastatin Calcium (Lipitor) 80 mg DAILY@21 PO Last administered on 20:38; Admin Dose 80 MG; Start 07/21/16 at 21:00 Bromocriptine Mesylate (Parlodel) 2.5 mg BID PO Last administered on 08/07/16 20:38; Admin Dose 2.5 MG; Start 07/21/16 at 09:00 Docusate Sodium (Colace) 100 mg BID PO Last administered on 08/07/16 20:38; Admin Dose 100 MG; Start 07/21/16 at 09:00 Bisacodyl (Dulcolax Supp) 10 mg DAILY PRN [place] CONSTIPATION Last administered on 08/03/16 17:53; Admin Dose 10 MG; Start 07/21/16 at 05:00 Lactulose (Enulose) 20 gm DAILY PRN PO CONSTIPATION; Start 07/21/16 at 05:00 Gabapentin (Neurontin) 200 mg TID PO Last administered on 08/07/16 20:38; Admin Dose 200 MG; Start 07/24/16 at 13:00 Insulin Glargine 15 unit 15 unit DAILY@20 SC Last administered on 08/07/16 20: 44; Admin Dose 15 UNIT; Start 07/27/16 at 20:00 Sodium Chloride (NS) 1,000 ml @ 10 mls/hr Q24H IV Last administered on 17:35; Admin Dose 10 MLS/HR; Start 08/02/16 at 18:00 Ondansetron HCl (Zofran Inj) 4 mg Q6H PRN IV NAUSEA AND/OR VOMITING Last administered on 08/06/16 09:04; Admin Dose 4 MG; Start 08/03/16 at 11:00 Hydromorphone HCl (Dilaudid) 2 mg Q3H PRN IV PAIN Last administered on 18:59; Admin Dose 2 MG; Start 08/03/16 at 13:30 Hydromorphone HCl 4 mg 4 mg Q6 PO Last administered on 08/07/16 17:37; Admin Dose 4 MG; Start 08/03/16 at 18:00 Ceftriaxone Sodium (Rocephin) 50 ml @ 100 mls/hr Q24H IVPB Last administered on 08/07/16 18:56; Admin Dose 100 MLS/HR; Start 08/03/16 at 17:00 Epoetin [place]iki (Epogen (Esrd)) 10,000 units WeSa@21 SC Last administered on 21:24; Admin Dose 10,000 UNITS; Start 08/04/16 at 21:00 Phenol (Chloraseptic Throat [place]) 2 spray Q12 MT Last administered on 20:37; Admin Dose 2 SPRAY; Start 08/06/16 at 19:00 CHRISTINA SHIRLEY MD Aug 08, 2016 00:38
[2016-08-08] MEDS: ACCUCHECK AT 2AM (Patients on SS coverage) XX SCH (02:00)
[2016-08-08 04:00] VITALS: BP 122/65; PULSE 77
[2016-08-08] MEDS: LEVOTHYROXINE 88 MCG TAB PO SCH (06:00)
[2016-08-08] MEDS: PANTOPRAZOLE (EC) 40 MG TAB PO SCH (06:00)
[2016-08-08] MEDS: HYDROmorphONE 2 MG TAB PO SCH ×4 (06:00→18:00)
[2016-08-08 07:30] VITALS: BP 120/66; PULSE 81
[2016-08-08] MEDS: HYDROmorphONE 2 MG/ML SYG IV PRN ×3 (07:30→14:03)
[2016-08-08] MEDS: PHENOL 1.4% SOLN 180 ML BTL MT SCH ×2 (07:31→21:53)
[2016-08-08] MEDS: Insulin NOVOLOG SS MODERATE Algorithm (SS with meals and bedtime) SC SCH ×4 (07:35→21:00)
[2016-08-08] MEDS: BROMOCRIPTINE 2.5 MG TAB PO SCH ×2 (08:56→20:27)
[2016-08-08] MEDS: LINAGLIPTIN 5 MG TABLET PO SCH (08:56)
[2016-08-08] MEDS: CLOPIDOGREL 75 MG TAB PO SCH (08:56)
[2016-08-08] MEDS: GABAPENTIN 100 MG CAP PO SCH ×3 (08:56→20:28)
[2016-08-08] MEDS: DOCUSATE SODIUM 100 MG CAP PO SCH ×2 (09:00→20:28)
[2016-08-08] MEDS: AMLODIPINE 5 MG TAB PO SCH ×2 (09:01→20:28)
[2016-08-08] MEDS: FERROUS GLUCONATE (EC) 325 MG TAB PO SCH ×2 (09:01→20:27)
[2016-08-08] MEDS: ATENOLOL 50 MG TAB PO SCH (09:02)
--- NOTE | 2016-08-08 10:53 | CONS ---
Date/Time of Note Date/Time of Note DATE: 08/08/16 TIME: 10:53 Consult Date/Type/Reason Admit Date/Time July 20, 2016 at 23:39 Type of Consultation: ID Subjective feeling better Objective pulm-cta mod assist Vital Signs Date Time Temp Pulse Resp B/P Pulse Ox O2 Delivery O2 Flow Rate FiO2 08/07/16 20:48 18 130/60 98 08/07/16 19:00 79 08/06/16 20:03 97.4 08/04/16 18:00 Room Air Intake and Output 08/07/16 08/07/16 08/08/16 14:59 22:59 06:59 Intake Total 720 ml 760 ml 740 ml Output Total 350 ml Balance 370 ml 760 ml 740 ml Results/Medications Result Diagram: 08/06/16 0600 08/07/16 0949 Results 24 hrs Laboratory Tests Test 08/07/16 12:26 08/07/16 17:06 08/07/16 20:33 08/08/16 07:26 Bedside Glucose 125 169 116 100 Medications Current Medications Pantoprazole (Protonix Tab) 40 mg DAILY@06 PO Last administered on 08/08/16 06 :00; Admin Dose 40 MG; Start 07/21/16 at 06:00 Linagliptin (Tradjenta) 5 mg DAILY PO Last administered on 08/08/16 08:56; Admin Dose 5 MG; Start 07/21/16 at 09:00 Miscellaneous Information 1 ea NOTE XX ; Start 07/21/16 at 04:30 Glucose (Glutose) 15 gm Q15M PRN PO DECREASED GLUCOSE; Start 07/21/16 at 04:30 Glucose (Glutose) 22.5 gm Q15M PRN PO DECREASED GLUCOSE; Start 07/21/16 at 04: 30 Dextrose (D50w Syringe) 25 ml Q15M PRN IV DECREASED GLUCOSE; Start 07/21/16 at 04:30 Dextrose (D50w Syringe) 50 ml Q15M PRN IV DECREASED GLUCOSE; Start 07/21/16 at 04:30 Glucagon (Glucagen) 1 mg Q15M PRN IM DECREASED GLUCOSE; Start 07/21/16 at 04:30 Glucose (Glutose) 15 gm Q15M PRN BUCCAL DECREASED GLUCOSE; Start 07/21/16 at 04 :30 Hydralazine HCl (Apresoline) 10 mg Q6H PRN IV PRN FOR SBP ABOVE 165mmHg; Start 07/21/16 at 04:30 Clopidogrel Bisulfate (plaVIX) 75 mg DAILY PO Last administered on 08/08/16 08 :56; Admin Dose 75 MG; Start 07/21/16 at 09:00 Ferrous Gluconate (Fergon) 325 mg BID PO Last administered on 08/08/16 09:01; Admin Dose 325 MG; Start 07/21/16 at 09:00 Folic Acid (Folic Acid) 1 mg DAILY PO Last administered on 08/07/16 08:48; Admin Dose 1 MG; Start 07/21/16 at 09:00 Diagnostic Test (Pha) (Accu-Chek) 1 ea 02 XX Last administered on 08/07/16 02: 00; Admin Dose 1 EA; Start 07/22/16 at 02:00 Acetaminophen (Tylenol Tab) 650 mg Q6H PRN PO PAIN AND OR ELEVATED TEMP; Start 07/21/16 at 04:30 Amlodipine Besylate (Norvasc) 5 mg BID PO Last administered on 08/08/16 09:01 ; Admin Dose 5 MG; Start 07/21/16 at 09:00 Atenolol (Tenormin) 50 mg DAILY PO Last administered on 08/08/16 09:02; Admin Dose 50 MG; Start 07/21/16 at 09:00 Atorvastatin Calcium (Lipitor) 80 mg DAILY@21 PO Last administered on 20:38; Admin Dose 80 MG; Start 07/21/16 at 21:00 Bromocriptine Mesylate (Parlodel) 2.5 mg BID PO Last administered on 08/08/16 08:56; Admin Dose 2.5 MG; Start 07/21/16 at 09:00 Docusate Sodium (Colace) 100 mg BID PO Last administered on 08/07/16 20:38; Admin Dose 100 MG; Start 07/21/16 at 09:00 Bisacodyl (Dulcolax Supp) 10 mg DAILY PRN [place] CONSTIPATION Last administered on 08/03/16 17:53; Admin Dose 10 MG; Start 07/21/16 at 05:00 Lactulose (Enulose) 20 gm DAILY PRN PO CONSTIPATION; Start 07/21/16 at 05:00 Gabapentin (Neurontin) 200 mg TID PO Last administered on 08/08/16 08:56; Admin Dose 200 MG; Start 07/24/16 at 13:00 Insulin Glargine 15 unit 15 unit DAILY@20 SC Last administered on 08/07/16 20: 44; Admin Dose 15 UNIT; Start 07/27/16 at 20:00 Sodium Chloride (NS) 1,000 ml @ 10 mls/hr Q24H IV Last administered on 17:35; Admin Dose 10 MLS/HR; Start 08/02/16 at 18:00 Ondansetron HCl (Zofran Inj) 4 mg Q6H PRN IV NAUSEA AND/OR VOMITING Last administered on 08/06/16 09:04; Admin Dose 4 MG; Start 08/03/16 at 11:00 Hydromorphone HCl (Dilaudid) 2 mg Q3H PRN IV PAIN Last administered on 07:30; Admin Dose 2 MG; Start 08/03/16 at 13:30 Hydromorphone HCl 4 mg 4 mg Q6 PO Last administered on 08/08/16 06:00; Admin Dose 4 MG; Start 08/03/16 at 18:00 Ceftriaxone Sodium (Rocephin) 50 ml @ 100 mls/hr Q24H IVPB Last administered on 08/07/16 18:56; Admin Dose 100 MLS/HR; Start 08/03/16 at 17:00 Epoetin [place] (Epogen (Esrd)) 10,000 units WeSa@21 SC Last administered on 21:24; Admin Dose 10,000 UNITS; Start 08/04/16 at 21:00 Phenol (Chloraseptic Throat [place]) 2 spray Q12 MT Last administered on 07:31; Admin Dose 2 SPRAY; Start 08/06/16 at 19:00 Miscellaneous Information (*Rx Drug Level Order Reminder*) RANDOM VANCOMYCIN LEVEL 6... ONCE ONCE XX ; Start 08/09/16 at 05:00; Stop 08/09/16 at 05:01 Assessment/Plan Additional Assessment/Plan Rehab- [facility] infact CVA with L deniz ;pituitary macroadenoma Continue rehab therapy program ESRD on PD HTN DM Anemia hypothy dyslipid GEOGRE PIERRE MD Aug 08, 2016 10:53
[2016-08-08] MEDS: FOLIC ACID 1 MG TAB PO SCH (10:56)
[2016-08-08 11:21] VITALS: BP 122/70; PULSE 80
[2016-08-08 15:00] VITALS: BP 118/66; PULSE 79
[2016-08-08] MEDS: CEFTRIAXONE 1 GM/50 ML (PMX) 50 ML IVPB SCH (17:36)
[2016-08-08] MEDS: SOD CHLORIDE 0.9% 1,000 ML IV SCH ×2 (18:00→19:18)
[2016-08-08 18:32] VITALS: BP 120/65; PULSE 77
[2016-08-08 19:23] VITALS: BP 150/67; RESP 18
--- NOTE | 2016-08-08 19:46 | PN ---
Date/Time of Note Date/Time of Note DATE: 08/08/16 TIME: 19:45 Assessment/Plan VTE Prophylaxis VTE Prophylaxis Intervention: other Lines/Catheters IV [facility] Type [facility] Peripheral IV Urinary Cath still in place: No Assessment/Plan Chief Complaint/Hosp Course ESRD CELLULITES legs PROLACTINOMA PIT MASS DM UREMIA HYPONATREMIA PLAN PD BROMOCRYPTINE pt ot inc pd time ck labs ct lower ex elevate legs ID AND VASCULAR F/U Problems: Subjective 24 Hr Interval Summary Cardiovascular: no complaints Gastrointestinal: no complaints Genitourinary: no complaints Exam/Review of Systems Vital Signs Vitals Vital Signs Date Time Temp Pulse Resp B/P Pulse Ox O2 Delivery O2 Flow Rate FiO2 08/08/16 19:23 98.7 65 18 150/67 97 08/04/16 18:00 Room Air Intake and Output 08/07/16 08/07/16 08/08/16 15:00 23:00 07:00 Intake Total 720 ml 760 ml 740 ml Output Total 350 ml Balance 370 ml 760 ml 740 ml Exam Respiratory: clear to auscultation Cardiovascular: regular rate and rhythm Gastrointestinal: soft Musculoskeletal: nl extremities to inspection Results Result Diagram: 08/06/16 0600 08/07/16 0949 Results 24 hrs Laboratory Tests Test 08/07/16 20:33 08/08/16 07:26 08/08/16 12:40 08/08/16 17:22 Bedside Glucose 116 100 98 162 Medications Medications Current Medications Pantoprazole (Protonix Tab) 40 mg DAILY@06 PO Last administered on 08/08/16 06 :00; Admin Dose 40 MG; Start 07/21/16 at 06:00 Linagliptin (Tradjenta) 5 mg DAILY PO Last administered on 08/08/16 08:56; Admin Dose 5 MG; Start 07/21/16 at 09:00 Miscellaneous Information 1 ea NOTE XX ; Start 07/21/16 at 04:30 Glucose (Glutose) 15 gm Q15M PRN PO DECREASED GLUCOSE; Start 07/21/16 at 04:30 Glucose (Glutose) 22.5 gm Q15M PRN PO DECREASED GLUCOSE; Start 07/21/16 at 04: 30 Dextrose (D50w Syringe) 25 ml Q15M PRN IV DECREASED GLUCOSE; Start 07/21/16 at 04:30 Dextrose (D50w Syringe) 50 ml Q15M PRN IV DECREASED GLUCOSE; Start 07/21/16 at 04:30 Glucagon (Glucagen) 1 mg Q15M PRN IM DECREASED GLUCOSE; Start 07/21/16 at 04:30 Glucose (Glutose) 15 gm Q15M PRN BUCCAL DECREASED GLUCOSE; Start 07/21/16 at 04 :30 Hydralazine HCl (Apresoline) 10 mg Q6H PRN IV PRN FOR SBP ABOVE 165mmHg; Start 07/21/16 at 04:30 Clopidogrel Bisulfate (plaVIX) 75 mg DAILY PO Last administered on 08/08/16 08 :56; Admin Dose 75 MG; Start 07/21/16 at 09:00 Ferrous Gluconate (Fergon) 325 mg BID PO Last administered on 08/08/16 09:01; Admin Dose 325 MG; Start 07/21/16 at 09:00 Folic Acid (Folic Acid) 1 mg DAILY PO Last administered on 08/08/16 10:56; Admin Dose 1 MG; Start 07/21/16 at 09:00 Diagnostic Test (Pha) (Accu-Chek) 1 ea 02 XX Last administered on 08/07/16 02: 00; Admin Dose 1 EA; Start 07/22/16 at 02:00 Acetaminophen (Tylenol Tab) 650 mg Q6H PRN PO PAIN AND OR ELEVATED TEMP; Start 07/21/16 at 04:30 Amlodipine Besylate (Norvasc) 5 mg BID PO Last administered on 08/08/16 09:01 ; Admin Dose 5 MG; Start 07/21/16 at 09:00 Atenolol (Tenormin) 50 mg DAILY PO Last administered on 08/08/16 09:02; Admin Dose 50 MG; Start 07/21/16 at 09:00 Atorvastatin Calcium (Lipitor) 80 mg DAILY@21 PO Last administered on 20:38; Admin Dose 80 MG; Start 07/21/16 at 21:00 Bromocriptine Mesylate (Parlodel) 2.5 mg BID PO Last administered on 08/08/16 08:56; Admin Dose 2.5 MG; Start 07/21/16 at 09:00 Docusate Sodium (Colace) 100 mg BID PO Last administered on 08/08/16 09:00; Admin Dose 100 MG; Start 07/21/16 at 09:00 Bisacodyl (Dulcolax Supp) 10 mg DAILY PRN [place] CONSTIPATION Last administered on 08/03/16 17:53; Admin Dose 10 MG; Start 07/21/16 at 05:00 Lactulose (Enulose) 20 gm DAILY PRN PO CONSTIPATION; Start 07/21/16 at 05:00 Gabapentin (Neurontin) 200 mg TID PO Last administered on 08/08/16 13:00; Admin Dose 200 MG; Start 07/24/16 at 13:00 Insulin Glargine 15 unit 15 unit DAILY@20 SC Last administered on 08/07/16 20: 44; Admin Dose 15 UNIT; Start 07/27/16 at 20:00 Sodium Chloride (NS) 1,000 ml @ 10 mls/hr Q24H IV Last administered on 19:18; Admin Dose 10 MLS/HR; Start 08/02/16 at 18:00 Ondansetron HCl (Zofran Inj) 4 mg Q6H PRN IV NAUSEA AND/OR VOMITING Last administered on 08/06/16 09:04; Admin Dose 4 MG; Start 08/03/16 at 11:00 Hydromorphone HCl (Dilaudid) 2 mg Q3H PRN IV PAIN Last administered on 14:03; Admin Dose 2 MG; Start 08/03/16 at 13:30 Hydromorphone HCl 4 mg 4 mg Q6 PO Last administered on 08/08/16 13:46; Admin Dose 4 MG; Start 08/03/16 at 18:00 Ceftriaxone Sodium (Rocephin) 50 ml @ 100 mls/hr Q24H IVPB Last administered on 08/08/16 17:36; Admin Dose 100 MLS/HR; Start 08/03/16 at 17:00 Epoetin [place] (Epogen (Esrd)) 10,000 units WeSa@21 SC Last administered on 21:24; Admin Dose 10,000 UNITS; Start 08/04/16 at 21:00 Phenol (Chloraseptic Throat [place]) 2 spray Q12 MT Last administered on 07:31; Admin Dose 2 SPRAY; Start 08/06/16 at 19:00 Miscellaneous Information (*Rx Drug Level Order Reminder*) RANDOM VANCOMYCIN LEVEL 6... ONCE ONCE XX ; Start 08/09/16 at 05:00; Stop 08/09/16 at 05:01 CHRISTINA SHIRLEY MD Aug 08, 2016 19:46
[2016-08-08] MEDS: ATORVASTATIN 80 MG TAB PO SCH (20:27)
[2016-08-08] MEDS: EPOETIN 10000 UNITS/1 ML INJ (ESRD) SC SCH (21:54)
[2016-08-08] MEDS: INSULIN GLARGINE [LANtus] 3 ML PEN SC SCH (22:14)
[2016-08-09] VITALS (7 sets, daily range): BP systolic 114–139; BP diastolic 60–72; PULSE 79–86; RESP 18
[2016-08-09] MEDS: ACCUCHECK AT 2AM (Patients on SS coverage) XX SCH (02:00)
[2016-08-09] MEDS: HYDROmorphONE 2 MG TAB PO SCH ×5 (05:11→17:50)
[2016-08-09] MEDS: LEVOTHYROXINE 88 MCG TAB PO SCH (06:06)
[2016-08-09] MEDS: PANTOPRAZOLE (EC) 40 MG TAB PO SCH (06:06)
[2016-08-09] MEDS: Insulin NOVOLOG SS MODERATE Algorithm (SS with meals and bedtime) SC SCH ×4 (07:35→21:00)
[2016-08-09] MEDS: HYDROmorphONE 2 MG/ML SYG IV PRN ×7 (07:37→19:00)
[2016-08-09] MEDS: PHENOL 1.4% SOLN 180 ML BTL MT SCH ×2 (09:00→21:09)
[2016-08-09] MEDS: AMLODIPINE 5 MG TAB PO SCH ×2 (09:00→21:11)
[2016-08-09] MEDS: ATENOLOL 50 MG TAB PO SCH (09:00)
[2016-08-09] MEDS: CLOPIDOGREL 75 MG TAB PO SCH (09:30)
[2016-08-09] MEDS: FOLIC ACID 1 MG TAB PO SCH (09:30)
[2016-08-09] MEDS: BROMOCRIPTINE 2.5 MG TAB PO SCH ×2 (09:31→21:10)
[2016-08-09] MEDS: LINAGLIPTIN 5 MG TABLET PO SCH (09:31)
[2016-08-09] MEDS: GABAPENTIN 100 MG CAP PO SCH ×3 (09:31→21:10)
[2016-08-09] MEDS: DOCUSATE SODIUM 100 MG CAP PO SCH ×2 (09:31→21:10)
[2016-08-09] MEDS: FERROUS GLUCONATE (EC) 325 MG TAB PO SCH ×2 (09:31→21:10)
[2016-08-09] MEDS ORDERED: VANCOMYCIN 1 GM in NS 250 ML IVPB SCH (11:30)
--- NOTE | 2016-08-09 11:51 | CONS ---
Date/Time of Note Date/Time of Note DATE: 08/09/16 TIME: 11:50 Consult Date/Type/Reason Admit Date/Time July 20, 2016 at 23:39 Type of Consultation: ID Objective Vital Signs Date Time Temp Pulse Resp B/P Pulse Ox O2 Delivery O2 Flow Rate FiO2 08/09/16 09:30 86 08/09/16 07:30 98.5 18 124/60 96 Intake and Output 08/08/16 08/08/16 08/09/16 15:00 23:00 07:00 Intake Total 720 ml 510 ml 420 ml Output Total 1100 ml Balance 720 ml -590 ml 420 ml INTERDISCIPLINARY TEAM CONFERENCE BOWEL- Cont BLADDER-PD Skin- LLE swelling OT- DRESSING-mod BATHING-mod TOILETING-mod PT- BED MOBILITY-mod TRANSFERS-mod AMBULATION-mod15 feet A/P- Interdisciplinary team conference held today. Please see interdisciplinary sheet. Working toward d.c to supervised environment with post discharge follow up of physical therapy, occupational therapy. Results/Medications Result Diagram: 08/06/16 0600 08/07/16 0949 Results 24 hrs Laboratory Tests Test 08/08/16 12:40 08/08/16 17:22 08/08/16 21:53 08/09/16 05:13 Bedside Glucose 98 162 166 Random Vancomycin Level 13.4 Test 08/09/16 08:03 Bedside Glucose 92 Medications Current Medications Pantoprazole (Protonix Tab) 40 mg DAILY@06 PO Last administered on 08/09/16 06 :06; Admin Dose 40 MG; Start 07/21/16 at 06:00 Linagliptin (Tradjenta) 5 mg DAILY PO Last administered on 08/09/16 09:31; Admin Dose 5 MG; Start 07/21/16 at 09:00 Miscellaneous Information 1 ea NOTE XX ; Start 07/21/16 at 04:30 Glucose (Glutose) 15 gm Q15M PRN PO DECREASED GLUCOSE; Start 07/21/16 at 04:30 Glucose (Glutose) 22.5 gm Q15M PRN PO DECREASED GLUCOSE; Start 07/21/16 at 04: 30 Dextrose (D50w Syringe) 25 ml Q15M PRN IV DECREASED GLUCOSE; Start 07/21/16 at 04:30 Dextrose (D50w Syringe) 50 ml Q15M PRN IV DECREASED GLUCOSE; Start 07/21/16 at 04:30 Glucagon (Glucagen) 1 mg Q15M PRN IM DECREASED GLUCOSE; Start 07/21/16 at 04:30 Glucose (Glutose) 15 gm Q15M PRN BUCCAL DECREASED GLUCOSE; Start 07/21/16 at 04 :30 Hydralazine HCl (Apresoline) 10 mg Q6H PRN IV PRN FOR SBP ABOVE 165mmHg; Start 07/21/16 at 04:30 Clopidogrel Bisulfate (plaVIX) 75 mg DAILY PO Last administered on 08/09/16 09 :30; Admin Dose 75 MG; Start 07/21/16 at 09:00 Ferrous Gluconate (Fergon) 325 mg BID PO Last administered on 08/09/16 09:31; Admin Dose 325 MG; Start 07/21/16 at 09:00 Folic Acid (Folic Acid) 1 mg DAILY PO Last administered on 08/09/16 09:30; Admin Dose 1 MG; Start 07/21/16 at 09:00 Diagnostic Test (Pha) (Accu-Chek) 1 ea 02 XX Last administered on 08/07/16 02: 00; Admin Dose 1 EA; Start 07/22/16 at 02:00 Acetaminophen (Tylenol Tab) 650 mg Q6H PRN PO PAIN AND OR ELEVATED TEMP; Start 07/21/16 at 04:30 Amlodipine Besylate (Norvasc) 5 mg BID PO Last administered on 08/08/16 20:28 ; Admin Dose 5 MG; Start 07/21/16 at 09:00 Atenolol (Tenormin) 50 mg DAILY PO Last administered on 08/08/16 09:02; Admin Dose 50 MG; Start 07/21/16 at 09:00 Atorvastatin Calcium (Lipitor) 80 mg DAILY@21 PO Last administered on 20:27; Admin Dose 80 MG; Start 07/21/16 at 21:00 Bromocriptine Mesylate (Parlodel) 2.5 mg BID PO Last administered on 08/09/16 09:31; Admin Dose 2.5 MG; Start 07/21/16 at 09:00 Docusate Sodium (Colace) 100 mg BID PO Last administered on 08/09/16 09:31; Admin Dose 100 MG; Start 07/21/16 at 09:00 Bisacodyl (Dulcolax Supp) 10 mg DAILY PRN [place] CONSTIPATION Last administered on 08/03/16 17:53; Admin Dose 10 MG; Start 07/21/16 at 05:00 Lactulose (Enulose) 20 gm DAILY PRN PO CONSTIPATION; Start 07/21/16 at 05:00 Gabapentin (Neurontin) 200 mg TID PO Last administered on 08/09/16 09:31; Admin Dose 200 MG; Start 07/24/16 at 13:00 Insulin Glargine 15 unit 15 unit DAILY@20 SC Last administered on 08/08/16 22: 14; Admin Dose 15 UNIT; Start 07/27/16 at 20:00 Sodium Chloride (NS) 1,000 ml @ 10 mls/hr Q24H IV Last administered on 19:18; Admin Dose 10 MLS/HR; Start 08/02/16 at 18:00 Ondansetron HCl (Zofran Inj) 4 mg Q6H PRN IV NAUSEA AND/OR VOMITING Last administered on 08/06/16 09:04; Admin Dose 4 MG; Start 08/03/16 at 11:00 Hydromorphone HCl (Dilaudid) 2 mg Q3H PRN IV PAIN Last administered on 10:07; Admin Dose 2 MG; Start 08/03/16 at 13:30 Hydromorphone HCl 4 mg 4 mg Q6 PO Last administered on 08/08/16 13:46; Admin Dose 4 MG; Start 08/03/16 at 18:00 Ceftriaxone Sodium (Rocephin) 50 ml @ 100 mls/hr Q24H IVPB Last administered on 08/08/16 17:36; Admin Dose 100 MLS/HR; Start 08/03/16 at 17:00 Epoetin Chiki (Epogen (Esrd)) 10,000 units WeSa@21 SC Last administered on 21:54; Admin Dose 10,000 UNITS; Start 08/04/16 at 21:00 Phenol 2 spray 2 spray Q12 MT Last administered on 08/08/16 21:53; Admin Dose 2 SPRAY; Start 08/08/16 at 21:00 Vancomycin HCl (Vancocin) 250 ml @ 125 mls/hr ONCE IVPB ; Start 6/15/17 at 11: 30; Stop 08/09/16 at 17:00 GEORGE PIERRE MD Aug 09, 2016 11:51 GEORGE PIERRE MD Aug 09, 2016 11:51
[2016-08-09] MEDS: CEFTRIAXONE 1 GM/50 ML (PMX) 50 ML IVPB SCH (16:08)
--- NOTE | 2016-08-09 17:53 | PN ---
Date/Time of Note Date/Time of Note DATE: 08/09/16 TIME: 17:52 Assessment/Plan VTE Prophylaxis VTE Prophylaxis Intervention: other Lines/Catheters [facility] Peripheral IV Urinary Cath still in place: No Assessment/Plan Chief Complaint/Hosp Course ESRD CELLULITES legs PROLACTINOMA PIT MASS DM UREMIA HYPONATREMIA DECUBITUS PLAN PD BROMOCRYPTINE pt ot inc pd time ck labs ct lower ex elevate legs WOUND CARE ID AND VASCULAR F/U Problems: Subjective 24 Hr Interval Summary Subjective hx not possible: other (FEELING BETTER) Exam/Review of Systems Vital Signs Vitals Vital Signs Date Time Temp Pulse Resp B/P Pulse Ox O2 Delivery O2 Flow Rate FiO2 08/09/16 15:40 82 08/09/16 07:30 98.5 18 124/60 96 Intake and Output 08/08/16 08/08/16 08/09/16 14:59 22:59 06:59 Intake Total 720 ml 510 ml 420 ml Output Total 1100 ml Balance 720 ml -590 ml 420 ml Exam Neck: supple Respiratory: clear to auscultation Cardiovascular: regular rate and rhythm Gastrointestinal: soft Musculoskeletal: nl extremities to inspection Extremities: normal pulses Results Result Diagram: 08/06/16 0600 08/07/16 0949 Results 24 hrs Laboratory Tests Test 08/08/16 21:53 08/09/16 05:13 08/09/16 08:03 08/09/16 12:08 Bedside Glucose 166 92 131 Random Vancomycin Level 13.4 Test 08/09/16 17:28 Bedside Glucose 208 Medications Medications Current Medications Pantoprazole (Protonix Tab) 40 mg DAILY@06 PO Last administered on 08/09/16 06 :06; Admin Dose 40 MG; Start 07/21/16 at 06:00 Linagliptin (Tradjenta) 5 mg DAILY PO Last administered on 08/09/16 09:31; Admin Dose 5 MG; Start 07/21/16 at 09:00 Miscellaneous Information 1 ea NOTE XX ; Start 07/21/16 at 04:30 Glucose (Glutose) 15 gm Q15M PRN PO DECREASED GLUCOSE; Start 07/21/16 at 04:30 Glucose (Glutose) 22.5 gm Q15M PRN PO DECREASED GLUCOSE; Start 07/21/16 at 04: 30 Dextrose (D50w Syringe) 25 ml Q15M PRN IV DECREASED GLUCOSE; Start 07/21/16 at 04:30 Dextrose (D50w Syringe) 50 ml Q15M PRN IV DECREASED GLUCOSE; Start 07/21/16 at 04:30 Glucagon (Glucagen) 1 mg Q15M PRN IM DECREASED GLUCOSE; Start 07/21/16 at 04:30 Glucose (Glutose) 15 gm Q15M PRN BUCCAL DECREASED GLUCOSE; Start 07/21/16 at 04 :30 Hydralazine HCl (Apresoline) 10 mg Q6H PRN IV PRN FOR SBP ABOVE 165mmHg; Start 07/21/16 at 04:30 Clopidogrel Bisulfate (plaVIX) 75 mg DAILY PO Last administered on 08/09/16 09 :30; Admin Dose 75 MG; Start 07/21/16 at 09:00 Ferrous Gluconate (Fergon) 325 mg BID PO Last administered on 08/09/16 09:31; Admin Dose 325 MG; Start 07/21/16 at 09:00 Folic Acid (Folic Acid) 1 mg DAILY PO Last administered on 08/09/16 09:30; Admin Dose 1 MG; Start 07/21/16 at 09:00 Diagnostic Test (Pha) (Accu-Chek) 1 ea 02 XX Last administered on 08/07/16 02: 00; Admin Dose 1 EA; Start 07/22/16 at 02:00 Acetaminophen (Tylenol Tab) 650 mg Q6H PRN PO PAIN AND OR ELEVATED TEMP; Start 07/21/16 at 04:30 Amlodipine Besylate (Norvasc) 5 mg BID PO Last administered on 08/08/16 20:28 ; Admin Dose 5 MG; Start 07/21/16 at 09:00 Atenolol (Tenormin) 50 mg DAILY PO Last administered on 08/08/16 09:02; Admin Dose 50 MG; Start 07/21/16 at 09:00 Atorvastatin Calcium (Lipitor) 80 mg DAILY@21 PO Last administered on 20:27; Admin Dose 80 MG; Start 07/21/16 at 21:00 Bromocriptine Mesylate (Parlodel) 2.5 mg BID PO Last administered on 08/09/16 09:31; Admin Dose 2.5 MG; Start 07/21/16 at 09:00 Docusate Sodium (Colace) 100 mg BID PO Last administered on 08/09/16 09:31; Admin Dose 100 MG; Start 07/21/16 at 09:00 Bisacodyl (Dulcolax Supp) 10 mg DAILY PRN [place] CONSTIPATION Last administered on 08/03/16 17:53; Admin Dose 10 MG; Start 07/21/16 at 05:00 Lactulose (Enulose) 20 gm DAILY PRN PO CONSTIPATION; Start 07/21/16 at 05:00 Gabapentin (Neurontin) 200 mg TID PO Last administered on 08/09/16 12:31; Admin Dose 200 MG; Start 07/24/16 at 13:00 Insulin Glargine 15 unit 15 unit DAILY@20 SC Last administered on 08/08/16 22: 14; Admin Dose 15 UNIT; Start 07/27/16 at 20:00 Sodium Chloride (NS) 1,000 ml @ 10 mls/hr Q24H IV Last administered on 19:18; Admin Dose 10 MLS/HR; Start 08/02/16 at 18:00 Ondansetron HCl (Zofran Inj) 4 mg Q6H PRN IV NAUSEA AND/OR VOMITING Last administered on 08/06/16 09:04; Admin Dose 4 MG; Start 08/03/16 at 11:00 Hydromorphone HCl (Dilaudid) 2 mg Q3H PRN IV PAIN Last administered on 16:08; Admin Dose 2 MG; Start 08/03/16 at 13:30 Hydromorphone HCl 4 mg 4 mg Q6 PO Last administered on 08/09/16 17:50; Admin Dose 4 MG; Start 08/03/16 at 18:00 Ceftriaxone Sodium (Rocephin) 50 ml @ 100 mls/hr Q24H IVPB Last administered on 08/09/16 16:08; Admin Dose 100 MLS/HR; Start 08/03/16 at 17:00 Epoetin Chiki (Epogen (Esrd)) 10,000 units WeSa@21 SC Last administered on 21:54; Admin Dose 10,000 UNITS; Start 08/04/16 at 21:00 Phenol (Chloraseptic Throat [place]) 2 spray Q12 MT Last administered on 09:00; Admin Dose 2 SPRAY; Start 08/08/16 at 21:00 CHRISTINA SHIRLEY MD Aug 09, 2016 17:53
[2016-08-09] MEDS: INSULIN GLARGINE [LANtus] 3 ML PEN SC SCH (20:11)
--- NOTE | 2016-08-09 20:47 | CONS ---
Date/Time of Note Date/Time of Note DATE: 08/09/16 TIME: 20:46 Assessment/Plan Assessment/Plan Chief Complaint/Hosp Course SUBJECTIVE: No acute changes. No fevers. Alert, feels better, nad ANTIMICROBIALS: Rocephin day, Vanco. PHYSICAL EXAMINATION: GENERAL: This is an obese, well-developed, middle-aged woman who is in no distress. HEENT: Head atraumatic, normocephalic. Sclerae anicteric. Buccal mucosa dry. NECK: Supple. CHEST: Rise symmetrical. Breath sounds diminished to bases. HEART: S1, S2. ABDOMEN: Soft. Bowel tones present. EXTREMITIES: Left lower extremity edema. ASSESSMENT: 1. Escherichia coli urinary tract infection. 2. End-stage renal disease, on peritoneal dialysis. 3. Morbid obesity. 4. Left lower extremity pain/ thrombophlebitis ==> ultrasound revealed no deep vein thrombosis. 5. Diabetes. 6. Hypertension. PLAN: Improving, continue abx DW staff Problems: Consultation Date/Type/Reason Admit Date/Time July 20, 2016 at 23:39 Type of Consultation: ID Exam/Review of Systems Vital Signs Vitals Vital Signs Date Time Temp Pulse Resp B/P Pulse Ox O2 Delivery O2 Flow Rate FiO2 08/09/16 19:15 84 08/09/16 07:30 98.5 18 124/60 96 Intake and Output 08/08/16 08/08/16 08/09/16 15:00 23:00 07:00 Intake Total 720 ml 510 ml 420 ml Output Total 1100 ml Balance 720 ml -590 ml 420 ml Results Result Diagram: 08/06/16 0600 08/07/16 0949 Results 24 hrs Laboratory Tests Test 08/08/16 21:53 08/09/16 05:13 08/09/16 08:03 08/09/16 12:08 Bedside Glucose 166 92 131 Random Vancomycin Level 13.4 Test 08/09/16 17:28 08/09/16 20:09 Bedside Glucose 208 220 Medications Medications Current Medications Pantoprazole (Protonix Tab) 40 mg DAILY@06 PO Last administered on 08/09/16 06 :06; Admin Dose 40 MG; Start 07/21/16 at 06:00 Linagliptin (Tradjenta) 5 mg DAILY PO Last administered on 08/09/16 09:31; Admin Dose 5 MG; Start 07/21/16 at 09:00 Miscellaneous Information 1 ea NOTE XX ; Start 07/21/16 at 04:30 Glucose (Glutose) 15 gm Q15M PRN PO DECREASED GLUCOSE; Start 07/21/16 at 04:30 Glucose (Glutose) 22.5 gm Q15M PRN PO DECREASED GLUCOSE; Start 07/21/16 at 04: 30 Dextrose (D50w Syringe) 25 ml Q15M PRN IV DECREASED GLUCOSE; Start 07/21/16 at 04:30 Dextrose (D50w Syringe) 50 ml Q15M PRN IV DECREASED GLUCOSE; Start 07/21/16 at 04:30 Glucagon (Glucagen) 1 mg Q15M PRN IM DECREASED GLUCOSE; Start 07/21/16 at 04:30 Glucose (Glutose) 15 gm Q15M PRN BUCCAL DECREASED GLUCOSE; Start 07/21/16 at 04 :30 Hydralazine HCl (Apresoline) 10 mg Q6H PRN IV PRN FOR SBP ABOVE 165mmHg; Start 07/21/16 at 04:30 Clopidogrel Bisulfate (plaVIX) 75 mg DAILY PO Last administered on 08/09/16 09 :30; Admin Dose 75 MG; Start 07/21/16 at 09:00 Ferrous Gluconate (Fergon) 325 mg BID PO Last administered on 08/09/16 09:31; Admin Dose 325 MG; Start 07/21/16 at 09:00 Folic Acid (Folic Acid) 1 mg DAILY PO Last administered on 08/09/16 09:30; Admin Dose 1 MG; Start 07/21/16 at 09:00 Diagnostic Test (Pha) (Accu-Chek) 1 ea 02 XX Last administered on 08/07/16 02: 00; Admin Dose 1 EA; Start 07/22/16 at 02:00 Acetaminophen (Tylenol Tab) 650 mg Q6H PRN PO PAIN AND OR ELEVATED TEMP; Start 07/21/16 at 04:30 Amlodipine Besylate (Norvasc) 5 mg BID PO Last administered on 08/08/16 20:28 ; Admin Dose 5 MG; Start 07/21/16 at 09:00 Atenolol (Tenormin) 50 mg DAILY PO Last administered on 08/08/16 09:02; Admin Dose 50 MG; Start 07/21/16 at 09:00 Atorvastatin Calcium (Lipitor) 80 mg DAILY@21 PO Last administered on 20:27; Admin Dose 80 MG; Start 07/21/16 at 21:00 Bromocriptine Mesylate (Parlodel) 2.5 mg BID PO Last administered on 08/09/16 09:31; Admin Dose 2.5 MG; Start 07/21/16 at 09:00 Docusate Sodium (Colace) 100 mg BID PO Last administered on 08/09/16 09:31; Admin Dose 100 MG; Start 07/21/16 at 09:00 Bisacodyl (Dulcolax Supp) 10 mg DAILY PRN [place] CONSTIPATION Last administered on 08/03/16 17:53; Admin Dose 10 MG; Start 07/21/16 at 05:00 Lactulose (Enulose) 20 gm DAILY PRN PO CONSTIPATION; Start 07/21/16 at 05:00 Gabapentin (Neurontin) 200 mg TID PO Last administered on 08/09/16 12:31; Admin Dose 200 MG; Start 07/24/16 at 13:00 Insulin Glargine 15 unit 15 unit DAILY@20 SC Last administered on 08/09/16 20: 11; Admin Dose 15 UNIT; Start 07/27/16 at 20:00 Sodium Chloride (NS) 1,000 ml @ 10 mls/hr Q24H IV Last administered on 19:18; Admin Dose 10 MLS/HR; Start 08/02/16 at 18:00 Ondansetron HCl (Zofran Inj) 4 mg Q6H PRN IV NAUSEA AND/OR VOMITING Last administered on 08/06/16 09:04; Admin Dose 4 MG; Start 08/03/16 at 11:00 Hydromorphone HCl (Dilaudid) 2 mg Q3H PRN IV PAIN Last administered on 19:00; Admin Dose 2 MG; Start 08/03/16 at 13:30 Hydromorphone HCl 4 mg 4 mg Q6 PO Last administered on 08/09/16 17:50; Admin Dose 4 MG; Start 08/03/16 at 18:00 Ceftriaxone Sodium (Rocephin) 50 ml @ 100 mls/hr Q24H IVPB Last administered on 08/09/16 16:08; Admin Dose 100 MLS/HR; Start 08/03/16 at 17:00 Epoetin Chiki (Epogen (Esrd)) 10,000 units WeSa@21 SC Last administered on 21:54; Admin Dose 10,000 UNITS; Start 08/04/16 at 21:00 Phenol (Chloraseptic Throat [place]) 2 spray Q12 MT Last administered on 09:00; Admin Dose 2 SPRAY; Start 08/08/16 at 21:00 Acyclovir (Zovirax) 400 mg TID PO ; Start 08/09/16 at 20:00 SHANDA SILVA NP Aug 09, 2016 20:47
[2016-08-09] MEDS: ACYCLOVIR 400 MG TAB PO SCH (21:09)
[2016-08-09] MEDS: ATORVASTATIN 80 MG TAB PO SCH (21:10)
[2016-08-10] VITALS (7 sets, daily range): BP systolic 102–148; BP diastolic 57–77; PULSE 58–81; RESP 18–20
[2016-08-10] MEDS: ACCUCHECK AT 2AM (Patients on SS coverage) XX SCH (02:00)
[2016-08-10] MEDS: LEVOTHYROXINE 88 MCG TAB PO SCH (06:26)
[2016-08-10] MEDS: PANTOPRAZOLE (EC) 40 MG TAB PO SCH (06:26)
[2016-08-10] MEDS: HYDROmorphONE 2 MG TAB PO SCH ×4 (06:27→17:12)
[2016-08-10] MEDS: Insulin NOVOLOG SS MODERATE Algorithm (SS with meals and bedtime) SC SCH ×4 (07:35→20:51)
[2016-08-10] MEDS: ATENOLOL 50 MG TAB PO SCH (09:00)
[2016-08-10] MEDS: AMLODIPINE 5 MG TAB PO SCH ×2 (09:00→20:44)
[2016-08-10] MEDS: PHENOL 1.4% SOLN 180 ML BTL MT SCH ×2 (09:08→20:44)
[2016-08-10] MEDS: FOLIC ACID 1 MG TAB PO SCH (09:09)
[2016-08-10] MEDS: CLOPIDOGREL 75 MG TAB PO SCH (09:09)
[2016-08-10] MEDS: BROMOCRIPTINE 2.5 MG TAB PO SCH ×2 (09:09→20:43)
[2016-08-10] MEDS: FERROUS GLUCONATE (EC) 325 MG TAB PO SCH ×2 (09:09→20:43)
[2016-08-10] MEDS: DOCUSATE SODIUM 100 MG CAP PO SCH ×2 (09:09→20:43)
[2016-08-10] MEDS: GABAPENTIN 100 MG CAP PO SCH ×3 (09:09→20:43)
[2016-08-10] MEDS: ACYCLOVIR 400 MG TAB PO SCH ×2 (09:09→12:37)
[2016-08-10] MEDS: LINAGLIPTIN 5 MG TABLET PO SCH (09:09)
--- NOTE | 2016-08-10 11:02 | CONS ---
Date/Time of Note Date/Time of Note DATE: 08/10/16 TIME: 11:01 Consult Date/Type/Reason Admit Date/Time July 20, 2016 at 23:39 Type of Consultation: ID Subjective Tired Objective pulm-cta integ- wound on R sacral area Vital Signs Date Time Temp Pulse Resp B/P Pulse Ox O2 Delivery O2 Flow Rate FiO2 08/10/16 08:00 98.1 58 20 102/57 97 Room Air Intake and Output 08/09/16 08/09/16 08/10/16 15:00 23:00 07:00 Intake Total 1260 ml 360 ml Output Total 2600 ml Balance -1340 ml 360 ml Results/Medications Result Diagram: 08/06/16 0600 08/07/16 0949 Results 24 hrs Laboratory Tests Test 08/09/16 12:08 08/09/16 17:28 08/09/16 20:09 08/09/16 21:23 Bedside Glucose 131 208 220 180 Test 08/10/16 08:01 Bedside Glucose 81 Medications Current Medications Pantoprazole (Protonix Tab) 40 mg DAILY@06 PO Last administered on 08/10/16 06 :26; Admin Dose 40 MG; Start 07/21/16 at 06:00 Linagliptin (Tradjenta) 5 mg DAILY PO Last administered on 08/10/16 09:09; Admin Dose 5 MG; Start 07/21/16 at 09:00 Miscellaneous Information 1 ea NOTE XX ; Start 07/21/16 at 04:30 Glucose (Glutose) 15 gm Q15M PRN PO DECREASED GLUCOSE; Start 07/21/16 at 04:30 Glucose (Glutose) 22.5 gm Q15M PRN PO DECREASED GLUCOSE; Start 07/21/16 at 04: 30 Dextrose (D50w Syringe) 25 ml Q15M PRN IV DECREASED GLUCOSE; Start 07/21/16 at 04:30 Dextrose (D50w Syringe) 50 ml Q15M PRN IV DECREASED GLUCOSE; Start 07/21/16 at 04:30 Glucagon (Glucagen) 1 mg Q15M PRN IM DECREASED GLUCOSE; Start 07/21/16 at 04:30 Glucose (Glutose) 15 gm Q15M PRN BUCCAL DECREASED GLUCOSE; Start 07/21/16 at 04 :30 Hydralazine HCl (Apresoline) 10 mg Q6H PRN IV PRN FOR SBP ABOVE 165mmHg; Start 07/21/16 at 04:30 Clopidogrel Bisulfate (plaVIX) 75 mg DAILY PO Last administered on 08/10/16 09 :09; Admin Dose 75 MG; Start 07/21/16 at 09:00 Ferrous Gluconate (Fergon) 325 mg BID PO Last administered on 08/10/16 09:09; Admin Dose 325 MG; Start 07/21/16 at 09:00 Folic Acid (Folic Acid) 1 mg DAILY PO Last administered on 08/10/16 09:09; Admin Dose 1 MG; Start 07/21/16 at 09:00 Diagnostic Test (Pha) (Accu-Chek) 1 ea 02 XX Last administered on 08/07/16 02: 00; Admin Dose 1 EA; Start 07/22/16 at 02:00 Acetaminophen (Tylenol Tab) 650 mg Q6H PRN PO PAIN AND OR ELEVATED TEMP; Start 07/21/16 at 04:30 Amlodipine Besylate (Norvasc) 5 mg BID PO Last administered on 08/09/16 21:11 ; Admin Dose 5 MG; Start 07/21/16 at 09:00 Atenolol (Tenormin) 50 mg DAILY PO Last administered on 08/08/16 09:02; Admin Dose 50 MG; Start 07/21/16 at 09:00 Atorvastatin Calcium (Lipitor) 80 mg DAILY@21 PO Last administered on 21:10; Admin Dose 80 MG; Start 07/21/16 at 21:00 Bromocriptine Mesylate (Parlodel) 2.5 mg BID PO Last administered on 08/10/16 09:09; Admin Dose 2.5 MG; Start 07/21/16 at 09:00 Docusate Sodium (Colace) 100 mg BID PO Last administered on 08/10/16 09:09; Admin Dose 100 MG; Start 07/21/16 at 09:00 Bisacodyl (Dulcolax Supp) 10 mg DAILY PRN [place] CONSTIPATION Last administered on 08/03/16 17:53; Admin Dose 10 MG; Start 07/21/16 at 05:00 Lactulose (Enulose) 20 gm DAILY PRN PO CONSTIPATION; Start 07/21/16 at 05:00 Gabapentin (Neurontin) 200 mg TID PO Last administered on 08/10/16 09:09; Admin Dose 200 MG; Start 07/24/16 at 13:00 Insulin Glargine 15 unit 15 unit DAILY@20 SC Last administered on 08/09/16 20: 11; Admin Dose 15 UNIT; Start 07/27/16 at 20:00 Sodium Chloride (NS) 1,000 ml @ 10 mls/hr Q24H IV Last administered on 19:18; Admin Dose 10 MLS/HR; Start 08/02/16 at 18:00 Ondansetron HCl (Zofran Inj) 4 mg Q6H PRN IV NAUSEA AND/OR VOMITING Last administered on 08/06/16 09:04; Admin Dose 4 MG; Start 08/03/16 at 11:00 Hydromorphone HCl (Dilaudid) 2 mg Q3H PRN IV PAIN Last administered on 19:00; Admin Dose 2 MG; Start 08/03/16 at 13:30 Hydromorphone HCl 4 mg 4 mg Q6 PO Last administered on 08/10/16 06:27; Admin Dose 4 MG; Start 08/03/16 at 18:00 Ceftriaxone Sodium (Rocephin) 50 ml @ 100 mls/hr Q24H IVPB Last administered on 08/09/16 16:08; Admin Dose 100 MLS/HR; Start 08/03/16 at 17:00 Epoetin [place] (Epogen (Esrd)) 10,000 units WeSa@21 SC Last administered on 21:54; Admin Dose 10,000 UNITS; Start 08/04/16 at 21:00 Phenol (Chloraseptic Throat [place]) 2 spray Q12 MT Last administered on 09:08; Admin Dose 2 SPRAY; Start 08/08/16 at 21:00 Acyclovir (Zovirax) 400 mg TID PO Last administered on 08/10/16 09:09; Admin Dose 400 MG; Start 08/09/16 at 20:00 Assessment/Plan Additional Assessment/Plan Rehab- R [place] infact CVA with L deniz ;pituitary macroadenoma Continue rehab therapy program as tolerated Integ- wound care, [place] cushion and specialty bed for off loading ESRD on PD HTN DM Anemia hypothy dyslipid GEORGE PIERRE MD Aug 10, 2016 11:02
--- NOTE | 2016-08-10 12:30 | PN ---
Date/Time of Note Date/Time of Note DATE: 08/10/16 TIME: 12:28 Assessment/Plan VTE Prophylaxis VTE Prophylaxis Intervention: LMWH Lines/Catheters IV Catheter Type (from Nrs): Peripheral IV Urinary Cath still in place: No Assessment/Plan Chief Complaint/Hosp Course 1. CKD stage 4. 3. Peritoneal dialysis 3. Neuropathies 4. Hypertension 5. Left leg swelling and pain without DVT on US 6. Anemia 7. DM type II, uncontrolled 8. Hypothyroidism Problems: Assessment/Plan 1. Continue peritoneal Dialysis 2. Rehabilitation 3. 1 unit PRBC transfuse Subjective 24 Hr Interval Summary Constitutional: no complaints Musculoskeletal: back pain, bone/joint pain Exam/Review of Systems Vital Signs Vitals Vital Signs Date Time Temp Pulse Resp B/P Pulse Ox O2 Delivery O2 Flow Rate FiO2 08/10/16 08:00 98.1 58 20 102/57 97 Room Air Intake and Output 08/09/16 08/09/16 08/10/16 15:00 23:00 07:00 Intake Total 1260 ml 360 ml Output Total 2600 ml Balance -1340 ml 360 ml Exam Constitutional: alert, oriented Eyes: nl conjunctiva Neck: supple Respiratory: clear to auscultation Cardiovascular: regular rate and rhythm Musculoskeletal: other (left hemiparesis) Results Result Diagram: 08/06/16 0600 08/07/16 0949 Results 24 hrs Laboratory Tests Test 08/09/16 17:28 08/09/16 20:09 08/09/16 21:23 08/10/16 08:01 Bedside Glucose 208 220 180 81 Test 08/10/16 12:17 Bedside Glucose 154 Medications Medications Current Medications Pantoprazole (Protonix Tab) 40 mg DAILY@06 PO Last administered on 08/10/16 06 :26; Admin Dose 40 MG; Start 07/21/16 at 06:00 Linagliptin (Tradjenta) 5 mg DAILY PO Last administered on 08/10/16 09:09; Admin Dose 5 MG; Start 07/21/16 at 09:00 Miscellaneous Information 1 ea NOTE XX ; Start 07/21/16 at 04:30 Glucose (Glutose) 15 gm Q15M PRN PO DECREASED GLUCOSE; Start 07/21/16 at 04:30 Glucose (Glutose) 22.5 gm Q15M PRN PO DECREASED GLUCOSE; Start 07/21/16 at 04: 30 Dextrose (D50w Syringe) 25 ml Q15M PRN IV DECREASED GLUCOSE; Start 07/21/16 at 04:30 Dextrose (D50w Syringe) 50 ml Q15M PRN IV DECREASED GLUCOSE; Start 07/21/16 at 04:30 Glucagon (Glucagen) 1 mg Q15M PRN IM DECREASED GLUCOSE; Start 07/21/16 at 04:30 Glucose (Glutose) 15 gm Q15M PRN BUCCAL DECREASED GLUCOSE; Start 07/21/16 at 04 :30 Hydralazine HCl (Apresoline) 10 mg Q6H PRN IV PRN FOR SBP ABOVE 165mmHg; Start 07/21/16 at 04:30 Clopidogrel Bisulfate (plaVIX) 75 mg DAILY PO Last administered on 08/10/16 09 :09; Admin Dose 75 MG; Start 07/21/16 at 09:00 Ferrous Gluconate (Fergon) 325 mg BID PO Last administered on 08/10/16 09:09; Admin Dose 325 MG; Start 07/21/16 at 09:00 Folic Acid (Folic Acid) 1 mg DAILY PO Last administered on 08/10/16 09:09; Admin Dose 1 MG; Start 07/21/16 at 09:00 Diagnostic Test (Pha) (Accu-Chek) 1 ea 02 XX Last administered on 08/07/16 02: 00; Admin Dose 1 EA; Start 07/22/16 at 02:00 Acetaminophen (Tylenol Tab) 650 mg Q6H PRN PO PAIN AND OR ELEVATED TEMP; Start 07/21/16 at 04:30 Amlodipine Besylate (Norvasc) 5 mg BID PO Last administered on 08/09/16 21:11 ; Admin Dose 5 MG; Start 07/21/16 at 09:00 Atenolol (Tenormin) 50 mg DAILY PO Last administered on 08/08/16 09:02; Admin Dose 50 MG; Start 07/21/16 at 09:00 Atorvastatin Calcium (Lipitor) 80 mg DAILY@21 PO Last administered on 21:10; Admin Dose 80 MG; Start 07/21/16 at 21:00 Bromocriptine Mesylate (Parlodel) 2.5 mg BID PO Last administered on 08/10/16 09:09; Admin Dose 2.5 MG; Start 07/21/16 at 09:00 Docusate Sodium (Colace) 100 mg BID PO Last administered on 08/10/16 09:09; Admin Dose 100 MG; Start 07/21/16 at 09:00 Bisacodyl (Dulcolax Supp) 10 mg DAILY PRN [place] CONSTIPATION Last administered on 08/03/16 17:53; Admin Dose 10 MG; Start 07/21/16 at 05:00 Lactulose (Enulose) 20 gm DAILY PRN PO CONSTIPATION; Start 07/21/16 at 05:00 Gabapentin (Neurontin) 200 mg TID PO Last administered on 08/10/16 09:09; Admin Dose 200 MG; Start 07/24/16 at 13:00 Insulin Glargine 15 unit 15 unit DAILY@20 SC Last administered on 08/09/16 20: 11; Admin Dose 15 UNIT; Start 07/27/16 at 20:00 Sodium Chloride (NS) 1,000 ml @ 10 mls/hr Q24H IV Last administered on 19:18; Admin Dose 10 MLS/HR; Start 08/02/16 at 18:00 Ondansetron HCl (Zofran Inj) 4 mg Q6H PRN IV NAUSEA AND/OR VOMITING Last administered on 08/06/16 09:04; Admin Dose 4 MG; Start 08/03/16 at 11:00 Hydromorphone HCl (Dilaudid) 2 mg Q3H PRN IV PAIN Last administered on 19:00; Admin Dose 2 MG; Start 08/03/16 at 13:30 Hydromorphone HCl 4 mg 4 mg Q6 PO Last administered on 08/10/16 06:27; Admin Dose 4 MG; Start 08/03/16 at 18:00 Ceftriaxone Sodium (Rocephin) 50 ml @ 100 mls/hr Q24H IVPB Last administered on 08/09/16 16:08; Admin Dose 100 MLS/HR; Start 08/03/16 at 17:00 Epoetin Chiki (Epogen (Esrd)) 10,000 units WeSa@21 SC Last administered on 21:54; Admin Dose 10,000 UNITS; Start 08/04/16 at 21:00 Phenol (Chloraseptic Throat [place]) 2 spray Q12 MT Last administered on 09:08; Admin Dose 2 SPRAY; Start 08/08/16 at 21:00 Acyclovir (Zovirax) 400 mg TID PO Last administered on 08/10/16 09:09; Admin Dose 400 MG; Start 08/09/16 at 20:00 MARTINE LLOYD Aug 10, 2016 12:30
[2016-08-10] MEDS: CEFTRIAXONE 1 GM/50 ML (PMX) 50 ML IVPB SCH (16:58)
[2016-08-10] MEDS: SOD CHLORIDE 0.9% 1,000 ML IV SCH (17:37)
--- NOTE | 2016-08-10 19:15 | PN ---
Date/Time of Note Date/Time of Note DATE: 08/10/16 TIME: 19:15 Assessment/Plan Lines/Catheters IV Catheter Type (from Nrs): Peripheral IV Castro in Place (from Nrs): No Assessment/Plan Chief Complaint/Hosp Course IMPRESSION: Thrombophlebitis, left lower extremity. RECOMMENDATIONS: Would continue antiplatelets and antibiotics. Elevate the leg. No evidence of any DVT noted. If there is no improvement , may need phlebectomy Will discuss with Dr. Lopes. Problems: Subjective 24 Hr Interval Summary Constitutional: improved Pain Control: mild Exam/Review of Systems Vital Signs Vitals Vital Signs Date Time Temp Pulse Resp B/P Pulse Ox O2 Delivery O2 Flow Rate FiO2 08/10/16 18:41 77 08/10/16 08:00 98.1 20 102/57 97 Room Air Intake and Output 08/09/16 08/09/16 08/10/16 15:00 23:00 07:00 Intake Total 1260 ml 360 ml Output Total 2600 ml Balance -1340 ml 360 ml Exam Neck: non-tender, supple Respiratory: clear to auscultation, normal air movement Cardiovascular: nl pulses, regular rate and rhythm Gastrointestinal: nl liver, spleen, non-tender, soft Results Result Diagram: 08/06/16 0600 08/07/16 0949 PILO HOFFMAN MD Aug 10, 2016 19:15
[2016-08-10] MEDS: ATORVASTATIN 80 MG TAB PO SCH (20:43)
[2016-08-10] MEDS: INSULIN GLARGINE [LANtus] 3 ML PEN SC SCH (20:50)
--- NOTE | 2016-08-10 21:35 | CONS ---
Date/Time of Note Date/Time of Note DATE: 08/10/16 TIME: 21:32 Assessment/Plan Assessment/Plan Chief Complaint/Hosp Course SUBJECTIVE: No acute changes. No fevers. Alert, feels better, nad ANTIMICROBIALS: Rocephin, Vanco, Acyclovir. PHYSICAL EXAMINATION: GENERAL: This is an obese, well-developed, middle-aged woman who is in no distress. HEENT: Head atraumatic, normocephalic. Sclerae anicteric. Buccal mucosa dry. NECK: Supple. CHEST: Rise symmetrical. Breath sounds diminished to bases. HEART: S1, S2. ABDOMEN: Soft. Bowel tones present. EXTREMITIES: Left lower extremity edema, resolving erythema. ASSESSMENT: 1. Escherichia coli urinary tract infection. 2. End-stage renal disease, on peritoneal dialysis. 3. Morbid obesity. 4. Left lower extremity cellulitis/ thrombophlebitis ==> ultrasound revealed no deep vein thrombosis. 5. Diabetes. 6. Herpetic lesions 6. Hypertension. PLAN: Improving, continue abx DW staff Problems: Consultation Date/Type/Reason Admit Date/Time July 20, 2016 at 23:39 Type of Consultation: ID Exam/Review of Systems Vital Signs Vitals Vital Signs Date Time Temp Pulse Resp B/P Pulse Ox O2 Delivery O2 Flow Rate FiO2 08/10/16 20:00 98.8 55 18 148/67 97 08/10/16 08:00 Room Air Intake and Output 08/09/16 08/09/16 08/10/16 15:00 23:00 07:00 Intake Total 1260 ml 360 ml Output Total 2600 ml Balance -1340 ml 360 ml Results Result Diagram: 08/06/16 0600 08/07/16 0949 Results 24 hrs Laboratory Tests Test 08/10/16 08:01 08/10/16 12:17 08/10/16 17:24 08/10/16 20:23 Bedside Glucose 81 154 140 226 H Medications Medications Current Medications Pantoprazole (Protonix Tab) 40 mg DAILY@06 PO Last administered on 08/10/16 06 :26; Admin Dose 40 MG; Start 07/21/16 at 06:00 Linagliptin (Tradjenta) 5 mg DAILY PO Last administered on 08/10/16 09:09; Admin Dose 5 MG; Start 07/21/16 at 09:00 Miscellaneous Information 1 ea NOTE XX ; Start 07/21/16 at 04:30 Glucose (Glutose) 15 gm Q15M PRN PO DECREASED GLUCOSE; Start 07/21/16 at 04:30 Glucose (Glutose) 22.5 gm Q15M PRN PO DECREASED GLUCOSE; Start 07/21/16 at 04: 30 Dextrose (D50w Syringe) 25 ml Q15M PRN IV DECREASED GLUCOSE; Start 07/21/16 at 04:30 Dextrose (D50w Syringe) 50 ml Q15M PRN IV DECREASED GLUCOSE; Start 07/21/16 at 04:30 Glucagon (Glucagen) 1 mg Q15M PRN IM DECREASED GLUCOSE; Start 07/21/16 at 04:30 Glucose (Glutose) 15 gm Q15M PRN BUCCAL DECREASED GLUCOSE; Start 07/21/16 at 04 :30 Hydralazine HCl (Apresoline) 10 mg Q6H PRN IV PRN FOR SBP ABOVE 165mmHg; Start 07/21/16 at 04:30 Clopidogrel Bisulfate (plaVIX) 75 mg DAILY PO Last administered on 08/10/16 09 :09; Admin Dose 75 MG; Start 07/21/16 at 09:00 Ferrous Gluconate (Fergon) 325 mg BID PO Last administered on 08/10/16 20:43; Admin Dose 325 MG; Start 07/21/16 at 09:00 Folic Acid (Folic Acid) 1 mg DAILY PO Last administered on 08/10/16 09:09; Admin Dose 1 MG; Start 07/21/16 at 09:00 Diagnostic Test (Pha) (Accu-Chek) 1 ea 02 XX Last administered on 08/07/16 02: 00; Admin Dose 1 EA; Start 07/22/16 at 02:00 Acetaminophen (Tylenol Tab) 650 mg Q6H PRN PO PAIN AND OR ELEVATED TEMP; Start 07/21/16 at 04:30 Amlodipine Besylate (Norvasc) 5 mg BID PO Last administered on 08/10/16 20:44 ; Admin Dose 5 MG; Start 07/21/16 at 09:00 Atenolol (Tenormin) 50 mg DAILY PO Last administered on 08/08/16 09:02; Admin Dose 50 MG; Start 07/21/16 at 09:00 Atorvastatin Calcium (Lipitor) 80 mg DAILY@21 PO Last administered on 20:43; Admin Dose 80 MG; Start 07/21/16 at 21:00 Bromocriptine Mesylate (Parlodel) 2.5 mg BID PO Last administered on 08/10/16 20:43; Admin Dose 2.5 MG; Start 07/21/16 at 09:00 Docusate Sodium (Colace) 100 mg BID PO Last administered on 08/10/16 20:43; Admin Dose 100 MG; Start 07/21/16 at 09:00 Bisacodyl (Dulcolax Supp) 10 mg DAILY PRN [place] CONSTIPATION Last administered on 08/03/16 17:53; Admin Dose 10 MG; Start 07/21/16 at 05:00 Lactulose (Enulose) 20 gm DAILY PRN PO CONSTIPATION; Start 07/21/16 at 05:00 Gabapentin (Neurontin) 200 mg TID PO Last administered on 08/10/16 20:43; Admin Dose 200 MG; Start 07/24/16 at 13:00 Insulin Glargine 15 unit 15 unit DAILY@20 SC Last administered on 08/10/16 20: 50; Admin Dose 15 UNIT; Start 07/27/16 at 20:00 Sodium Chloride (NS) 1,000 ml @ 10 mls/hr Q24H IV Last administered on 17:37; Admin Dose 10 MLS/HR; Start 08/02/16 at 18:00 Ondansetron HCl (Zofran Inj) 4 mg Q6H PRN IV NAUSEA AND/OR VOMITING Last administered on 08/06/16 09:04; Admin Dose 4 MG; Start 08/03/16 at 11:00 Hydromorphone HCl (Dilaudid) 2 mg Q3H PRN IV PAIN Last administered on 19:00; Admin Dose 2 MG; Start 08/03/16 at 13:30 Hydromorphone HCl 4 mg 4 mg Q6 PO Last administered on 08/10/16 17:12; Admin Dose 4 MG; Start 08/03/16 at 18:00 Ceftriaxone Sodium (Rocephin) 50 ml @ 100 mls/hr Q24H IVPB Last administered on 08/10/16 16:58; Admin Dose 100 MLS/HR; Start 08/03/16 at 17:00 Epoetin Chiki (Epogen (Esrd)) 10,000 units WeSa@21 SC Last administered on 21:54; Admin Dose 10,000 UNITS; Start 08/04/16 at 21:00 Phenol (Chloraseptic Throat [place]) 2 spray Q12 MT Last administered on 20:44; Admin Dose 2 SPRAY; Start 08/08/16 at 21:00 Acyclovir (Zovirax) 800 mg DAILY PO ; Start 08/11/16 at 09:00 SHANDA SILVA NP Aug 10, 2016 21:35
[2016-08-11] VITALS (7 sets, daily range): BP systolic 118–135; BP diastolic 56–72; PULSE 75–81; RESP 18–19
[2016-08-11] MEDS: ACCUCHECK AT 2AM (Patients on SS coverage) XX SCH (02:36)
[2016-08-11] MEDS: HYDROmorphONE 2 MG TAB PO SCH ×4 (06:52→17:38)
[2016-08-11] MEDS: LEVOTHYROXINE 88 MCG TAB PO SCH (06:52)
[2016-08-11] MEDS: PANTOPRAZOLE (EC) 40 MG TAB PO SCH (06:52)
[2016-08-11] MEDS: Insulin NOVOLOG SS MODERATE Algorithm (SS with meals and bedtime) SC SCH ×4 (08:41→21:45)
[2016-08-11] MEDS: FOLIC ACID 1 MG TAB PO SCH (08:42)
[2016-08-11] MEDS: CLOPIDOGREL 75 MG TAB PO SCH (08:43)
[2016-08-11] MEDS: ATENOLOL 50 MG TAB PO SCH (08:43)
[2016-08-11] MEDS: AMLODIPINE 5 MG TAB PO SCH ×2 (08:43→21:36)
[2016-08-11] MEDS: DOCUSATE SODIUM 100 MG CAP PO SCH ×2 (08:43→21:36)
[2016-08-11] MEDS: LINAGLIPTIN 5 MG TABLET PO SCH (08:44)
[2016-08-11] MEDS: GABAPENTIN 100 MG CAP PO SCH ×3 (08:44→21:36)
[2016-08-11] MEDS: ACYCLOVIR 400 MG TAB PO SCH (08:44)
[2016-08-11] MEDS: FERROUS GLUCONATE (EC) 325 MG TAB PO SCH ×2 (08:44→21:36)
[2016-08-11] MEDS: BROMOCRIPTINE 2.5 MG TAB PO SCH ×2 (08:44→21:35)
[2016-08-11] MEDS: PHENOL 1.4% SOLN 180 ML BTL MT SCH ×2 (08:48→21:46)
--- NOTE | 2016-08-11 10:20 | PN ---
Date/Time of Note Date/Time of Note DATE: 08/11/16 TIME: 10:12 Assessment/Plan Lines/Catheters IV Catheter Type (from Nrs): Peripheral IV Urinary Cath still in place: No Assessment/Plan Assessment/Plan 1. Acute lacunar infarcts in the right jama with left nondominant hemiparesis, impaired mobility/gait/ADLs. Continue PT/OT. 2. Pituitary macroadenoma. Continue medical management per endocrinology, on bromocriptine. 3. End-stage renal disease, on peritoneal dialysis per nephrology. 4. Hypertension. BP controlled. 5. Hypothyroidism. Continue levothyroxine. 6. Diabetes mellitus. Blood sugars controlled, continue medical management per internal medicine. 7. Anemia. Status post PRBCs transfusion. Internal medicine managing. Follow up hemoglobin/hematocrit. 8. Dyslipidemia. Continue statin. 9. Left lower extremity cellulitis/thrombophlebitis. Continue medical management per infectious disease and vascular surgeon. 10. Herpetic lesions. On acyclovir per infectious disease. Subjective 24 Hr Interval Summary Free Text/Dictation Rehab progress note Subjective: Reports minimal pain currently in left lower extremity, overall improving. ROS: Denies headache, no dizziness, no shortness of breath, no chest pain, no abdominal pain, no nausea, no vomiting. Exam/Review of Systems Vital Signs Vitals Vital Signs Date Time Temp Pulse Resp B/P Pulse Ox O2 Delivery O2 Flow Rate FiO2 08/10/16 20:00 98.8 55 18 148/67 97 08/10/16 08:00 Room Air Intake and Output 08/10/16 08/10/16 08/11/16 15:00 23:00 07:00 Intake Total 720 ml 460 ml Output Total 1300 ml Balance -580 ml 460 ml Exam General: Awake, alert, no acute distress CV: Regular rate, s1s2 Lungs: Respirations nonlabored, no wheezing Abdomen soft, nontender Extremities without cyanosis Neuro: No new focal changes. Left sided hemiparesis. Results Result Diagram: 08/07/16 0949 Results 24 hrs Laboratory Tests Test 08/10/16 12:17 08/10/16 17:24 08/10/16 20:23 08/11/16 02:23 Bedside Glucose 154 140 226 H 195 Test 08/11/16 07:38 Bedside Glucose 145 Medications Medications Current Medications Pantoprazole (Protonix Tab) 40 mg DAILY@06 PO Last administered on 08/11/16 06 :52; Admin Dose 40 MG; Start 07/21/16 at 06:00 Linagliptin (Tradjenta) 5 mg DAILY PO Last administered on 08/11/16 08:44; Admin Dose 5 MG; Start 07/21/16 at 09:00 Miscellaneous Information 1 ea NOTE XX ; Start 07/21/16 at 04:30 Glucose (Glutose) 15 gm Q15M PRN PO DECREASED GLUCOSE; Start 07/21/16 at 04:30 Glucose (Glutose) 22.5 gm Q15M PRN PO DECREASED GLUCOSE; Start 07/21/16 at 04: 30 Dextrose (D50w Syringe) 25 ml Q15M PRN IV DECREASED GLUCOSE; Start 07/21/16 at 04:30 Dextrose (D50w Syringe) 50 ml Q15M PRN IV DECREASED GLUCOSE; Start 07/21/16 at 04:30 Glucagon (Glucagen) 1 mg Q15M PRN IM DECREASED GLUCOSE; Start 07/21/16 at 04:30 Glucose (Glutose) 15 gm Q15M PRN BUCCAL DECREASED GLUCOSE; Start 07/21/16 at 04 :30 Hydralazine HCl (Apresoline) 10 mg Q6H PRN IV PRN FOR SBP ABOVE 165mmHg; Start 07/21/16 at 04:30 Clopidogrel Bisulfate (plaVIX) 75 mg DAILY PO Last administered on 08/11/16 08 :43; Admin Dose 75 MG; Start 07/21/16 at 09:00 Ferrous Gluconate (Fergon) 325 mg BID PO Last administered on 08/11/16 08:44; Admin Dose 325 MG; Start 07/21/16 at 09:00 Folic Acid (Folic Acid) 1 mg DAILY PO Last administered on 08/11/16 08:42; Admin Dose 1 MG; Start 07/21/16 at 09:00 Diagnostic Test (Pha) (Accu-Chek) 1 ea 02 XX Last administered on 08/11/16 02: 36; Admin Dose 1 EA; Start 07/22/16 at 02:00 Acetaminophen (Tylenol Tab) 650 mg Q6H PRN PO PAIN AND OR ELEVATED TEMP; Start 07/21/16 at 04:30 Amlodipine Besylate (Norvasc) 5 mg BID PO Last administered on 08/11/16 08:43 ; Admin Dose 5 MG; Start 07/21/16 at 09:00 Atenolol (Tenormin) 50 mg DAILY PO Last administered on 08/11/16 08:43; Admin Dose 50 MG; Start 07/21/16 at 09:00 Atorvastatin Calcium (Lipitor) 80 mg DAILY@21 PO Last administered on 20:43; Admin Dose 80 MG; Start 07/21/16 at 21:00 Bromocriptine Mesylate (Parlodel) 2.5 mg BID PO Last administered on 08/11/16 08:44; Admin Dose 2.5 MG; Start 07/21/16 at 09:00 Docusate Sodium (Colace) 100 mg BID PO Last administered on 08/11/16 08:43; Admin Dose 100 MG; Start 07/21/16 at 09:00 Bisacodyl (Dulcolax Supp) 10 mg DAILY PRN [place] CONSTIPATION Last administered on 08/03/16 17:53; Admin Dose 10 MG; Start 07/21/16 at 05:00 Lactulose (Enulose) 20 gm DAILY PRN PO CONSTIPATION; Start 07/21/16 at 05:00 Gabapentin (Neurontin) 200 mg TID PO Last administered on 08/11/16 08:44; Admin Dose 200 MG; Start 07/24/16 at 13:00 Insulin Glargine 15 unit 15 unit DAILY@20 SC Last administered on 08/10/16 20: 50; Admin Dose 15 UNIT; Start 07/27/16 at 20:00 Sodium Chloride (NS) 1,000 ml @ 10 mls/hr Q24H IV Last administered on 17:37; Admin Dose 10 MLS/HR; Start 08/02/16 at 18:00 Ondansetron HCl (Zofran Inj) 4 mg Q6H PRN IV NAUSEA AND/OR VOMITING Last administered on 08/06/16 09:04; Admin Dose 4 MG; Start 08/03/16 at 11:00 Hydromorphone HCl (Dilaudid) 2 mg Q3H PRN IV PAIN Last administered on 19:00; Admin Dose 2 MG; Start 08/03/16 at 13:30 Hydromorphone HCl 4 mg 4 mg Q6 PO Last administered on 08/11/16 06:52; Admin Dose 4 MG; Start 08/03/16 at 18:00 Ceftriaxone Sodium (Rocephin) 50 ml @ 100 mls/hr Q24H IVPB Last administered on 08/10/16 16:58; Admin Dose 100 MLS/HR; Start 08/03/16 at 17:00 Epoetin Chiki (Epogen (Esrd)) 10,000 units WeSa@21 SC Last administered on 21:54; Admin Dose 10,000 UNITS; Start 08/04/16 at 21:00 Phenol (Chloraseptic Throat [place]) 2 spray Q12 MT Last administered on 08:48; Admin Dose 2 SPRAY; Start 08/08/16 at 21:00 Acyclovir (Zovirax) 800 mg DAILY PO Last administered on 08/11/16 08:44; Admin Dose 800 MG; Start 08/11/16 at 09:00 HOANG WESTON Aug 11, 2016 10:20
--- NOTE | 2016-08-11 11:36 | PN ---
Date/Time of Note Date/Time of Note DATE: 08/11/16 TIME: 11:34 Assessment/Plan VTE Prophylaxis VTE Prophylaxis Intervention: ambulation Lines/Catheters IV Catheter Type (from Nrs): Peripheral IV Urinary Cath still in place: No Assessment/Plan Chief Complaint/Hosp Course 1. CKD stage 4. 3. Peritoneal dialysis 3. Neuropathies 4. Hypertension, controlled 5. Left leg swelling and pain without DVT on US 6. Anemia 7. DM type II, uncontrolled 8. Hypothyroidism Problems: Assessment/Plan 1. Continue rehabilitation Subjective 24 Hr Interval Summary Constitutional: improved, no complaints Exam/Review of Systems Vital Signs Vitals Vital Signs Date Time Temp Pulse Resp B/P Pulse Ox O2 Delivery O2 Flow Rate FiO2 08/11/16 07:40 77 08/10/16 20:00 98.8 18 148/67 97 08/10/16 08:00 Room Air Intake and Output 08/10/16 08/10/16 08/11/16 15:00 23:00 07:00 Intake Total 720 ml 460 ml Output Total 1300 ml Balance -580 ml 460 ml Exam Constitutional: alert, oriented Head: normocephalic ENMT: nl external ears & nose Neck: supple Respiratory: clear to auscultation Cardiovascular: regular rate and rhythm Musculoskeletal: muscle weakness (left side), range of motion (decreased left knee), swelling (BLE) Results Result Diagram: 08/07/16 0949 Results 24 hrs Laboratory Tests Test 08/10/16 12:17 08/10/16 17:24 08/10/16 20:23 08/11/16 02:23 Bedside Glucose 154 140 226 H 195 Test 08/11/16 07:38 Bedside Glucose 145 Medications Medications Current Medications Pantoprazole (Protonix Tab) 40 mg DAILY@06 PO Last administered on 08/11/16 06 :52; Admin Dose 40 MG; Start 07/21/16 at 06:00 Linagliptin (Tradjenta) 5 mg DAILY PO Last administered on 08/11/16 08:44; Admin Dose 5 MG; Start 07/21/16 at 09:00 Miscellaneous Information 1 ea NOTE XX ; Start 07/21/16 at 04:30 Glucose (Glutose) 15 gm Q15M PRN PO DECREASED GLUCOSE; Start 07/21/16 at 04:30 Glucose (Glutose) 22.5 gm Q15M PRN PO DECREASED GLUCOSE; Start 07/21/16 at 04: 30 Dextrose (D50w Syringe) 25 ml Q15M PRN IV DECREASED GLUCOSE; Start 07/21/16 at 04:30 Dextrose (D50w Syringe) 50 ml Q15M PRN IV DECREASED GLUCOSE; Start 07/21/16 at 04:30 Glucagon (Glucagen) 1 mg Q15M PRN IM DECREASED GLUCOSE; Start 07/21/16 at 04:30 Glucose (Glutose) 15 gm Q15M PRN BUCCAL DECREASED GLUCOSE; Start 07/21/16 at 04 :30 Hydralazine HCl (Apresoline) 10 mg Q6H PRN IV PRN FOR SBP ABOVE 165mmHg; Start 07/21/16 at 04:30 Clopidogrel Bisulfate (plaVIX) 75 mg DAILY PO Last administered on 08/11/16 08 :43; Admin Dose 75 MG; Start 07/21/16 at 09:00 Ferrous Gluconate (Fergon) 325 mg BID PO Last administered on 08/11/16 08:44; Admin Dose 325 MG; Start 07/21/16 at 09:00 Folic Acid (Folic Acid) 1 mg DAILY PO Last administered on 08/11/16 08:42; Admin Dose 1 MG; Start 07/21/16 at 09:00 Diagnostic Test (Pha) (Accu-Chek) 1 ea 02 XX Last administered on 08/11/16 02: 36; Admin Dose 1 EA; Start 07/22/16 at 02:00 Acetaminophen (Tylenol Tab) 650 mg Q6H PRN PO PAIN AND OR ELEVATED TEMP; Start 07/21/16 at 04:30 Amlodipine Besylate (Norvasc) 5 mg BID PO Last administered on 08/11/16 08:43 ; Admin Dose 5 MG; Start 07/21/16 at 09:00 Atenolol (Tenormin) 50 mg DAILY PO Last administered on 08/11/16 08:43; Admin Dose 50 MG; Start 07/21/16 at 09:00 Atorvastatin Calcium (Lipitor) 80 mg DAILY@21 PO Last administered on 20:43; Admin Dose 80 MG; Start 07/21/16 at 21:00 Bromocriptine Mesylate (Parlodel) 2.5 mg BID PO Last administered on 08/11/16 08:44; Admin Dose 2.5 MG; Start 07/21/16 at 09:00 Docusate Sodium (Colace) 100 mg BID PO Last administered on 08/11/16 08:43; Admin Dose 100 MG; Start 07/21/16 at 09:00 Bisacodyl (Dulcolax Supp) 10 mg DAILY PRN [place] CONSTIPATION Last administered on 08/03/16 17:53; Admin Dose 10 MG; Start 07/21/16 at 05:00 Lactulose (Enulose) 20 gm DAILY PRN PO CONSTIPATION; Start 07/21/16 at 05:00 Gabapentin (Neurontin) 200 mg TID PO Last administered on 08/11/16 08:44; Admin Dose 200 MG; Start 07/24/16 at 13:00 Insulin Glargine 15 unit 15 unit DAILY@20 SC Last administered on 08/10/16 20: 50; Admin Dose 15 UNIT; Start 07/27/16 at 20:00 Sodium Chloride (NS) 1,000 ml @ 10 mls/hr Q24H IV Last administered on 17:37; Admin Dose 10 MLS/HR; Start 08/02/16 at 18:00 Ondansetron HCl (Zofran Inj) 4 mg Q6H PRN IV NAUSEA AND/OR VOMITING Last administered on 08/06/16 09:04; Admin Dose 4 MG; Start 08/03/16 at 11:00 Hydromorphone HCl (Dilaudid) 2 mg Q3H PRN IV PAIN Last administered on 19:00; Admin Dose 2 MG; Start 08/03/16 at 13:30 Hydromorphone HCl 4 mg 4 mg Q6 PO Last administered on 08/11/16 06:52; Admin Dose 4 MG; Start 08/03/16 at 18:00 Ceftriaxone Sodium (Rocephin) 50 ml @ 100 mls/hr Q24H IVPB Last administered on 08/10/16 16:58; Admin Dose 100 MLS/HR; Start 08/03/16 at 17:00 Epoetin Chiki (Epogen (Esrd)) 10,000 units WeSa@21 SC Last administered on 21:54; Admin Dose 10,000 UNITS; Start 08/04/16 at 21:00 Phenol (Chloraseptic Throat [place]) 2 spray Q12 MT Last administered on 08:48; Admin Dose 2 SPRAY; Start 08/08/16 at 21:00 Acyclovir (Zovirax) 800 mg DAILY PO Last administered on 08/11/16 08:44; Admin Dose 800 MG; Start 08/11/16 at 09:00 Miscellaneous Information (*Rx Drug Level Order Reminder*) RANDOM VANCOMYCIN LEVEL 6... ONCE ONCE XX ; Start 08/12/16 at 05:00; Stop 08/12/16 at 05:01 MARTINE LLOYD Aug 11, 2016 11:36
[2016-08-11] MEDS: CEFTRIAXONE 1 GM/50 ML (PMX) 50 ML IVPB SCH (17:11)
[2016-08-11] MEDS: SOD CHLORIDE 0.9% 1,000 ML IV SCH (17:36)
[2016-08-11] MEDS: LACTULOSE 30ML CUP PO PRN (19:22)
[2016-08-11] MEDS: ATORVASTATIN 80 MG TAB PO SCH (21:35)
[2016-08-11] MEDS: EPOETIN 10000 UNITS/1 ML INJ (ESRD) SC SCH (21:37)
[2016-08-11] MEDS: INSULIN GLARGINE [LANtus] 3 ML PEN SC SCH (21:44)
[2016-08-12] MEDS: ACCUCHECK AT 2AM (Patients on SS coverage) XX SCH (02:13)
[2016-08-12 04:00] VITALS: BP 122/68; PULSE 79
[2016-08-12] MEDS: HYDROmorphONE 2 MG TAB PO SCH ×4 (06:00→18:00)
[2016-08-12] MEDS: LEVOTHYROXINE 88 MCG TAB PO SCH (06:28)
[2016-08-12] MEDS: PANTOPRAZOLE (EC) 40 MG TAB PO SCH (06:28)
[2016-08-12 06:42] LABS: ADD SCAN DIFF NO
[2016-08-12 07:01] LABS: BASOPHILS % 0.6 % (0.0-2.0); EOSINOPHILS # 0.3 10^3/ul (0.0-0.5); EOSINOPHILS % 4.1 % (0.0-7.0); HEMATOCRIT 23.2 % (37.0-47.0); HEMOGLOBIN 7.6 g/dl (12.0-16.0); LYMPHOCYTES # 0.8 10^3/ul (0.8-2.9); MEAN CORPUSCULAR HEMOGLOBIN 30.4 pg (29.0-33.0); MEAN CORPUSCULAR HGB CONC 32.8 g/dl (32.0-37.0); MEAN CORPUSCULAR VOLUME 92.8 fl (82.0-101.0); MEAN PLATELET VOLUME 9.6 fl (7.4-10.4); MONOCYTE # 0.4 10^3/ul (0.3-0.9); MONOCYTES % 6.1 % (0.0-11.0); NEUTROPHIL # 5.3 10^3/ul (1.6-7.5); NEUTROPHILS % 77.9 % (39.0-77.0); PLATELET COUNT 245 10^3/UL (140-415); RED CELL DISTRIBUTION WIDTH 13.3 % (11.5-14.5); WHITE BLOOD COUNT 6.8 10^3/ul (4.8-10.8)
[2016-08-12 07:15] LABS: CALCIUM 8.4 mg/dl (8.4-10.2); CREATININE 7.85 mg/dl (0.44-1.00); POTASSIUM 3.7 mmol/L (3.5-5.1)
[2016-08-12 07:30] VITALS: BP 100/69; PULSE 80
[2016-08-12] MEDS: HYDROmorphONE 2 MG/ML SYG IV PRN ×5 (07:33→19:04)
[2016-08-12] MEDS: Insulin NOVOLOG SS MODERATE Algorithm (SS with meals and bedtime) SC SCH ×4 (07:35→20:13)
[2016-08-12] MEDS: FOLIC ACID 1 MG TAB PO SCH (09:26)
[2016-08-12] MEDS: FERROUS GLUCONATE (EC) 325 MG TAB PO SCH ×2 (09:26→20:12)
[2016-08-12] MEDS: AMLODIPINE 5 MG TAB PO SCH ×2 (09:26→20:14)
[2016-08-12] MEDS: BROMOCRIPTINE 2.5 MG TAB PO SCH ×2 (09:27→20:12)
[2016-08-12] MEDS: ACYCLOVIR 400 MG TAB PO SCH (09:27)
[2016-08-12] MEDS: GABAPENTIN 100 MG CAP PO SCH ×3 (09:27→20:12)
[2016-08-12] MEDS: CLOPIDOGREL 75 MG TAB PO SCH (09:27)
[2016-08-12] MEDS: ATENOLOL 50 MG TAB PO SCH (09:28)
[2016-08-12] MEDS: LINAGLIPTIN 5 MG TABLET PO SCH (09:34)
--- NOTE | 2016-08-12 09:56 | PN ---
Date/Time of Note Date/Time of Note DATE: 08/12/16 TIME: 09:54 Assessment/Plan VTE Prophylaxis VTE Prophylaxis Intervention: LMWH Lines/Catheters [facility] (from [facility]): Peripheral IV Urinary Cath still in place: No Assessment/Plan Chief Complaint/Hosp Course 1. CKD stage 4. 3. Peritoneal dialysis 3. Neuropathies 4. Hypertension, controlled 5. Left leg swelling cellulitis better 6. Anemia 7. DM type II, controlled 8. Hypothyroidism Problems: Assessment/Plan 1. discharge planning 2. D/c antibiotics 3. Keep acyclovir for 7 more days 4. If crusts are dry, no need isolation Subjective 24 Hr Interval Summary Constitutional: improved, no complaints Exam/Review of Systems Vital Signs Vitals Vital Signs Date Time Temp Pulse Resp B/P Pulse Ox O2 Delivery O2 Flow Rate FiO2 08/12/16 04:00 79 08/11/16 19:42 98.1 19 130/59 96 08/10/16 08:00 Room Air Intake and Output 08/11/16 08/11/16 08/12/16 15:00 23:00 07:00 Intake Total 780 ml 350 ml Output Total 1300 ml Balance -520 ml 350 ml Exam Constitutional: alert, oriented Psych: no complaints Respiratory: clear to auscultation Cardiovascular: regular rate and rhythm Musculoskeletal: muscle weakness (left side of body), range of motion Results Result Diagram: 08/12/16 0612 08/12/16 0612 Results 24 hrs Laboratory Tests Test 08/11/16 12:06 08/11/16 12:25 08/11/16 20:33 08/11/16 21:33 Bedside Glucose 145 224 H 223 H Hemoglobin 8.4 L Test 08/12/16 02:05 08/12/16 06:12 08/12/16 07:43 Bedside Glucose 158 133 White Blood Count 6.8 Red Blood Count 2.50 L Hemoglobin 7.6 L Hematocrit 23.2 L Mean Corpuscular Volume 92.8 Mean Corpuscular Hemoglobin 30.4 Mean Corpuscular Hemoglobin Concent 32.8 Red Cell Distribution Width 13.3 Platelet Count 245 Mean Platelet Volume 9.6 Neutrophils % 77.9 H Lymphocytes % 11.0 L Monocytes % 6.1 Eosinophils % 4.1 Basophils % 0.6 Nucleated Red Blood Cells % 0.0 Neutrophils # 5.3 Lymphocytes # 0.8 Monocytes # 0.4 Eosinophils # 0.3 Basophils # 0.0 Nucleated Red Blood Cells # 0.0 Sodium Level 130 L Potassium Level 3.7 Chloride Level 92 L Carbon Dioxide Level 27 Anion Gap 15 Blood Urea Nitrogen 62 H Creatinine 7.85 H Glucose Level 91 Hemoglobin A1c 6.9 H Calcium Level 8.4 Random Vancomycin Level 16.4 Medications Medications Current Medications Pantoprazole (Protonix Tab) 40 mg DAILY@06 PO Last administered on 08/12/16 06 :28; Admin Dose 40 MG; Start 07/21/16 at 06:00 Linagliptin (Tradjenta) 5 mg DAILY PO Last administered on 08/12/16 09:34; Admin Dose 5 MG; Start 07/21/16 at 09:00 Miscellaneous Information 1 ea NOTE XX ; Start 07/21/16 at 04:30 Glucose (Glutose) 15 gm Q15M PRN PO DECREASED GLUCOSE; Start 07/21/16 at 04:30 Glucose (Glutose) 22.5 gm Q15M PRN PO DECREASED GLUCOSE; Start 07/21/16 at 04: 30 Dextrose (D50w Syringe) 25 ml Q15M PRN IV DECREASED GLUCOSE; Start 07/21/16 at 04:30 Dextrose (D50w Syringe) 50 ml Q15M PRN IV DECREASED GLUCOSE; Start 07/21/16 at 04:30 Glucagon (Glucagen) 1 mg Q15M PRN IM DECREASED GLUCOSE; Start 07/21/16 at 04:30 Glucose (Glutose) 15 gm Q15M PRN BUCCAL DECREASED GLUCOSE; Start 07/21/16 at 04 :30 Hydralazine HCl (Apresoline) 10 mg Q6H PRN IV PRN FOR SBP ABOVE 165mmHg; Start 07/21/16 at 04:30 Clopidogrel Bisulfate (plaVIX) 75 mg DAILY PO Last administered on 08/12/16 09 :27; Admin Dose 75 MG; Start 07/21/16 at 09:00 Ferrous Gluconate (Fergon) 325 mg BID PO Last administered on 08/12/16 09:26; Admin Dose 325 MG; Start 07/21/16 at 09:00 Folic Acid (Folic Acid) 1 mg DAILY PO Last administered on 08/12/16 09:26; Admin Dose 1 MG; Start 07/21/16 at 09:00 Diagnostic Test (Pha) (Accu-Chek) 1 ea 02 XX Last administered on 08/12/16 02: 13; Admin Dose 1 EA; Start 07/22/16 at 02:00 Acetaminophen (Tylenol Tab) 650 mg Q6H PRN PO PAIN AND OR ELEVATED TEMP; Start 07/21/16 at 04:30 Amlodipine Besylate (Norvasc) 5 mg BID PO Last administered on 08/12/16 09:26 ; Admin Dose 5 MG; Start 07/21/16 at 09:00 Atenolol (Tenormin) 50 mg DAILY PO Last administered on 08/12/16 09:28; Admin Dose 50 MG; Start 07/21/16 at 09:00 Atorvastatin Calcium (Lipitor) 80 mg DAILY@21 PO Last administered on 21:35; Admin Dose 80 MG; Start 07/21/16 at 21:00 Bromocriptine Mesylate (Parlodel) 2.5 mg BID PO Last administered on 08/12/16 09:27; Admin Dose 2.5 MG; Start 07/21/16 at 09:00 Docusate Sodium (Colace) 100 mg BID PO Last administered on 08/11/16 21:36; Admin Dose 100 MG; Start 07/21/16 at 09:00 Bisacodyl (Dulcolax Supp) 10 mg DAILY PRN [place] CONSTIPATION Last administered on 08/03/16 17:53; Admin Dose 10 MG; Start 07/21/16 at 05:00 Lactulose (Enulose) 20 gm DAILY PRN PO CONSTIPATION Last administered on 19:22; Admin Dose 20 GM; Start 07/21/16 at 05:00 Insulin Glargine 15 unit 15 unit DAILY@20 SC Last administered on 08/11/16 21: 44; Admin Dose 15 UNIT; Start 07/27/16 at 20:00 Sodium Chloride (NS) 1,000 ml @ 10 mls/hr Q24H IV Last administered on 17:37; Admin Dose 10 MLS/HR; Start 08/02/16 at 18:00 Ondansetron HCl (Zofran Inj) 4 mg Q6H PRN IV NAUSEA AND/OR VOMITING Last administered on 08/06/16 09:04; Admin Dose 4 MG; Start 08/03/16 at 11:00 Hydromorphone HCl (Dilaudid) 2 mg Q3H PRN IV PAIN Last administered on 07:33; Admin Dose 2 MG; Start 08/03/16 at 13:30 Hydromorphone HCl 4 mg 4 mg Q6 PO Last administered on 08/11/16 06:52; Admin Dose 4 MG; Start 08/03/16 at 18:00 Ceftriaxone Sodium (Rocephin) 50 ml @ 100 mls/hr Q24H IVPB Last administered on 08/11/16 17:11; Admin Dose 100 MLS/HR; Start 08/03/16 at 17:00 Epoetin Chiki (Epogen (Esrd)) 10,000 units WeSa@21 SC Last administered on 21:37; Admin Dose 10,000 UNITS; Start 08/04/16 at 21:00 Phenol (Chloraseptic Throat [place]) 2 spray Q12 MT Last administered on 21:46; Admin Dose 2 SPRAY; Start 08/08/16 at 21:00 Acyclovir (Zovirax) 800 mg DAILY PO Last administered on 08/12/16 09:27; Admin Dose 800 MG; Start 08/11/16 at 09:00 Gabapentin (Neurontin) 100 mg TID PO Last administered on 08/12/16 09:27; Admin Dose 100 MG; Start 08/11/16 at 13:00 MARTINE LLOYD Aug 12, 2016 09:56
[2016-08-12] MEDS: DOCUSATE SODIUM 100 MG CAP PO SCH ×2 (10:27→20:12)
[2016-08-12] MEDS: PHENOL 1.4% SOLN 180 ML BTL MT SCH ×2 (10:28→20:13)
--- NOTE | 2016-08-12 10:29 | PDOCDIS ---
Discharge Instructions CONDITION Patient Condition: Serious HOME CARE INSTRUCTIONS: Diet Instructions: Low Fat /CholesterolSpecial Diet: 1800 ADA ACTIVITY: Activity Restrictions: Slowly Increase Activity MARTINE LLOYD Aug 12, 2016 10:29
[2016-08-12 10:30] VITALS: BP 101/72; PULSE 82
[2016-08-12] MEDS ORDERED: ACET325T40 PO (10:37)
[2016-08-12] MEDS ORDERED: ATOR80TA75 PO (10:37)
[2016-08-12] MEDS ORDERED: APRS IV (10:37)
[2016-08-12] MEDS ORDERED: FERGON PO (10:37)
[2016-08-12] MEDS ORDERED: LINA5TAB PO (10:37)
[2016-08-12] MEDS ORDERED: Lactulose PO (10:37)
[2016-08-12] MEDS ORDERED: BISA10SU75 PR (10:37)
[2016-08-12] MEDS ORDERED: ATEN50TA PO (10:37)
[2016-08-12] MEDS ORDERED: Accu-Chek XX (10:37)
[2016-08-12] MEDS ORDERED: BROM2.5T13 PO (10:37)
[2016-08-12] MEDS ORDERED: ACYC400T2 PO (10:37)
[2016-08-12] MEDS ORDERED: AMLO-145 PO (10:37)
[2016-08-12] MEDS ORDERED: DOCU-216 PO (10:37)
[2016-08-12] MEDS ORDERED: CLOP75TA28 PO (10:37)
[2016-08-12] MEDS ORDERED: LANT3I SC (10:37)
[2016-08-12] MEDS ORDERED: EPO10ESRD SC (10:37)
[2016-08-12] MEDS ORDERED: LEVO88TA PO (10:37)
[2016-08-12] MEDS ORDERED: GABA100C14 PO (10:37)
[2016-08-12] MEDS ORDERED: NOVO3I SC (10:37)
[2016-08-12] MEDS ORDERED: FOLI-49 PO (10:37)
[2016-08-12] MEDS ORDERED: PANT40TA4 PO (10:37)
[2016-08-12 12:30] VITALS: BP 100/77; PULSE 84
[2016-08-12 15:13] VITALS: BP 102/78; PULSE 86
[2016-08-12] MEDS: SOD CHLORIDE 0.9% 1,000 ML IV SCH ×2 (18:00→21:00)
[2016-08-12] MEDS: CEFTRIAXONE 1 GM/50 ML (PMX) 50 ML IVPB SCH (20:09)
[2016-08-12] MEDS: INSULIN GLARGINE [LANtus] 3 ML PEN SC SCH (20:11)
[2016-08-12] MEDS: ATORVASTATIN 80 MG TAB PO SCH (20:12)
[2016-08-12 20:35] VITALS: BP 138/61; RESP 16
[2016-08-13] MEDS: ACCUCHECK AT 2AM (Patients on SS coverage) XX SCH (02:00)
[2016-08-13 04:00] VITALS: BP 128/61; PULSE 87
[2016-08-13] MEDS: PANTOPRAZOLE (EC) 40 MG TAB PO SCH (05:37)
[2016-08-13] MEDS: LEVOTHYROXINE 88 MCG TAB PO SCH (05:37)
[2016-08-13] MEDS: HYDROmorphONE 2 MG TAB PO SCH ×2 (05:42)
[2016-08-13 07:14] LABS: ADD SCAN DIFF NO
[2016-08-13 07:16] LABS: BASOPHILS % 0.5 % (0.0-2.0); EOSINOPHILS # 0.2 10^3/ul (0.0-0.5); EOSINOPHILS % 2.3 % (0.0-7.0); HEMATOCRIT 27.4 % (37.0-47.0); HEMOGLOBIN 9.2 g/dl (12.0-16.0); LYMPHOCYTES # 0.8 10^3/ul (0.8-2.9); LYMPHOCYTES % 8.5 % (15.0-51.0); MEAN CORPUSCULAR HEMOGLOBIN 30.9 pg (29.0-33.0); MEAN CORPUSCULAR HGB CONC 33.6 g/dl (32.0-37.0); MEAN CORPUSCULAR VOLUME 91.9 fl (82.0-101.0); MEAN PLATELET VOLUME 9.7 fl (7.4-10.4); MONOCYTE # 0.5 10^3/ul (0.3-0.9); MONOCYTES % 5.9 % (0.0-11.0); NEUTROPHIL # 7.3 10^3/ul (1.6-7.5); NEUTROPHILS % 82.5 % (39.0-77.0); PLATELET COUNT 256 10^3/UL (140-415); RED BLOOD COUNT 2.98 10^6/ul (4.20-5.40); RED CELL DISTRIBUTION WIDTH 13.5 % (11.5-14.5); WHITE BLOOD COUNT 8.9 10^3/ul (4.8-10.8)
[2016-08-13 07:30] VITALS: BP_SYST 122; BP_SYST 146; BP_DIAS 65; PULSE 88; RESP 18
[2016-08-13] MEDS: Insulin NOVOLOG SS MODERATE Algorithm (SS with meals and bedtime) SC SCH ×4 (07:35→20:35)
[2016-08-13 07:57] LABS: CALCIUM 8.5 mg/dl (8.4-10.2); CREATININE 7.77 mg/dl (0.44-1.00); POTASSIUM 3.6 mmol/L (3.5-5.1)
[2016-08-13] MEDS: BISACODYL 10 MG SUPP PR PRN (08:12)
[2016-08-13] MEDS: ATENOLOL 50 MG TAB PO SCH (09:00)
[2016-08-13] MEDS: GABAPENTIN 100 MG CAP PO SCH (09:00)
[2016-08-13] MEDS: DOCUSATE SODIUM 100 MG CAP PO SCH ×2 (09:00→20:24)
[2016-08-13] MEDS: FOLIC ACID 1 MG TAB PO SCH (09:00)
[2016-08-13] MEDS: LINAGLIPTIN 5 MG TABLET PO SCH (09:00)
[2016-08-13] MEDS: FERROUS GLUCONATE (EC) 325 MG TAB PO SCH ×2 (09:00→20:24)
[2016-08-13] MEDS: ACYCLOVIR 400 MG TAB PO SCH (09:00)
[2016-08-13] MEDS: BROMOCRIPTINE 2.5 MG TAB PO SCH ×2 (09:00→20:26)
[2016-08-13] MEDS: AMLODIPINE 5 MG TAB PO SCH ×2 (09:00→20:25)
[2016-08-13] MEDS: CLOPIDOGREL 75 MG TAB PO SCH (09:00)
[2016-08-13] MEDS: PHENOL 1.4% SOLN 180 ML BTL MT SCH ×2 (09:00→21:00)
[2016-08-13] MEDS ORDERED: NALOXONE (0.4 MG/ML) INJ IV ONE (09:00)
[2016-08-13 10:50] VITALS: BP 119/61; PULSE 87
--- NOTE | 2016-08-13 11:49 | RADRPT ---
PROCEDURE: MR Brain without contrast. CLINICAL INDICATION: Neurologic deficit, stroke TECHNIQUE: An MRI of the brain was performed on a high-resolution MR scanner utilizing the followi ng sequences: Sagittal and axial T1 weighted, axial T2 weighted, axial FLAIR, coronal GRE, and axial diffusion weighted with ADC mapping. Images were reviewed high-resolution PACS workstation. No con trast was administered. COMPARISON: MRI brain 07/15/2016 FINDINGS: No acute parenchymal hemorrhage, mass effect, or midline shift. Diffuse signal hyperintensity with e quivocal ADC signal in the right jama with associated edema. The basal cisterns remain clear. No n ew diffusion restriction identified. Small nonspecific white matter changes in the right frontal lobe. No suspicious parenchymal hypointense signal abnormalities are seen on the GRE images to suggest the presence of blood degradation products. The ventricles are stable size. Normal flow voids are visible in the proximal intracranial arteries suggesting their patency. Enlarged intrasellar lesion with elevation of the diaphragm sella. IMPRESSION: Expected evolution of the prior right pontine lacunar infarct with associated edema. The basal ciste rns remain clear. No MR evidence of acute hemorrhagic conversion. No new infarct identified. Enlarged intrasellar lesion with elevation of the diaphragm sella. Recommend correlation with prior pituitary MRI. RPTAT: AA .Andrew Garcia MD, MD Date Time Electronically viewed and signed by .Andrew Garcia MD, MD on 08/13/2016 11:49 .T/
[2016-08-13 14:04] VITALS: BP 122/63; PULSE 88
--- NOTE | 2016-08-13 15:11 | PN ---
Date/Time of Note Date/Time of Note DATE: 08/13/16 TIME: 15:11 Assessment/Plan Lines/Catheters IV Catheter Type (from Nrs): Peripheral IV Urinary Cath still in place: No Assessment/Plan Assessment/Plan 1. Acute lacunar infarcts in the right jama with left nondominant hemiparesis, impaired mobility/gait/ADLs. With altered mental status, MRI brain done showed evolution of infarct; no hemorrhagic conversion; no new infarcts identified. Neurology and internal medicine have been informed and awaiting further recommendations. Hold narcotics at this time as well as gabapentin. Continue close neurological checks and monitor vitals. Hold therapies at this time. 2. Pituitary macroadenoma. Continue medical management per endocrinology, on bromocriptine. 3. End-stage renal disease, on peritoneal dialysis per nephrology. 4. Hypertension. Continue medical management per internal medicine. 5. Hypothyroidism. Continue levothyroxine. 6. Diabetes mellitus. Continue medical management per internal medicine. 7. Anemia. Status post PRBC transfusion yesterday with improved hemoglobin/ hematocrit. Internal medicine managing. 8. Dyslipidemia. Continue statin. 9. Left lower extremity cellulitis/thrombophlebitis. Continue medical management per infectious disease and vascular surgeon. 10. Herpetic lesions. On acyclovir per infectious disease. Continue isolation precautions. 45 minutes spent on patient encounter today, greater than 50% of time face to face with patient and in coordination of patient care. Team conference held today, please see therapists and team conference notes for complete details. Subjective 24 Hr Interval Summary Free Text/Dictation Rehab progress note Subjective/History: Patient noted to be lethargic earlier in the day, though arousable. Vitals reported to be stable. Patient more awake and alert this afternoon. ROS: Denies any headache, no dizziness, denies new weakness or new paresthesias , no new visual changes, no nausea, no chest pain, no shortness of breath, no chills. Exam/Review of Systems Vital Signs Vitals Vital Signs Date Time Temp Pulse Resp B/P Pulse Ox O2 Delivery O2 Flow Rate FiO2 08/13/16 14:04 88 08/13/16 07:30 98.3 18 146/65 96 08/10/16 08:00 Room Air Intake and Output 08/12/16 08/12/16 08/13/16 15:00 23:00 07:00 Intake Total 120 ml 1150 ml Output Total 2000 ml Balance -1880 ml 1150 ml Exam General: Patient more awake and alert this afternoon, no acute distress CV: Regular rate, s1s2 Lungs: Respirations nonlabored, no wheezing Abdomen soft, nontender Extremities without cyanosis Neuro: Left sided hemiparesis unchanged. Antigravity strength RUE/RLE unchanged. No new sensory changes. Follows simple commands. Oriented to self, hospital, not year. Results Result Diagram: 08/13/16 0615 08/13/16 0615 Results 24 hrs Laboratory Tests Test 08/12/16 17:18 08/12/16 20:04 08/13/16 05:29 08/13/16 06:15 Bedside Glucose 131 131 Lab Scanned Report BLOOD TRANSFUSION White Blood Count 8.9 # Red Blood Count 2.98 L Hemoglobin 9.2 #L Hematocrit 27.4 L Mean Corpuscular Volume 91.9 Mean Corpuscular Hemoglobin 30.9 Mean Corpuscular Hemoglobin Concent 33.6 Red Cell Distribution Width 13.5 Platelet Count 256 Mean Platelet Volume 9.7 Neutrophils % 82.5 H Lymphocytes % 8.5 L Monocytes % 5.9 Eosinophils % 2.3 Basophils % 0.5 Nucleated Red Blood Cells % 0.0 Neutrophils # 7.3 Lymphocytes # 0.8 Monocytes # 0.5 Eosinophils # 0.2 Basophils # 0.0 Nucleated Red Blood Cells # 0.0 Sodium Level 130 L Potassium Level 3.6 Chloride Level 92 L Carbon Dioxide Level 26 Anion Gap 16 Blood Urea Nitrogen 60 H Creatinine 7.77 H Glucose Level 63 #L Calcium Level 8.5 Test 08/13/16 07:46 08/13/16 09:32 08/13/16 11:59 Bedside Glucose 101 126 118 Medications Medications Current Medications Pantoprazole (Protonix Tab) 40 mg DAILY@06 PO Last administered on 08/13/16 05 :37; Admin Dose 40 MG; Start 07/21/16 at 06:00 Linagliptin (Tradjenta) 5 mg DAILY PO Last administered on 08/12/16 09:34; Admin Dose 5 MG; Start 07/21/16 at 09:00 Miscellaneous Information 1 ea NOTE XX ; Start 07/21/16 at 04:30 Glucose (Glutose) 15 gm Q15M PRN PO DECREASED GLUCOSE; Start 07/21/16 at 04:30 Glucose (Glutose) 22.5 gm Q15M PRN PO DECREASED GLUCOSE; Start 07/21/16 at 04: 30 Dextrose (D50w Syringe) 25 ml Q15M PRN IV DECREASED GLUCOSE; Start 07/21/16 at 04:30 Dextrose (D50w Syringe) 50 ml Q15M PRN IV DECREASED GLUCOSE; Start 07/21/16 at 04:30 Glucagon (Glucagen) 1 mg Q15M PRN IM DECREASED GLUCOSE; Start 07/21/16 at 04:30 Glucose (Glutose) 15 gm Q15M PRN BUCCAL DECREASED GLUCOSE; Start 07/21/16 at 04 :30 Hydralazine HCl (Apresoline) 10 mg Q6H PRN IV PRN FOR SBP ABOVE 165mmHg; Start 07/21/16 at 04:30 Clopidogrel Bisulfate (plaVIX) 75 mg DAILY PO Last administered on 08/12/16 09 :27; Admin Dose 75 MG; Start 07/21/16 at 09:00 Ferrous Gluconate (Fergon) 325 mg BID PO Last administered on 08/12/16 20:12; Admin Dose 325 MG; Start 07/21/16 at 09:00 Folic Acid (Folic Acid) 1 mg DAILY PO Last administered on 08/12/16 09:26; Admin Dose 1 MG; Start 07/21/16 at 09:00 Diagnostic Test (Pha) (Accu-Chek) 1 ea 02 XX Last administered on 08/12/16 02: 13; Admin Dose 1 EA; Start 07/22/16 at 02:00 Acetaminophen (Tylenol Tab) 650 mg Q6H PRN PO PAIN AND OR ELEVATED TEMP; Start 07/21/16 at 04:30 Amlodipine Besylate (Norvasc) 5 mg BID PO Last administered on 08/12/16 20:14 ; Admin Dose 5 MG; Start 07/21/16 at 09:00 Atenolol (Tenormin) 50 mg DAILY PO Last administered on 08/12/16 09:28; Admin Dose 50 MG; Start 07/21/16 at 09:00 Atorvastatin Calcium (Lipitor) 80 mg DAILY@21 PO Last administered on 20:12; Admin Dose 80 MG; Start 07/21/16 at 21:00 Bromocriptine Mesylate (Parlodel) 2.5 mg BID PO Last administered on 08/12/16 20:12; Admin Dose 2.5 MG; Start 07/21/16 at 09:00 Docusate Sodium (Colace) 100 mg BID PO Last administered on 08/12/16 20:12; Admin Dose 100 MG; Start 07/21/16 at 09:00 Bisacodyl (Dulcolax Supp) 10 mg DAILY PRN [place] CONSTIPATION Last administered on 08/13/16 08:12; Admin Dose 10 MG; Start 07/21/16 at 05:00 Lactulose (Enulose) 20 gm DAILY PRN PO CONSTIPATION Last administered on 19:22; Admin Dose 20 GM; Start 07/21/16 at 05:00 Insulin Glargine 15 unit 15 unit DAILY@20 SC Last administered on 08/12/16 20: 11; Admin Dose 15 UNIT; Start 07/27/16 at 20:00 Sodium Chloride (NS) 1,000 ml @ 10 mls/hr Q24H IV Last administered on 21:00; Admin Dose 10 MLS/HR; Start 08/02/16 at 18:00 Ondansetron HCl (Zofran Inj) 4 mg Q6H PRN IV NAUSEA AND/OR VOMITING Last administered on 08/06/16 09:04; Admin Dose 4 MG; Start 08/03/16 at 11:00 Hydromorphone HCl (Dilaudid) 2 mg Q3H PRN IV PAIN Last administered on 19:04; Admin Dose 2 MG; Start 08/03/16 at 13:30; Status Future Hold Hydromorphone HCl 4 mg 4 mg Q6 PO Last administered on 08/12/16 12:21; Admin Dose 4 MG; Start 08/03/16 at 18:00; Status Future Hold Ceftriaxone Sodium (Rocephin) 50 ml @ 100 mls/hr Q24H IVPB Last administered on 08/12/16 20:09; Admin Dose 100 MLS/HR; Start 08/03/16 at 17:00 Epoetin Chiki (Epogen (Esrd)) 10,000 units WeSa@21 SC Last administered on 21:37; Admin Dose 10,000 UNITS; Start 6/10/17 at 21:00 Phenol (Chloraseptic Throat [place]) 2 spray Q12 MT Last administered on 20:13; Admin Dose 2 SPRAY; Start 08/08/16 at 21:00 Acyclovir (Zovirax) 800 mg DAILY PO Last administered on 08/12/16 09:27; Admin Dose 800 MG; Start 08/11/16 at 09:00 Gabapentin (Neurontin) 100 mg TID PO Last administered on 08/12/16 20:12; Admin Dose 100 MG; Start 08/11/16 at 13:00; Status Future Hold HOANG WESTON Aug 13, 2016 15:11
[2016-08-13 17:33] VITALS: BP 122/63; PULSE 75
[2016-08-13] MEDS: SOD CHLORIDE 0.9% 1,000 ML IV SCH (18:00)
[2016-08-13] MEDS: CEFTRIAXONE 1 GM/50 ML (PMX) 50 ML IVPB SCH (18:09)
[2016-08-13 19:25] VITALS: BP 142/63; RESP 18
[2016-08-13] MEDS: ATORVASTATIN 80 MG TAB PO SCH (20:24)
[2016-08-13] MEDS: INSULIN GLARGINE [LANtus] 3 ML PEN SC SCH (20:34)
--- NOTE | 2016-08-13 21:57 | PN ---
Date/Time of Note Date/Time of Note DATE: 08/13/16 TIME: 21:55 Assessment/Plan VTE Prophylaxis VTE Prophylaxis Intervention: other Lines/Catheters [facility]from [facility] Peripheral IV Urinary Cath still in place: No Assessment/Plan Chief Complaint/Hosp Course ESRD CELLULITES legs PROLACTINOMA PIT MASS DM UREMIA HYPONATREMIA DECUBITUS PLAN PD BROMOCRYPTINE pt ot inc pd time ck labs ct lower ex elevate legs WOUND CARE continue pd Problems: Subjective 24 Hr Interval Summary Subjective hx not possible: other (s/p ams better,mri seen) Exam/Review of Systems Vital Signs Vitals Vital Signs Date Time Temp Pulse Resp B/P Pulse Ox O2 Delivery O2 Flow Rate FiO2 08/13/16 19:25 97.9 18 142/63 96 08/13/16 17:33 75 08/10/16 08:00 Room Air Intake and Output 08/12/16 08/12/16 08/13/16 14:59 22:59 06:59 Intake Total 120 ml 1150 ml Output Total 2000 ml Balance -1880 ml 1150 ml Exam Neck: supple Respiratory: clear to auscultation Cardiovascular: regular rate and rhythm Gastrointestinal: soft Extremities: normal pulses Neurological: other (no change) Results Result Diagram: 08/13/16 0615 08/13/16 0615 Results 24 hrs Laboratory Tests Test 08/13/16 05:29 08/13/16 06:15 08/13/16 07:46 08/13/16 09:32 Lab Scanned Report BLOOD TRANSFUSION White Blood Count 8.9 # Red Blood Count 2.98 L Hemoglobin 9.2 #L Hematocrit 27.4 L Mean Corpuscular Volume 91.9 Mean Corpuscular Hemoglobin 30.9 Mean Corpuscular Hemoglobin Concent 33.6 Red Cell Distribution Width 13.5 Platelet Count 256 Mean Platelet Volume 9.7 Neutrophils % 82.5 H Lymphocytes % 8.5 L Monocytes % 5.9 Eosinophils % 2.3 Basophils % 0.5 Nucleated Red Blood Cells % 0.0 Neutrophils # 7.3 Lymphocytes # 0.8 Monocytes # 0.5 Eosinophils # 0.2 Basophils # 0.0 Nucleated Red Blood Cells # 0.0 Sodium Level 130 L Potassium Level 3.6 Chloride Level 92 L Carbon Dioxide Level 26 Anion Gap 16 Blood Urea Nitrogen 60 H Creatinine 7.77 H Glucose Level 63 #L Calcium Level 8.5 Bedside Glucose 101 126 Test 08/13/16 11:59 08/13/16 18:04 08/13/16 20:21 Bedside Glucose 118 253 H 253 H Medications Medications Current Medications Pantoprazole (Protonix Tab) 40 mg DAILY@06 PO Last administered on 08/13/16 05 :37; Admin Dose 40 MG; Start 07/21/16 at 06:00 Linagliptin (Tradjenta) 5 mg DAILY PO Last administered on 08/12/16 09:34; Admin Dose 5 MG; Start 07/21/16 at 09:00 Miscellaneous Information 1 ea NOTE XX ; Start 07/21/16 at 04:30 Glucose (Glutose) 15 gm Q15M PRN PO DECREASED GLUCOSE; Start 07/21/16 at 04:30 Glucose (Glutose) 22.5 gm Q15M PRN PO DECREASED GLUCOSE; Start 07/21/16 at 04: 30 Dextrose (D50w Syringe) 25 ml Q15M PRN IV DECREASED GLUCOSE; Start 07/21/16 at 04:30 Dextrose (D50w Syringe) 50 ml Q15M PRN IV DECREASED GLUCOSE; Start 07/21/16 at 04:30 Glucagon (Glucagen) 1 mg Q15M PRN IM DECREASED GLUCOSE; Start 07/21/16 at 04:30 Glucose (Glutose) 15 gm Q15M PRN BUCCAL DECREASED GLUCOSE; Start 07/21/16 at 04 :30 Hydralazine HCl (Apresoline) 10 mg Q6H PRN IV PRN FOR SBP ABOVE 165mmHg; Start 07/21/16 at 04:30 Clopidogrel Bisulfate (plaVIX) 75 mg DAILY PO Last administered on 08/12/16 09 :27; Admin Dose 75 MG; Start 07/21/16 at 09:00 Ferrous Gluconate (Fergon) 325 mg BID PO Last administered on 08/13/16 20:24; Admin Dose 325 MG; Start 07/21/16 at 09:00 Folic Acid (Folic Acid) 1 mg DAILY PO Last administered on 08/12/16 09:26; Admin Dose 1 MG; Start 07/21/16 at 09:00 Diagnostic Test (Pha) (Accu-Chek) 1 ea 02 XX Last administered on 08/12/16 02: 13; Admin Dose 1 EA; Start 07/22/16 at 02:00 Acetaminophen (Tylenol Tab) 650 mg Q6H PRN PO PAIN AND OR ELEVATED TEMP; Start 07/21/16 at 04:30 Amlodipine Besylate (Norvasc) 5 mg BID PO Last administered on 08/13/16 20:25 ; Admin Dose 5 MG; Start 07/21/16 at 09:00 Atenolol (Tenormin) 50 mg DAILY PO Last administered on 08/12/16 09:28; Admin Dose 50 MG; Start 07/21/16 at 09:00 Atorvastatin Calcium (Lipitor) 80 mg DAILY@21 PO Last administered on 20:24; Admin Dose 80 MG; Start 07/21/16 at 21:00 Bromocriptine Mesylate (Parlodel) 2.5 mg BID PO Last administered on 08/13/16 20:26; Admin Dose 2.5 MG; Start 07/21/16 at 09:00 Docusate Sodium (Colace) 100 mg BID PO Last administered on 08/13/16 20:24; Admin Dose 100 MG; Start 07/21/16 at 09:00 Bisacodyl (Dulcolax Supp) 10 mg DAILY PRN [place] CONSTIPATION Last administered on 08/13/16 08:12; Admin Dose 10 MG; Start 07/21/16 at 05:00 Lactulose (Enulose) 20 gm DAILY PRN PO CONSTIPATION Last administered on 19:22; Admin Dose 20 GM; Start 07/21/16 at 05:00 Insulin Glargine 15 unit 15 unit DAILY@20 SC Last administered on 08/13/16 20: 34; Admin Dose 15 UNIT; Start 07/27/16 at 20:00 Sodium Chloride (NS) 1,000 ml @ 10 mls/hr Q24H IV Last administered on 21:00; Admin Dose 10 MLS/HR; Start 08/02/16 at 18:00 Ondansetron HCl (Zofran Inj) 4 mg Q6H PRN IV NAUSEA AND/OR VOMITING Last administered on 08/06/16 09:04; Admin Dose 4 MG; Start 08/03/16 at 11:00 Hydromorphone HCl (Dilaudid) 2 mg Q3H PRN IV PAIN Last administered on 19:04; Admin Dose 2 MG; Start 08/03/16 at 13:30; Status Future Hold Hydromorphone HCl 4 mg 4 mg Q6 PO Last administered on 08/12/16 12:21; Admin Dose 4 MG; Start 08/03/16 at 18:00; Status Future Hold Ceftriaxone Sodium (Rocephin) 50 ml @ 100 mls/hr Q24H IVPB Last administered on 08/13/16 18:09; Admin Dose 100 MLS/HR; Start 08/03/16 at 17:00 Epoetin Chiki (Epogen (Esrd)) 10,000 units WeSa@21 SC Last administered on 21:37; Admin Dose 10,000 UNITS; Start 08/04/16 at 21:00 Phenol (Chloraseptic Throat [place]) 2 spray Q12 MT Last administered on 20:13; Admin Dose 2 SPRAY; Start 08/08/16 at 21:00 Acyclovir (Zovirax) 800 mg DAILY PO Last administered on 08/12/16 09:27; Admin Dose 800 MG; Start 08/11/16 at 09:00 Gabapentin (Neurontin) 100 mg TID PO Last administered on 08/12/16 20:12; Admin Dose 100 MG; Start 08/11/16 at 13:00; Status Future Hold CHRISTINA SHIRLEY MD Aug 13, 2016 21:57
[2016-08-14] MEDS: ACCUCHECK AT 2AM (Patients on SS coverage) XX SCH (02:04)
[2016-08-14 05:00] VITALS: BP 126/74; PULSE 79
[2016-08-14] MEDS: LEVOTHYROXINE 88 MCG TAB PO SCH (06:16)
[2016-08-14] MEDS: PANTOPRAZOLE (EC) 40 MG TAB PO SCH (06:16)
[2016-08-14 07:56] LABS: CALCIUM 8.5 mg/dl (8.4-10.2); CREATININE 8.28 mg/dl (0.44-1.00); POTASSIUM 3.6 mmol/L (3.5-5.1)
[2016-08-14 07:57] VITALS: BP 122/58; RESP 18
[2016-08-14 08:30] VITALS: BP 121/72; PULSE 82
[2016-08-14] MEDS: BROMOCRIPTINE 2.5 MG TAB PO SCH (09:00)
[2016-08-14] MEDS: FERROUS GLUCONATE (EC) 325 MG TAB PO SCH (09:14)
[2016-08-14] MEDS: CLOPIDOGREL 75 MG TAB PO SCH (09:14)
[2016-08-14] MEDS: FOLIC ACID 1 MG TAB PO SCH (09:15)
[2016-08-14] MEDS: ATENOLOL 50 MG TAB PO SCH (09:15)
[2016-08-14] MEDS: LACTULOSE 30ML CUP PO PRN (09:15)
[2016-08-14] MEDS: AMLODIPINE 5 MG TAB PO SCH (09:15)
[2016-08-14] MEDS: LINAGLIPTIN 5 MG TABLET PO SCH (09:15)
[2016-08-14] MEDS: ACYCLOVIR 400 MG TAB PO SCH (09:15)
[2016-08-14] MEDS: Insulin NOVOLOG SS MODERATE Algorithm (SS with meals and bedtime) SC SCH ×2 (09:16→12:00)
[2016-08-14] MEDS: DOCUSATE SODIUM 100 MG CAP PO SCH (09:17)
[2016-08-14] MEDS: PHENOL 1.4% SOLN 180 ML BTL MT SCH (09:17)
--- NOTE | 2016-08-14 10:59 | PN ---
Date/Time of Note Date/Time of Note DATE: 08/14/16 TIME: 10:54 Assessment/Plan Lines/Catheters IV Catheter Type (from [facility]): Peripheral IV Urinary Cath still in place: No Assessment/Plan Assessment/Plan 1. Acute lacunar infarcts in the right jama with left nondominant hemiparesis, impaired mobility/gait/ADLs. 2. Pituitary macroadenoma. Medically managed per endocrinology, on bromocriptine. Will ask endocrine to re-eval 3. End-stage renal disease, on peritoneal dialysis per nephrology. 4. Hypertension. Continue medical management per internal medicine. 5. Hypothyroidism. Continue levothyroxine. 6. Diabetes mellitus. Continue medical management per internal medicine. 7. Anemia. Status post PRBC transfusion with improved hemoglobin/hematocrit. Internal medicine managing. 8. Dyslipidemia. Continue statin. 9. Left lower extremity cellulitis/thrombophlebitis. Managed per infectious disease and vascular surgeon. 10. Herpetic lesions. On acyclovir per infectious disease. Continue isolation precautions. Case discussed with internal medicine. Patient with continued fluctuations in mental status. Unable to participate with therapies. Will transfer to acute medical service. Await further evaluation and recommendations from neurology. Subjective 24 Hr Interval Summary Free Text/Dictation Rehab progress note Subjective: Reports feeling better this morning, more awake and alert. However later in the morning while working with therapists, therapists report patient again lethargic and unable to participate with therapies. ROS: Denies chest pain, no shortness of breath, no abdominal pain, no nausea or vomiting, no chills. Exam/Review of Systems Vital Signs Vitals Vital Signs Date Time Temp Pulse Resp B/P Pulse Ox O2 Delivery O2 Flow Rate FiO2 08/14/16 08:30 82 08/14/16 07:57 99.0 18 122/58 96 08/10/16 08:00 Room Air Intake and Output 08/13/16 08/13/16 08/14/16 15:00 23:00 07:00 Intake Total 220 ml 860 ml Output Total 900 ml 1100 ml Balance -900 ml -880 ml 860 ml Exam Examination at the time of my visit earlier this morning: General: Initially asleep, but easily awakens, no acute distress CV: Regular rate, s1s2 audible Lungs with symmetrical air entry bilaterally, no wheezing Abdomen soft, nontender Extremities without cyanosis Neuro: Left sided hemiparesis. Moves RUE/RLE with antigravity strength. Follows simple commands. Oriented to self, place, not year. Results Result Diagram: 08/13/16 0615 08/14/16 0609 Results 24 hrs Laboratory Tests Test 08/13/16 11:59 08/13/16 18:04 08/13/16 20:21 08/14/16 02:07 Bedside Glucose 118 253 H 253 H 128 Test 08/14/16 06:09 08/14/16 09:11 Sodium Level 131 L Potassium Level 3.6 Chloride Level 93 L Carbon Dioxide Level 28 Anion Gap 14 Blood Urea Nitrogen 59 H Creatinine 8.28 H Glucose Level 76 Calcium Level 8.5 Bedside Glucose 146 Medications Medications Current Medications Pantoprazole (Protonix Tab) 40 mg DAILY@06 PO Last administered on 08/14/16 06 :16; Admin Dose 40 MG; Start 07/21/16 at 06:00 Linagliptin (Tradjenta) 5 mg DAILY PO Last administered on 08/14/16 09:15; Admin Dose 5 MG; Start 07/21/16 at 09:00 Miscellaneous Information 1 ea NOTE XX ; Start 07/21/16 at 04:30 Glucose (Glutose) 15 gm Q15M PRN PO DECREASED GLUCOSE; Start 07/21/16 at 04:30 Glucose (Glutose) 22.5 gm Q15M PRN PO DECREASED GLUCOSE; Start 07/21/16 at 04: 30 Dextrose (D50w Syringe) 25 ml Q15M PRN IV DECREASED GLUCOSE; Start 07/21/16 at 04:30 Dextrose (D50w Syringe) 50 ml Q15M PRN IV DECREASED GLUCOSE; Start 07/21/16 at 04:30 Glucagon (Glucagen) 1 mg Q15M PRN IM DECREASED GLUCOSE; Start 07/21/16 at 04:30 Glucose (Glutose) 15 gm Q15M PRN BUCCAL DECREASED GLUCOSE; Start 07/21/16 at 04 :30 Hydralazine HCl (Apresoline) 10 mg Q6H PRN IV PRN FOR SBP ABOVE 165mmHg; Start 07/21/16 at 04:30 Clopidogrel Bisulfate (plaVIX) 75 mg DAILY PO Last administered on 08/14/16 09 :14; Admin Dose 75 MG; Start 07/21/16 at 09:00 Ferrous Gluconate (Fergon) 325 mg BID PO Last administered on 08/14/16 09:14; Admin Dose 325 MG; Start 07/21/16 at 09:00 Folic Acid (Folic Acid) 1 mg DAILY PO Last administered on 08/14/16 09:15; Admin Dose 1 MG; Start 07/21/16 at 09:00 Diagnostic Test (Pha) (Accu-Chek) 1 ea 02 XX Last administered on 08/14/16 02: 04; Admin Dose 1 EA; Start 07/22/16 at 02:00 Acetaminophen (Tylenol Tab) 650 mg Q6H PRN PO PAIN AND OR ELEVATED TEMP; Start 07/21/16 at 04:30 Amlodipine Besylate (Norvasc) 5 mg BID PO Last administered on 08/14/16 09:15 ; Admin Dose 5 MG; Start 07/21/16 at 09:00 Atenolol (Tenormin) 50 mg DAILY PO Last administered on 08/14/16 09:15; Admin Dose 50 MG; Start 07/21/16 at 09:00 Atorvastatin Calcium (Lipitor) 80 mg DAILY@21 PO Last administered on 20:24; Admin Dose 80 MG; Start 07/21/16 at 21:00 Bromocriptine Mesylate (Parlodel) 2.5 mg BID PO Last administered on 08/13/16 20:26; Admin Dose 2.5 MG; Start 07/21/16 at 09:00 Docusate Sodium (Colace) 100 mg BID PO Last administered on 08/14/16 09:17; Admin Dose 100 MG; Start 07/21/16 at 09:00 Bisacodyl (Dulcolax Supp) 10 mg DAILY PRN MD CONSTIPATION Last administered on 08/13/16 08:12; Admin Dose 10 MG; Start 07/21/16 at 05:00 Lactulose (Enulose) 20 gm DAILY PRN PO CONSTIPATION Last administered on 09:15; Admin Dose 20 GM; Start 07/21/16 at 05:00 Insulin Glargine 15 unit 15 unit DAILY@20 SC Last administered on 08/13/16 20: 34; Admin Dose 15 UNIT; Start 07/27/16 at 20:00 Sodium Chloride (NS) 1,000 ml @ 10 mls/hr Q24H IV Last administered on 21:00; Admin Dose 10 MLS/HR; Start 08/02/16 at 18:00 Ondansetron HCl (Zofran Inj) 4 mg Q6H PRN IV NAUSEA AND/OR VOMITING Last administered on 08/06/16 09:04; Admin Dose 4 MG; Start 08/03/16 at 11:00 Hydromorphone HCl (Dilaudid) 2 mg Q3H PRN IV PAIN Last administered on 19:04; Admin Dose 2 MG; Start 08/03/16 at 13:30; Status Future Hold Hydromorphone HCl 4 mg 4 mg Q6 PO Last administered on 08/12/16 12:21; Admin Dose 4 MG; Start 08/03/16 at 18:00; Status Future Hold Ceftriaxone Sodium (Rocephin) 50 ml @ 100 mls/hr Q24H IVPB Last administered on 08/13/16 18:09; Admin Dose 100 MLS/HR; Start 08/03/16 at 17:00 Epoetin Chiki (Epogen (Esrd)) 10,000 units WeSa@21 SC Last administered on 21:37; Admin Dose 10,000 UNITS; Start 08/04/16 at 21:00 Phenol (Chloraseptic Throat [place]) 2 spray Q12 MT Last administered on 09:17; Admin Dose 2 SPRAY; Start 08/08/16 at 21:00 Acyclovir (Zovirax) 800 mg DAILY PO Last administered on 08/14/16 09:15; Admin Dose 800 MG; Start 08/11/16 at 09:00 Gabapentin (Neurontin) 100 mg TID PO Last administered on 08/12/16 20:12; Admin Dose 100 MG; Start 08/11/16 at 13:00; Status Future Hold HOANG WESTON Aug 14, 2016 10:59
[2016-08-14 11:30] VITALS: BP 101/78; PULSE 84
== END 2016-08-14 13:40 | disposition home or self-care (01) | DRG 56 ==
LOC: VRC 23:39
PROVIDERS: ADMIT Physical Medicine & Rehabilitation; ATTEND Internal Medicine Nephrology
PROC: F07Z5ZZ Bed Mobility Treatment (ICD-10-PCS; principal; 2016-07-24)
PROC: F08Z0ZZ Bathing/Showering Techniques Treatment (ICD-10-PCS; 2016-07-24)
PROC: F06ZDZZ Swallowing Dysfunction Treatment (ICD-10-PCS; 2016-07-24)
PROC: 30233N1 Transfusion of Nonautologous Red Blood Cells into Peripheral Vein, Percutaneous Approach (ICD-10-PCS; 2016-08-04)
PROC: 5A1D00Z (ICD-10-PCS; 2016-08-06)
DX: I69.354 Hemiplegia and hemiparesis following cerebral infarction affecting left non-dominant side (principal); N18.6 End stage renal disease; E11.21 Type 2 diabetes mellitus with diabetic nephropathy; I80.299 Phlebitis and thrombophlebitis of other deep vessels of unspecified lower extremity; I12.0 Hypertensive chronic kidney disease with stage 5 chronic kidney disease or end stage renal disease; L03.116 Cellulitis of left lower limb; N19 Unspecified kidney failure; I82.402 Acute embolism and thrombosis of unspecified deep veins of left lower extremity; Z68.41 Body mass index [BMI] 40.0-44.9, adult; I69.321 Dysphasia following cerebral infarction; D64.9 Anemia, unspecified; E03.9 Hypothyroidism, unspecified; E11.22 Type 2 diabetes mellitus with diabetic chronic kidney disease; Z99.2 Dependence on renal dialysis; E83.51 Hypocalcemia; E21.3 Hyperparathyroidism, unspecified; E78.5 Hyperlipidemia, unspecified; K57.10 Diverticulosis of small intestine without perforation or abscess without bleeding; Z79.4 Long term (current) use of insulin; E11.319 Type 2 diabetes mellitus with unspecified diabetic retinopathy without macular edema; E66.01 Morbid (severe) obesity due to excess calories; M79.606 Pain in leg, unspecified; G89.29 Other chronic pain; R22.30 Localized swelling, mass and lump, unspecified upper limb; Z78.0 Asymptomatic menopausal state
CPT/HCPCS: 36430; 70551; 73700; 73706; 74176; 80048; 80053; 80202; 81001; 82962; 83036; 85018; 85025; 86850; 86900; 86901; 86920; 87081; 87086; 90945; 92523; 92526; 92610; 93971; 97110; 97112; 97116; 97150; 97163; 97167; 97530; 97535; 97542; J0696; J1170; J1815; J2405; J2543; J3370; J7030; J7040; L1820; P9016; Q4081

== ENCOUNTER 2016-08-14 13:35 | Inpatient (IN) | payer OTHER ==
[~2016-08-14] VITALS: Ht 162.6 cm; Wt 100.0 kg
[2016-08-14] VITALS (7 sets, daily range): BP systolic 100–146; BP diastolic 52–62; PULSE 71–89; RESP 16–20; Ht 162.6 cm; Wt 100.0 kg
[~2016-08-14 13:35] MED LIST changes: +ACET325T40 PO; +ACYC400T2 PO; +AMLO-145 PO; +APRS IV; +ATOR80TA75 PO; +Accu-Chek XX; +BISA10SU75 PR; +BROM2.5T13 PO; +CLOP75TA28 PO; +DOCU-216 PO; +EPO10ESRD SC; +FERGON PO; +GABA100C14 PO; +LANT3I SC; +LEVO88TA PO; +LINA5TAB PO; +Lactulose PO; +NOVO3I SC; +PANT40TA4 PO
[2016-08-14] MEDS ORDERED: GLUCAGON 1 MG INJ IM PRN (16:00)
[2016-08-14] MEDS ORDERED: GLUCOSE GEL 15 GRAM TUBE BUCCAL PRN (16:00)
[2016-08-14] MEDS ORDERED: GLUCOSE GEL 15 GRAM TUBE PO PRN ×2 (16:00)
[2016-08-14] MEDS ORDERED: DEXTROSE 50% 50 ML SYRINGE IV PRN ×2 (16:00)
[2016-08-14] MEDS ORDERED: BISACODYL 10 MG SUPP PR PRN (16:00)
[2016-08-14] MEDS: INSULIN ASPART [NOVOLOG] 3 ML PEN SC SCH ×2 (17:23→21:00)
--- NOTE | 2016-08-14 20:04 | CONS ---
DATE OF ADMISSION: 08/14/2016 DATE OF CONSULTATION: 08/14/2016 TYPE OF CONSULTATION: Neurology. Thank you, Dr. Shirley, for your kind referral for evaluation of encephalopathy. HISTORY OF PRESENT ILLNESS: The patient is a 60-year-old lady, I saw about a month ago also here at [facility] with acute stroke. She presented with left-sided weakness at that richardson e. MRI of the brain shows right pontine lacunar infarct. Also patient was diagnosed with pituitary microadenoma. At that time, she presented with left-sided weakness. She was evaluated by neurosur aurora and started on bromocriptine and moved to acute rehabilitation. Evaluation was requested becau se in the last 2 days the patient has been much more lethargic. She had another MRI of the brain ye sterday, which shows the expected evolution of the prior right pontine lacunar infarct with associat ed edema, no evidence of hemorrhagic conversion, no presence of new infarcts. MRI again showed intr asellar lesion with elevation of sellar diaphragm. The patient's labs show sodium 131, potassium 3.6, chloride 93, BUN 59, creatinine 8.28, glucose 261 . Last comprehensive metabolic panel was done a week ago. WBC count 8.9, hemoglobin 9.2, hematocri t 27 with 82% of neutrophils, normal platelets. 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 PAST MEDICAL HISTORY: End-stage renal disease on peritoneal dialysis, diabetes, hypertension, hypot hyroidism, also anemia. ALLERGIES: NONE. SOCIAL HISTORY: No alcohol, tobacco, drug use. FAMILY HISTORY: Noncontributory. CURRENT MEDICATIONS: 1. Epogen. 2. Acyclovir 800 daily. 3. Atenolol. 4. Plavix. 5. Folate. 6. Tradjenta. 7. Norvasc. 8. Synthroid. 9. Protonix. 10. Lipitor. 11. Bromocriptine 2.5 at 2 times a day. 12. Insulin sliding scale. PHYSICAL EXAMINATION: VITAL SIGNS: Temperature 98.2, pulse 73, respiration 18, 108/53 blood pressure. GENERAL: Not in acute distress, lying in bed. HEENT: Normocephalic, atraumatic head. NECK: No carotid bruits. No thyromegaly. LUNGS: Clear to auscultation bilaterally. CARDIAC: Normal cardiac rhythm and sounds. ABDOMEN: Soft. EXTREMITIES: No cyanosis, clubbing, or edema. NEUROLOGIC: She is awake, alert, and oriented x2. She knew the year only. I told her the date and , later on, she remembered the month, but not the exact date. Fluent speech. Cranial nerve examina tion shows intact visual donato bilaterally. Pupils reactive from 3 to 2 mm bilaterally. Extraocul ar movements intact without nystagmus. Asymmetrical face with left-sided facial, central type weakn ess. Corneal reflexes present bilaterally. Gag is present. Tongue is in midline. Motor strength examination shows essentially no movements in the left upper extremity with exception of trace of mo vements in the fingers. Flaccid tone. Also minimal, maybe 2+ to 3-, movements on knee extension an d flexion. The patient also complains of pain in the left foreleg with passive movements. Flaccid tone. Normal muscle bulk. Sensory examination grossly intact to light touch and pain. Deep tendon reflexes 2+ in upper extremities, absent in lower extremities. Downgoing toes bilaterally. The dick islas has no complaints of headaches. IMPRESSION: Encephalopathy in the last few days in patient with history of a lacunar pure motor str samantha about 1 month old and also pituitary microadenoma. Encephalopathy seems to be toxic metabolic i n etiology. MRI did not show any acute new abnormality. Comprehensive metabolic panel with liver f unction tests are pending. I will obtain an ammonia level. I will obtain EEG for further evaluatio n of encephalopathy. Continue current treatment. Thank you very much for this interesting consultation. Dictated By: STEFAN RANGEL/FLOYD Conf#: [id number] DID#: [id number] CC: CHRISTINA SHIRLEY MD;*End*
[2016-08-14] MEDS ORDERED: AMLODIPINE 5 MG TAB PO SCH (21:00)
[2016-08-14] MEDS: BROMOCRIPTINE 2.5 MG TAB PO SCH (21:00)
[2016-08-14] MEDS: FERROUS GLUCONATE (EC) 325 MG TAB PO SCH (21:54)
[2016-08-14] MEDS: DOCUSATE SODIUM 100 MG CAP PO SCH (21:54)
[2016-08-14] MEDS: ATORVASTATIN 80 MG TAB PO SCH (21:54)
[2016-08-14] MEDS: INSULIN GLARGINE [LANtus] 3 ML PEN SC SCH (21:55)
--- NOTE | 2016-08-14 23:24 | QN ---
Documentation Comment [id number] CHRISTINA SHIRLEY MD Aug 14, 2016 23:24
[2016-08-15] VITALS (18 sets, daily range): BP systolic 112–127; BP diastolic 54–78; PULSE 6–81; RESP 16–20
--- NOTE | 2016-08-15 00:25 | HP ---
DATE OF ADMISSION: 08/14/2016 HISTORY OF PRESENT ILLNESS: Dunia Albarran is a 60-year-old female who was initially admitted to the rehab. The patient was admitted with diagnosis of acute CVA. Left-sided weakness. Patient also has ESRD, hypertension, left leg varicose vein cellulitis. Also, diabetes, hypothyroidism, pituitary mass is being treated with bromocriptine. Presented, patient was doing poorly, became weak and patient had MRI of the brain done, shows patient as expected evolution of the prior right pontine neck infarction with associated edema and basal cisterns remain clear. No MRI evidence of acute_ infarct with elevation of the diaphragm sella. Patient was transferred since patient could not be completing more physical therapy, was weak. The patient was transferred to telemetry floor. Patient patient is awake, alert. PAST MEDICAL HISTORY: Positive for ESRD, hypertension, diabetes mellitus, dyslipidemia, history of left leg cellulitis, hypothyroidism, pituitary mass with prolactinoma. ALLERGY HISTORY: NEGATIVE. FAMILY HISTORY: Unremarkable at this point. SOCIAL HISTORY: Negative. MEDICATION HISTORY: The patient is currently on: 1. Epogen 10,000. 2. Acyclovir 3. Atenolol. 4. Plavix. 5. Folic acid. 6. Tradjenta. 7. Amlodipine. 8. Levothyroxine. 9. Protonix. 10. Lipitor. 11. Bromocriptine. 12. Docusate sodium. 13. Ferrous gluconate. 14. Insulin. 15. The patient is also on peritoneal dialysis. REVIEW OF SYSTEMS: HEENT: Unremarkable. RESPIRATORY: Unremarkable. CARDIOVASCULAR: Unremarkable. ABDOMEN: Unremarkable. EXTREMITIES: Left leg pain is getting better. CENTRAL NERVOUS SYSTEM: Unremarkable. PHYSICAL EXAMINATION: GENERAL: The patient is awake, alert, arousable easily. VITAL SIGNS: Pulse 62, blood pressure 120/56. HEAD: Atraumatic, normocephalic. Pupils are equal, reactive to light. No pale conjunctivae or icterus. NECK: Supple. No JVD. LUNGS: Clear. CARDIOVASCULAR: S1, S2 normal. ABDOMEN: Soft, obese, bowel sounds present, no palpable mass. The catheter noted. EXTREMITIES: There is no cyanosis, clubbing. Edema positive both lower extremities, more on the left than right. RESTORATION TECHNICIAN: The patient awake, alert, Left-sided weakness. LABORATORY DATA: Not available for this admission. IMPRESSION: 1. Patient has cerebrovascular accident recovering. 2. Status post altered mental status. 3. End-stage renal disease. 4. Hypertension. 5. Diabetes mellitus. 6. Hypothyroidism. 7. Dyslipidemia. 8. Left leg cellulitis. 9. Left leg varicose vein. 10. The patient has pituitary mass prolactinoma. PLAN: To continue current treatment, peritoneal dialysis with 1.5 and 2.5 dex verna solution. LABORATORY DATA: Will be followed. Sliding scale, blood pressure medicine will be adjusted. Neurology evaluation will be requested. The patient will also need to have will have case management for placement in a jail. Dictated By: CHRISTINA SHIRLEY MD BS/FLOYD Conf#: [id number] DID#: [id number] MTDD
[2016-08-15] MEDS: ACCU-CHEK XX SCH (02:00)
[2016-08-15] MEDS: LEVOTHYROXINE 88 MCG TAB PO SCH (06:22)
[2016-08-15] MEDS: PANTOPRAZOLE (EC) 40 MG TAB PO SCH (06:22)
[2016-08-15 07:40] LABS: ADD SCAN DIFF NO; BASOPHIL # 0.1 10^3/ul (0.0-0.1); BASOPHILS % 0.6 % (0.0-2.0); EOSINOPHILS # 0.2 10^3/ul (0.0-0.5); EOSINOPHILS % 2.1 % (0.0-7.0); HEMATOCRIT 28.6 % (37.0-47.0); HEMOGLOBIN 9.5 g/dl (12.0-16.0); LYMPHOCYTES # 0.8 10^3/ul (0.8-2.9); LYMPHOCYTES % 10.2 % (15.0-51.0); MEAN CORPUSCULAR HEMOGLOBIN 31.3 pg (29.0-33.0); MEAN CORPUSCULAR HGB CONC 33.2 g/dl (32.0-37.0); MEAN CORPUSCULAR VOLUME 94.1 fl (82.0-101.0); MEAN PLATELET VOLUME 9.6 fl (7.4-10.4); MONOCYTE # 0.6 10^3/ul (0.3-0.9); MONOCYTES % 6.8 % (0.0-11.0); NEUTROPHIL # 6.6 10^3/ul (1.6-7.5); NEUTROPHILS % 79.9 % (39.0-77.0); PLATELET COUNT 298 10^3/UL (140-415); RED BLOOD COUNT 3.04 10^6/ul (4.20-5.40); RED CELL DISTRIBUTION WIDTH 14.1 % (11.5-14.5); WHITE BLOOD COUNT 8.2 10^3/ul (4.8-10.8)
[2016-08-15 08:15] LABS: ALBUMIN 3.6 g/dl (3.3-4.9); CREATININE 8.3 mg/dl (0.44-1.00); POTASSIUM 3.8 mmol/L (3.5-5.1); TOTAL PROTEIN 7.2 g/dl (6.1-8.1)
[2016-08-15] MEDS ORDERED: AMLODIPINE 5 MG TAB PO SCH (09:00)
[2016-08-15] MEDS ORDERED: ACYCLOVIR 400 MG TAB PO SCH (09:00)
[2016-08-15] MEDS: INSULIN ASPART [NOVOLOG] 3 ML PEN SC SCH ×4 (09:14→20:57)
[2016-08-15] MEDS: DOCUSATE SODIUM 100 MG CAP PO SCH ×2 (09:15→20:42)
[2016-08-15] MEDS: FERROUS GLUCONATE (EC) 325 MG TAB PO SCH ×2 (09:15→20:42)
[2016-08-15] MEDS: BROMOCRIPTINE 2.5 MG TAB PO SCH ×2 (09:15→20:42)
[2016-08-15] MEDS: FOLIC ACID 1 MG TAB PO SCH (09:15)
[2016-08-15] MEDS: CLOPIDOGREL 75 MG TAB PO SCH (09:16)
[2016-08-15] MEDS: LINAGLIPTIN 5 MG TABLET PO SCH (09:16)
[2016-08-15] MEDS: ATENOLOL 50 MG TAB PO SCH (09:18)
--- NOTE | 2016-08-15 14:11 | SP ---
DATE OF PROCEDURE: 08/15/2016 ELECTROENCEPHALOGRAM INDICATION: The patient is a 60-year-old lady with history of pontine stroke and a few days of leth argy. DESCRIPTION OF PROCEDURE: Routine EEG was recorded digitally. Rxlle-[id number] and cefxf-ff-hpy joseph ages were recorded and reviewed. All impedances were measured and recorded. Cap electrodes were pl aced in accordance with International 10-20 system of electrode placement. FINDINGS: Symmetrically distributed background activity of low to medium amplitude ranging in frequ ency between 6 to 8 cycles per second most of the recording. No definite epileptiform transients we re seen. No signs of ongoing electrographic seizures or lateralized slowing. IMPRESSION: Mildly abnormal study secondary to background slowing which could reflect presence of e ncephalopathy, possibly toxic metabolic type. EEG finding is nonspecific. Please correlate clinica lly. Dictated By: STEFAN RANGEL/FLOYD Conf#: [id number] DID#: [id number]
[2016-08-15] MEDS: ATORVASTATIN 80 MG TAB PO SCH (20:42)
[2016-08-15] MEDS: EPOETIN 10000 UNITS/1 ML INJ (ESRD) SC SCH (20:43)
[2016-08-15] MEDS: INSULIN GLARGINE [LANtus] 3 ML PEN SC SCH (20:58)
--- NOTE | 2016-08-15 22:44 | PN ---
Date/Time of Note Date/Time of Note DATE: 08/15/16 TIME: 22:43 Assessment/Plan VTE Prophylaxis VTE Prophylaxis Intervention: other Lines/Catheters IV [facility]from [facility] [place] Urinary Cath still in place: No Assessment/Plan Chief Complaint/Hosp Course 1. Patient has cerebrovascular accident recovering. 2. Status post altered mental status. 3. End-stage renal disease. 4. Hypertension. 5. Diabetes mellitus. 6. Hypothyroidism. 7. Dyslipidemia. 8. Left leg cellulitis. 9. Left leg varicose vein. 10. The patient has pituitary mass prolactinoma. plan dec bp meds pd us liver Problems: Subjective 24 Hr Interval Summary Subjective hx not possible: other (weak,no herpes ) Exam/Review of Systems Vital Signs Vitals Vital Signs Date Time Temp Pulse Resp B/P Pulse Ox O2 Delivery O2 Flow Rate FiO2 08/15/16 20:51 98.0 69 20 114/54 93 08/14/16 14:14 Room Air Intake and Output 08/14/16 08/14/16 08/15/16 15:00 23:00 07:00 Intake Total 50 ml 100 ml Output Total 1500 ml Balance -1450 ml 100 ml Exam Neck: supple Respiratory: clear to auscultation Cardiovascular: regular rate and rhythm Gastrointestinal: soft Genitourinary - Female: nl adnexae Musculoskeletal: nl extremities to inspection Extremities: normal pulses Results Result Diagram: 08/15/16 0640 08/15/16 0640 Results 24 hrs Laboratory Tests Test 08/15/16 06:40 08/15/16 09:13 08/15/16 12:58 08/15/16 17:34 White Blood Count 8.2 Red Blood Count 3.04 L Hemoglobin 9.5 L Hematocrit 28.6 L Mean Corpuscular Volume 94.1 Mean Corpuscular Hemoglobin 31.3 Mean Corpuscular Hemoglobin Concent 33.2 Red Cell Distribution Width 14.1 Platelet Count 298 Mean Platelet Volume 9.6 Neutrophils % 79.9 H Lymphocytes % 10.2 L Monocytes % 6.8 Eosinophils % 2.1 Basophils % 0.6 Nucleated Red Blood Cells % 0.0 Neutrophils # 6.6 Lymphocytes # 0.8 Monocytes # 0.6 Eosinophils # 0.2 Basophils # 0.1 Nucleated Red Blood Cells # 0.0 Sodium Level 135 Potassium Level 3.8 Chloride Level 95 L Carbon Dioxide Level 26 Anion Gap 18 H Blood Urea Nitrogen 60 H Creatinine 8.30 H Glucose Level 75 Calcium Level 9.0 Total Bilirubin 0.0 L Direct Bilirubin 0.00 Indirect Bilirubin 0.0 Aspartate Amino Transf (AST/SGOT) 62 H Alanine Aminotransferase (ALT/SGPT) 100 H Alkaline Phosphatase 141 H Ammonia 13 Total Protein 7.2 Albumin 3.6 Globulin 3.60 H Albumin/Globulin Ratio 1.00 Bedside Glucose 114 118 190 Test 08/15/16 20:53 Bedside Glucose 216 Medications Medications Current Medications Diagnostic Test (Pha) (Accu-Chek) 1 ea 02 XX ; Start 08/15/16 at 02:00 Miscellaneous Information 1 ea NOTE XX ; Start 08/14/16 at 16:00 Glucose (Glutose) 15 gm Q15M PRN PO DECREASED GLUCOSE; Start 08/14/16 at 16:00 Glucose (Glutose) 22.5 gm Q15M PRN PO DECREASED GLUCOSE; Start 08/14/16 at 16: 00 Dextrose (D50w Syringe) 25 ml Q15M PRN IV DECREASED GLUCOSE; Start 08/14/16 at 16:00 Dextrose (D50w Syringe) 50 ml Q15M PRN IV DECREASED GLUCOSE; Start 08/14/16 at 16:00 Glucagon (Glucagen) 1 mg Q15M PRN IM DECREASED GLUCOSE; Start 08/14/16 at 16:00 Glucose (Glutose) 15 gm Q15M PRN BUCCAL DECREASED GLUCOSE; Start 08/14/16 at 16 :00 Acetaminophen (Tylenol Tab) 650 mg Q6H PRN PO PAIN AND OR ELEVATED TEMP; Start 08/14/16 at 16:00 Acyclovir (Zovirax) 800 mg DAILY PO Last administered on 08/15/16 09:16; Admin Dose 800 MG; Start 08/15/16 at 09:00 Atenolol (Tenormin) 50 mg DAILY PO Last administered on 08/15/16 09:18; Admin Dose 50 MG; Start 08/15/16 at 09:00 Atorvastatin Calcium (Lipitor) 80 mg DAILY@21 PO Last administered on 20:42; Admin Dose 80 MG; Start 08/14/16 at 21:00 Bisacodyl (Dulcolax Supp) 10 mg DAILY PRN ID CONSTIPATION; Start 08/14/16 at 16 :00 Bromocriptine Mesylate (Parlodel) 2.5 mg BID PO Last administered on 08/15/16 20:42; Admin Dose 2.5 MG; Start 08/14/16 at 21:00 Clopidogrel Bisulfate (plaVIX) 75 mg DAILY PO Last administered on 08/15/16 09 :16; Admin Dose 75 MG; Start 08/15/16 at 09:00 Docusate Sodium (Colace) 100 mg BID PO Last administered on 08/15/16 20:42; Admin Dose 100 MG; Start 08/14/16 at 21:00 Epoetin Chiki (Epogen (Esrd)) 10,000 units WeSa@21 SC Last administered on 20:43; Admin Dose 10,000 UNITS; Start 08/15/16 at 21:00 Ferrous Gluconate (Fergon) 325 mg BID PO Last administered on 08/15/16 20:42; Admin Dose 325 MG; Start 08/14/16 at 21:00 Folic Acid (Folic Acid) 1 mg DAILY PO Last administered on 08/15/16 09:15; Admin Dose 1 MG; Start 08/15/16 at 09:00 Insulin Glargine (Lantus) 15 unit DAILY@20 SC Last administered on 08/15/16 20 :58; Admin Dose 15 UNIT; Start 08/14/16 at 20:00 Linagliptin (Tradjenta) 5 mg DAILY PO Last administered on 08/15/16 09:16; Admin Dose 5 MG; Start 08/15/16 at 09:00 Pantoprazole (Protonix Tab) 40 mg DAILY@06 PO Last administered on 08/15/16 06 :22; Admin Dose 40 MG; Start 08/15/16 at 06:00 Lactulose (Enulose) 20 gm DAILY PRN PO CONSTIPATION; Start 08/14/16 at 16:00 CHRISTINA SHIRLEY MD Aug 15, 2016 22:44
[2016-08-16] VITALS (15 sets, daily range): BP systolic 101–139; BP diastolic 50–66; PULSE 63–81; RESP 16–19
[2016-08-16] MEDS: ACCU-CHEK XX SCH (02:00)
[2016-08-16] MEDS: PANTOPRAZOLE (EC) 40 MG TAB PO SCH (06:08)
[2016-08-16] MEDS: LEVOTHYROXINE 88 MCG TAB PO SCH (06:08)
[2016-08-16 09:11] LABS: ALBUMIN 3.1 g/dl (3.3-4.9); ALBUMIN/GLOBULIN RATIO 1.1; CALCIUM 8.3 mg/dl (8.4-10.2); CREATININE 8.34 mg/dl (0.44-1.00); TOTAL PROTEIN 5.9 g/dl (6.1-8.1)
[2016-08-16] MEDS: DOCUSATE SODIUM 100 MG CAP PO SCH ×2 (09:19→22:00)
[2016-08-16] MEDS: FERROUS GLUCONATE (EC) 325 MG TAB PO SCH ×2 (09:19→22:00)
[2016-08-16] MEDS: LINAGLIPTIN 5 MG TABLET PO SCH (09:19)
[2016-08-16] MEDS: BROMOCRIPTINE 2.5 MG TAB PO SCH ×2 (09:19→22:00)
[2016-08-16] MEDS: FOLIC ACID 1 MG TAB PO SCH (09:19)
[2016-08-16] MEDS: CLOPIDOGREL 75 MG TAB PO SCH (09:19)
[2016-08-16] MEDS: ATENOLOL 50 MG TAB PO SCH (09:20)
[2016-08-16] MEDS: INSULIN ASPART [NOVOLOG] 3 ML PEN SC SCH ×4 (09:21→22:23)
--- NOTE | 2016-08-16 12:02 | RADRPT ---
PROCEDURE: US Abdomen (right upper quadrant). CLINICAL INDICATION: Elevated liver function tests. TECHNIQUE: Multiple real-time longitudinal and transverse images of the right upper quadrant of th e abdomen were acquired utilizing a curved array transducer. Images were reviewed on a high-resoluti on PACS workstation. COMPARISON: None FINDINGS: The liver is normal in size and normal in echogenicity. There is no focal hepatic lesion. The gallbladder is normal with no stones or wall thickening. There is no pericholecystic fluid ya ection. The bile ducts are normal with the common bile duct measuring 2.8 mm in diameter. The visualized portions of the pancreas are unremarkable with obscuration of the tail of the pancrea s. There is mild ascites. The right kidney measures 10.7 cm. There is normal echogenicity of the right kidney. There is no perinephric fluid collection. No hydronephrosis, mass, or calculus is seen. IMPRESSION: 1. Mild ascites. 2. Otherwise unremarkable right upper quadrant abdomen ultrasound. RPTAT: QQ .Christiano Fuentes MD, Date Time Electronically viewed and signed by .Christiano Fuentes MD, on 08/16/2016 12:02 .R/
--- NOTE | 2016-08-16 14:38 | CONS ---
Date/Time of Note Date/Time of Note DATE: 08/16/16 TIME: 14:36 Assessment/Plan Assessment/Plan Chief Complaint/Hosp Course SUBJECTIVE: No acute changes. No fevers. Alert, feels better, nad PHYSICAL EXAMINATION: GENERAL: This is an obese, well-developed, middle-aged woman who is in no distress. HEENT: Head atraumatic, normocephalic. Sclerae anicteric. Buccal mucosa dry. NECK: Supple. CHEST: Rise symmetrical. Breath sounds diminished to bases. HEART: S1, S2. ABDOMEN: Soft. Bowel tones present. EXTREMITIES: Left lower extremity edema, resolving erythema. ASSESSMENT: 1. S/p acute encephalopathy===> neuro f/u 2. End-stage renal disease, on peritoneal dialysis. 3. Morbid obesity. 4. Left lower extremity thrombophlebitis ==> ultrasound revealed no deep vein thrombosis. 5. Diabetes. 6. S/p shingles and Echerichia coli urinary tract infection. 7. Hypertension. PLAN: Stable, continue present care, observe off abx DW staff Problems: Consultation Date/Type/Reason Admit Date/Time Aug 14, 2016 at 13:35 Initial Consult Date Type of Consultation: id Exam/Review of Systems Vital Signs Vitals Vital Signs Date Time Temp Pulse Resp B/P Pulse Ox O2 Delivery O2 Flow Rate FiO2 08/16/16 12:00 63 08/16/16 11:50 97.7 18 110/58 94 08/14/16 14:14 Room Air Intake and Output 08/15/16 08/15/16 08/16/16 15:00 23:00 07:00 Intake Total 620 ml 240 ml Output Total 1800 ml Balance -1180 ml 240 ml Results Result Diagram: 08/15/16 0640 08/16/16 0647 Results 24 hrs Laboratory Tests Test 08/15/16 17:34 08/15/16 20:53 08/16/16 02:26 08/16/16 06:47 Bedside Glucose 190 216 166 Sodium Level 131 L Potassium Level 4.0 Chloride Level 92 L Carbon Dioxide Level 27 Anion Gap 16 Blood Urea Nitrogen 62 H Creatinine 8.34 H Glucose Level 91 Calcium Level 8.3 L Total Bilirubin 0.0 L Direct Bilirubin 0.00 Indirect Bilirubin 0.0 Aspartate Amino Transf (AST/SGOT) 70 H Alanine Aminotransferase (ALT/SGPT) 106 H Alkaline Phosphatase 119 Total Protein 5.9 #L Albumin 3.1 L Globulin 2.80 Albumin/Globulin Ratio 1.10 Test 08/16/16 09:14 08/16/16 11:49 Bedside Glucose 148 196 Medications Medications Current Medications Diagnostic Test (Pha) (Accu-Chek) 1 ea 02 XX Last administered on 08/16/16 02: 00; Admin Dose 1 EA; Start 08/15/16 at 02:00 Miscellaneous Information 1 ea NOTE XX ; Start 08/14/16 at 16:00 Glucose (Glutose) 15 gm Q15M PRN PO DECREASED GLUCOSE; Start 08/14/16 at 16:00 Glucose (Glutose) 22.5 gm Q15M PRN PO DECREASED GLUCOSE; Start 08/14/16 at 16: 00 Dextrose (D50w Syringe) 25 ml Q15M PRN IV DECREASED GLUCOSE; Start 08/14/16 at 16:00 Dextrose (D50w Syringe) 50 ml Q15M PRN IV DECREASED GLUCOSE; Start 08/14/16 at 16:00 Glucagon (Glucagen) 1 mg Q15M PRN IM DECREASED GLUCOSE; Start 08/14/16 at 16:00 Glucose (Glutose) 15 gm Q15M PRN BUCCAL DECREASED GLUCOSE; Start 08/14/16 at 16 :00 Acetaminophen (Tylenol Tab) 650 mg Q6H PRN PO PAIN AND OR ELEVATED TEMP; Start 08/14/16 at 16:00 Acyclovir (Zovirax) 800 mg DAILY PO Last administered on 08/15/16 09:16; Admin Dose 800 MG; Start 08/15/16 at 09:00; Status Future Hold Atenolol (Tenormin) 50 mg DAILY PO Last administered on 08/16/16 09:20; Admin Dose 50 MG; Start 08/15/16 at 09:00 Atorvastatin Calcium (Lipitor) 80 mg DAILY@21 PO Last administered on 20:42; Admin Dose 80 MG; Start 08/14/16 at 21:00 Bisacodyl (Dulcolax Supp) 10 mg DAILY PRN [place] CONSTIPATION; Start 08/14/16 at 16 :00 Bromocriptine Mesylate (Parlodel) 2.5 mg BID PO Last administered on 08/16/16 09:19; Admin Dose 2.5 MG; Start 08/14/16 at 21:00 Clopidogrel Bisulfate (plaVIX) 75 mg DAILY PO Last administered on 08/16/16 09 :19; Admin Dose 75 MG; Start 08/15/16 at 09:00 Docusate Sodium (Colace) 100 mg BID PO Last administered on 08/16/16 09:19; Admin Dose 100 MG; Start 08/14/16 at 21:00 Epoetin Chiki (Epogen (Esrd)) 10,000 units WeSa@21 SC Last administered on 20:43; Admin Dose 10,000 UNITS; Start 08/15/16 at 21:00 Ferrous Gluconate (Fergon) 325 mg BID PO Last administered on 08/16/16 09:19; Admin Dose 325 MG; Start 08/14/16 at 21:00 Folic Acid (Folic Acid) 1 mg DAILY PO Last administered on 08/16/16 09:19; Admin Dose 1 MG; Start 08/15/16 at 09:00 Insulin Glargine (Lantus) 15 unit DAILY@20 SC Last administered on 08/15/16 20 :58; Admin Dose 15 UNIT; Start 08/14/16 at 20:00 Linagliptin (Tradjenta) 5 mg DAILY PO Last administered on 08/16/16 09:19; Admin Dose 5 MG; Start 08/15/16 at 09:00 Pantoprazole (Protonix Tab) 40 mg DAILY@06 PO Last administered on 08/16/16 06 :08; Admin Dose 40 MG; Start 08/15/16 at 06:00 Lactulose (Enulose) 20 gm DAILY PRN PO CONSTIPATION; Start 08/14/16 at 16:00 SHANDA SILVA NP Aug 16, 2016 14:37
--- NOTE | 2016-08-16 19:56 | PN ---
Date/Time of Note Date/Time of Note DATE: 08/16/16 TIME: 19:55 Assessment/Plan VTE Prophylaxis VTE Prophylaxis Intervention: other Lines/Catheters IV Catheter Type (from Nrs): Saline Lock Assessment/Plan Chief Complaint/Hosp Course 1. Patient has cerebrovascular accident recovering. 2. Status post altered mental status. 3. End-stage renal disease. 4. Hypertension. 5. Diabetes mellitus. 6. Hypothyroidism. 7. Dyslipidemia. 8. Left leg cellulitis. 9. Left leg varicose vein. 10. The patient has pituitary mass prolactinoma. plan dec bp meds pd us liver dc acyclovir Problems: Subjective 24 Hr Interval Summary Cardiovascular: no complaints Gastrointestinal: no complaints Exam/Review of Systems Vital Signs Vitals Vital Signs Date Time Temp Pulse Resp B/P Pulse Ox O2 Delivery O2 Flow Rate FiO2 08/16/16 19:19 81 08/16/16 15:43 98.1 18 101/50 99 08/14/16 14:14 Room Air Intake and Output 08/15/16 08/15/16 08/16/16 15:00 23:00 07:00 Intake Total 620 ml 240 ml Output Total 1800 ml Balance -1180 ml 240 ml Exam Neck: supple Respiratory: clear to auscultation Cardiovascular: regular rate and rhythm Gastrointestinal: soft Genitourinary - Female: nl external genitalia Musculoskeletal: nl extremities to inspection Results Result Diagram: 08/15/16 0640 08/16/16 0647 Results 24 hrs Laboratory Tests Test 08/15/16 20:53 08/16/16 02:26 08/16/16 06:47 08/16/16 09:14 Bedside Glucose 216 166 148 Sodium Level 131 L Potassium Level 4.0 Chloride Level 92 L Carbon Dioxide Level 27 Anion Gap 16 Blood Urea Nitrogen 62 H Creatinine 8.34 H Glucose Level 91 Calcium Level 8.3 L Total Bilirubin 0.0 L Direct Bilirubin 0.00 Indirect Bilirubin 0.0 Aspartate Amino Transf (AST/SGOT) 70 H Alanine Aminotransferase (ALT/SGPT) 106 H Alkaline Phosphatase 119 Total Protein 5.9 #L Albumin 3.1 L Globulin 2.80 Albumin/Globulin Ratio 1.10 Test 08/16/16 11:49 08/16/16 17:32 08/16/16 17:33 Bedside Glucose 196 259 H 243 H Medications Medications Current Medications Diagnostic Test (Pha) (Accu-Chek) 1 ea 02 XX Last administered on 08/16/16 02: 00; Admin Dose 1 EA; Start 08/15/16 at 02:00 Miscellaneous Information 1 ea NOTE XX ; Start 08/14/16 at 16:00 Glucose (Glutose) 15 gm Q15M PRN PO DECREASED GLUCOSE; Start 08/14/16 at 16:00 Glucose (Glutose) 22.5 gm Q15M PRN PO DECREASED GLUCOSE; Start 08/14/16 at 16: 00 Dextrose (D50w Syringe) 25 ml Q15M PRN IV DECREASED GLUCOSE; Start 08/14/16 at 16:00 Dextrose (D50w Syringe) 50 ml Q15M PRN IV DECREASED GLUCOSE; Start 08/14/16 at 16:00 Glucagon (Glucagen) 1 mg Q15M PRN IM DECREASED GLUCOSE; Start 08/14/16 at 16:00 Glucose (Glutose) 15 gm Q15M PRN BUCCAL DECREASED GLUCOSE; Start 08/14/16 at 16 :00 Acetaminophen (Tylenol Tab) 650 mg Q6H PRN PO PAIN AND OR ELEVATED TEMP; Start 08/14/16 at 16:00 Acyclovir (Zovirax) 800 mg DAILY PO Last administered on 08/15/16 09:16; Admin Dose 800 MG; Start 08/15/16 at 09:00; Status Future Hold Atenolol (Tenormin) 50 mg DAILY PO Last administered on 08/16/16 09:20; Admin Dose 50 MG; Start 08/15/16 at 09:00 Atorvastatin Calcium (Lipitor) 80 mg DAILY@21 PO Last administered on 20:42; Admin Dose 80 MG; Start 08/14/16 at 21:00 Bisacodyl (Dulcolax Supp) 10 mg DAILY PRN [place] CONSTIPATION; Start 08/14/16 at 16 :00 Bromocriptine Mesylate (Parlodel) 2.5 mg BID PO Last administered on 08/16/16 09:19; Admin Dose 2.5 MG; Start 08/14/16 at 21:00 Clopidogrel Bisulfate (plaVIX) 75 mg DAILY PO Last administered on 08/16/16 09 :19; Admin Dose 75 MG; Start 08/15/16 at 09:00 Docusate Sodium (Colace) 100 mg BID PO Last administered on 08/16/16 09:19; Admin Dose 100 MG; Start 08/14/16 at 21:00 Epoetin Chiki (Epogen (Esrd)) 10,000 units WeSa@21 SC Last administered on 20:43; Admin Dose 10,000 UNITS; Start 08/15/16 at 21:00 Ferrous Gluconate (Fergon) 325 mg BID PO Last administered on 08/16/16 09:19; Admin Dose 325 MG; Start 08/14/16 at 21:00 Folic Acid (Folic Acid) 1 mg DAILY PO Last administered on 08/16/16 09:19; Admin Dose 1 MG; Start 08/15/16 at 09:00 Insulin Glargine (Lantus) 15 unit DAILY@20 SC Last administered on 08/15/16 20 :58; Admin Dose 15 UNIT; Start 08/14/16 at 20:00 Linagliptin (Tradjenta) 5 mg DAILY PO Last administered on 08/16/16 09:19; Admin Dose 5 MG; Start 08/15/16 at 09:00 Pantoprazole (Protonix Tab) 40 mg DAILY@06 PO Last administered on 08/16/16 06 :08; Admin Dose 40 MG; Start 08/15/16 at 06:00 Lactulose (Enulose) 20 gm DAILY PRN PO CONSTIPATION; Start 08/14/16 at 16:00 CHRISTINA SHIRLEY MD Aug 16, 2016 19:56
--- NOTE | 2016-08-16 21:21 | CONS ---
Date/Time of Note Date/Time of Note DATE: 08/16/16 TIME: :17 Consult Date/Type/Reason Admit Date/Time Aug 14, 2016 at 13:35 Initial Consult Date Type of Consultation: neuro Subjective No acute events Objective Vital Signs Date Time Temp Pulse Resp B/P Pulse Ox O2 Delivery O2 Flow Rate FiO2 08/16/16 20:18 66 08/16/16 20:00 98.2 18 139/66 96 08/14/16 14:14 Room Air Intake and Output 08/15/16 08/15/16 08/16/16 14:59 22:59 06:59 Intake Total 620 ml 240 ml Output Total 1800 ml Balance -1180 ml 240 ml Results/Medications Result Diagram: 08/15/16 0640 08/16/16 0647 Results 24 hrs Laboratory Tests Test 08/16/16 02:26 08/16/16 06:47 08/16/16 09:14 08/16/16 11:49 Bedside Glucose 166 148 196 Sodium Level 131 L Potassium Level 4.0 Chloride Level 92 L Carbon Dioxide Level 27 Anion Gap 16 Blood Urea Nitrogen 62 H Creatinine 8.34 H Glucose Level 91 Calcium Level 8.3 L Total Bilirubin 0.0 L Direct Bilirubin 0.00 Indirect Bilirubin 0.0 Aspartate Amino Transf (AST/SGOT) 70 H Alanine Aminotransferase (ALT/SGPT) 106 H Alkaline Phosphatase 119 Total Protein 5.9 #L Albumin 3.1 L Globulin 2.80 Albumin/Globulin Ratio 1.10 Test 08/16/16 17:32 08/16/16 17:33 Bedside Glucose 259 H 243 H Medications Current Medications Diagnostic Test (Pha) (Accu-Chek) 1 ea 02 XX Last administered on 08/16/16t 02: 00; Admin Dose 1 EA; Start 08/15/16 at 02:00 Miscellaneous Information 1 ea NOTE XX ; Start 08/14/16 at 16:00 Glucose (Glutose) 15 gm Q15M PRN PO DECREASED GLUCOSE; Start 08/14/16 at 16:00 Glucose (Glutose) 22.5 gm Q15M PRN PO DECREASED GLUCOSE; Start 08/14/16 at 16: 00 Dextrose (D50w Syringe) 25 ml Q15M PRN IV DECREASED GLUCOSE; Start 08/14/16 at 16:00 Dextrose (D50w Syringe) 50 ml Q15M PRN IV DECREASED GLUCOSE; Start 08/14/16 at 16:00 Glucagon (Glucagen) 1 mg Q15M PRN IM DECREASED GLUCOSE; Start 08/14/16 at 16:00 Glucose (Glutose) 15 gm Q15M PRN BUCCAL DECREASED GLUCOSE; Start 08/14/16 at 16 :00 Acetaminophen (Tylenol Tab) 650 mg Q6H PRN PO PAIN AND OR ELEVATED TEMP; Start 08/14/16 at 16:00 Acyclovir (Zovirax) 800 mg DAILY PO Last administered on 08/15/16 09:16; Admin Dose 800 MG; Start 08/15/16 at 09:00; Status Future Hold Atenolol (Tenormin) 50 mg DAILY PO Last administered on 08/16/16 09:20; Admin Dose 50 MG; Start 08/15/16 at 09:00 Atorvastatin Calcium (Lipitor) 80 mg DAILY@21 PO Last administered on 20:42; Admin Dose 80 MG; Start 08/14/16 at 21:00 Bisacodyl (Dulcolax Supp) 10 mg DAILY PRN [place] CONSTIPATION; Start 08/14/16 at 16 :00 Bromocriptine Mesylate (Parlodel) 2.5 mg BID PO Last administered on 08/16/16 09:19; Admin Dose 2.5 MG; Start 08/14/16 at 21:00 Clopidogrel Bisulfate (plaVIX) 75 mg DAILY PO Last administered on 08/16/16 09 :19; Admin Dose 75 MG; Start 08/15/16 at 09:00 Docusate Sodium (Colace) 100 mg BID PO Last administered on 08/16/16 09:19; Admin Dose 100 MG; Start 08/14/16 at 21:00 Epoetin Chiki (Epogen (Esrd)) 10,000 units WeSa@21 SC Last administered on 20:43; Admin Dose 10,000 UNITS; Start 08/15/16 at 21:00 Ferrous Gluconate (Fergon) 325 mg BID PO Last administered on 08/16/16 09:19; Admin Dose 325 MG; Start 08/14/16 at 21:00 Folic Acid (Folic Acid) 1 mg DAILY PO Last administered on 08/16/16 09:19; Admin Dose 1 MG; Start 08/15/16 at 09:00 Insulin Glargine (Lantus) 15 unit DAILY@20 SC Last administered on 08/15/16 20 :58; Admin Dose 15 UNIT; Start 08/14/16 at 20:00 Linagliptin (Tradjenta) 5 mg DAILY PO Last administered on 08/16/16 09:19; Admin Dose 5 MG; Start 08/15/16 at 09:00 Pantoprazole (Protonix Tab) 40 mg DAILY@06 PO Last administered on 08/16/16 06 :08; Admin Dose 40 MG; Start 08/15/16 at 06:00 Lactulose (Enulose) 20 gm DAILY PRN PO CONSTIPATION; Start 08/14/16 at 16:00 Assessment/Plan Chief Complaint/Hosp Course PHYSICAL EXAMINATION: GENERAL: Not in acute distress, lying in bed. HEENT: Normocephalic, atraumatic head. NECK: No carotid bruits. No thyromegaly. LUNGS: Clear to auscultation bilaterally. CARDIAC: Normal cardiac rhythm and sounds. ABDOMEN: Soft. EXTREMITIES: No cyanosis, clubbing, or edema. Asterixis in the right UE NEUROLOGIC: She is awake, alert, and oriented x2. She knew the year only. Fluent speech. Cranial nerve examination shows intact visual dnoato bilaterally. Pupils reactive from 3 to 2 mm bilaterally. Extraocular movements intact without nystagmus. Asymmetrical face with left-sided facial, central type weakness. Corneal reflexes present bilaterally. Gag is present. Tongue is in midline. Motor strength examination shows essentially no movements in the left upper extremity with exception of trace of movements in the fingers. Flaccid tone. Also minimal, maybe 2+ to 3-, movements on knee extension and flexion. The patient also complains of pain in the left foreleg with passive movements. Flaccid tone on the left. Normal muscle bulk. Sensory examination grossly intact to light touch and pain. Deep tendon reflexes 2+ in upper extremities, absent in lower extremities. Downgoing toes bilaterally. The patient has no complaints of headaches. IMPRESSION: Encephalopathy in the last few days in patient with history of a lacunar pure motor stroke about 1 month old and also pituitary microadenoma. Encephalopathy seems to be toxic metabolic in etiology. MRI did not show any acute new abnormality. Ammonia normal. EEG c/w encephalopathy. Also asterixis on exam. CKD, peritoneal dialysis, worsening Cr? Continue current treatment. No other recommendations. Thanks Problems: STEFAN ARCINIEGA MD Aug 16, 2016 21:21
[2016-08-16] MEDS: ATORVASTATIN 80 MG TAB PO SCH (21:59)
[2016-08-16] MEDS: INSULIN GLARGINE [LANtus] 3 ML PEN SC SCH (22:24)
[2016-08-17] VITALS (18 sets, daily range): BP systolic 95–135; BP diastolic 49–65; PULSE 62–86; RESP 16–19
[2016-08-17] MEDS: ACCU-CHEK XX SCH (02:22)
[2016-08-17] MEDS: LEVOTHYROXINE 88 MCG TAB PO SCH (06:02)
[2016-08-17] MEDS: PANTOPRAZOLE (EC) 40 MG TAB PO SCH (06:02)
[2016-08-17] MEDS: DOCUSATE SODIUM 100 MG CAP PO SCH ×2 (08:46→20:32)
[2016-08-17] MEDS: BROMOCRIPTINE 2.5 MG TAB PO SCH ×2 (08:46→20:32)
[2016-08-17] MEDS: ATENOLOL 50 MG TAB PO SCH (08:46)
[2016-08-17] MEDS: FERROUS GLUCONATE (EC) 325 MG TAB PO SCH ×2 (08:46→20:32)
[2016-08-17] MEDS: CLOPIDOGREL 75 MG TAB PO SCH (08:46)
[2016-08-17] MEDS: FOLIC ACID 1 MG TAB PO SCH (08:46)
[2016-08-17] MEDS: LINAGLIPTIN 5 MG TABLET PO SCH (08:46)
[2016-08-17] MEDS: INSULIN ASPART [NOVOLOG] 3 ML PEN SC SCH ×4 (08:52→20:31)
--- NOTE | 2016-08-17 10:21 | PN ---
Date/Time of Note Date/Time of Note DATE: 08/17/16 TIME: 10:19 Assessment/Plan VTE Prophylaxis VTE Prophylaxis Intervention: LMWH Lines/Catheters IV [facility]ter [facility] (from [facility] Saline Lock Urinary Cath still in place: No Assessment/Plan Chief Complaint/Hosp Course 1. Patient has cerebrovascular accident recovering. 2. Status post altered mental status. 3. End-stage renal disease. 4. Hypertension. 5. Diabetes mellitus. 6. Hypothyroidism. 7. Dyslipidemia. 8. Left leg cellulitis. 9. Left leg varicose vein. 10. The patient has pituitary mass prolactinoma. Problems: Assessment/Plan 1. D/c isolation, crusts are dry 2. Continue PD Subjective 24 Hr Interval Summary Constitutional: no complaints Respiratory: no complaints Cardiovascular: no complaints Exam/Review of Systems Vital Signs Vitals Vital Signs Date Time Temp Pulse Resp B/P Pulse Ox O2 Delivery O2 Flow Rate FiO2 08/17/16 08:09 62 08/17/16 07:30 98.4 17 122/58 93 08/14/16 14:14 Room Air Intake and Output 08/16/16 08/16/16 08/17/16 15:00 23:00 07:00 Intake Total 360 ml 240 ml Output Total 1500 ml Balance -1140 ml 240 ml Exam Constitutional: alert, oriented Neck: supple Cardiovascular: regular rate and rhythm Gastrointestinal: soft Musculoskeletal: muscle weakness (left side) Results Result Diagram: 08/15/16 0640 08/16/16 0647 Results 24 hrs Laboratory Tests Test 08/16/16 11:49 08/16/16 17:32 08/16/16 17:33 08/16/16 22:11 Bedside Glucose 196 259 H 243 H 231 H Test 08/17/16 02:20 08/17/16 08:47 Bedside Glucose 127 161 Medications Medications Current Medications Diagnostic Test (Pha) (Accu-Chek) 1 ea 02 XX Last administered on 08/17/16t 02: 22; Admin Dose 1 EA; Start 08/15/16 at 02:00 Miscellaneous Information 1 ea NOTE XX ; Start 08/14/16 at 16:00 Glucose (Glutose) 15 gm Q15M PRN PO DECREASED GLUCOSE; Start 08/14/16 at 16:00 Glucose (Glutose) 22.5 gm Q15M PRN PO DECREASED GLUCOSE; Start 08/14/16 at 16: 00 Dextrose (D50w Syringe) 25 ml Q15M PRN IV DECREASED GLUCOSE; Start 08/14/16 at 16:00 Dextrose (D50w Syringe) 50 ml Q15M PRN IV DECREASED GLUCOSE; Start 08/14/16 at 16:00 Glucagon (Glucagen) 1 mg Q15M PRN IM DECREASED GLUCOSE; Start 08/14/16 at 16:00 Glucose (Glutose) 15 gm Q15M PRN BUCCAL DECREASED GLUCOSE; Start 08/14/16 at 16 :00 Acetaminophen (Tylenol Tab) 650 mg Q6H PRN PO PAIN AND OR ELEVATED TEMP; Start 08/14/16 at 16:00 Acyclovir (Zovirax) 800 mg DAILY PO Last administered on 08/15/16 09:16; Admin Dose 800 MG; Start 08/15/16 at 09:00; Status Future Hold Atenolol (Tenormin) 50 mg DAILY PO Last administered on 08/17/16 08:46; Admin Dose 50 MG; Start 08/15/16 at 09:00 Atorvastatin Calcium (Lipitor) 80 mg DAILY@21 PO Last administered on 21:59; Admin Dose 80 MG; Start 08/14/16 at 21:00 Bisacodyl (Dulcolax Supp) 10 mg DAILY PRN [place] CONSTIPATION; Start 08/14/16 at 16 :00 Bromocriptine Mesylate (Parlodel) 2.5 mg BID PO Last administered on 08/17/16 08:46; Admin Dose 2.5 MG; Start 08/14/16 at 21:00 Clopidogrel Bisulfate (plaVIX) 75 mg DAILY PO Last administered on 08/17/16 08 :46; Admin Dose 75 MG; Start 08/15/16 at 09:00 Docusate Sodium (Colace) 100 mg BID PO Last administered on 08/17/16 08:46; Admin Dose 100 MG; Start 08/14/16 at 21:00 Epoetin Chiki (Epogen (Esrd)) 10,000 units WeSa@21 SC Last administered on 20:43; Admin Dose 10,000 UNITS; Start 08/15/16 at 21:00 Ferrous Gluconate (Fergon) 325 mg BID PO Last administered on 08/17/16 08:46; Admin Dose 325 MG; Start 08/14/16 at 21:00 Folic Acid (Folic Acid) 1 mg DAILY PO Last administered on 08/17/16 08:46; Admin Dose 1 MG; Start 08/15/16 at 09:00 Insulin Glargine (Lantus) 15 unit DAILY@20 SC Last administered on 08/16/16 22 :24; Admin Dose 15 UNIT; Start 08/14/16 at 20:00 Linagliptin (Tradjenta) 5 mg DAILY PO Last administered on 08/17/16 08:46; Admin Dose 5 MG; Start 08/15/16 at 09:00 Pantoprazole (Protonix Tab) 40 mg DAILY@06 PO Last administered on 08/17/16 06 :02; Admin Dose 40 MG; Start 08/15/16 at 06:00 Lactulose (Enulose) 20 gm DAILY PRN PO CONSTIPATION; Start 08/14/16 at 16:00 MARTINE LLOYD Aug 17, 2016 10:21
--- NOTE | 2016-08-17 13:22 | CONS ---
Date/Time of Note Date/Time of Note DATE: 08/17/16 TIME: 13:21 Assessment/Plan Assessment/Plan Chief Complaint/Hosp Course SUBJECTIVE: No acute changes. No fevers. Looks comfortable PHYSICAL EXAMINATION: GENERAL: This is an obese, well-developed, middle-aged woman who is in no distress. HEENT: Head atraumatic, normocephalic. Sclerae anicteric. Buccal mucosa dry. NECK: Supple. CHEST: Rise symmetrical. Breath sounds diminished to bases. HEART: S1, S2. ABDOMEN: Soft. Bowel tones present. EXTREMITIES: Left lower extremity edema, resolving erythema. ASSESSMENT: 1. S/p acute encephalopathy===> neuro f/u 2. End-stage renal disease, on peritoneal dialysis. 3. Morbid obesity. 4. Left lower extremity thrombophlebitis ==> ultrasound revealed no deep vein thrombosis. 5. Diabetes. 6. S/p shingles and Echerichia coli urinary tract infection. 7. Hypertension. PLAN: Clinically unchanged, continue present care, observe off abx DW staff Problems: Consultation Date/Type/Reason Admit Date/Time Aug 14, 2016 at 13:35 Type of Consultation: ID Exam/Review of Systems Vital Signs Vitals Vital Signs Date Time Temp Pulse Resp B/P Pulse Ox O2 Delivery O2 Flow Rate FiO2 08/17/16 12:09 65 08/17/16 11:31 97.8 19 95/49 93 08/14/16 14:14 Room Air Intake and Output 08/16/16 08/16/16 08/17/16 15:00 23:00 07:00 Intake Total 360 ml 240 ml Output Total 1500 ml Balance -1140 ml 240 ml Results Result Diagram: 08/15/16 0640 08/16/16 0647 Results 24 hrs Laboratory Tests Test 08/16/16 17:32 08/16/16 17:33 08/16/16 22:11 08/17/16 02:20 Bedside Glucose 259 H 243 H 231 H 127 Test 08/17/16 08:47 08/17/16 12:28 Bedside Glucose 161 191 Medications Medications Current Medications Diagnostic Test (Pha) (Accu-Chek) 1 ea 02 XX Last administered on 08/17/16t 02: 22; Admin Dose 1 EA; Start 08/15/16 at 02:00 Miscellaneous Information 1 ea NOTE XX ; Start 08/14/16 at 16:00 Glucose (Glutose) 15 gm Q15M PRN PO DECREASED GLUCOSE; Start 08/14/16 at 16:00 Glucose (Glutose) 22.5 gm Q15M PRN PO DECREASED GLUCOSE; Start 08/14/16 at 16: 00 Dextrose (D50w Syringe) 25 ml Q15M PRN IV DECREASED GLUCOSE; Start 08/14/16 at 16:00 Dextrose (D50w Syringe) 50 ml Q15M PRN IV DECREASED GLUCOSE; Start 08/14/16 at 16:00 Glucagon (Glucagen) 1 mg Q15M PRN IM DECREASED GLUCOSE; Start 08/14/16 at 16:00 Glucose (Glutose) 15 gm Q15M PRN BUCCAL DECREASED GLUCOSE; Start 08/14/16 at 16 :00 Acetaminophen (Tylenol Tab) 650 mg Q6H PRN PO PAIN AND OR ELEVATED TEMP; Start 08/14/16 at 16:00 Acyclovir (Zovirax) 800 mg DAILY PO Last administered on 08/15/16 09:16; Admin Dose 800 MG; Start 08/15/16 at 09:00; Status Future Hold Atenolol (Tenormin) 50 mg DAILY PO Last administered on 08/17/16 08:46; Admin Dose 50 MG; Start 08/15/16 at 09:00 Atorvastatin Calcium (Lipitor) 80 mg DAILY@21 PO Last administered on 21:59; Admin Dose 80 MG; Start 08/14/16 at 21:00 Bisacodyl (Dulcolax Supp) 10 mg DAILY PRN [place] CONSTIPATION; Start 08/14/16 at 16 :00 Bromocriptine Mesylate (Parlodel) 2.5 mg BID PO Last administered on 08/17/16 08:46; Admin Dose 2.5 MG; Start 08/14/16 at 21:00 Clopidogrel Bisulfate (plaVIX) 75 mg DAILY PO Last administered on 08/17/16 08 :46; Admin Dose 75 MG; Start 08/15/16 at 09:00 Docusate Sodium (Colace) 100 mg BID PO Last administered on 08/17/16 08:46; Admin Dose 100 MG; Start 08/14/16 at 21:00 Epoetin Chiki (Epogen (Esrd)) 10,000 units WeSa@21 SC Last administered on 20:43; Admin Dose 10,000 UNITS; Start 08/15/16 at 21:00 Ferrous Gluconate (Fergon) 325 mg BID PO Last administered on 08/17/16 08:46; Admin Dose 325 MG; Start 08/14/16 at 21:00 Folic Acid (Folic Acid) 1 mg DAILY PO Last administered on 08/17/16 08:46; Admin Dose 1 MG; Start 08/15/16 at 09:00 Insulin Glargine (Lantus) 15 unit DAILY@20 SC Last administered on 08/16/16 22 :24; Admin Dose 15 UNIT; Start 08/14/16 at 20:00 Linagliptin (Tradjenta) 5 mg DAILY PO Last administered on 08/17/16 08:46; Admin Dose 5 MG; Start 08/15/16 at 09:00 Pantoprazole (Protonix Tab) 40 mg DAILY@06 PO Last administered on 08/17/16 06 :02; Admin Dose 40 MG; Start 08/15/16 at 06:00 Lactulose (Enulose) 20 gm DAILY PRN PO CONSTIPATION; Start 08/14/16 at 16:00 SHANDA SILVA NP Aug 17, 2016 13:22
[2016-08-17] MEDS: INSULIN GLARGINE [LANtus] 3 ML PEN SC SCH (20:30)
[2016-08-17] MEDS: ATORVASTATIN 80 MG TAB PO SCH (20:32)
[2016-08-18] VITALS (16 sets, daily range): BP systolic 93–127; BP diastolic 55–69; PULSE 63–98; RESP 16–20
[2016-08-18] MEDS: ACCU-CHEK XX SCH (02:10)
[2016-08-18] MEDS: PANTOPRAZOLE (EC) 40 MG TAB PO SCH (05:46)
[2016-08-18] MEDS: LEVOTHYROXINE 88 MCG TAB PO SCH (06:44)
[2016-08-18 07:56] LABS: ADD SCAN DIFF NO
[2016-08-18] MEDS: INSULIN ASPART [NOVOLOG] 3 ML PEN SC SCH ×4 (08:00→20:40)
[2016-08-18 08:06] LABS: BASOPHIL # 0.1 10^3/ul (0.0-0.1); BASOPHILS % 0.8 % (0.0-2.0); EOSINOPHILS # 0.3 10^3/ul (0.0-0.5); HEMATOCRIT 29.4 % (37.0-47.0); HEMOGLOBIN 9.6 g/dl (12.0-16.0); LYMPHOCYTES # 0.9 10^3/ul (0.8-2.9); MEAN CORPUSCULAR HGB CONC 32.7 g/dl (32.0-37.0); MEAN CORPUSCULAR VOLUME 94.8 fl (82.0-101.0); MEAN PLATELET VOLUME 9.8 fl (7.4-10.4); MONOCYTE # 0.6 10^3/ul (0.3-0.9); MONOCYTES % 7.3 % (0.0-11.0); NEUTROPHIL # 5.9 10^3/ul (1.6-7.5); NEUTROPHILS % 76.4 % (39.0-77.0); PLATELET COUNT 322 10^3/UL (140-415); WHITE BLOOD COUNT 7.8 10^3/ul (4.8-10.8)
[2016-08-18 08:23] LABS: CALCIUM 8.6 mg/dl (8.4-10.2); CREATININE 9.51 mg/dl (0.44-1.00); POTASSIUM 3.8 mmol/L (3.5-5.1)
[2016-08-18] MEDS: CLOPIDOGREL 75 MG TAB PO SCH (09:31)
[2016-08-18] MEDS: BROMOCRIPTINE 2.5 MG TAB PO SCH ×2 (09:31→20:38)
[2016-08-18] MEDS: FERROUS GLUCONATE (EC) 325 MG TAB PO SCH ×2 (09:31→20:37)
[2016-08-18] MEDS: DOCUSATE SODIUM 100 MG CAP PO SCH ×2 (09:31→20:37)
[2016-08-18] MEDS: FOLIC ACID 1 MG TAB PO SCH (09:31)
[2016-08-18] MEDS: ATENOLOL 50 MG TAB PO SCH (09:32)
[2016-08-18] MEDS: LINAGLIPTIN 5 MG TABLET PO SCH (09:33)
--- NOTE | 2016-08-18 13:16 | PN ---
Date/Time of Note Date/Time of Note DATE: 08/18/16 TIME: 13:15 Assessment/Plan VTE Prophylaxis VTE Prophylaxis Intervention: SCD's Lines/Catheters IV [facility] (from [facility] Urinary Cath still in place: No Assessment/Plan Chief Complaint/Hosp Course 1. Patient has cerebrovascular accident recovering. 2. Status post altered mental status. 3. End-stage renal disease. 4. Hypertension. 5. Diabetes mellitus, non-controlled. 6. Hypothyroidism. 7. Dyslipidemia. 8. Left leg cellulitis. 9. Left leg varicose vein. 10. The patient has pituitary mass prolactinoma. Problems: Assessment/Plan 1. Start PT Subjective 24 Hr Interval Summary Constitutional: no complaints Cardiovascular: no complaints Musculoskeletal: restricted range of motion (left side) Exam/Review of Systems Vital Signs Vitals Vital Signs Date Time Temp Pulse Resp B/P Pulse Ox O2 Delivery O2 Flow Rate FiO2 08/18/16 12:06 63 08/18/16 11:30 98.2 18 102/59 96 08/14/16 14:14 Room Air Intake and Output 08/17/16 08/17/16 08/18/16 15:00 23:00 07:00 Intake Total 350 ml 240 ml Output Total 1400 ml Balance -1050 ml 240 ml Exam Constitutional: alert, oriented Neck: supple Respiratory: clear to auscultation Cardiovascular: regular rate and rhythm Musculoskeletal: muscle weakness (left side of the body) Results Result Diagram: 08/18/16 0642 08/18/16 0640 Results 24 hrs Laboratory Tests Test 08/17/16 17:18 08/17/16 20:22 08/18/16 02:05 08/18/16 06:40 Bedside Glucose 135 317 H 218 Sodium Level 130 L Potassium Level 3.8 Chloride Level 91 L Carbon Dioxide Level 25 Anion Gap 18 H Blood Urea Nitrogen 69 H Creatinine 9.51 H Glucose Level 118 Calcium Level 8.6 Test 08/18/16 06:42 08/18/16 08:25 08/18/16 11:56 White Blood Count 7.8 Red Blood Count 3.10 L Hemoglobin 9.6 L Hematocrit 29.4 L Mean Corpuscular Volume 94.8 Mean Corpuscular Hemoglobin 31.0 Mean Corpuscular Hemoglobin Concent 32.7 Red Cell Distribution Width 14.0 Platelet Count 322 Mean Platelet Volume 9.8 Neutrophils % 76.4 Lymphocytes % 11.0 L Monocytes % 7.3 Eosinophils % 4.0 Basophils % 0.8 Nucleated Red Blood Cells % 0.0 Neutrophils # 5.9 Lymphocytes # 0.9 Monocytes # 0.6 Eosinophils # 0.3 Basophils # 0.1 Nucleated Red Blood Cells # 0.0 Bedside Glucose 123 173 Medications Medications Current Medications Diagnostic Test (Pha) (Accu-Chek) 1 ea 02 XX Last administered on 08/18/16 02: 10; Admin Dose 1 EA; Start 08/15/16 at 02:00 Miscellaneous Information 1 ea NOTE XX ; Start 08/14/16 at 16:00 Glucose (Glutose) 15 gm Q15M PRN PO DECREASED GLUCOSE; Start 08/14/16 at 16:00 Glucose (Glutose) 22.5 gm Q15M PRN PO DECREASED GLUCOSE; Start 08/14/16 at 16: 00 Dextrose (D50w Syringe) 25 ml Q15M PRN IV DECREASED GLUCOSE; Start 08/14/16 at 16:00 Dextrose (D50w Syringe) 50 ml Q15M PRN IV DECREASED GLUCOSE; Start 08/14/16 at 16:00 Glucagon (Glucagen) 1 mg Q15M PRN IM DECREASED GLUCOSE; Start 08/14/16 at 16:00 Glucose (Glutose) 15 gm Q15M PRN BUCCAL DECREASED GLUCOSE; Start 08/14/16 at 16 :00 Acetaminophen (Tylenol Tab) 650 mg Q6H PRN PO PAIN AND OR ELEVATED TEMP; Start 08/14/16 at 16:00 Acyclovir (Zovirax) 800 mg DAILY PO Last administered on 08/15/16 09:16; Admin Dose 800 MG; Start 08/15/16 at 09:00; Status Future Hold Atenolol (Tenormin) 50 mg DAILY PO Last administered on 08/18/16 09:32; Admin Dose 50 MG; Start 08/15/16 at 09:00 Atorvastatin Calcium (Lipitor) 80 mg DAILY@21 PO Last administered on 20:32; Admin Dose 80 MG; Start 08/14/16 at 21:00 Bisacodyl (Dulcolax Supp) 10 mg DAILY PRN [place] CONSTIPATION; Start 08/14/16 at 16 :00 Bromocriptine Mesylate (Parlodel) 2.5 mg BID PO Last administered on 08/18/16 09:31; Admin Dose 2.5 MG; Start 08/14/16 at 21:00 Clopidogrel Bisulfate (plaVIX) 75 mg DAILY PO Last administered on 08/18/16 09 :31; Admin Dose 75 MG; Start 08/15/16 at 09:00 Docusate Sodium (Colace) 100 mg BID PO Last administered on 08/18/16 09:31; Admin Dose 100 MG; Start 08/14/16 at 21:00 Epoetin Chiki (Epogen (Esrd)) 10,000 units WeSa@21 SC Last administered on 20:43; Admin Dose 10,000 UNITS; Start 08/15/16 at 21:00 Ferrous Gluconate (Fergon) 325 mg BID PO Last administered on 08/18/16 09:31; Admin Dose 325 MG; Start 08/14/16 at 21:00 Folic Acid (Folic Acid) 1 mg DAILY PO Last administered on 08/18/16 09:31; Admin Dose 1 MG; Start 08/15/16 at 09:00 Insulin Glargine (Lantus) 15 unit DAILY@20 SC Last administered on 08/17/16 20 :30; Admin Dose 15 UNIT; Start 08/14/16 at 20:00 Linagliptin (Tradjenta) 5 mg DAILY PO Last administered on 08/18/16 09:33; Admin Dose 5 MG; Start 08/15/16 at 09:00 Pantoprazole (Protonix Tab) 40 mg DAILY@06 PO Last administered on 08/18/16 05 :46; Admin Dose 40 MG; Start 08/15/16 at 06:00 Lactulose (Enulose) 20 gm DAILY PRN PO CONSTIPATION; Start 08/14/16 at 16:00 MARTINE LLOYD Aug 18, 2016 13:16
[2016-08-18] MEDS: ATORVASTATIN 80 MG TAB PO SCH (20:37)
[2016-08-18] MEDS: EPOETIN 10000 UNITS/1 ML INJ (ESRD) SC SCH (20:37)
[2016-08-18] MEDS: INSULIN GLARGINE [LANtus] 3 ML PEN SC SCH (20:39)
[2016-08-19] VITALS (16 sets, daily range): BP systolic 92–132; BP diastolic 52–69; PULSE 58–81; RESP 16–20
[2016-08-19] MEDS: ACCU-CHEK XX SCH (02:38)
[2016-08-19] MEDS: PANTOPRAZOLE (EC) 40 MG TAB PO SCH (06:17)
[2016-08-19] MEDS: LEVOTHYROXINE 88 MCG TAB PO SCH (06:17)
[2016-08-19] MEDS: LINAGLIPTIN 5 MG TABLET PO SCH (08:46)
[2016-08-19] MEDS: FERROUS GLUCONATE (EC) 325 MG TAB PO SCH ×2 (08:46→20:07)
[2016-08-19] MEDS: BROMOCRIPTINE 2.5 MG TAB PO SCH ×2 (08:46→20:06)
[2016-08-19] MEDS: DOCUSATE SODIUM 100 MG CAP PO SCH ×2 (08:46→20:07)
[2016-08-19] MEDS: CLOPIDOGREL 75 MG TAB PO SCH (08:46)
[2016-08-19] MEDS: FOLIC ACID 1 MG TAB PO SCH (08:46)
[2016-08-19] MEDS: ATENOLOL 50 MG TAB PO SCH (08:47)
[2016-08-19] MEDS: INSULIN ASPART [NOVOLOG] 3 ML PEN SC SCH ×4 (08:55→20:28)
--- NOTE | 2016-08-19 18:36 | PN ---
Date/Time of Note Date/Time of Note DATE: 08/19/16 TIME: 18:35 Assessment/Plan VTE Prophylaxis VTE Prophylaxis Intervention: other Lines/Catheters IV C[facility] Type (from [facility] Saline Lock Urinary Cath still in place: No Assessment/Plan Chief Complaint/Hosp Course 1. Patient has cerebrovascular accident recovering. 2. Status post altered mental status. 3. End-stage renal disease. 4. Hypertension. 5. Diabetes mellitus. 6. Hypothyroidism. 7. Dyslipidemia. 8. Left leg cellulitis. 9. Left leg varicose vein. 10. The patient has pituitary mass prolactinoma. plan dec bp meds pd us liver NEED SNF Problems: Subjective 24 Hr Interval Summary Cardiovascular: no complaints Gastrointestinal: no complaints Exam/Review of Systems Vital Signs Vitals Vital Signs Date Time Temp Pulse Resp B/P Pulse Ox O2 Delivery O2 Flow Rate FiO2 08/19/16 17:15 81 08/19/16 15:49 98.6 19 113/58 98 Intake and Output 08/18/16 08/18/16 08/19/16 15:00 23:00 07:00 Intake Total 240 ml 480 ml Output Total 1800 ml Balance -1560 ml 480 ml Exam Neck: supple Respiratory: clear to auscultation Cardiovascular: regular rate and rhythm Gastrointestinal: soft Musculoskeletal: nl extremities to inspection Extremities: normal pulses Results Result Diagram: 08/18/16 0642 08/18/16 0640 Results 24 hrs Laboratory Tests Test 08/18/16 20:32 08/19/16 02:34 08/19/16 08:24 08/19/16 11:39 Bedside Glucose 200 162 141 164 Test 08/19/16 17:24 Bedside Glucose 192 Medications Medications Current Medications Diagnostic Test (Pha) (Accu-Chek) 1 ea 02 XX Last administered on 08/19/16t 02: 38; Admin Dose 1 EA; Start 08/15/16 at 02:00 Miscellaneous Information 1 ea NOTE XX ; Start 08/14/16 at 16:00 Glucose (Glutose) 15 gm Q15M PRN PO DECREASED GLUCOSE; Start 08/14/16 at 16:00 Glucose (Glutose) 22.5 gm Q15M PRN PO DECREASED GLUCOSE; Start 08/14/16 at 16: 00 Dextrose (D50w Syringe) 25 ml Q15M PRN IV DECREASED GLUCOSE; Start 08/14/16 at 16:00 Dextrose (D50w Syringe) 50 ml Q15M PRN IV DECREASED GLUCOSE; Start 08/14/16 at 16:00 Glucagon (Glucagen) 1 mg Q15M PRN IM DECREASED GLUCOSE; Start 08/14/16 at 16:00 Glucose (Glutose) 15 gm Q15M PRN BUCCAL DECREASED GLUCOSE; Start 08/14/16 at 16 :00 Acetaminophen (Tylenol Tab) 650 mg Q6H PRN PO PAIN AND OR ELEVATED TEMP; Start 08/14/16 at 16:00 Acyclovir (Zovirax) 800 mg DAILY PO Last administered on 08/15/16 09:16; Admin Dose 800 MG; Start 08/15/16 at 09:00; Status Future Hold Atenolol (Tenormin) 50 mg DAILY PO Last administered on 08/19/16 08:47; Admin Dose 50 MG; Start 08/15/16 at 09:00 Atorvastatin Calcium (Lipitor) 80 mg DAILY@21 PO Last administered on 20:37; Admin Dose 80 MG; Start 08/14/16 at 21:00 Bisacodyl (Dulcolax Supp) 10 mg DAILY PRN [place] CONSTIPATION; Start 08/14/16 at 16 :00 Bromocriptine Mesylate (Parlodel) 2.5 mg BID PO Last administered on 08/19/16 08:46; Admin Dose 2.5 MG; Start 08/14/16 at 21:00 Clopidogrel Bisulfate (plaVIX) 75 mg DAILY PO Last administered on 08/19/16 08 :46; Admin Dose 75 MG; Start 08/15/16 at 09:00 Docusate Sodium (Colace) 100 mg BID PO Last administered on 08/19/16 08:46; Admin Dose 100 MG; Start 08/14/16 at 21:00 Epoetin Chiki (Epogen (Esrd)) 10,000 units WeSa@21 SC Last administered on 20:37; Admin Dose 10,000 UNITS; Start 08/15/16 at 21:00 Ferrous Gluconate (Fergon) 325 mg BID PO Last administered on 08/19/16 08:46; Admin Dose 325 MG; Start 08/14/16 at 21:00 Folic Acid (Folic Acid) 1 mg DAILY PO Last administered on 08/19/16 08:46; Admin Dose 1 MG; Start 08/15/16 at 09:00 Linagliptin (Tradjenta) 5 mg DAILY PO Last administered on 08/19/16 08:46; Admin Dose 5 MG; Start 08/15/16 at 09:00 Pantoprazole (Protonix Tab) 40 mg DAILY@06 PO Last administered on 08/19/16 06 :17; Admin Dose 40 MG; Start 08/15/16 at 06:00 Lactulose (Enulose) 20 gm DAILY PRN PO CONSTIPATION; Start 08/14/16 at 16:00 Insulin Glargine (Lantus) 20 unit DAILY@20 SC Last administered on 08/18/16 20 :39; Admin Dose 20 UNIT; Start 08/18/16 at 20:00 CHRISTINA SHIRLEY MD Aug 19, 2016 18:35
[2016-08-19] MEDS: ATORVASTATIN 80 MG TAB PO SCH (20:07)
[2016-08-19] MEDS: INSULIN GLARGINE [LANtus] 3 ML PEN SC SCH (20:08)
[2016-08-20] VITALS (16 sets, daily range): BP systolic 105–121; BP diastolic 55–71; PULSE 63–75; RESP 18–21
[2016-08-20] MEDS: ACCU-CHEK XX SCH (01:39)
[2016-08-20] MEDS: LEVOTHYROXINE 88 MCG TAB PO SCH (05:34)
[2016-08-20] MEDS: PANTOPRAZOLE (EC) 40 MG TAB PO SCH (05:34)
[2016-08-20] MEDS: ACETAMINOPHEN 325 MG TAB PO PRN ×2 (05:51→10:30)
[2016-08-20] MEDS: INSULIN ASPART [NOVOLOG] 3 ML PEN SC SCH ×4 (08:53→22:08)
[2016-08-20] MEDS: DOCUSATE SODIUM 100 MG CAP PO SCH ×2 (10:24→22:04)
[2016-08-20] MEDS: FOLIC ACID 1 MG TAB PO SCH (10:25)
[2016-08-20] MEDS: FERROUS GLUCONATE (EC) 325 MG TAB PO SCH ×2 (10:25→21:00)
[2016-08-20] MEDS: CLOPIDOGREL 75 MG TAB PO SCH (10:25)
[2016-08-20] MEDS: LINAGLIPTIN 5 MG TABLET PO SCH (10:26)
[2016-08-20] MEDS: ATENOLOL 50 MG TAB PO SCH (10:26)
[2016-08-20] MEDS: BROMOCRIPTINE 2.5 MG TAB PO SCH ×2 (10:27→22:15)
--- NOTE | 2016-08-20 16:30 | PDOCDIS ---
Discharge Instructions CONDITION Patient Condition: Stable HOME CARE INSTRUCTIONS: Special Diet: mech soft/cardiac FOLLOW UP/APPOINTMENTS Follow-up Plan f/u dr shirley [address] brock 2 wks see carla 2 wks CHRISTINA SHIRLEY MD Aug 20, 2016 16:30
--- NOTE | 2016-08-20 18:13 | PN ---
Date/Time of Note Date/Time of Note DATE: 08/20/16 TIME: 18:11 Assessment/Plan VTE Prophylaxis VTE Prophylaxis Intervention: other Lines/Catheters IV [facility] Type [facility]from [facility] Saline Lock Urinary Cath still in place: No Assessment/Plan Chief Complaint/Hosp Course 1. Patient has cerebrovascular accident recovering. 2. Status post altered mental status. 3. End-stage renal disease. 4. Hypertension. 5. Diabetes mellitus. 6. Hypothyroidism. 7. Dyslipidemia. 8. Left leg cellulitis. 9. Left leg varicose vein. 10. The patient has pituitary mass prolactinoma. [address] MACIAS TO SEE plan HEMODIALYSIS CATH TO BE PLACED PT AGREES NEED SNF Problems: Subjective 24 Hr Interval Summary Respiratory: no complaints Cardiovascular: no complaints Gastrointestinal: no complaints Exam/Review of Systems Vital Signs Vitals Vital Signs Date Time Temp Pulse Resp B/P Pulse Ox O2 Delivery O2 Flow Rate FiO2 08/20/16 16:02 63 08/20/16 15:46 98.4 19 118/64 96 Intake and Output 08/19/16 08/19/16 08/20/16 15:00 23:00 07:00 Intake Total 960 ml 240 ml Balance 960 ml 240 ml Exam Neck: supple Respiratory: clear to auscultation Cardiovascular: regular rate and rhythm Gastrointestinal: bowel sounds (+), soft Extremities: normal pulses Results Result Diagram: 08/18/16 0642 08/18/16 0640 Results 24 hrs Laboratory Tests Test 08/19/16 20:01 08/20/16 08:10 08/20/16 11:56 08/20/16 16:56 Bedside Glucose 167 172 208 203 Medications Medications Current Medications Diagnostic Test (Pha) (Accu-Chek) 1 ea 02 XX Last administered on 08/19/16t 02: 38; Admin Dose 1 EA; Start 08/15/16 at 02:00 Miscellaneous Information 1 ea NOTE XX ; Start 08/14/16 at 16:00 Glucose (Glutose) 15 gm Q15M PRN PO DECREASED GLUCOSE; Start 08/14/16 at 16:00 Glucose (Glutose) 22.5 gm Q15M PRN PO DECREASED GLUCOSE; Start 08/14/16 at 16: 00 Dextrose (D50w Syringe) 25 ml Q15M PRN IV DECREASED GLUCOSE; Start 08/14/16 at 16:00 Dextrose (D50w Syringe) 50 ml Q15M PRN IV DECREASED GLUCOSE; Start 08/14/16 at 16:00 Glucagon (Glucagen) 1 mg Q15M PRN IM DECREASED GLUCOSE; Start 08/14/16 at 16:00 Glucose (Glutose) 15 gm Q15M PRN BUCCAL DECREASED GLUCOSE; Start 08/14/16 at 16 :00 Acetaminophen (Tylenol Tab) 650 mg Q6H PRN PO PAIN AND OR ELEVATED TEMP Last administered on 08/20/16 10:30; Admin Dose 650 MG; Start 08/14/16 at 16:00 Acyclovir (Zovirax) 800 mg DAILY PO Last administered on 08/15/16 09:16; Admin Dose 800 MG; Start 08/15/16 at 09:00; Status Future Hold Atenolol (Tenormin) 50 mg DAILY PO Last administered on 08/20/16 10:26; Admin Dose 50 MG; Start 08/15/16 at 09:00 Atorvastatin Calcium (Lipitor) 80 mg DAILY@21 PO Last administered on 20:07; Admin Dose 80 MG; Start 08/14/16 at 21:00 Bisacodyl (Dulcolax Supp) 10 mg DAILY PRN [place] CONSTIPATION; Start 08/14/16 at 16 :00 Bromocriptine Mesylate (Parlodel) 2.5 mg BID PO Last administered on 08/20/16 10:27; Admin Dose 2.5 MG; Start 08/14/16 at 21:00 Clopidogrel Bisulfate (plaVIX) 75 mg DAILY PO Last administered on 08/20/16 10 :25; Admin Dose 75 MG; Start 08/15/16 at 09:00 Docusate Sodium (Colace) 100 mg BID PO Last administered on 08/20/16 10:24; Admin Dose 100 MG; Start 08/14/16 at 21:00 Epoetin Chiki (Epogen (Esrd)) 10,000 units WeSa@21 SC Last administered on 20:37; Admin Dose 10,000 UNITS; Start 08/15/16 at 21:00 Ferrous Gluconate (Fergon) 325 mg BID PO Last administered on 08/20/16 10:25; Admin Dose 325 MG; Start 08/14/16 at 21:00 Folic Acid (Folic Acid) 1 mg DAILY PO Last administered on 08/20/16 10:25; Admin Dose 1 MG; Start 08/15/16 at 09:00 Linagliptin (Tradjenta) 5 mg DAILY PO Last administered on 08/20/16 10:26; Admin Dose 5 MG; Start 08/15/16 at 09:00 Pantoprazole (Protonix Tab) 40 mg DAILY@06 PO Last administered on 08/20/16 05 :34; Admin Dose 40 MG; Start 08/15/16 at 06:00 Lactulose (Enulose) 20 gm DAILY PRN PO CONSTIPATION; Start 08/14/16 at 16:00 Insulin Glargine (Lantus) 20 unit DAILY@20 SC Last administered on 08/19/16 20 :08; Admin Dose 20 UNIT; Start 08/18/16 at 20:00 CHRISTINA SHIRLEY MD Aug 20, 2016 18:13
[2016-08-20 19:16] LABS: HAAIG REFLEX REFLEX FILED
[2016-08-20 20:27] LABS: HEPATITIS B CORE ANTIBODY NEGATIVE (NEGATIVE)
[2016-08-20 21:03] LABS: INR 1.08; PT RATIO 1.1
[2016-08-20 21:04] LABS: PARTIAL THROMBOPLASTIN TIME 34.8 Sec (25.0-35.0)
[2016-08-20] MEDS: ATORVASTATIN 80 MG TAB PO SCH (22:04)
[2016-08-20] MEDS: INSULIN GLARGINE [LANtus] 3 ML PEN SC SCH (22:06)
[2016-08-21] VITALS (28 sets, daily range): BP systolic 93–121; BP diastolic 49–78; PULSE 62–85; RESP 12–20
[2016-08-21] MEDS: ACCU-CHEK XX SCH (02:00)
[2016-08-21] MEDS: LEVOTHYROXINE 88 MCG TAB PO SCH (06:31)
[2016-08-21] MEDS: PANTOPRAZOLE (EC) 40 MG TAB PO SCH (06:31)
[2016-08-21] MEDS: INSULIN ASPART [NOVOLOG] 3 ML PEN SC SCH ×4 (08:00→21:00)
[2016-08-21] MEDS: DOCUSATE SODIUM 100 MG CAP PO SCH ×2 (08:07→20:59)
[2016-08-21] MEDS: ATENOLOL 50 MG TAB PO SCH (08:08)
[2016-08-21] MEDS: LINAGLIPTIN 5 MG TABLET PO SCH (08:09)
[2016-08-21] MEDS: BROMOCRIPTINE 2.5 MG TAB PO SCH ×2 (08:09→20:59)
[2016-08-21] MEDS: FOLIC ACID 1 MG TAB PO SCH (08:09)
[2016-08-21 08:41] LABS: ALBUMIN 3.9 g/dl (3.3-4.9); ALBUMIN/GLOBULIN RATIO 1.02; CALCIUM 9.2 mg/dl (8.4-10.2); POTASSIUM 4.2 mmol/L (3.5-5.1); TOTAL PROTEIN 7.7 g/dl (6.1-8.1)
[2016-08-21 08:51] LABS: CREATININE 9.51 mg/dl (0.44-1.00)
[2016-08-21] MEDS ORDERED: FENTAnyl 50 MCG/ML VIAL ONE (09:28)
[2016-08-21] MEDS ORDERED: CEFAZOLIN 1 GM/50 ML (PMX) 50 ML IVPB ONE (09:28)
[2016-08-21] MEDS ORDERED: MIDAZOLAM 1 MG/ML 2 ML INJ ONE (09:28)
[2016-08-21] MEDS ORDERED: HEPARIN 1000 UNITS/ML 10 ML INJ ONE (09:28)
[2016-08-21] MEDS ORDERED: LIDOCAINE 1% (MDV) 20 ML INJ ONE (09:28)
[2016-08-21] MEDS ORDERED: SOD CHLORIDE 0.9% 500 ML ONE (09:29)
--- NOTE | 2016-08-21 11:42 | RADRPT ---
PROCEDURE: Ultrasound guidance for placement of needle in right internal jugular vein. CLINICAL INDICATION: Venous access. TECHNIQUE: Prior to the procedure, informed consent was obtained. Risks including bleeding, infection, and pneu mothorax were explained to the patient. The patient understood and was willing to proceed. A procedu ral pause was performed. The patient's name, date of , and procedure to be performed were verif ied. The central line was inserted with all elements of maximal sterile barrier technique. All of th e following were used: head covering, facial mask, sterile gown, sterile gloves, a large sterile she et, hand hygiene, and 2% chlorhexidine for cutaneous antisepsis. The right neck and anterior/super ior chest wall was prepped and draped in usual sterile fashion. Limited sonography of the right neck was then performed. Noted is a patent right internal jugular ve in. Ultrasound images were recorded and stored in the patient's medical record. Following the local injection of Xylocaine, the right internal jugular vein was punctured under sono graphic guidance with a 20-gauge needle through which a 0.018 inch floppy tip guidewire was advanced into the superior vena cava. The patient tolerated the procedure well. The remainder of the proce dure was performed and dictated under separate cover. COMPARISON: None. FINDINGS: The ultrasound images demonstrate a patent right internal jugular vein. The subsequent images demon strate the needle entering the right internal jugular vein. IMPRESSION: 1. Ultrasound guidance for a needle placement in right internal jugular vein. RPTAT: QQ .Christiano Fuentes MD, Date Time Electronically viewed and signed by .Christiano Fuentes MD, on 08/21/2016 11:41 .R/
[2016-08-21] MEDS: FERROUS GLUCONATE (EC) 325 MG TAB PO SCH ×2 (12:50→20:59)
[2016-08-21] MEDS: CLOPIDOGREL 75 MG TAB PO SCH (12:50)
--- NOTE | 2016-08-21 14:04 | RADRPT ---
PROCEDURE: PLACEMENT OF RIGHT INTERNAL JUGULAR VENOUS TUNNELED DIALYSIS CATHETER. CLINICAL INDICATION: Renal failure. TECHNIQUE: Prior to the procedure, informed consent was obtained. Risks including bleeding, infection, and pneu mothorax were explained to the patient and/or the patient's family. The patient and/or the patient's family understood and was willing to proceed. A procedural pause was performed. The patient's name, date of , and procedure to be performed were verified. The central line was inserted with all elements of maximal sterile barrier technique. All of the following were used: head covering, facial mask, sterile gown, sterile gloves, a large sterile sheet, hand hygiene, and 2% chlorhexidine for cutaneous antisepsis. The right neck and anterior/superior chest wall was prepped and draped in usu al sterile fashion. Limited sonography of the right neck was then performed. Noted is a patent right internal jugular ve in. Ultrasound images were recorded and stored in the patient's medical record. Following the local injection of Xylocaine, the right internal jugular vein was punctured under sono graphic guidance with a 20-gauge needle through which a 0.018 inch floppy tip guidewire was advanced into the superior vena cava. The tract was dilated to 5 Urdu and the wire was then replaced with a 0.035 in Amplatz guidewire. A tunnel was then created from the anterior lateral aspect of the sup erior right chest wall to the puncture site in the neck and the catheter was pulled through the trac t. Serial dilatation was then performed and a 16 Urdu peel away sheath was introduced. The 14.5 Urdu 23cm tip to cuff Angiodynamics BioFlo DuraMax dialysis catheter was advanced through the 16 F rench peel-away sheath. The tip of the catheter was confirmed in position within the right atrium. T he peel-away sheath was removed. The 2 ports were each flushed with 2.3 ml of 1:1000 heparin. The c atheter was secured to the skin with 2-0 silk. The wound in the neck was closed with 4-0 Vicryl suture using subcuticular running technique. The site was dressed. The patient tolerated the proce dure well. COMPARISON: None. FINDINGS: Final radiographic images demonstrate the tip of the catheter in the upper right atrium. A total of 0.2 minutes of fluoroscopy time was used. The ultrasound images demonstrate the needle entering th e jugular vein. Ultrasound images were recorded and stored in the patient's medical record. 8 image s of the chest were obtained with image intensifier. IMPRESSION: 1. Percutaneous insertion of right internal jugular dialysis tunneled dialysis catheter under fluoro scopic and sonographic guidance. RPTAT: QQ .Christiano Fuentes MD, MD Date Time Electronically viewed and signed by .Christiano Fuentes MD, MD on 08/21/2016 14:04 .R/
--- NOTE | 2016-08-21 19:16 | CONS ---
Date/Time of Note Date/Time of Note DATE: 08/21/16 TIME: 19:15 Assessment/Plan Assessment/Plan Additional Assessment/Plan Chief Complaint/Hosp Course 1. Patient has cerebrovascular accident recovering. 2. Status post altered mental status. 3. End-stage renal disease. 4. Hypertension. 5. Diabetes mellitus. 6. Hypothyroidism. 7. Dyslipidemia. 8. Left leg cellulitis. 9. Left leg varicose vein. 10. The patient has pituitary mass prolactinoma. 11. Abnormal liver function tests most probably related to fatty liver. Plan Acute hepatitis panel Consultation Date/Type/Reason Admit Date/Time Aug 14, 2016 at 13:35 Initial Consult Date Type of Consultation: ID [id number] HR Interval Summary Free Text/Dictation Patient denies of abdominal pain no nausea no vomiting Exam/Review of Systems Vital Signs Vitals Vital Signs Date Time Temp Pulse Resp B/P Pulse Ox O2 Delivery O2 Flow Rate FiO2 08/21/16 16:20 62 08/21/16 15:57 98.0 20 105/61 98 08/21/16 11:40 Room Air 08/21/16 11:30 2.0 Intake and Output 08/20/16 08/20/16 08/21/16 15:00 23:00 07:00 Intake Total 350 ml 250 ml Output Total 1500 ml Balance -1150 ml 250 ml Exam Constitutional: alert, oriented, well developed Psych: nl mood/affect, no complaints Head: atraumatic, normocephalic Eyes: EOMI, PERRL, nl conjunctiva, nl lids, nl sclera ENMT: nl external ears & nose, nl lips & teeth, nl nasal mucosa & septum Neck: non-tender, supple Respiratory: clear to auscultation, normal air movement Cardiovascular: nl pulses, regular rate and rhythm Gastrointestinal: nl liver, spleen, non-tender, soft Musculoskeletal: nl extremities to inspection, nl gait and stance Extremities: normal pulses Neurological: REGISTERED ROUTE ASSOCIATE II-XII intact, nl mental status, nl speech, nl strength Skin: nl turgor, No rash or lesions Lymph: nl lymph nodes Results Result Diagram: 08/18/16 0642 08/21/16 0700 Results 24 hrs Laboratory Tests Test 08/20/16 22:03 08/21/16 02:42 08/21/16 07:00 08/21/16 07:42 Bedside Glucose 199 207 127 Sodium Level 133 L Potassium Level 4.2 Chloride Level 92 L Carbon Dioxide Level 24 Anion Gap 21 H Blood Urea Nitrogen 77 H Creatinine 9.51 H Glucose Level 111 Calcium Level 9.2 Total Bilirubin 0.0 L Direct Bilirubin 0.00 Indirect Bilirubin 0.0 Aspartate Amino Transf (AST/SGOT) 87 H Alanine Aminotransferase (ALT/SGPT) 131 H Alkaline Phosphatase 155 H Total Protein 7.7 Albumin 3.9 Globulin 3.80 H Albumin/Globulin Ratio 1.02 Test 08/21/16 12:14 08/21/16 17:10 Bedside Glucose 115 143 Medications Medications Current Medications Diagnostic Test (Pha) (Accu-Chek) 1 ea 02 XX Last administered on 08/19/16 02: 38; Admin Dose 1 EA; Start 08/15/16 at 02:00 Miscellaneous Information 1 ea NOTE XX ; Start 08/14/16 at 16:00 Glucose (Glutose) 15 gm Q15M PRN PO DECREASED GLUCOSE; Start 08/14/16 at 16:00 Glucose (Glutose) 22.5 gm Q15M PRN PO DECREASED GLUCOSE; Start 08/14/16 at 16: 00 Dextrose (D50w Syringe) 25 ml Q15M PRN IV DECREASED GLUCOSE; Start 08/14/16 at 16:00 Dextrose (D50w Syringe) 50 ml Q15M PRN IV DECREASED GLUCOSE; Start 08/14/16 at 16:00 Glucagon (Glucagen) 1 mg Q15M PRN IM DECREASED GLUCOSE; Start 08/14/16 at 16:00 Glucose (Glutose) 15 gm Q15M PRN BUCCAL DECREASED GLUCOSE; Start 08/14/16 at 16 :00 Acetaminophen (Tylenol Tab) 650 mg Q6H PRN PO PAIN AND OR ELEVATED TEMP Last administered on 08/20/16 10:30; Admin Dose 650 MG; Start 08/14/16 at 16:00 Acyclovir (Zovirax) 800 mg DAILY PO Last administered on 08/15/16 09:16; Admin Dose 800 MG; Start 08/15/16 at 09:00; Status Future Hold Atenolol (Tenormin) 50 mg DAILY PO Last administered on 08/21/16 08:08; Admin Dose 50 MG; Start 08/15/16 at 09:00 Atorvastatin Calcium (Lipitor) 80 mg DAILY@21 PO Last administered on 22:04; Admin Dose 80 MG; Start 08/14/16 at 21:00 Bisacodyl (Dulcolax Supp) 10 mg DAILY PRN [place] CONSTIPATION; Start 08/14/16 at 16 :00 Bromocriptine Mesylate (Parlodel) 2.5 mg BID PO Last administered on 08/21/16 08:09; Admin Dose 2.5 MG; Start 08/14/16 at 21:00 Clopidogrel Bisulfate (plaVIX) 75 mg DAILY PO Last administered on 08/21/16 12 :50; Admin Dose 75 MG; Start 08/15/16 at 09:00 Docusate Sodium (Colace) 100 mg BID PO Last administered on 08/21/16 08:07; Admin Dose 100 MG; Start 08/14/16 at 21:00 Epoetin Chiki (Epogen (Esrd)) 10,000 units WeSa@21 SC Last administered on 20:37; Admin Dose 10,000 UNITS; Start 08/15/16 at 21:00 Ferrous Gluconate (Fergon) 325 mg BID PO Last administered on 08/21/16 12:50; Admin Dose 325 MG; Start 08/14/16 at 21:00 Folic Acid (Folic Acid) 1 mg DAILY PO Last administered on 08/21/16 08:09; Admin Dose 1 MG; Start 08/15/16 at 09:00 Linagliptin (Tradjenta) 5 mg DAILY PO Last administered on 08/21/16 08:09; Admin Dose 5 MG; Start 08/15/16 at 09:00 Pantoprazole (Protonix Tab) 40 mg DAILY@06 PO Last administered on 08/21/16 06 :31; Admin Dose 40 MG; Start 08/15/16 at 06:00 Lactulose (Enulose) 20 gm DAILY PRN PO CONSTIPATION; Start 08/14/16 at 16:00 Insulin Glargine (Lantus) 20 unit DAILY@20 SC Last administered on 08/20/16 22 :06; Admin Dose 20 UNIT; Start 08/18/16 at 20:00 NELI MACIAS MD Aug 21, 2016 19:16
[2016-08-21] MEDS: ATORVASTATIN 80 MG TAB PO SCH (20:59)
[2016-08-21] MEDS: INSULIN GLARGINE [LANtus] 3 ML PEN SC SCH (21:04)
[2016-08-22] VITALS (17 sets, daily range): BP systolic 95–145; BP diastolic 49–73; PULSE 62–75; RESP 16–19
[2016-08-22] MEDS: ACCU-CHEK XX SCH (02:00)
[2016-08-22] MEDS: PANTOPRAZOLE (EC) 40 MG TAB PO SCH (06:16)
[2016-08-22] MEDS: INSULIN ASPART [NOVOLOG] 3 ML PEN SC SCH ×4 (08:00→20:18)
[2016-08-22 08:02] LABS: HAAIG REFLEX REFLEX FILED
[2016-08-22 08:54] LABS: CALCIUM 8.7 mg/dl (8.4-10.2); POTASSIUM 4.1 mmol/L (3.5-5.1)
[2016-08-22] MEDS: DOCUSATE SODIUM 100 MG CAP PO SCH ×2 (09:20→20:18)
[2016-08-22] MEDS: LEVOTHYROXINE 88 MCG TAB PO SCH (09:20)
[2016-08-22] MEDS: FERROUS GLUCONATE (EC) 325 MG TAB PO SCH ×2 (09:21→20:17)
[2016-08-22] MEDS: FOLIC ACID 1 MG TAB PO SCH (09:21)
[2016-08-22] MEDS: BROMOCRIPTINE 2.5 MG TAB PO SCH ×2 (09:21→20:17)
[2016-08-22 09:25] LABS: CREATININE 10.37 mg/dl (0.44-1.00)
[2016-08-22 09:42] LABS: HEPATITIS B CORE ANTIBODY NEGATIVE (NEGATIVE)
[2016-08-22] MEDS: CLOPIDOGREL 75 MG TAB PO SCH (14:54)
[2016-08-22] MEDS: ATENOLOL 50 MG TAB PO SCH (14:57)
[2016-08-22] MEDS: LINAGLIPTIN 5 MG TABLET PO SCH (14:57)
[2016-08-22] MEDS: ACETAMINOPHEN 325 MG TAB PO PRN (15:01)
--- NOTE | 2016-08-22 20:02 | CONS ---
Date/Time of Note Date/Time of Note DATE: 08/22/16 TIME: 20:01 Assessment/Plan Assessment/Plan Additional Assessment/Plan Chief Complaint/Hosp Course 1. Patient has cerebrovascular accident recovering. 2. Status post altered mental status. 3. End-stage renal disease. 4. Hypertension. 5. Diabetes mellitus. 6. Hypothyroidism. 7. Dyslipidemia. 8. Left leg cellulitis. 9. Left leg varicose vein. 10. The patient has pituitary mass prolactinoma. 11. Abnormal liver function tests most probably related to fatty liver. Plan Acute hepatitis panel, all negative Abnormal LFTs mostly related to fatty liver Consultation Date/Type/Reason Admit Date/Time Aug 14, 2016 at 13:35 Type of Consultation: ID [id number] HR Interval Summary Constitutional: improved, no complaints Exam/Review of Systems Vital Signs Vitals Vital Signs Date Time Temp Pulse Resp B/P Pulse Ox O2 Delivery O2 Flow Rate FiO2 08/22/16 19:59 99.0 69 19 109/56 93 08/21/16 11:40 Room Air 08/21/16 11:30 2.0 Intake and Output 08/21/16 08/21/16 08/22/16 15:00 23:00 07:00 Intake Total 100 ml 650 ml 500 ml Balance 100 ml 650 ml 500 ml Exam Constitutional: alert, oriented, well developed Psych: nl mood/affect, no complaints Head: atraumatic, normocephalic Eyes: EOMI, PERRL, nl conjunctiva, nl lids, nl sclera ENMT: nl external ears & nose, nl lips & teeth, nl nasal mucosa & septum Neck: non-tender, supple Respiratory: clear to auscultation, normal air movement Cardiovascular: nl pulses, regular rate and rhythm Gastrointestinal: nl liver, spleen, non-tender, soft Musculoskeletal: nl extremities to inspection, nl gait and stance Extremities: normal pulses Neurological: 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, nl mental status, nl speech, nl strength Skin: nl turgor, No rash or lesions Lymph: nl lymph nodes Results Result Diagram: 08/18/16 0642 08/22/16 0631 Results 24 hrs Laboratory Tests Test 08/21/16 20:59 08/22/16 06:31 08/22/16 08:20 08/22/16 12:30 Bedside Glucose 141 85 121 Sodium Level 130 L Potassium Level 4.1 Chloride Level 90 L Carbon Dioxide Level 25 Anion Gap 19 H Blood Urea Nitrogen 82 H Creatinine 10.37 H Glucose Level 64 #L Calcium Level 8.7 Hepatitis B Surface Antigen NEGATIVE Hepatitis B Core Total Antibody NEGATIVE Hepatitis C Antibody NEGATIVE Test 08/22/16 17:06 Bedside Glucose 195 Medications Medications Current Medications Diagnostic Test (Pha) (Accu-Chek) 1 ea 02 XX Last administered on 08/19/16 02: 38; Admin Dose 1 EA; Start 08/15/16 at 02:00 Miscellaneous Information 1 ea NOTE XX ; Start 08/14/16 at 16:00 Glucose (Glutose) 15 gm Q15M PRN PO DECREASED GLUCOSE; Start 08/14/16 at 16:00 Glucose (Glutose) 22.5 gm Q15M PRN PO DECREASED GLUCOSE; Start 08/14/16 at 16: 00 Dextrose (D50w Syringe) 25 ml Q15M PRN IV DECREASED GLUCOSE; Start 08/14/16 at 16:00 Dextrose (D50w Syringe) 50 ml Q15M PRN IV DECREASED GLUCOSE; Start 08/14/16 at 16:00 Glucagon (Glucagen) 1 mg Q15M PRN IM DECREASED GLUCOSE; Start 08/14/16 at 16:00 Glucose (Glutose) 15 gm Q15M PRN BUCCAL DECREASED GLUCOSE; Start 08/14/16 at 16 :00 Acetaminophen (Tylenol Tab) 650 mg Q6H PRN PO PAIN AND OR ELEVATED TEMP Last administered on 08/22/16 15:01; Admin Dose 650 MG; Start 08/14/16 at 16:00 Acyclovir (Zovirax) 800 mg DAILY PO Last administered on 08/15/16 09:16; Admin Dose 800 MG; Start 08/15/16 at 09:00; Status Future Hold Atenolol (Tenormin) 50 mg DAILY PO Last administered on 08/22/16 14:57; Admin Dose 50 MG; Start 08/15/16 at 09:00 Atorvastatin Calcium (Lipitor) 80 mg DAILY@21 PO Last administered on 20:59; Admin Dose 80 MG; Start 08/14/16 at 21:00 Bisacodyl (Dulcolax Supp) 10 mg DAILY PRN [place] CONSTIPATION; Start 08/14/16 at 16 :00 Bromocriptine Mesylate (Parlodel) 2.5 mg BID PO Last administered on 08/22/16 09:21; Admin Dose 2.5 MG; Start 08/14/16 at 21:00 Clopidogrel Bisulfate (plaVIX) 75 mg DAILY PO Last administered on 08/22/16 14 :54; Admin Dose 75 MG; Start 08/15/16 at 09:00 Docusate Sodium (Colace) 100 mg BID PO Last administered on 08/22/16 09:20; Admin Dose 100 MG; Start 08/14/16 at 21:00 Epoetin Chiki (Epogen (Esrd)) 10,000 units WeSa@21 SC Last administered on 20:37; Admin Dose 10,000 UNITS; Start 08/15/16 at 21:00 Ferrous Gluconate (Fergon) 325 mg BID PO Last administered on 08/22/16 09:21; Admin Dose 325 MG; Start 08/14/16 at 21:00 Folic Acid (Folic Acid) 1 mg DAILY PO Last administered on 08/22/16 09:21; Admin Dose 1 MG; Start 08/15/16 at 09:00 Linagliptin (Tradjenta) 5 mg DAILY PO Last administered on 08/22/16 14:57; Admin Dose 5 MG; Start 08/15/16 at 09:00 Pantoprazole (Protonix Tab) 40 mg DAILY@06 PO Last administered on 08/22/16 06 :16; Admin Dose 40 MG; Start 08/15/16 at 06:00 Lactulose (Enulose) 20 gm DAILY PRN PO CONSTIPATION; Start 08/14/16 at 16:00 Insulin Glargine (Lantus) 20 unit DAILY@20 SC Last administered on 08/21/16 21 :04; Admin Dose 20 UNIT; Start 08/18/16 at 20:00 NELI MACIAS MD Aug 22, 2016 20:02
[2016-08-22] MEDS: INSULIN GLARGINE [LANtus] 3 ML PEN SC SCH (20:16)
[2016-08-22] MEDS: ATORVASTATIN 80 MG TAB PO SCH (20:17)
[2016-08-22] MEDS: EPOETIN 10000 UNITS/1 ML INJ (ESRD) SC SCH (21:14)
--- NOTE | 2016-08-22 23:03 | PN ---
Date/Time of Note Date/Time of Note DATE: 08/22/16 TIME: 23:02 Assessment/Plan VTE Prophylaxis VTE Prophylaxis Intervention: other Lines/Catheters [facility] PERMA CATH Urinary Cath still in place: No Assessment/Plan Chief Complaint/Hosp Course 1. Patient has cerebrovascular accident recovering. 2. Status post altered mental status. 3. End-stage renal disease. 4. Hypertension. 5. Diabetes mellitus. 6. Hypothyroidism. 7. Dyslipidemia. 8. Left leg cellulitis. 9. Left leg varicose vein. 10. The patient has pituitary mass prolactinoma. [address] MACIAS TO SEE plan HEMODIALYSIS CATH for hd NEED SNF Problems: Subjective 24 Hr Interval Summary Cardiovascular: no complaints Gastrointestinal: no complaints Musculoskeletal: bone/joint pain (+) Exam/Review of Systems Vital Signs Vitals Vital Signs Date Time Temp Pulse Resp B/P Pulse Ox O2 Delivery O2 Flow Rate FiO2 08/22/16 19:59 99.0 69 19 109/56 93 08/21/16 11:40 Room Air 08/21/16 11:30 2.0 Intake and Output 08/21/16 08/21/16 08/22/16 15:00 23:00 07:00 Intake Total 100 ml 650 ml 500 ml Balance 100 ml 650 ml 500 ml Exam Respiratory: clear to auscultation Cardiovascular: regular rate and rhythm Gastrointestinal: soft Musculoskeletal: nl extremities to inspection Results Result Diagram: 08/18/16 0642 08/22/16 0631 Results 24 hrs Laboratory Tests Test 08/22/16 06:31 08/22/16 08:20 08/22/16 12:30 08/22/16 17:06 Sodium Level 130 L Potassium Level 4.1 Chloride Level 90 L Carbon Dioxide Level 25 Anion Gap 19 H Blood Urea Nitrogen 82 H Creatinine 10.37 H Glucose Level 64 #L Calcium Level 8.7 Hepatitis B Surface Antigen NEGATIVE Hepatitis B Core Total Antibody NEGATIVE Hepatitis C Antibody NEGATIVE Bedside Glucose 85 121 195 Test 08/22/16 20:06 Bedside Glucose 120 Medications Medications Current Medications Diagnostic Test (Pha) (Accu-Chek) 1 ea 02 XX Last administered on 08/19/16t 02: 38; Admin Dose 1 EA; Start 08/15/16 at 02:00 Miscellaneous Information 1 ea NOTE XX ; Start 08/14/16 at 16:00 Glucose (Glutose) 15 gm Q15M PRN PO DECREASED GLUCOSE; Start 08/14/16 at 16:00 Glucose (Glutose) 22.5 gm Q15M PRN PO DECREASED GLUCOSE; Start 08/14/16 at 16: 00 Dextrose (D50w Syringe) 25 ml Q15M PRN IV DECREASED GLUCOSE; Start 08/14/16 at 16:00 Dextrose (D50w Syringe) 50 ml Q15M PRN IV DECREASED GLUCOSE; Start 08/14/16 at 16:00 Glucagon (Glucagen) 1 mg Q15M PRN IM DECREASED GLUCOSE; Start 08/14/16 at 16:00 Glucose (Glutose) 15 gm Q15M PRN BUCCAL DECREASED GLUCOSE; Start 08/14/16 at 16 :00 Acetaminophen (Tylenol Tab) 650 mg Q6H PRN PO PAIN AND OR ELEVATED TEMP Last administered on 08/22/16 15:01; Admin Dose 650 MG; Start 08/14/16 at 16:00 Acyclovir (Zovirax) 800 mg DAILY PO Last administered on 08/15/16 09:16; Admin Dose 800 MG; Start 08/15/16 at 09:00; Status Future Hold Atenolol (Tenormin) 50 mg DAILY PO Last administered on 08/22/16 14:57; Admin Dose 50 MG; Start 08/15/16 at 09:00 Atorvastatin Calcium (Lipitor) 80 mg DAILY@21 PO Last administered on 20:17; Admin Dose 80 MG; Start 08/14/16 at 21:00 Bisacodyl (Dulcolax Supp) 10 mg DAILY PRN [place] CONSTIPATION; Start 08/14/16 at 16 :00 Bromocriptine Mesylate (Parlodel) 2.5 mg BID PO Last administered on 08/22/16 20:17; Admin Dose 2.5 MG; Start 08/14/16 at 21:00 Clopidogrel Bisulfate (plaVIX) 75 mg DAILY PO Last administered on 08/22/16 14 :54; Admin Dose 75 MG; Start 08/15/16 at 09:00 Docusate Sodium (Colace) 100 mg BID PO Last administered on 08/22/16 20:18; Admin Dose 100 MG; Start 08/14/16 at 21:00 Epoetin Chiki (Epogen (Esrd)) 10,000 units WeSa@21 SC Last administered on 21:14; Admin Dose 10,000 UNITS; Start 08/15/16 at 21:00 Ferrous Gluconate (Fergon) 325 mg BID PO Last administered on 08/22/16 20:17; Admin Dose 325 MG; Start 08/14/16 at 21:00 Folic Acid (Folic Acid) 1 mg DAILY PO Last administered on 08/22/16 09:21; Admin Dose 1 MG; Start 08/15/16 at 09:00 Linagliptin (Tradjenta) 5 mg DAILY PO Last administered on 08/22/16 14:57; Admin Dose 5 MG; Start 08/15/16 at 09:00 Pantoprazole (Protonix Tab) 40 mg DAILY@06 PO Last administered on 08/22/16 06 :16; Admin Dose 40 MG; Start 08/15/16 at 06:00 Lactulose (Enulose) 20 gm DAILY PRN PO CONSTIPATION; Start 08/14/16 at 16:00 Insulin Glargine (Lantus) 20 unit DAILY@20 SC Last administered on 08/22/16 20 :16; Admin Dose 20 UNIT; Start 08/18/16 at 20:00 CHRISTINA SHIRLEY MD Aug 22, 2016 23:03
[2016-08-23] MEDS: ACCU-CHEK XX SCH (02:21)
[2016-08-23 04:00] VITALS: BP 131/61; PULSE 65; RESP 16
[2016-08-23] MEDS: PANTOPRAZOLE (EC) 40 MG TAB PO SCH (05:29)
[2016-08-23] MEDS: LEVOTHYROXINE 88 MCG TAB PO SCH (06:34)
[2016-08-23] MEDS: INSULIN ASPART [NOVOLOG] 3 ML PEN SC SCH ×4 (08:00→20:24)
[2016-08-23 08:14] VITALS: BP 131/61; RESP 20
[2016-08-23 09:00] VITALS: BP 120/56; PULSE 80
[2016-08-23] MEDS: FERROUS GLUCONATE (EC) 325 MG TAB PO SCH ×2 (09:21→20:22)
[2016-08-23] MEDS: FOLIC ACID 1 MG TAB PO SCH (09:21)
[2016-08-23] MEDS: ATENOLOL 50 MG TAB PO SCH (09:21)
[2016-08-23] MEDS: DOCUSATE SODIUM 100 MG CAP PO SCH ×2 (09:21→20:22)
[2016-08-23] MEDS: CLOPIDOGREL 75 MG TAB PO SCH (09:21)
[2016-08-23] MEDS: BROMOCRIPTINE 2.5 MG TAB PO SCH ×2 (09:21→20:22)
[2016-08-23] MEDS: LINAGLIPTIN 5 MG TABLET PO SCH (09:21)
[2016-08-23 12:01] VITALS: BP 116/57; RESP 18
[2016-08-23 16:32] VITALS: BP 120/65; RESP 20
--- NOTE | 2016-08-23 18:20 | CONS ---
Date/Time of Note Date/Time of Note DATE: 08/23/16 TIME: 18:20 Assessment/Plan Assessment/Plan Additional Assessment/Plan Additional Assessment/Plan Chief Complaint/Hosp Course 1. Patient has cerebrovascular accident recovering. 2. Status post altered mental status. 3. End-stage renal disease. 4. Hypertension. 5. Diabetes mellitus. 6. Hypothyroidism. 7. Dyslipidemia. 8. Left leg cellulitis. 9. Left leg varicose vein. 10. The patient has pituitary mass prolactinoma. 11. Abnormal liver function tests most probably related to fatty liver. Plan Acute hepatitis panel, all negative Abnormal LFTs mostly related to fatty liver Follow-up in the office as outpatient Consultation Date/Type/Reason Admit Date/Time Aug 14, 2016 at 13:35 Type of Consultation: ID [id number] HR Interval Summary Constitutional: improved, no complaints Exam/Review of Systems Vital Signs Vitals Vital Signs Date Time Temp Pulse Resp B/P Pulse Ox O2 Delivery O2 Flow Rate FiO2 08/23/16 16:32 99.2 81 20 120/65 99 08/23/16 04:00 Room Air 08/21/16 11:30 2.0 Intake and Output 08/22/16 08/22/16 08/23/16 15:00 23:00 07:00 Intake Total 500 ml 550 ml 120 ml Output Total 1500 ml 1000 ml Balance -1000 ml -450 ml 120 ml Exam Constitutional: alert, oriented, well developed Psych: nl mood/affect, no complaints Head: atraumatic, normocephalic Eyes: EOMI, PERRL, nl conjunctiva, nl lids, nl sclera ENMT: nl external ears & nose, nl lips & teeth, nl nasal mucosa & septum Neck: non-tender, supple Respiratory: clear to auscultation, normal air movement Cardiovascular: nl pulses, regular rate and rhythm Gastrointestinal: nl liver, spleen, non-tender, soft Musculoskeletal: nl extremities to inspection, nl gait and stance Extremities: normal pulses Neurological: 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 II-XII intact, nl mental status, nl speech, nl strength Skin: nl turgor, No rash or lesions Lymph: nl lymph nodes Results Result Diagram: 08/22/16 0631 Results 24 hrs Laboratory Tests Test 08/22/16 20:06 08/23/16 02:03 08/23/16 08:27 08/23/16 08:51 Bedside Glucose 120 79 65 L 72 Test 08/23/16 09:14 08/23/16 09:39 08/23/16 12:39 08/23/16 17:20 Bedside Glucose 98 108 97 169 Medications Medications Current Medications Diagnostic Test (Pha) (Accu-Chek) 1 ea 02 XX Last administered on 08/23/16 02: 21; Admin Dose 1 EA; Start 08/15/16 at 02:00 Miscellaneous Information 1 ea NOTE XX ; Start 08/14/16 at 16:00 Glucose (Glutose) 15 gm Q15M PRN PO DECREASED GLUCOSE; Start 08/14/16 at 16:00 Glucose (Glutose) 22.5 gm Q15M PRN PO DECREASED GLUCOSE; Start 08/14/16 at 16: 00 Dextrose (D50w Syringe) 25 ml Q15M PRN IV DECREASED GLUCOSE; Start 08/14/16 at 16:00 Dextrose (D50w Syringe) 50 ml Q15M PRN IV DECREASED GLUCOSE; Start 08/14/16 at 16:00 Glucagon (Glucagen) 1 mg Q15M PRN IM DECREASED GLUCOSE; Start 08/14/16 at 16:00 Glucose (Glutose) 15 gm Q15M PRN BUCCAL DECREASED GLUCOSE; Start 08/14/16 at 16 :00 Acetaminophen (Tylenol Tab) 650 mg Q6H PRN PO PAIN AND OR ELEVATED TEMP Last administered on 08/22/16 15:01; Admin Dose 650 MG; Start 08/14/16 at 16:00 Acyclovir (Zovirax) 800 mg DAILY PO Last administered on 08/15/16 09:16; Admin Dose 800 MG; Start 08/15/16 at 09:00; Status Future Hold Atenolol (Tenormin) 50 mg DAILY PO Last administered on 08/23/16 09:21; Admin Dose 50 MG; Start 08/15/16 at 09:00 Atorvastatin Calcium (Lipitor) 80 mg DAILY@21 PO Last administered on 20:17; Admin Dose 80 MG; Start 08/14/16 at 21:00 Bisacodyl (Dulcolax Supp) 10 mg DAILY PRN [place] CONSTIPATION Last administered on 08/23/16 17:33; Admin Dose 10 MG; Start 08/14/16 at 16:00 Bromocriptine Mesylate (Parlodel) 2.5 mg BID PO Last administered on 08/23/16 09:21; Admin Dose 2.5 MG; Start 08/14/16 at 21:00 Clopidogrel Bisulfate (plaVIX) 75 mg DAILY PO Last administered on 08/23/16 09 :21; Admin Dose 75 MG; Start 08/15/16 at 09:00 Docusate Sodium (Colace) 100 mg BID PO Last administered on 08/23/16 09:21; Admin Dose 100 MG; Start 08/14/16 at 21:00 Epoetin Chiki (Epogen (Esrd)) 10,000 units WeSa@21 SC Last administered on 21:14; Admin Dose 10,000 UNITS; Start 08/15/16 at 21:00 Ferrous Gluconate (Fergon) 325 mg BID PO Last administered on 08/23/16 09:21; Admin Dose 325 MG; Start 08/14/16 at 21:00 Folic Acid (Folic Acid) 1 mg DAILY PO Last administered on 08/23/16 09:21; Admin Dose 1 MG; Start 08/15/16 at 09:00 Linagliptin (Tradjenta) 5 mg DAILY PO Last administered on 08/23/16 09:21; Admin Dose 5 MG; Start 08/15/16 at 09:00 Pantoprazole (Protonix Tab) 40 mg DAILY@06 PO Last administered on 08/23/16 05 :29; Admin Dose 40 MG; Start 08/15/16 at 06:00 Lactulose (Enulose) 20 gm DAILY PRN PO CONSTIPATION; Start 08/14/16 at 16:00 Insulin Glargine (Lantus) 20 unit DAILY@20 SC Last administered on 08/22/16 20 :16; Admin Dose 20 UNIT; Start 08/18/16 at 20:00 NELI MACIAS MD Aug 23, 2016 18:20
[2016-08-23] MEDS: LACTULOSE 30ML CUP PO PRN (18:24)
[2016-08-23 20:09] VITALS: BP 139/76; RESP 21
[2016-08-23] MEDS: INSULIN GLARGINE [LANtus] 3 ML PEN SC SCH (20:22)
[2016-08-23] MEDS: ATORVASTATIN 80 MG TAB PO SCH (20:22)
--- NOTE | 2016-08-23 21:12 | PN ---
Date/Time of Note Date/Time of Note DATE: 08/23/16 TIME: 21:10 Assessment/Plan VTE Prophylaxis VTE Prophylaxis Intervention: other Lines/Catheters IV C[facility]ter Type (from [facility]): PERMA CATH Urinary Cath still in place: No Assessment/Plan Chief Complaint/Hosp Course 1. Patient has cerebrovascular accident recovering. 2. Status post altered mental status. 3. End-stage renal disease. 4. Hypertension. 5. Diabetes mellitus. 6. Hypothyroidism. 7. Dyslipidemia. 8. Left leg cellulitis. 9. Left leg varicose vein. 10. The patient has pituitary mass prolactinoma. [address] AMCIAS SAW PT plan HEMODIALYSIS CATH for hd NEED SNF Problems: Subjective 24 Hr Interval Summary Respiratory: no complaints Cardiovascular: no complaints Exam/Review of Systems Vital Signs Vitals Vital Signs Date Time Temp Pulse Resp B/P Pulse Ox O2 Delivery O2 Flow Rate FiO2 08/23/16 20:09 98.0 80 21 139/76 96 08/23/16 04:00 Room Air 08/21/16 11:30 2.0 Intake and Output 08/22/16 08/22/16 08/23/16 15:00 23:00 07:00 Intake Total 500 ml 550 ml 120 ml Output Total 1500 ml 1000 ml Balance -1000 ml -450 ml 120 ml Exam Neck: supple Respiratory: clear to auscultation Cardiovascular: regular rate and rhythm Gastrointestinal: soft Musculoskeletal: nl extremities to inspection Extremities: normal pulses Results Result Diagram: 08/22/16 0631 Results 24 hrs Laboratory Tests Test 08/23/16 02:03 08/23/16 08:27 08/23/16 08:51 08/23/16 09:14 Bedside Glucose 79 65 L 72 98 Test 08/23/16 09:39 08/23/16 12:39 08/23/16 17:20 08/23/16 20:14 Bedside Glucose 108 97 169 159 Medications Medications Current Medications Diagnostic Test (Pha) (Accu-Chek) 1 ea 02 XX Last administered on 08/23/16t 02: 21; Admin Dose 1 EA; Start 08/15/16 at 02:00 Miscellaneous Information 1 ea NOTE XX ; Start 08/14/16 at 16:00 Glucose (Glutose) 15 gm Q15M PRN PO DECREASED GLUCOSE; Start 08/14/16 at 16:00 Glucose (Glutose) 22.5 gm Q15M PRN PO DECREASED GLUCOSE; Start 08/14/16 at 16: 00 Dextrose (D50w Syringe) 25 ml Q15M PRN IV DECREASED GLUCOSE; Start 08/14/16 at 16:00 Dextrose (D50w Syringe) 50 ml Q15M PRN IV DECREASED GLUCOSE; Start 08/14/16 at 16:00 Glucagon (Glucagen) 1 mg Q15M PRN IM DECREASED GLUCOSE; Start 08/14/16 at 16:00 Glucose (Glutose) 15 gm Q15M PRN BUCCAL DECREASED GLUCOSE; Start 08/14/16 at 16 :00 Acetaminophen (Tylenol Tab) 650 mg Q6H PRN PO PAIN AND OR ELEVATED TEMP Last administered on 08/22/16 15:01; Admin Dose 650 MG; Start 08/14/16 at 16:00 Acyclovir (Zovirax) 800 mg DAILY PO Last administered on 08/15/16 09:16; Admin Dose 800 MG; Start 08/15/16 at 09:00; Status Future Hold Atenolol (Tenormin) 50 mg DAILY PO Last administered on 08/23/16 09:21; Admin Dose 50 MG; Start 08/15/16 at 09:00 Atorvastatin Calcium (Lipitor) 80 mg DAILY@21 PO Last administered on 20:22; Admin Dose 80 MG; Start 08/14/16 at 21:00 Bisacodyl (Dulcolax Supp) 10 mg DAILY PRN [place] CONSTIPATION Last administered on 08/23/16 17:33; Admin Dose 10 MG; Start 08/14/16 at 16:00 Bromocriptine Mesylate (Parlodel) 2.5 mg BID PO Last administered on 08/23/16 20:22; Admin Dose 2.5 MG; Start 08/14/16 at 21:00 Clopidogrel Bisulfate (plaVIX) 75 mg DAILY PO Last administered on 08/23/16 09 :21; Admin Dose 75 MG; Start 08/15/16 at 09:00 Docusate Sodium (Colace) 100 mg BID PO Last administered on 08/23/16 20:22; Admin Dose 100 MG; Start 08/14/16 at 21:00 Epoetin Chiki (Epogen (Esrd)) 10,000 units WeSa@21 SC Last administered on 21:14; Admin Dose 10,000 UNITS; Start 08/15/16 at 21:00 Ferrous Gluconate (Fergon) 325 mg BID PO Last administered on 08/23/16 20:22; Admin Dose 325 MG; Start 08/14/16 at 21:00 Folic Acid (Folic Acid) 1 mg DAILY PO Last administered on 08/23/16 09:21; Admin Dose 1 MG; Start 08/15/16 at 09:00 Linagliptin (Tradjenta) 5 mg DAILY PO Last administered on 08/23/16 09:21; Admin Dose 5 MG; Start 08/15/16 at 09:00 Pantoprazole (Protonix Tab) 40 mg DAILY@06 PO Last administered on 08/23/16 05 :29; Admin Dose 40 MG; Start 08/15/16 at 06:00 Lactulose (Enulose) 20 gm DAILY PRN PO CONSTIPATION Last administered on 18:24; Admin Dose 20 GM; Start 08/14/16 at 16:00 Insulin Glargine (Lantus) 20 unit DAILY@20 SC Last administered on 08/23/16 20 :22; Admin Dose 20 UNIT; Start 08/18/16 at 20:00 CHRISTINA SHIRLEY MD Aug 23, 2016 21:12
[2016-08-24] VITALS (13 sets, daily range): BP systolic 101–158; BP diastolic 56–72; PULSE 60–68; RESP 16–19
[2016-08-24] MEDS: ACCU-CHEK XX SCH (02:04)
[2016-08-24] MEDS: PANTOPRAZOLE (EC) 40 MG TAB PO SCH (06:06)
[2016-08-24] MEDS: LEVOTHYROXINE 88 MCG TAB PO SCH (06:06)
[2016-08-24] MEDS: ACETAMINOPHEN 325 MG TAB PO PRN ×2 (06:10→22:12)
[2016-08-24] MEDS: INSULIN ASPART [NOVOLOG] 3 ML PEN SC SCH ×4 (08:00→21:00)
[2016-08-24] MEDS: ATENOLOL 50 MG TAB PO SCH (08:39)
[2016-08-24] MEDS: FOLIC ACID 1 MG TAB PO SCH (09:01)
[2016-08-24] MEDS: LINAGLIPTIN 5 MG TABLET PO SCH (09:01)
[2016-08-24] MEDS: BROMOCRIPTINE 2.5 MG TAB PO SCH ×2 (09:01→20:32)
[2016-08-24] MEDS: DOCUSATE SODIUM 100 MG CAP PO SCH ×2 (09:01→20:32)
[2016-08-24] MEDS: CLOPIDOGREL 75 MG TAB PO SCH (09:01)
[2016-08-24] MEDS: FERROUS GLUCONATE (EC) 325 MG TAB PO SCH ×2 (09:01→20:32)
--- NOTE | 2016-08-24 13:12 | PN ---
Date/Time of Note Date/Time of Note DATE: 08/24/16 TIME: 13:11 Assessment/Plan VTE Prophylaxis VTE Prophylaxis Intervention: SCD's Lines/Catheters [facility] [place] [facility] Urinary Cath still in place: No Assessment/Plan Chief Complaint/Hosp Course 1. Patient has cerebrovascular accident recovering. 2. Status post altered mental status. 3. End-stage renal disease. 4. Hypertension. 5. Diabetes mellitus, non-controlled. 6. Hypothyroidism. 7. Dyslipidemia. 8. Left leg cellulitis. 9. Left leg varicose vein. 10. The patient has pituitary mass prolactinoma. Problems: Assessment/Plan 1. Optimization kidney function Subjective 24 Hr Interval Summary Gastrointestinal: decreased appetite, pain Exam/Review of Systems Vital Signs Vitals Vital Signs Date Time Temp Pulse Resp B/P Pulse Ox O2 Delivery O2 Flow Rate FiO2 08/24/16 11:40 98.3 59 19 115/63 96 08/24/16 00:00 Room Air 08/21/16 11:30 2.0 Intake and Output 08/23/16 08/23/16 08/24/16 15:00 23:00 07:00 Intake Total 500 ml 120 ml Balance 500 ml 120 ml Exam Constitutional: alert Neck: supple Respiratory: clear to auscultation Cardiovascular: regular rate and rhythm Gastrointestinal: soft Results Result Diagram: 08/22/16 0631 Results 24 hrs Laboratory Tests Test 08/23/16 17:20 08/23/16 20:14 08/24/16 01:47 08/24/16 08:31 Bedside Glucose 169 159 128 100 Test 08/24/16 12:14 Bedside Glucose 114 Medications Medications Current Medications Diagnostic Test (Pha) (Accu-Chek) 1 ea 02 XX Last administered on 08/24/16t 02: 04; Admin Dose 1 EA; Start 08/15/16 at 02:00 Miscellaneous Information 1 ea NOTE XX ; Start 08/14/16 at 16:00 Glucose (Glutose) 15 gm Q15M PRN PO DECREASED GLUCOSE; Start 08/14/16 at 16:00 Glucose (Glutose) 22.5 gm Q15M PRN PO DECREASED GLUCOSE; Start 08/14/16 at 16: 00 Dextrose (D50w Syringe) 25 ml Q15M PRN IV DECREASED GLUCOSE; Start 08/14/16 at 16:00 Dextrose (D50w Syringe) 50 ml Q15M PRN IV DECREASED GLUCOSE; Start 08/14/16 at 16:00 Glucagon (Glucagen) 1 mg Q15M PRN IM DECREASED GLUCOSE; Start 08/14/16 at 16:00 Glucose (Glutose) 15 gm Q15M PRN BUCCAL DECREASED GLUCOSE; Start 08/14/16 at 16 :00 Acetaminophen (Tylenol Tab) 650 mg Q6H PRN PO PAIN AND OR ELEVATED TEMP Last administered on 08/24/16 06:10; Admin Dose 650 MG; Start 08/14/16 at 16:00 Acyclovir (Zovirax) 800 mg DAILY PO Last administered on 08/15/16 09:16; Admin Dose 800 MG; Start 08/15/16 at 09:00; Status Future Hold Atenolol (Tenormin) 50 mg DAILY PO Last administered on 08/23/16 09:21; Admin Dose 50 MG; Start 08/15/16 at 09:00 Atorvastatin Calcium (Lipitor) 80 mg DAILY@21 PO Last administered on 20:22; Admin Dose 80 MG; Start 08/14/16 at 21:00 Bisacodyl (Dulcolax Supp) 10 mg DAILY PRN [place] CONSTIPATION Last administered on 08/23/16 17:33; Admin Dose 10 MG; Start 08/14/16 at 16:00 Bromocriptine Mesylate (Parlodel) 2.5 mg BID PO Last administered on 08/24/16 09:01; Admin Dose 2.5 MG; Start 08/14/16 at 21:00 Clopidogrel Bisulfate (plaVIX) 75 mg DAILY PO Last administered on 08/24/16 09 :01; Admin Dose 75 MG; Start 08/15/16 at 09:00 Docusate Sodium (Colace) 100 mg BID PO Last administered on 08/24/16 09:01; Admin Dose 100 MG; Start 08/14/16 at 21:00 Epoetin Chiki (Epogen (Esrd)) 10,000 units WeSa@21 SC Last administered on 21:14; Admin Dose 10,000 UNITS; Start 08/15/16 at 21:00 Ferrous Gluconate (Fergon) 325 mg BID PO Last administered on 08/24/16 09:01; Admin Dose 325 MG; Start 08/14/16 at 21:00 Folic Acid (Folic Acid) 1 mg DAILY PO Last administered on 08/24/16 09:01; Admin Dose 1 MG; Start 08/15/16 at 09:00 Linagliptin (Tradjenta) 5 mg DAILY PO Last administered on 08/24/16 09:01; Admin Dose 5 MG; Start 08/15/16 at 09:00 Pantoprazole (Protonix Tab) 40 mg DAILY@06 PO Last administered on 08/24/16 06 :06; Admin Dose 40 MG; Start 08/15/16 at 06:00 Lactulose (Enulose) 20 gm DAILY PRN PO CONSTIPATION Last administered on 18:24; Admin Dose 20 GM; Start 08/14/16 at 16:00 Insulin Glargine (Lantus) 20 unit DAILY@20 SC Last administered on 08/23/16 20 :22; Admin Dose 20 UNIT; Start 08/18/16 at 20:00 MARTINE LLOYD Aug 24, 2016 13:12
[2016-08-24] MEDS: LOPERAMIDE 2 MG CAP PO PRN (16:15)
[2016-08-24] MEDS ORDERED: INSULIN ASPART [NOVOLOG] 3 ML PEN SC SCH ×2 (18:05)
[2016-08-24] MEDS: INSULIN GLARGINE [LANtus] 3 ML PEN SC SCH (20:00)
[2016-08-24] MEDS: ATORVASTATIN 80 MG TAB PO SCH (20:32)
[2016-08-25] MEDS: ACCU-CHEK XX SCH (01:21)
[2016-08-25] MEDS ORDERED: ACCU-CHEK XX SCH ×3 (02:00)
[2016-08-25] MEDS: ACETAMINOPHEN 325 MG TAB PO PRN ×2 (04:06→12:33)
[2016-08-25 05:11] LABS: BASOPHIL # 0.1 10^3/ul (0.0-0.1); BASOPHILS % 0.7 % (0.0-2.0); EOSINOPHILS # 0.2 10^3/ul (0.0-0.5); HEMATOCRIT 27.6 % (37.0-47.0); LYMPHOCYTES % 14.5 % (15.0-51.0); MEAN CORPUSCULAR HEMOGLOBIN 30.3 pg (29.0-33.0); MEAN CORPUSCULAR HGB CONC 32.6 g/dl (32.0-37.0); MEAN CORPUSCULAR VOLUME 92.9 fl (82.0-101.0); MEAN PLATELET VOLUME 9.4 fl (7.4-10.4); MONOCYTE # 0.5 10^3/ul (0.3-0.9); MONOCYTES % 7.8 % (0.0-11.0); NEUTROPHIL # 4.9 10^3/ul (1.6-7.5); NEUTROPHILS % 73.4 % (39.0-77.0); PLATELET COUNT 303 10^3/UL (140-415); RED BLOOD COUNT 2.97 10^6/ul (4.20-5.40); RED CELL DISTRIBUTION WIDTH 14.6 % (11.5-14.5); WHITE BLOOD COUNT 6.7 10^3/ul (4.8-10.8)
[2016-08-25 05:14] LABS: ADD SCAN DIFF NO
[2016-08-25 05:35] LABS: CALCIUM 8.5 mg/dl (8.4-10.2); CREATININE 6.15 mg/dl (0.44-1.00); POTASSIUM 3.7 mmol/L (3.5-5.1)
[2016-08-25] MEDS: PANTOPRAZOLE (EC) 40 MG TAB PO SCH (06:36)
[2016-08-25] MEDS: LEVOTHYROXINE 88 MCG TAB PO SCH (06:36)
[2016-08-25 07:30] VITALS: BP 123/58; RESP 16
[2016-08-25] MEDS: INSULIN ASPART [NOVOLOG] 3 ML PEN SC SCH ×4 (08:00→20:24)
[2016-08-25] MEDS: FOLIC ACID 1 MG TAB PO SCH (08:26)
[2016-08-25] MEDS: LOPERAMIDE 2 MG CAP PO PRN (08:26)
[2016-08-25] MEDS: CLOPIDOGREL 75 MG TAB PO SCH (08:26)
[2016-08-25] MEDS: LINAGLIPTIN 5 MG TABLET PO SCH (08:26)
[2016-08-25] MEDS: ATENOLOL 50 MG TAB PO SCH (08:28)
[2016-08-25] MEDS: DOCUSATE SODIUM 100 MG CAP PO SCH ×2 (08:28→20:23)
[2016-08-25] MEDS: BROMOCRIPTINE 2.5 MG TAB PO SCH ×2 (10:38→20:23)
[2016-08-25] MEDS: FERROUS GLUCONATE (EC) 325 MG TAB PO SCH ×2 (10:38→20:23)
--- NOTE | 2016-08-25 11:59 | PN ---
Date/Time of Note Date/Time of Note DATE: 08/25/16 TIME: 11:58 Assessment/Plan VTE Prophylaxis VTE Prophylaxis Intervention: heparin Lines/Catheters IV C[facility]ter Type (from [facility] Permacath Urinary Cath still in place: No Assessment/Plan Chief Complaint/Hosp Course 1. Patient has cerebrovascular accident recovering. 2. Status post altered mental status. 3. End-stage renal disease. 4. Hypertension. 5. Diabetes mellitus, non-controlled. 6. Hypothyroidism. 7. Dyslipidemia. 8. Left leg cellulitis. 9. Left leg varicose vein. 10. The patient has pituitary mass prolactinoma. Problems: Assessment/Plan 1. Continue current regime Subjective 24 Hr Interval Summary Constitutional: no complaints Gastrointestinal: diarrhea Exam/Review of Systems Vital Signs Vitals Vital Signs Date Time Temp Pulse Resp B/P Pulse Ox O2 Delivery O2 Flow Rate FiO2 08/25/16 07:30 98.4 57 16 123/58 100 08/24/16 00:00 Room Air 08/21/16 11:30 2.0 Intake and Output 08/24/16 08/24/16 08/25/16 15:00 23:00 07:00 Intake Total 300 ml 700 ml 240 ml Output Total 2300 ml Balance -2000 ml 700 ml 240 ml Exam Constitutional: alert, oriented Respiratory: clear to auscultation Cardiovascular: regular rate and rhythm Gastrointestinal: soft Results Result Diagram: 08/25/16 0433 08/25/16 0433 Results 24 hrs Laboratory Tests Test 08/24/16 12:14 08/24/16 17:03 08/24/16 20:56 08/25/16 04:33 Bedside Glucose 114 98 97 White Blood Count 6.7 Red Blood Count 2.97 L Hemoglobin 9.0 L Hematocrit 27.6 L Mean Corpuscular Volume 92.9 Mean Corpuscular Hemoglobin 30.3 Mean Corpuscular Hemoglobin Concent 32.6 Red Cell Distribution Width 14.6 H Platelet Count 303 Mean Platelet Volume 9.4 Neutrophils % 73.4 Lymphocytes % 14.5 L Monocytes % 7.8 Eosinophils % 3.0 Basophils % 0.7 Nucleated Red Blood Cells % 0.0 Neutrophils # 4.9 Lymphocytes # 1.0 Monocytes # 0.5 Eosinophils # 0.2 Basophils # 0.1 Nucleated Red Blood Cells # 0.0 Sodium Level 132 L Potassium Level 3.7 Chloride Level 89 L Carbon Dioxide Level 26 Anion Gap 21 H Blood Urea Nitrogen 39 H Creatinine 6.15 H Glucose Level 71 Calcium Level 8.5 Test 08/25/16 08:19 Bedside Glucose 74 Medications Medications Current Medications Diagnostic Test (Pha) (Accu-Chek) 1 ea 02 XX Last administered on 08/24/16 02: 04; Admin Dose 1 EA; Start 08/15/16 at 02:00 Miscellaneous Information 1 ea NOTE XX ; Start 08/14/16 at 16:00 Glucose (Glutose) 15 gm Q15M PRN PO DECREASED GLUCOSE; Start 08/14/16 at 16:00 Glucose (Glutose) 22.5 gm Q15M PRN PO DECREASED GLUCOSE; Start 08/14/16 at 16: 00 Dextrose (D50w Syringe) 25 ml Q15M PRN IV DECREASED GLUCOSE; Start 08/14/16 at 16:00 Dextrose (D50w Syringe) 50 ml Q15M PRN IV DECREASED GLUCOSE; Start 08/14/16 at 16:00 Glucagon (Glucagen) 1 mg Q15M PRN IM DECREASED GLUCOSE; Start 08/14/16 at 16:00 Glucose (Glutose) 15 gm Q15M PRN BUCCAL DECREASED GLUCOSE; Start 08/14/16 at 16 :00 Acetaminophen (Tylenol Tab) 650 mg Q6H PRN PO PAIN AND OR ELEVATED TEMP Last administered on 08/25/16 04:06; Admin Dose 650 MG; Start 08/14/16 at 16:00 Acyclovir (Zovirax) 800 mg DAILY PO Last administered on 08/15/16 09:16; Admin Dose 800 MG; Start 08/15/16 at 09:00; Status Future Hold Atenolol (Tenormin) 50 mg DAILY PO Last administered on 08/25/16 08:28; Admin Dose 50 MG; Start 08/15/16 at 09:00 Atorvastatin Calcium (Lipitor) 80 mg DAILY@21 PO Last administered on 20:32; Admin Dose 80 MG; Start 08/14/16 at 21:00 Bisacodyl (Dulcolax Supp) 10 mg DAILY PRN [place] CONSTIPATION Last administered on 08/23/16 17:33; Admin Dose 10 MG; Start 08/14/16 at 16:00 Bromocriptine Mesylate (Parlodel) 2.5 mg BID PO Last administered on 08/25/16 10:38; Admin Dose 2.5 MG; Start 08/14/16 at 21:00 Clopidogrel Bisulfate (plaVIX) 75 mg DAILY PO Last administered on 08/25/16 08: 26; Admin Dose 75 MG; Start 08/15/16 at 09:00 Docusate Sodium (Colace) 100 mg BID PO Last administered on 08/24/16 20:32; Admin Dose 100 MG; Start 08/14/16 at 21:00 Epoetin Chiki (Epogen (Esrd)) 10,000 units WeSa@21 SC Last administered on 21:14; Admin Dose 10,000 UNITS; Start 08/15/16 at 21:00 Ferrous Gluconate (Fergon) 325 mg BID PO Last administered on 08/25/16 10:38; Admin Dose 325 MG; Start 08/14/16 at 21:00 Folic Acid (Folic Acid) 1 mg DAILY PO Last administered on 08/25/16 08:26; Admin Dose 1 MG; Start 08/15/16 at 09:00 Linagliptin (Tradjenta) 5 mg DAILY PO Last administered on 08/25/16 08:26; Admin Dose 5 MG; Start 08/15/16 at 09:00 Pantoprazole (Protonix Tab) 40 mg DAILY@06 PO Last administered on 08/25/16 06: 36; Admin Dose 40 MG; Start 08/15/16 at 06:00 Lactulose (Enulose) 20 gm DAILY PRN PO CONSTIPATION Last administered on 18:24; Admin Dose 20 GM; Start 08/14/16 at 16:00 Insulin Glargine (Lantus) 20 unit DAILY@20 SC Last administered on 08/23/16 20 :22; Admin Dose 20 UNIT; Start 08/18/16 at 20:00 Loperamide HCl (Imodium Cap) 2 mg QID PRN PO DIARRHEA Last administered on 08:26; Admin Dose 2 MG; Start 08/24/16 at 15:30 MARTINE LLOYD Aug 25, 2016 11:59
--- NOTE | 2016-08-25 18:43 | RADRPT ---
PROCEDURE: XR Abdomen. CLINICAL INDICATION: Abdominal pain, constipation TECHNIQUE: AP abdomen x-ray. COMPARISON: July 21, 2016 FINDINGS: The bowel gas pattern is normal. There is no evidence of obstruction. There is diffuse, moderate con stipation. There are no findings of free air or perforation. There are no abnormal calcifications overlying the urinary tracts. The osseus structures are unremarkable. IMPRESSION: Moderate constipation. Overall, no significant interval change. RPTAT: QQ .Aislinn Powell MD, MD Date Time Electronically viewed and signed by .Aislinn Powell MD, MD on 08/25/2016 18:42 .F/
[2016-08-25] MEDS ORDERED: HYDROmorphONE 1 MG/ML SYG IV STA (20:07)
[2016-08-25] MEDS: ATORVASTATIN 80 MG TAB PO SCH (20:23)
[2016-08-25 21:46] VITALS: BP 160/72; RESP 20
[2016-08-25] MEDS: EPOETIN 10000 UNITS/1 ML INJ (ESRD) SC SCH (21:59)
[2016-08-25 22:05] VITALS: BP 135/63; PULSE 64
[2016-08-26] MEDS: ACCU-CHEK XX SCH (01:31)
[2016-08-26] MEDS: LEVOTHYROXINE 88 MCG TAB PO SCH (06:29)
[2016-08-26] MEDS: PANTOPRAZOLE (EC) 40 MG TAB PO SCH (06:29)
[2016-08-26 07:53] VITALS: BP 141/63; RESP 18
[2016-08-26] MEDS: INSULIN ASPART [NOVOLOG] 3 ML PEN SC SCH ×4 (08:00→21:00)
[2016-08-26] MEDS: LACTULOSE 30ML CUP PO PRN (08:28)
[2016-08-26] MEDS: DOCUSATE SODIUM 100 MG CAP PO SCH ×2 (08:30→21:22)
[2016-08-26] MEDS: LINAGLIPTIN 5 MG TABLET PO SCH (09:58)
[2016-08-26] MEDS: CLOPIDOGREL 75 MG TAB PO SCH (09:58)
[2016-08-26] MEDS: FOLIC ACID 1 MG TAB PO SCH (09:58)
[2016-08-26] MEDS: ATENOLOL 50 MG TAB PO SCH (09:58)
[2016-08-26] MEDS: BROMOCRIPTINE 2.5 MG TAB PO SCH ×2 (09:58→21:27)
[2016-08-26] MEDS: FERROUS GLUCONATE (EC) 325 MG TAB PO SCH ×2 (12:20→21:22)
--- NOTE | 2016-08-26 17:53 | PN ---
Date/Time of Note Date/Time of Note DATE: 08/26/16 TIME: 17:51 Assessment/Plan VTE Prophylaxis VTE Prophylaxis Intervention: other Lines/Catheters IV [facility] Type ([facility] Saline Lock Urinary Cath still in place: No Assessment/Plan Chief Complaint/Hosp Course 1. Patient has cerebrovascular accident recovering. 2. Status post altered mental status. 3. End-stage renal disease. 4. Hypertension. 5. Diabetes mellitus. 6. Hypothyroidism. 7. Dyslipidemia. 8. Left leg cellulitis. 9. Left leg varicose vein. 10. The patient has pituitary mass prolactinoma. [address] MACIAS SAW PT plan HEMODIALYSIS AM NEED SNF BOWEL CARE Problems: Subjective 24 Hr Interval Summary Respiratory: no complaints Cardiovascular: no complaints Gastrointestinal: constipation (+), no complaints Genitourinary: no complaints Exam/Review of Systems Vital Signs Vitals Vital Signs Date Time Temp Pulse Resp B/P Pulse Ox O2 Delivery O2 Flow Rate FiO2 08/26/16 07:53 97.6 60 18 141/63 96 08/24/16 00:00 Room Air Intake and Output 08/25/16 08/25/16 08/26/16 15:00 23:00 07:00 Intake Total 320 ml 480 ml Balance 320 ml 480 ml Exam Neck: supple Respiratory: clear to auscultation Cardiovascular: regular rate and rhythm Gastrointestinal: bowel sounds (+), soft Results Result Diagram: 08/25/16 0433 08/25/16 0433 Results 24 hrs Laboratory Tests Test 08/25/16 20:20 08/26/16 07:57 08/26/16 08:25 08/26/16 12:01 Bedside Glucose 83 76 90 106 Test 08/26/16 17:02 Bedside Glucose 102 Medications Medications Current Medications Diagnostic Test (Pha) (Accu-Chek) 1 ea 02 XX Last administered on 08/24/16t 02: 04; Admin Dose 1 EA; Start 08/15/16 at 02:00 Miscellaneous Information 1 ea NOTE XX ; Start 08/14/16 at 16:00 Glucose (Glutose) 15 gm Q15M PRN PO DECREASED GLUCOSE; Start 08/14/16 at 16:00 Glucose (Glutose) 22.5 gm Q15M PRN PO DECREASED GLUCOSE; Start 08/14/16 at 16: 00 Dextrose (D50w Syringe) 25 ml Q15M PRN IV DECREASED GLUCOSE; Start 08/14/16 at 16:00 Dextrose (D50w Syringe) 50 ml Q15M PRN IV DECREASED GLUCOSE; Start 08/14/16 at 16:00 Glucagon (Glucagen) 1 mg Q15M PRN IM DECREASED GLUCOSE; Start 08/14/16 at 16:00 Glucose (Glutose) 15 gm Q15M PRN BUCCAL DECREASED GLUCOSE; Start 08/14/16 at 16 :00 Acetaminophen (Tylenol Tab) 650 mg Q6H PRN PO PAIN AND OR ELEVATED TEMP Last administered on 08/25/16 12:33; Admin Dose 650 MG; Start 08/14/16 at 16:00 Acyclovir (Zovirax) 800 mg DAILY PO Last administered on 08/15/16 09:16; Admin Dose 800 MG; Start 08/15/16 at 09:00; Status Future Hold Atenolol (Tenormin) 50 mg DAILY PO Last administered on 08/26/16 09:58; Admin Dose 50 MG; Start 08/15/16 at 09:00 Atorvastatin Calcium (Lipitor) 80 mg DAILY@21 PO Last administered on 08/25/16 20:23; Admin Dose 80 MG; Start 08/14/16 at 21:00 Bisacodyl (Dulcolax Supp) 10 mg DAILY PRN [place] CONSTIPATION Last administered on 08/23/16 17:33; Admin Dose 10 MG; Start 08/14/16 at 16:00 Bromocriptine Mesylate (Parlodel) 2.5 mg BID PO Last administered on 08/26/16 09:58; Admin Dose 2.5 MG; Start 08/14/16 at 21:00 Clopidogrel Bisulfate (plaVIX) 75 mg DAILY PO Last administered on 08/26/16 09: 58; Admin Dose 75 MG; Start 08/15/16 at 09:00 Docusate Sodium (Colace) 100 mg BID PO Last administered on 08/26/16 08:30; Admin Dose 100 MG; Start 08/14/16 at 21:00 Epoetin Chiki (Epogen (Esrd)) 10,000 units WeSa@21 SC Last administered on 21:59; Admin Dose 10,000 UNITS; Start 08/15/16 at 21:00 Ferrous Gluconate (Fergon) 325 mg BID PO Last administered on 08/26/16 12:20; Admin Dose 325 MG; Start 08/14/16 at 21:00 Folic Acid (Folic Acid) 1 mg DAILY PO Last administered on 08/26/16 09:58; Admin Dose 1 MG; Start 08/15/16 at 09:00 Linagliptin (Tradjenta) 5 mg DAILY PO Last administered on 08/26/16 09:58; Admin Dose 5 MG; Start 08/15/16 at 09:00 Pantoprazole (Protonix Tab) 40 mg DAILY@06 PO Last administered on 08/26/16 06: 29; Admin Dose 40 MG; Start 08/15/16 at 06:00 Lactulose (Enulose) 20 gm DAILY PRN PO CONSTIPATION Last administered on 08:28; Admin Dose 20 GM; Start 08/14/16 at 16:00 Loperamide HCl (Imodium Cap) 2 mg QID PRN PO DIARRHEA Last administered on 08:26; Admin Dose 2 MG; Start 08/24/16 at 15:30 Insulin Glargine (Lantus) 10 unit DAILY@20 SC ; Start 08/26/16 at 20:00 CHRISTINA SHIRLEY MD Aug 26, 2016 17:53
[2016-08-26 19:15] VITALS: BP 110/58; PULSE 86
[2016-08-26] MEDS ORDERED: INSULIN GLARGINE [LANtus] 3 ML PEN SC SCH (20:00)
[2016-08-26] MEDS: LUBIPROSTONE 24 MCG CAP PO SCH (21:22)
[2016-08-26] MEDS: ATORVASTATIN 80 MG TAB PO SCH (21:22)
[2016-08-26 21:51] VITALS: BP 156/69; RESP 20
[2016-08-26 23:17] VITALS: BP 127/53; RESP 18
[2016-08-27] VITALS (11 sets, daily range): BP systolic 98–145; BP diastolic 50–80; PULSE 63–72; RESP 16–21
[2016-08-27] MEDS: ACCU-CHEK XX SCH (02:00)
[2016-08-27] MEDS: PANTOPRAZOLE (EC) 40 MG TAB PO SCH (06:01)
[2016-08-27] MEDS: LEVOTHYROXINE 88 MCG TAB PO SCH (06:01)
[2016-08-27] MEDS: INSULIN ASPART [NOVOLOG] 3 ML PEN SC SCH ×3 (08:00→17:19)
[2016-08-27] MEDS: FERROUS GLUCONATE (EC) 325 MG TAB PO SCH (08:32)
[2016-08-27] MEDS: CLOPIDOGREL 75 MG TAB PO SCH (08:32)
[2016-08-27] MEDS: FOLIC ACID 1 MG TAB PO SCH (08:32)
[2016-08-27] MEDS: BROMOCRIPTINE 2.5 MG TAB PO SCH (08:32)
[2016-08-27] MEDS: DOCUSATE SODIUM 100 MG CAP PO SCH (08:32)
[2016-08-27] MEDS: LINAGLIPTIN 5 MG TABLET PO SCH (08:32)
[2016-08-27] MEDS: LUBIPROSTONE 24 MCG CAP PO SCH (08:32)
[2016-08-27] MEDS: ATENOLOL 50 MG TAB PO SCH (08:33)
--- NOTE | 2016-08-27 11:46 | PN ---
Date/Time of Note Date/Time of Note DATE: 08/27/16 TIME: 11:43 Assessment/Plan VTE Prophylaxis VTE Prophylaxis Intervention: LMWH Lines/Catheters IV Catheter Type (from [facility]): Saline Lock Urinary Cath still in place: No Assessment/Plan Chief Complaint/Hosp Course 1. Patient has cerebrovascular accident recovering. 2. Status post altered mental status. 3. End-stage renal disease. 4. Hypertension. 5. Diabetes mellitus, non-controlled. 6. Hypothyroidism. 7. Dyslipidemia. 8. Left leg cellulitis. 9. Left leg varicose vein. 10. The patient has pituitary mass prolactinoma. Problems: Assessment/Plan 1. Continue HD 2. Continue current regime Subjective 24 Hr Interval Summary Constitutional: improved, no complaints Musculoskeletal: other (weakness left side) Exam/Review of Systems Vital Signs Vitals Vital Signs Date Time Temp Pulse Resp B/P Pulse Ox O2 Delivery O2 Flow Rate FiO2 08/27/16 08:24 97.2 59 16 145/67 96 08/24/16 00:00 Room Air Intake and Output 08/26/16 08/26/16 08/27/16 15:00 23:00 07:00 Intake Total 640 ml 600 ml Balance 640 ml 600 ml Exam Head: normocephalic Neck: supple Respiratory: clear to auscultation Cardiovascular: regular rate and rhythm Results Result Diagram: 08/25/16 0433 08/25/16 0433 Results 24 hrs Laboratory Tests Test 08/26/16 12:01 08/26/16 17:02 08/26/16 21:21 08/27/16 00:08 Bedside Glucose 106 102 91 93 Test 08/27/16 07:59 08/27/16 08:29 08/27/16 08:58 Bedside Glucose 62 L 101 103 Medications Medications Current Medications Diagnostic Test (Pha) (Accu-Chek) 1 ea 02 XX Last administered on 08/24/16t 02: 04; Admin Dose 1 EA; Start 08/15/16 at 02:00 Miscellaneous Information 1 ea NOTE XX ; Start 08/14/16 at 16:00 Glucose (Glutose) 15 gm Q15M PRN PO DECREASED GLUCOSE; Start 08/14/16 at 16:00 Glucose (Glutose) 22.5 gm Q15M PRN PO DECREASED GLUCOSE; Start 08/14/16 at 16: 00 Dextrose (D50w Syringe) 25 ml Q15M PRN IV DECREASED GLUCOSE; Start 08/14/16 at 16:00 Dextrose (D50w Syringe) 50 ml Q15M PRN IV DECREASED GLUCOSE; Start 08/14/16 at 16:00 Glucagon (Glucagen) 1 mg Q15M PRN IM DECREASED GLUCOSE; Start 08/14/16 at 16:00 Glucose (Glutose) 15 gm Q15M PRN BUCCAL DECREASED GLUCOSE; Start 08/14/16 at 16 :00 Acetaminophen (Tylenol Tab) 650 mg Q6H PRN PO PAIN AND OR ELEVATED TEMP Last administered on 08/25/16 12:33; Admin Dose 650 MG; Start 08/14/16 at 16:00 Acyclovir (Zovirax) 800 mg DAILY PO Last administered on 08/15/16 09:16; Admin Dose 800 MG; Start 08/15/16 at 09:00; Status Future Hold Atenolol (Tenormin) 50 mg DAILY PO Last administered on 08/26/16 09:58; Admin Dose 50 MG; Start 08/15/16 at 09:00 Atorvastatin Calcium (Lipitor) 80 mg DAILY@21 PO Last administered on 08/26/16 21:22; Admin Dose 80 MG; Start 08/14/16 at 21:00 Bisacodyl (Dulcolax Supp) 10 mg DAILY PRN [place] CONSTIPATION Last administered on 08/23/16 17:33; Admin Dose 10 MG; Start 08/14/16 at 16:00 Bromocriptine Mesylate (Parlodel) 2.5 mg BID PO Last administered on 08/27/16 08:32; Admin Dose 2.5 MG; Start 08/14/16 at 21:00 Clopidogrel Bisulfate (plaVIX) 75 mg DAILY PO Last administered on 08/27/16 08: 32; Admin Dose 75 MG; Start 08/15/16 at 09:00 Docusate Sodium (Colace) 100 mg BID PO Last administered on 08/27/16 08:32; Admin Dose 100 MG; Start 08/14/16 at 21:00 Epoetin Chiki (Epogen (Esrd)) 10,000 units WeSa@21 SC Last administered on 21:59; Admin Dose 10,000 UNITS; Start 08/15/16 at 21:00 Ferrous Gluconate (Fergon) 325 mg BID PO Last administered on 08/27/16 08:32; Admin Dose 325 MG; Start 08/14/16 at 21:00 Folic Acid (Folic Acid) 1 mg DAILY PO Last administered on 08/27/16 08:32; Admin Dose 1 MG; Start 08/15/16 at 09:00 Linagliptin (Tradjenta) 5 mg DAILY PO Last administered on 08/27/16 08:32; Admin Dose 5 MG; Start 08/15/16 at 09:00 Pantoprazole (Protonix Tab) 40 mg DAILY@06 PO Last administered on 08/27/16 06: 01; Admin Dose 40 MG; Start 08/15/16 at 06:00 Lactulose (Enulose) 20 gm DAILY PRN PO CONSTIPATION Last administered on 08:28; Admin Dose 20 GM; Start 08/14/16 at 16:00 Loperamide HCl (Imodium Cap) 2 mg QID PRN PO DIARRHEA Last administered on 08:26; Admin Dose 2 MG; Start 08/24/16 at 15:30 Insulin Glargine (Lantus) 10 unit DAILY@20 SC Last administered on 08/26/16 21: 25; Admin Dose 10 UNIT; Start 08/26/16 at 20:00 Lubiprostone (Amitiza) 24 mcg BID PO Last administered on 08/27/16 08:32; Admin Dose 24 MCG; Start 08/26/16 at 21:00 MARTINE LLOYD Aug 27, 2016 11:45
[2016-08-27] MEDS: ACETAMINOPHEN 325 MG TAB PO PRN (12:14)
== END 2016-08-27 20:45 | DRG 673 ==
LOC: MS4 13:35 → PP2 08-24 23:16
PROVIDERS: ADMIT Internal Medicine Nephrology; ATTEND Internal Medicine Nephrology
PROC: 02H633Z Insertion of Infusion Device into Right Atrium, Percutaneous Approach (ICD-10-PCS; principal; 2016-08-21)
PROC: 0JH63XZ Insertion of Tunneled Vascular Access Device into Chest Subcutaneous Tissue and Fascia, Percutaneous Approach (ICD-10-PCS; 2016-08-21)
PROC: 5A1D60Z (ICD-10-PCS; 2016-08-22)
DX: I12.0 Hypertensive chronic kidney disease with stage 5 chronic kidney disease or end stage renal disease (principal); G92 Toxic encephalopathy; N18.6 End stage renal disease; K76.0 Fatty (change of) liver, not elsewhere classified; I69.354 Hemiplegia and hemiparesis following cerebral infarction affecting left non-dominant side; L03.116 Cellulitis of left lower limb; Z99.2 Dependence on renal dialysis; E11.9 Type 2 diabetes mellitus without complications; E78.5 Hyperlipidemia, unspecified; D35.2 Benign neoplasm of pituitary gland; E03.9 Hypothyroidism, unspecified; I83.891 Varicose veins of right lower extremity with other complications; E66.9 Obesity, unspecified; Z68.36 Body mass index [BMI] 36.0-36.9, adult
CPT/HCPCS: 36558; 74000; 76705; 76942; 80048; 80053; 82140; 82962; 85025; 85610; 85730; 86704; 86709; 86803; 87081; 87340; 90935; 90945; 95819; 97110; 97162; 97530; J0690; J1170; J1644; J1815; J2250; J3010; J7040; Q4081

== ENCOUNTER → 2016-10-23 | Outpatient (CLI) | payer OTHER ==
[~2016-10-23] MED LIST changes: +LIDOCAINE 1% (MDV) 20 ML INJ ONE
--- NOTE | 2016-10-23 16:39 | RADRPT ---
PROCEDURE: Right internal jugular vein tunneled hemodialysis catheter removal. CLINICAL INDICATION: Right internal jugular vein tunneled dialysis catheter no longer required. TECHNIQUE: INTRAPROCEDURE MEDICATIONS: 1% lidocaine subcutaneous. The procedure, risks, benefits, complications and alternatives were explained to the patient. Consen t was obtained. A procedural pause was performed prior to the procedure. The patient's name, date of , and procedure to be performed were verified. The right anterior chest wall was prepped and draped. One percent lidocaine was used as local anesth esia at the site of the dialysis catheter. Fluoroscopic guidance was used. A 1 cm incision was made utilizing a 11 blade scalpel. Utilizing blunt dissection the tunneled catheter was mobilized. The catheter was then removed. Pressure was applied to the region of the internal jugular vein and the c hest wall at the site of the catheter until adequate hemostasis was obtained. A dressing was applie d. The patient tolerated procedure well. 0.1 minutes of fluoroscopy time was used. COMPARISON: None. FINDINGS: Successful removal of tunneled dialysis catheter. Preoperative image demonstrates the tunneled dialy sis catheter in position. Postoperative image demonstrates successful removal of the dialysis dex ter. 2 images of the chest were obtained. IMPRESSION: 1. Successful removal of right internal jugular vein tunneled dialysis catheter. RPTAT: QQ .Christiano Fuentes MD, Date Time Electronically viewed and signed by .Christiano Fuentes MD, on 10/23/2016 16:38 .R/
== END | disposition home or self-care (01) ==
LOC: RAD 13:03
PROVIDERS: ATTEND Internal Medicine Nephrology
DX: Z45.2 Encounter for adjustment and management of vascular access device (principal); N18.6 End stage renal disease
CPT/HCPCS: 36589; Z7610